=== PATIENT | male | born 1955 | race Caucasian/White ===

== ENCOUNTER 2017-12-06 08:39 | Outpatient (CLI) | payer MEDICAID, SELFPAY ==
[2017-12-06 09:18] LABS: HCT 42.8 % (40.0-50.0); HGB 14.6 g/dL (13.5-17.5); Mean Corp. HGB Concentration 34.1 g/dL (32.0-36.0); Mean Corpuscular Volume 96.6 fL (80-95); Mean Platelet Volume 10.4 fL (8.0-11.0); Platelet Count 156 x1000/uL (130-400); RBC 4.43 m/cumm (4.50-6.00); RBC Distribution Width 12.4 % (11.8-14.1); White Blood Cell Count 6.67 k/cumm (4.4-10.8)
[2017-12-06 10:47] LABS: Iron 230 ug/dL (50-175); Total Iron Binding Capacity 262 ug/dL (250-450); Transferrin Sat 88 % (20-55)
[2017-12-06 10:50] LABS: ALT 34 U/L (12-78); AST 33 U/L (15-37); Albumin 3.6 g/dL (3.4-5.0); Alkaline Phosphatase 68 U/L (46-116); Anion Gap 12.3 mmol/L (3-11); BUN 5 mg/dL (7-18); CO2 22.7 mmol/L (21.0-32.0); CREATININE 0.74 mg/dL (0.70-1.30); Calcium 8.4 mg/dL (8.5-10.1); Chloride 107 mmol/L (98-107); Cholesterol 136 mg/dL (50-200); Ferritin 111 ng/mL (8-388); Glucose 126 mg/dL (70-100); HDL Cholesterol 83 mg/dL (40-60); LDL CHOLESTEROL 48 mg/dL (<100); Sodium 142 mmol/L (136-145); TSH (W/Ref FT4) 1.62 uIU/mL (0.358-3.74); Total Protein 6.5 g/dL (6.4-8.2); Triglyceride 73 mg/dL (30-150)
[2017-12-07 09:28] LABS: PSA, Diagnostic 1.3 ng/ml (0-4.5)
== END 2017-12-06 08:59 ==
PROVIDERS: PCP Family Medicine; Visit Provider Family Medicine
DX: K74.69 Other cirrhosis of liver (principal); R63.4 Abnormal weight loss; E11.9 Type 2 diabetes mellitus without complications; I10 Essential (primary) hypertension; E83.119 Hemochromatosis, unspecified
CPT/HCPCS: 36415; 80053; 80061; 83721; 85027; 82728; 83540; 83550; 84153; 84443

== ENCOUNTER 2018-04-01 09:41 | Outpatient (CLI) | payer MEDICAID, SELFPAY ==
[2018-04-01 11:21] LABS: HCT 46.8 % (40.0-50.0); HGB 16.3 g/dL (13.5-17.5); Mean Corp. HGB Concentration 34.8 g/dL (32.0-36.0); Mean Corpuscular Volume 94.7 fL (80-95); Mean Platelet Volume 10.3 fL (8.0-11.0); Platelet Count 154 x1000/uL (130-400); RBC 4.94 m/cumm (4.50-6.00); RBC Distribution Width 12.8 % (11.8-14.1); White Blood Cell Count 6.26 k/cumm (4.4-10.8)
[2018-04-01 11:44] LABS: Ferritin 107 ng/mL (8-388)
== END 2018-04-01 10:01 ==
PROVIDERS: PCP Family Medicine; Visit Provider Family Medicine
DX: E83.119 Hemochromatosis, unspecified (principal)
CPT/HCPCS: 36415; 85027; 82728

== ENCOUNTER 2018-04-05 00:40 | Outpatient (RCR) | payer MEDICAID, SELFPAY | END 2018-04-25 23:59 | disposition home or self-care (01) | LOC: INF 00:40 | PROVIDERS: PCP Family Medicine; Visit Provider Family Medicine | DX: E83.118 Other hemochromatosis (principal) | CPT/HCPCS: 99195 ==

== ENCOUNTER 2018-04-26 10:26 | Outpatient (CLI) | payer MEDICAID, SELFPAY ==
[2018-04-26 15:29] LABS: HGB 16.1 g/dL (13.5-17.5); Mean Corpuscular Hemoglobin 33.4 pg (27.0-33.0); Mean Corpuscular Volume 95.4 fL (80-95); Mean Platelet Volume 10.4 fL (8.0-11.0); Platelet Count 170 x1000/uL (130-400); RBC 4.82 m/cumm (4.50-6.00); RBC Distribution Width 13.1 % (11.8-14.1); White Blood Cell Count 9.64 k/cumm (4.4-10.8)
[2018-04-26 17:13] LABS: Ferritin 81 ng/mL (8-388)
== END 2018-04-26 10:46 ==
PROVIDERS: PCP Family Medicine; Visit Provider Family Medicine
DX: E83.119 Hemochromatosis, unspecified (principal)
CPT/HCPCS: 36415; 85027; 82728

== ENCOUNTER 2018-05-23 10:18 | Outpatient (REF) | payer MEDICAID, SELFPAY ==
[2018-05-23 12:20] LABS: COMMENT (LAB VIEW ONLY) 64.64 mg/dL; Microalb ug/mg Crea 15.8 ug/mg Cr
== END 2018-05-23 10:38 ==
LOC: NCHCN 10:18
PROVIDERS: PCP Family Medicine; Visit Provider Family Medicine
DX: E11.9 Type 2 diabetes mellitus without complications (principal)
CPT/HCPCS: 82043; 82570

== ENCOUNTER 2018-06-07 01:31 | Outpatient (CLI) | payer MEDICAID, SELFPAY ==
--- NOTE | 2018-06-07 07:32 | DI.US_ITS ---
SYMPTOM/DIAGNOSIS: ANNUAL SCREENING FOR HEPATIC CANCER GIVEN CIRRHOSIS, K74.69 ABDOMEN ULTRASOUND: The liver again shows mildly increased echogenicity and mildly heterogeneous parenchyma. The liver surface is mildly nodular. No liver masses or biliary dilatation is seen. A few stones are seen in the region of the gallbladder neck. There is no abnormal gallbladder distension, wall thickening or sonographic Foreman's sign. A few tiny renal cysts are seen. There is no evidence of hydronephrosis or renal calcifications. The spleen is mildly enlarged at 13.5 cm. There is no ascites. The pancreas is unremarkable where visualized. The aorta is normal in diameter. IMPRESSION: Stable appearance of mild cirrhosis. Cholelithiasis.
== END 2018-06-07 01:51 ==
PROVIDERS: PCP Family Medicine; Visit Provider Family Medicine
DX: K74.69 Other cirrhosis of liver (principal); K80.20 Calculus of gallbladder without cholecystitis without obstruction; R16.1 Splenomegaly, not elsewhere classified; Z12.89 Encounter for screening for malignant neoplasm of other sites
CPT/HCPCS: 76700

== ENCOUNTER 2018-10-16 11:37 | Outpatient (CLI) | payer MEDICARE, SELFPAY ==
[2018-10-16 11:58] LABS: Abs Immature Grans 0.01 k/cumm (0.0-0.09); Absolute Basophil Count 0.03 k/cumm (0.0-0.2); Absolute Eosinophil Count 0.41 k/cumm (0.0-0.7); Absolute Lymphocyte Count 2.01 k/cumm (1.2-3.4); Absolute Monocyte Count 0.51 k/cumm (0.11-0.7); Basophils % 0.5; Eosinophils % 6.4; HGB 16.3 g/dL (13.5-17.5); Immature Grans % 0.2; Lymphocytes % 31.6; Mean Corp. HGB Concentration 35.4 g/dL (32.0-36.0); Mean Corpuscular Hemoglobin 33.6 pg (27.0-33.0); Mean Corpuscular Volume 94.8 fL (80-95); Mean Platelet Volume 10.3 fL (8.0-11.0); Neutrophils % 53.3; Platelet Count 147 x1000/uL (130-400); RBC 4.85 m/cumm (4.50-6.00); RBC Distribution Width 12.7 % (11.8-14.1); White Blood Cell Count 6.37 k/cumm (4.4-10.8)
[2018-10-16 12:16] LABS: Hemoglobin A1C 7.3 % (4.5-6.2)
[2018-10-16 12:31] LABS: Ferritin 97 ng/mL (8-388)
== END 2018-10-16 11:57 ==
PROVIDERS: PCP Family Medicine; Visit Provider Family Medicine
DX: E11.9 Type 2 diabetes mellitus without complications (principal); E83.118 Other hemochromatosis
CPT/HCPCS: 36415; 82728; 83036; 85025

== ENCOUNTER 2019-01-22 02:22 | Outpatient (CLI) | payer MEDICARE, SELFPAY ==
[2019-01-22 10:35] LABS: HCT 44.7 % (40.0-50.0); HGB 15.7 g/dL (13.5-17.5); Mean Corp. HGB Concentration 35.1 g/dL (32.0-36.0); Mean Corpuscular Hemoglobin 33.7 pg (27.0-33.0); Mean Corpuscular Volume 95.9 fL (80-95); Mean Platelet Volume 10.3 fL (8.0-11.0); Platelet Count 171 x1000/uL (130-400); RBC 4.66 m/cumm (4.50-6.00); RBC Distribution Width 12.3 % (11.8-14.1); White Blood Cell Count 7.12 k/cumm (4.4-10.8)
[2019-01-22 11:02] LABS: Ferritin 115 ng/mL (8-388)
[2019-01-22 11:16] LABS: Hemoglobin A1C 8.1 % (4.5-6.2)
== END 2019-01-22 02:42 ==
PROVIDERS: PCP Family Medicine; Visit Provider Family Medicine
DX: E11.9 Type 2 diabetes mellitus without complications (principal); E83.19 Other disorders of iron metabolism
CPT/HCPCS: 36415; 85027; 82728; 83036

== ENCOUNTER 2019-02-05 01:08 | Outpatient (CLI) | payer MEDICARE, SELFPAY ==
[2019-02-05 11:03] LABS: HCT 42.8 % (40.0-50.0); HGB 15.2 g/dL (13.5-17.5); Mean Corp. HGB Concentration 35.5 g/dL (32.0-36.0); Mean Corpuscular Volume 95.7 fL (80-95); Mean Platelet Volume 10.1 fL (8.0-11.0); Platelet Count 194 x1000/uL (130-400); RBC 4.47 m/cumm (4.50-6.00); RBC Distribution Width 12.6 % (11.8-14.1); White Blood Cell Count 6.66 k/cumm (4.4-10.8)
[2019-02-05 11:21] LABS: Ferritin 117 ng/mL (8-388)
== END 2019-02-05 01:28 ==
PROVIDERS: PCP Family Medicine; Visit Provider Family Medicine
DX: E83.19 Other disorders of iron metabolism (principal)
CPT/HCPCS: 36415; 85027; 82728

== ENCOUNTER 2019-02-10 01:52 | Outpatient (RCR) | payer MEDICARE, SELFPAY | END 2019-02-22 23:59 | disposition home or self-care (01) | LOC: INF 01:52 | PROVIDERS: PCP Family Medicine; Visit Provider Family Medicine | DX: E83.118 Other hemochromatosis (principal) | CPT/HCPCS: 99195 ==

== ENCOUNTER 2019-03-05 11:21 | Outpatient (CLI) | payer MEDICARE, SELFPAY ==
[2019-03-05 10:56] LABS: HCT 45.1 % (40.0-50.0); HGB 15.7 g/dL (13.5-17.5); Mean Corp. HGB Concentration 34.8 g/dL (32.0-36.0); Mean Corpuscular Hemoglobin 33.8 pg (27.0-33.0); Mean Platelet Volume 10.3 fL (8.0-11.0); Platelet Count 147 x1000/uL (130-400); RBC 4.65 m/cumm (4.50-6.00); RBC Distribution Width 12.1 % (11.8-14.1); White Blood Cell Count 7.02 k/cumm (4.4-10.8)
[2019-03-05 11:21] LABS: Ferritin 51 ng/mL (26-388)
== END 2019-03-05 11:41 ==
PROVIDERS: PCP Family Medicine; Visit Provider Family Medicine
DX: E83.19 Other disorders of iron metabolism (principal)
CPT/HCPCS: 36415; 85027; 82728

== ENCOUNTER 2019-10-17 21:37 | Outpatient (REF) | payer MEDICARE, SELFPAY, MEDICAID ==
[2019-10-17 19:24] LABS: HCT 45.2 % (40.0-50.0); HGB 15.6 g/dL (13.5-17.5); Mean Corp. HGB Concentration 34.5 g/dL (32.0-36.0); Mean Corpuscular Hemoglobin 32.9 pg (27.0-33.0); Mean Corpuscular Volume 95.4 fL (80-95); Mean Platelet Volume 10.7 fL (8.0-11.0); Platelet Count 188 x1000/uL (130-400); RBC 4.74 m/cumm (4.50-6.00); RBC Distribution Width 12.8 % (11.8-14.1); White Blood Cell Count 8.57 k/cumm (4.4-10.8)
[2019-10-17 19:48] LABS: ALT 36 U/L (16-63); AST 37 U/L (15-37); Albumin 4.1 g/dL (3.4-5.0); Alkaline Phosphatase 69 U/L (46-116); Anion Gap 16.7 mmol/L (3-11); BUN 8 mg/dL (7-18); Bilirubin, Total 1.6 mg/dL (0.2-1.0); CO2 20.3 mmol/L (21.0-32.0); CREATININE 0.64 mg/dL (0.70-1.30); Calcium 8.9 mg/dL (8.5-10.1); Chloride 102 mmol/L (98-107); Ferritin 73 ng/mL (26-388); Glucose 154 mg/dL (74-106); Potassium 4.2 mmol/L (3.5-5.1); Sodium 139 mmol/L (136-145); Total Protein 6.9 g/dL (6.4-8.2)
[2019-10-17 20:07] LABS: Hemoglobin A1C 6.3 % (3.8-5.6)
[2019-10-20 09:35] LABS: PSA, Screening 1.6 ng/mL (0.0-4.5)
== END 2019-10-17 21:57 ==
LOC: NCHCN 21:37
PROVIDERS: PCP Family Medicine; Visit Provider Family Medicine
DX: E11.9 Type 2 diabetes mellitus without complications (principal); R35.1 Nocturia; K74.69 Other cirrhosis of liver; E83.119 Hemochromatosis, unspecified; I10 Essential (primary) hypertension
CPT/HCPCS: 80053; 84153; 85027; 82728; 83036

== ENCOUNTER 2019-12-05 14:56 | Outpatient (CLI) | payer MEDICARE, SELFPAY, MEDICAID | END 2019-12-05 15:16 | PROVIDERS: PCP Family Medicine; Visit Provider Family Medicine | DX: R00.2 Palpitations (principal) | CPT/HCPCS: 93225 ==

== ENCOUNTER 2019-12-08 11:41 | Outpatient (CLI) | payer MEDICARE, SELFPAY, MEDICAID ==
--- NOTE | 2019-12-08 13:43 | W.HOLTRPT ---
Date of service: 12/08/19 Time of Service: 13:43 Holter Monitor Report Referring Provider:: Karen Indications:: Palps Holter Monitor Note: There is a 48-hour Holter monitor ordered for indication of palpitations. ?Patient was normal sinus rhythm for majority of the recording with an average heart rate of 75 bpm. ?There were 3 episodes of supraventricular tachycardia and rare PACs. ?There were 0 episodes of ventricular tachycardia and frequent (16%) PVCs. ?There were no episodes of atrial fibrillation no pauses greater than 3 seconds no evidence of high-grade heart block.
== END 2019-12-08 12:01 ==
LOC: NCHCN 11:53 → RT 11:55
PROVIDERS: PCP Family Medicine; Visit Provider Family Medicine
DX: R00.2 Palpitations (principal); I47.1 Supraventricular tachycardia; I49.1 Atrial premature depolarization; I49.3 Ventricular premature depolarization
CPT/HCPCS: 93227; 93226

== ENCOUNTER 2019-12-22 01:59 | Outpatient (CLI) | payer MEDICARE, SELFPAY ==
--- NOTE | 2019-12-22 | DI.US_ITS ---
EXAM: US ABDOMEN CLINICAL HISTORY: CIRRHOSIS,K74.69,ESOPHAGEAL VARICES,I85.00,HCC SCREEN,HEMOCHROMATOSIS, E83.119 TECHNIQUE: Ultrasound abdomen performed using standard protocol. COMPARISON: US US ABDOMEN from 06/07/2018 FINDINGS: LIVER: Normal size. Mildly coarse echotexture and mild nodular surface. No mass or biliary dilatati on. GALLBLADDER: Stones are noted in the gallbladder neck. No evidence of wall thickening. No pericholec ystic fluid identified. MORALES'S SIGN: Negative. BILIARY SYSTEM: No intrahepatic or extrahepatic biliary ductal dilation. KIDNEYS: Kidneys are symmetric in size. No evidence of renal calculi. No evidence of hydronephrosis. No renal mass or cyst identified. PANCREAS: Normal where visualized. SPLEEN: Enlarged at 14.1 cm. ABDOMINAL AORTA AND IVC: Visualized portions normal caliber. ASCITES: None seen. IMPRESSION: Stable mild cirrhotic changes and splenomegaly. No evidence of hepatic mass. DATA REPOSITORY:
== END 2019-12-22 02:19 ==
PROVIDERS: PCP Family Medicine; Visit Provider Family Medicine
DX: K74.69 Other cirrhosis of liver (principal); I85.00 Esophageal varices without bleeding; E83.119 Hemochromatosis, unspecified; R16.1 Splenomegaly, not elsewhere classified
CPT/HCPCS: 76700

== ENCOUNTER 2019-12-23 01:43 | Outpatient (CLI) | payer MEDICARE, SELFPAY ==
--- NOTE | 2019-12-23 | DI.US_ITS ---
APPROVED REPORT EXAM: Comprehensive 2D, Doppler, and color-flow Echocardiogram Patient Location: Out-Patient Plant And Maintenance Technician: Elizabeth Ye RDCS (AE) Indications: PVC, Hemochromatosis Other Information Study Quality: Adequate Conclusion Left Ventricle : The left ventricle is normal size. The left ventricular systolic function is normal. The left ventricular ejection fraction is within the normal range. There is normal left ventricular wall thickness. There is normal LV segmental wall motion. The left ventricular diastolic function is normal. LVEF is 55-60%. Right Ventricle : The right ventricle is normal size. The right ventricular systolic function is norm al. The RVSP is 27.5 mmHg. Atria : The left atrium size is normal. The right atrium size is normal. Valves: There are no hemodynamically significant valvular lesions. Great Vessels : Aortic root is mildly dilated. The ascending aorta is mildly dilated. Aortic arch is normal in caliber. IVC is normal in size and collapses >50% with inspiration. There is no evidence to suggest cardiac involvement of infiltrative disease. Please see the remainde r of study for further details. Wall motion Left Ventricle The left ventricle is normal size. The left ventricular systolic function is normal. The left ventric ular ejection fraction is within the normal range. There is normal left ventricular wall thickness. T here is normal LV segmental wall motion. The left ventricular diastolic function is normal. There is no ventricular septal defect visualized. There is discrete upper septal wall thickening. LVEF is 55-6 0%. Right Ventricle The right ventricle is normal size. The right ventricular systolic function is normal. The RVSP is 27 .5 mmHg. Atria The left atrium size is normal. The right atrium size is normal. The interatrial septum is intact wit h no evidence for an atrial septal defect. Aortic Valve The Aortic valve is sclerotic. Aortic valve is trileaflet. There is no aortic valvular stenosis. No a ortic regurgitation is present. Mitral Valve Mild mitral annular calcification. No evidence of mitral valve stenosis. Trace mitral regurgitation. Tricuspid Valve The tricuspid valve is normal in structure. There is no tricuspid valve stenosis. Trace tricuspid reg urgitation. Pulmonic Valve The pulmonary valve is normal in structure. There is no pulmonic valvular stenosis. There is no pulmo sarina valvular regurgitation. Great Vessels Aortic root is mildly dilated. The ascending aorta is mildly dilated. Aortic arch is normal in calibe r. IVC is normal in size and collapses >50% with inspiration. Pericardium There is no pericardial effusion. 2D Dimensions IVSD d PLAX 1.04 cm M: 0.6-1.2 LV Vol A2C d MOD 117.4 mL LVPW d PLAX 1.04 cm M: 0.6 - 1.2 LV Vol A4C d MOD 119.3 mL LVID d PLAX 4.69 cm M: 4.2 - 5.8 LA vol/ BSA A2C s A-L 34.5 mL/m2 LVDs 3.30 cm M: 2.5 - 4.0 LA vol/ BSA A4C s A-L 32.5 mL/m2 Ao Root d 3.91 cm M: 3.1 - 3.7 LA Vol/ BSA Biplane s A-L 34.0 mL/m2 RA Area A4C 18.36 cm2 LA Area A4C s MOD 21.95 cm2 RA Vol/ BSA A4C s A-L 26.9 mL/m2 LA Area A2C s MOD 22.29 cm2 Ao Asc Diam d 3.84 cm M: 2.6 - 3.4 LV EF A4C MOD 58.5 % LV EF Teichholz 56.3 % LV EF A2C MOD 59.8 % LVEF ([employer]) 57.70 % M: 52 - 72 LV EF Biplane MOD 57.7 % LV Volume 89.10 mL M: 62 - 150 SV 68.96 mL LV Volume Index 43.89 mL/m2 M: 34 - 74 SV Index 33.85 mL/m2 LV Vol Biplane MOD 119.5 mL FS 29.35 % M-Mode TAPSE 2.65 cm (M/F) >1.7 LV Diastology MV E' medial 0.079 (>0.07 m/s) E/A Ratio 0.9 LV E/e MED 9.20 (<14) MV E Vmax 0.73 (0.4-1.3 m/s) MV E' lateral 0.127 (>0.1 m/s) MV A Vmax 0.80 (0.4-1.3 m/s) LV E/e LAT 5.75 (<14) MV E/A Ratio 0.88 MV E/E' medial 9.22 MV E/E' lateral 5.76 Aortic Valve LVOT Area 3.88 cm2 AoV Area Vmax 2.93 cm2 LVOT Vmax 1.23 m/s AoV Area/ BSA (Vmax) 1.44 cm2/m2 LVOT Mean Meir. 0.75 m/s CINDY Mean Meir. 2.76 cm2 LVOT Peak Grad 6.1 mmHg CINDY Mean Meir. Index 1.35 cm2/m2 LVOT Mean Grad 2.7 mmHg LVOT VTI 0.250 m LVOT Diam s 2.20 cm AoV Vmax 1.63 m/s Velocity Ratio 0.75 AoV Mean Meir. 1.06 m/s AoV Peak Grad 10.6 mmHg LVOT SV 96.79 mL AoV Mean Grad 5.2 mmHg AoV VTI 0.307 m AoV Area VTI 3.16 cm2 AoV Area/ BSA (VTI) 1.55 cm/m2 Mitral Valve MV DT 325 (160-240 msec) MV PHT 94 msec MV Area PHT 2.34 cm2 Pulmonary Valve PV Vmax 1.09 (0.5-1.5 m/s) RVOT Peak Gr. 2.00 mmHg PV Peak Grad 4.7 mmHg RVOT Mean Gr. 1.00 mmHg PV Mean Grad 2.4 mmHg RVOT VTI 0.148 m PV VTI 0.235 m RVOT Vmax 0.71 m/s Tricuspid Valve TR Peak Grad 24.5 mmHg TR Vmax 2.48 m/s RA Pressure 3.00 mmHg RVSP (TR) 27.5 mmHg
== END 2019-12-23 02:03 ==
PROVIDERS: PCP Family Medicine; Visit Provider Family Medicine
DX: I49.3 Ventricular premature depolarization (principal); I77.810 Thoracic aortic ectasia
CPT/HCPCS: 93306

== ENCOUNTER 2020-01-23 19:55 | Outpatient (REF) | payer MEDICARE, SELFPAY ==
[2020-01-23 19:57] LABS: HCT 44.2 % (40.0-50.0); MCH 33.3 pg (27.0-33.0); MCHC 33.9 % (32.0-36.0); MCV 98.2 fL (80-95); MPV 10.8 fL (8.0-11.0); Platelet Count 172 10^3/uL (130-400); RDW 12.5 % (11.8-14.1); WBC 6.63 10^3/uL (4.4-10.8)
[2020-01-23 20:32] LABS: Ferritin 84 ng/mL (26-388)
[2020-01-23 21:34] LABS: COMMENT (LAB VIEW ONLY) 128.98 mg/dL
== END 2020-01-23 20:15 ==
LOC: NCHCN 19:55
PROVIDERS: PCP Family Medicine; Visit Provider Family Medicine
DX: E83.119 Hemochromatosis, unspecified (principal); E11.9 Type 2 diabetes mellitus without complications
CPT/HCPCS: 85027; 82043; 82570; 82728

== ENCOUNTER → 2020-02-03 14:00 | Outpatient (BNVA) | payer MEDICARE, SELFPAY | PROVIDERS: PCP Family Medicine; Referring Provider Family Medicine; Visit Provider Internal Medicine Cardiovascular Disease | DX: I10 Essential (primary) hypertension (principal); E11.9 Type 2 diabetes mellitus without complications; E83.119 Hemochromatosis, unspecified; I49.3 Ventricular premature depolarization; R07.9 Chest pain, unspecified; Z79.4 Long term (current) use of insulin | CPT/HCPCS: 99203; 99214 ==

== ENCOUNTER → 2020-02-18 08:59 | Outpatient (BNVA) | payer MEDICARE, SELFPAY | PROVIDERS: PCP Family Medicine; Referring Provider Family Medicine; Visit Provider Internal Medicine Cardiovascular Disease | DX: R69 Illness, unspecified (principal) ==

== ENCOUNTER 2020-05-07 17:36 | Outpatient (REF) | payer MEDICARE, SELFPAY ==
[2020-05-07 19:23] LABS: HCT 44.6 % (40.0-50.0); HGB 15.3 g/dL (13.5-17.5); MCH 33.2 pg (27.0-33.0); MCHC 34.3 % (32.0-36.0); MCV 96.7 fL (80-95); MPV 10.7 fL (8.0-11.0); Platelet Count 187 10^3/uL (130-400); RBC 4.61 10^6/uL (4.36-5.78); RDW 12.3 % (11.8-14.1); RDW-SD 43.7 fL; WBC 8.38 10^3/uL (4.4-10.8)
[2020-05-07 20:01] LABS: Ferritin 83 ng/mL (26-388)
[2020-05-07 20:23] LABS: Hemoglobin A1C 6.7 % (<5.7)
== END 2020-05-07 17:37 | disposition home or self-care (01) ==
LOC: NCHCN 17:36
PROVIDERS: PCP Family Medicine; Visit Provider Family Medicine
DX: E11.9 Type 2 diabetes mellitus without complications (principal); E83.119 Hemochromatosis, unspecified
CPT/HCPCS: 85027; 82728; 83036

== ENCOUNTER 2020-08-17 15:04 | Outpatient (REF) | payer MEDICARE, SELFPAY ==
[2020-08-17 15:50] LABS: HCT 46.1 % (40.0-50.0); HGB 15.9 g/dL (13.5-17.5); MCH 32.8 pg (27.0-33.0); MCHC 34.5 % (32.0-36.0); MCV 95.1 fL (80-95); MPV 10.9 fL (8.0-11.0); Platelet Count 165 10^3/uL (130-400); RBC 4.85 10^6/uL (4.36-5.78); RDW 11.9 % (11.8-14.1); WBC 7.34 10^3/uL (4.4-10.8)
[2020-08-17 15:56] LABS: ALT 46 U/L (16-63); AST 38 U/L (15-37); Albumin 3.8 g/dL (3.4-5.0); Alkaline Phosphatase 79 U/L (46-116); Anion Gap 7.6 mmol/L (3-11); BUN 8 mg/dL (7-18); Bilirubin, Total 1.8 mg/dL (0.2-1.0); CO2 28.4 mmol/L (21.0-32.0); CREATININE 0.8 mg/dL (0.70-1.30); Calcium 8.9 mg/dL (8.5-10.1); Chloride 107 mmol/L (98-107); Glucose 194 mg/dL (74-106); Potassium 4.3 mmol/L (3.5-5.1); Sodium 143 mmol/L (136-145); Total Protein 6.6 g/dL (6.4-8.2)
[2020-08-17 16:02] LABS: INR 1.2 (0.9-1.1); Prothrombin Time 12.2 sec (9.3-11.0)
[2020-08-17 16:58] LABS: Hemoglobin A1C 6.7 % (<5.7)
[2020-08-18 08:59] LABS: AFP Tumor Marker <2.5 ng/mL (<8.1)
[2020-08-18 09:22] LABS: HBs Antibody, Quant 351.2 mIU/mL (See Note); Hepatitis B Surface Ab Positive (See Note)
[2020-08-18 10:31] LABS: Hep A Total Ab w Rflx IgM Positive (Negative)
[2020-08-18 11:32] LABS: Hep A Antibody IgM Negative (Negative)
[2020-08-18 14:31] LABS: Ferritin 93 ng/mL (26-388)
== END 2020-08-17 15:05 | disposition home or self-care (01) ==
LOC: NCHCN 15:04
PROVIDERS: PCP Family Medicine; Visit Provider Family Medicine
DX: E83.119 Hemochromatosis, unspecified (principal); K74.69 Other cirrhosis of liver; E11.9 Type 2 diabetes mellitus without complications
CPT/HCPCS: 80053; 85027; 86706; 86709; 82105; 82728; 83036; 85610

== ENCOUNTER 2020-11-15 16:04 | Outpatient (REF) | payer MEDICARE, SELFPAY ==
[2020-11-15 20:45] LABS: HCT 46.3 % (40.0-50.0); HGB 15.9 g/dL (13.5-17.5); MCH 32.4 pg (27.0-33.0); MCHC 34.3 % (32.0-36.0); MCV 94.5 fL (80-95); MPV 10.8 fL (8.0-11.0); Platelet Count 193 10^3/uL (130-400); RDW 12.3 % (11.8-14.1); RDW-SD 42.4 fL; WBC 9.57 10^3/uL (4.4-10.8)
[2020-11-15 21:09] LABS: ALT 42 U/L (16-63); AST 44 U/L (15-37); Albumin 4.1 g/dL (3.4-5.0); Alkaline Phosphatase 76 U/L (46-116); Anion Gap 15.2 mmol/L (3-11); BUN 7 mg/dL (7-18); Bilirubin, Total 1.5 mg/dL (0.2-1.0); CO2 21.8 mmol/L (21.0-32.0); CREATININE 0.8 mg/dL (0.70-1.30); Calcium 9.1 mg/dL (8.5-10.1); Chloride 104 mmol/L (98-107); Ferritin 102 ng/mL (26-388); Glucose 196 mg/dL (74-106); Potassium 4.4 mmol/L (3.5-5.1); Sodium 141 mmol/L (136-145)
== END 2020-11-15 16:05 | disposition home or self-care (01) ==
LOC: NCHCN 16:04
PROVIDERS: PCP Family Medicine; Visit Provider Family Medicine
DX: E83.119 Hemochromatosis, unspecified (principal)
CPT/HCPCS: 80053; 85027; 82728

== ENCOUNTER 2021-03-09 15:58 | Outpatient (REF) | payer MEDICARE, MEDICAID, SELFPAY ==
[2021-03-09 15:31] LABS: HCT 44.2 % (40.0-50.0); HGB 15.1 g/dL (13.5-17.5); MCH 32.2 pg (27.0-33.0); MCHC 34.2 % (32.0-36.0); MCV 94.2 fL (80-95); MPV 10.6 fL (8.0-11.0); Platelet Count 176 10^3/uL (130-400); RBC 4.69 10^6/uL (4.36-5.78); RDW 12.3 % (11.8-14.1); RDW-SD 42.8 fL; WBC 7.64 10^3/uL (4.4-10.8)
[2021-03-09 15:56] LABS: Ferritin 80 ng/mL (26-388)
[2021-03-12 15:29] LABS: Testosterone, Free 9.44 ng/dL (3.47-13.0); Testosterone, Total 337 ng/dL (240-950)
== END 2021-03-09 15:59 | disposition home or self-care (01) ==
LOC: NCHCN 15:58
PROVIDERS: PCP Family Medicine; Visit Provider Family Medicine
DX: E83.118 Other hemochromatosis (principal); R68.82 Decreased libido
CPT/HCPCS: 84402; 84403; 85027; 82728

== ENCOUNTER 2021-07-08 18:40 | Outpatient (REF) | payer MEDICARE, SELFPAY ==
[2021-07-08 21:29] LABS: COMMENT (LAB VIEW ONLY) 140.04 mg/dL; Microalb ug/mg Crea 11.9 ug/mg Cr
== END 2021-07-08 18:41 | disposition home or self-care (01) ==
LOC: NCHCN 18:40
PROVIDERS: PCP Family Medicine; Visit Provider Family Medicine
DX: E11.9 Type 2 diabetes mellitus without complications (principal)
CPT/HCPCS: 82043; 82570

== ENCOUNTER → 2021-07-15 00:34 | Outpatient (CLI) | payer MEDICARE, SELFPAY ==
--- NOTE | 2021-07-15 | DI.US_ITS ---
Exam(s) US ABDOMEN EXAM: US ABDOMEN CLINICAL HISTORY: SCREENING FOR HCC,NON ALCOHOLIC CIRRHOSIS,K74.69 TECHNIQUE: Ultrasound abdomen performed using standard protocol. COMPARISON: US US ABDOMEN from 12/22/2019 FINDINGS: LIVER: Coarsened liver echotexture and diffusely increased echogenicity. No focal mass.. No focal l iver lesions are seen.. GALLBLADDER: 1.4 centimeter stone in the gallbladder neck.. No evidence of wall thickening. No peric holecystic fluid identified. MORALES'S SIGN: Negative. BILIARY SYSTEM: No intrahepatic or extrahepatic biliary ductal dilation. KIDNEYS: Kidneys are symmetric in size. No evidence of renal calculi. No evidence of hydronephrosis. No renal mass or cyst identified. PANCREAS: Normal where visualized. SPLEEN: Borderline splenomegaly. ABDOMINAL AORTA AND IVC: Visualized portions normal caliber. ASCITES: None seen. IMPRESSION: Coarse liver echotexture. No focal mass. Cholelithiasis without evidence of cholecystitis.. DATA REPOSITORY:
== END ==
PROVIDERS: PCP Family Medicine; Visit Provider Family Medicine
DX: K74.69 Other cirrhosis of liver (principal); K80.20 Calculus of gallbladder without cholecystitis without obstruction; R16.1 Splenomegaly, not elsewhere classified
CPT/HCPCS: 76700

== ENCOUNTER 2021-07-19 05:45 | Outpatient (CLI) | payer MEDICARE, SELFPAY ==
[2021-07-19 14:08] LABS: HCT 46.4 % (40.0-50.0); MCHC 34.5 % (32.0-36.0); MCV 95.7 fL (80-95); MPV 9.9 fL (8.0-11.0); Platelet Count 185 10^3/uL (130-400); RBC 4.85 10^6/uL (4.36-5.78); RDW 12.6 % (11.8-14.1); RDW-SD 44.9 fL; WBC 8.75 10^3/uL (4.4-10.8)
[2021-07-19 14:22] LABS: INR 1.2 (0.9-1.1); Prothrombin Time 11.6 sec (9.3-11.0)
[2021-07-19 15:37] LABS: Iron 177 ug/dL (65-175)
[2021-07-19 15:51] LABS: ALT 35 U/L (16-63); AST 32 U/L (15-37); Alkaline Phosphatase 73 U/L (46-116); Anion Gap 12.5 mmol/L (3-11); BUN 8 mg/dL (7-18); Bilirubin, Total 1.4 mg/dL (0.2-1.0); CO2 23.5 mmol/L (21.0-32.0); CREATININE 0.8 mg/dL (0.70-1.30); Chloride 105 mmol/L (98-107); Ferritin 109 ng/mL (26-388); Glucose 141 mg/dL (74-106); Potassium 4.8 mmol/L (3.5-5.1); Sodium 141 mmol/L (136-145); Total Protein 6.9 g/dL (6.4-8.2)
[2021-07-20 11:03] LABS: AFP Tumor Marker <2.5 ng/mL (<8.1)
[2021-07-20 12:50] LABS: Hep A Total Ab w Rflx IgM Positive (Negative)
[2021-07-20 12:53] LABS: Hepatitis B Surface Ag Negative (Negative)
[2021-07-20 14:05] LABS: Hep A Antibody IgM Negative (Negative)
== END 2021-07-19 05:46 | disposition home or self-care (01) ==
LOC: LBO 05:45
PROVIDERS: PCP Family Medicine; Visit Provider Family Medicine
DX: K74.69 Other cirrhosis of liver (principal); E83.119 Hemochromatosis, unspecified
CPT/HCPCS: 36415; 80053; 85027; 86709; 87340; 82105; 82728; 83540; 85610

== ENCOUNTER 2021-07-27 01:07 | Outpatient (RCR) | payer MEDICARE, SELFPAY ==
[2021-07-27] MEDS: Normal Saline Flush 10 ML SYR IVP (14:11)
== END 2021-08-23 23:59 | disposition home or self-care (01) ==
LOC: INF 01:07
PROVIDERS: PCP Family Medicine; Visit Provider Family Medicine
DX: E83.119 Hemochromatosis, unspecified (principal)
CPT/HCPCS: 99195

== ENCOUNTER 2021-08-11 03:51 | Outpatient (CLI) | payer MEDICARE, SELFPAY ==
[2021-08-11 14:25] LABS: HCT 44.1 % (40.0-50.0); HGB 14.8 g/dL (13.5-17.5); MCH 32.9 pg (27.0-33.0); MCHC 33.6 % (32.0-36.0); MCV 98 fL (80-95); MPV 9.8 fL (8.0-11.0); Platelet Count 171 10^3/uL (130-400); RDW 13.2 % (11.8-14.1); RDW-SD 47.1 fL; WBC 9.42 10^3/uL (4.4-10.8)
[2021-08-11 15:39] LABS: Ferritin 83 ng/mL (26-388)
== END 2021-08-11 03:52 | disposition home or self-care (01) ==
LOC: LBO 03:51
PROVIDERS: PCP Family Medicine; Visit Provider Family Medicine
DX: K74.69 Other cirrhosis of liver (principal); E83.119 Hemochromatosis, unspecified
CPT/HCPCS: 36415; 80053; 85027; 86706; 86709; 82105; 82728; 83540; 85610

== ENCOUNTER 2021-11-24 13:53 | Outpatient (REF) | payer MEDICARE, SELFPAY ==
[2021-11-24 16:25] LABS: HCT 42.3 % (40.0-50.0); HGB 14.8 g/dL (13.5-17.5); MCH 32.8 pg (27.0-33.0); MCV 94 fL (80-95); MPV 11.1 fL (8.0-11.0); Platelet Count 178 10^3/uL (130-400); RBC 4.51 10^6/uL (4.36-5.78); RDW 12.4 % (11.8-14.1); RDW-SD 43.1 fL; WBC 6.86 10^3/uL (4.4-10.8)
[2021-11-24 16:54] LABS: Ferritin 108 ng/mL (26-388)
== END 2021-11-24 13:54 | disposition home or self-care (01) ==
LOC: NCHCN 13:53
PROVIDERS: PCP Family Medicine; Visit Provider Family Medicine
DX: E83.119 Hemochromatosis, unspecified (principal); E11.9 Type 2 diabetes mellitus without complications
CPT/HCPCS: 85027; 82728; 83036

== ENCOUNTER 2022-02-28 13:08 | Outpatient (REF) | payer MEDICARE, SELFPAY ==
[2022-02-28 18:51] LABS: HGB 14.8 g/dL (13.5-17.5); MCH 32.7 pg (27.0-33.0); MCHC 33.6 % (32.0-36.0); MCV 97 fL (80-95); MPV 10.7 fL (8.0-11.0); Platelet Count 181 10^3/uL (130-400); RBC 4.53 10^6/uL (4.36-5.78); RDW 12.9 % (11.8-14.1); RDW-SD 45.6 fL; WBC 7.16 10^3/uL (4.4-10.8)
[2022-02-28 19:13] LABS: Hemoglobin A1C 6.2 % (<5.7)
[2022-02-28 19:21] LABS: ALT 28 U/L (16-63); AST 33 U/L (15-37); Albumin 3.8 g/dL (3.4-5.0); Alkaline Phosphatase 64 U/L (46-116); Anion Gap 10.3 mmol/L (3-11); BUN 7 mg/dL (7-18); Bilirubin, Total 1.3 mg/dL (0.2-1.0); CO2 27.7 mmol/L (21.0-32.0); CREATININE 0.6 mg/dL (0.70-1.30); Calcium 8.9 mg/dL (8.5-10.1); Chloride 106 mmol/L (98-107); Estimated GFR 105.15 (mL/min/1.73m2); Ferritin 73 ng/mL (26-388); Glucose 53 mg/dL (74-106); Potassium 4.2 mmol/L (3.5-5.1); Sodium 144 mmol/L (136-145); Total Protein 6.7 g/dL (6.4-8.2)
== END 2022-02-28 13:09 | disposition home or self-care (01) ==
LOC: NCHCN 13:08
PROVIDERS: PCP Family Medicine; Visit Provider Family Medicine
DX: E83.119 Hemochromatosis, unspecified (principal); E11.9 Type 2 diabetes mellitus without complications
CPT/HCPCS: 80053; 85027; 82728; 83036

== ENCOUNTER 2022-04-26 15:11 | Outpatient (REF) | payer MEDICARE, SELFPAY ==
[2022-04-26 16:11] LABS: COMMENT (LAB VIEW ONLY) 112.79 mg/dL; Microalb ug/mg Crea 8.6 ug/mg Cr
== END 2022-04-26 15:12 | disposition home or self-care (01) ==
LOC: NCHCN 15:11
PROVIDERS: PCP Family Medicine; Visit Provider Family Medicine
DX: E11.9 Type 2 diabetes mellitus without complications (principal)
CPT/HCPCS: 82043; 82570

== ENCOUNTER 2022-07-26 16:52 | Outpatient (REF) | payer MEDICARE, SELFPAY ==
[2022-07-26 20:32] LABS: HCT 45.5 % (40.0-50.0); HGB 15.7 g/dL (13.5-17.5); MCH 32.8 pg (27.0-33.0); MCHC 34.5 % (32.0-36.0); MCV 95 fL (80-95); MPV 10.7 fL (8.0-11.0); Platelet Count 180 10^3/uL (130-400); RBC 4.78 10^6/uL (4.36-5.78); RDW 12.3 % (11.8-14.1); RDW-SD 43.6 fL; WBC 8.05 10^3/uL (4.4-10.8)
[2022-07-26 20:47] LABS: Hemoglobin A1C 6.2 % (<5.7)
[2022-07-26 21:00] LABS: ALT 45 U/L (16-63); AST 39 U/L (15-37); Alkaline Phosphatase 86 U/L (46-116); Anion Gap 13.9 mmol/L (3-11); BUN 9 mg/dL (7-18); Bilirubin, Total 2.2 mg/dL (0.2-1.0); CO2 23.1 mmol/L (21.0-32.0); CREATININE 0.8 mg/dL (0.70-1.30); Calcium 9.8 mg/dL (8.5-10.1); Calculated LDL 29 mg/dL (<100); Chloride 105 mmol/L (98-107); Cholesterol 130 mg/dL (<200); Ferritin 91 ng/mL (26-388); Glucose 175 mg/dL (74-106); HDL Cholesterol 90 mg/dL (40-60); Potassium 4.2 mmol/L (3.5-5.1); Sodium 142 mmol/L (136-145); Total Protein 7.1 g/dL (6.4-8.2); Triglyceride 57 mg/dL (<150)
[2022-07-28 10:31] LABS: AFP Tumor Marker <2.5 ng/mL (<8.1)
== END 2022-07-26 16:53 | disposition home or self-care (01) ==
LOC: NCHCN 16:52
PROVIDERS: PCP Family Medicine; Visit Provider Family Medicine
DX: I10 Essential (primary) hypertension; K74.69 Other cirrhosis of liver; E11.9 Type 2 diabetes mellitus without complications
CPT/HCPCS: 80053; 80061; 85027; 82105; 82728; 83036

== ENCOUNTER 2022-09-15 00:56 | Emergency (ER) | payer MEDICARE, SELFPAY ==
[2022-09-15] VITALS (92 sets, daily range): BP systolic 94–142; BP diastolic 54–81; PULSE 78–144; RESP 11–29; TEMP 36.6; O2SAT 89–98
--- NOTE | 2022-09-15 00:45 | RT.EKG_ITS ---
APPROVED REPORT Exam: Resting ECG Reason for Exam: SoB Patient Location: E HR:133 bpm ECG Measurements Heart Rate 133 AXIS NM [id number] P [id number] QRSd 90 QRS 35 QT 339 T -33 QTc 505 Conclusion Atrial fibrillation...? atrial activity Prolonged QT interval...QTc >500mS PHysician: no stemi
[2022-09-15] MEDS: DEXTROSE 5%-0.45% SALINE 1,000 ML 125 ML IV (01:10)
[2022-09-15] MEDS: Normal Saline 1,000 ML 1000 ML IV (01:10)
--- NOTE | 2022-09-15 01:14 | ED.GENADUL_ITS ---
Discharge Plan Disposition Patient Disposition: Home Discharge Details Clinical Impression: Hypoglycemia, Acute hypokalemia, Atrial fibrillation with RVR Primary Care Provider: Stefani Jones ED Provider: Jamal Montgomery Home Meds and New Rx's Prescriptions: New dabigatran etexilate [Pradaxa] 150 mg capsule 150 mg PO BID Qty: 60 0RF metoprolol succinate 25 mg capsule,sprinkle,ER 24hr 25 mg PO DAILY Qty: 30 0RF potassium chloride 40 mEq/15 mL liquid 20 meq PO DAILY 5 Days Qty: 37.5 0RF No Action Lantus Solostar U-100 Insulin 100 unit/mL (3 mL) insulin pen 1 unit subcut QPM metformin 500 MG tablet 500 mg PO TID glipizide [Glucotrol XL] 10 MG tablet extended release 24hr 10 mg PO DAILY omeprazole 40 MG capsule,delayed release(DR/EC) 40 mg PO DAILY triamcinolone acetonide 15 GM cream 15 gm Topical BID PRN (DME) lancets 1 EACH misc 1 ea Miscellaneous BID TEST STRIPS Topical BID (DME) arm brace [Wrist Brace Medium] 1 EACH misc 1 ea Miscellaneous HS Qty: 2 Rx Instructions: bilateral Carpal tunnel splints/braces to be worn while sleeping and during aggravating activities cyclosporine [Restasis] 1 EACH dropperette 1 drp OU BID lisinopril 20 mg tablet 20 mg PO DAILY amlodipine 2.5 mg tablet 2.5 mg PO DAILY acetaminophen [Tylenol] 325 MG tablet 650 mg PO Q6H PRN PRNQty: 90 0RF oxycodone 5 MG tablet 2.5 - 5 mg PO Q6H PRN PRN (Reason: Pain) Qty: 10 0RF ibuprofen 400 MG tablet 400 mg PO Q6H PRN PRNQty: 40 0RF Discharge Instructions Instructions: A-fib (Atrial Fibrillation) (ED), Hypokalemia (ED) Additional Instructions: At this time your atrial fibrillation has resolved. However cardiology recommends starting a medication to help prevent this in the future called metoprolol. This has been sent to your pharmacy. Please take this as directed. If you notice that you become lightheaded or have decreased energy you may need to cut down on the dosing for your other blood pressure medications. Additionally as we discussed together there is a risk of blood clots associated with your atrial fibrillation. Because of your risk factors cardiology does recommend starting you on an anticoagulant. A prescription for Pradaxa has been sent to your pharmacy, and this will be covered by your insurance per our records. Please take this as directed. Your potassium was slightly low today, this has been corrected with oral and IV potassium. We have also sent a prescription for a few more days of potassium to help get it back to a normal level. Please continue to eat potassium rich foods like legumes, avocados, and bananas. It is critically important that you follow-up closely with your primary care provider for reassessment, additionally because of your hemochromatosis and the risk of changes that this can cause on your heart you do need a formal echocardiogram of your heart. Please follow-up closely with your PCP for further discussion of this and scheduling. If you notice any worsening of your symptoms, or any new symptoms such as vomiting, diarrhea, fever, chills, shortness of breath, chest pain, numbness, we akness, or fainting , please return immediately to the emergency department for reevaluation. Please follow up with your primary care provider as soon as possible for reassessment and reevaluation. As always, it was a pleasure participating in your medical care today. Referrals: Bonnie Omalley MD [[facility] STAFF PHYSICIAN] - Stefani Jones MD [Primary Care Provider] - Medical Decision Making This is a very pleasant 67-year-old male with past medical history of hemochromatosis, diabetes mellitus, glipizide, metformin, and 40 units of Lantus per night, hypertension, who presents today for an episode of unresponsiveness. Family states that they found him in bed Was seen and unresponsive with eyes open. They tried to wake him but they could not. EMS arrived and noted that his blood sugar was in the 30s. He was given a sugar agents, and he was diffusely diaphoretic. EMS noted elevated heart rate in the 130s to 150s and continued to show atrial fibrillation. Patient has no known history of atrial fibrillation. Patient was brought to the ER for further assessment. Currently the patient states he feels well and is back to his baseline. He denies any chest pain shortness of breath, headache, numbness, tingling, dizziness. He denies any having any history of atrial fibrillation. He denies manic or missing any of his medication. He takes his glipizide in the afternoon. He did not take it later than normal. He did not do anything extra units of insulin is recollection. He continued drinking some alcohol this evening, slightly more than normal. He does state that he feels dehydrated and did not drink much throughout the day otherwise. No other complaints at this time. No other modifying factors. Exam demonstrates well-appearing male, notably dry mucous membranes. No chest pain. No calf tenderness. No recent long trips surgeries or procedures. Low likelihood for blood clots. Patient's blood sugars now in the 80s. We will give food and D5 half-normal saline. We will give a fluid bolus of 1 L of normal saline as well. I do feel that dehydration is certainly a component of his current symptomatology. That being said I am uncertain as to the cause of his initial hypoglycemia. It may have been a combination of the alcohol with his glipizide and Lantus. He denies taking any extra of his medications or taking it at the wrong time. Additionally his atrial fibrillation may be related to holiday heart secondary to the alcohol, but also potential dehydration and his hemochromatosis. Will evaluate for electrolyte abnormalities, cardiac strain, monitor closely and reassess. 1:50 AM Patient's potassium is low at 2.8. We will send for magnesium level. We will give him 40 of oral potassium and transition the D5 to a D5 with potassium. We will continue to gently rehydrate, we are still waiting on the D-dimer. Troponin has returned normal. EKG does show atrial fibrillation with no evidence of STEMI. 7:13 AM Patient's potassium was replaced with IV and oral potassium. Blood sugar after extended observation. Remains notably stable. Laboratory work-up demonstrates a negative initial troponin and a negative repeat troponin. Magnesium was slightly low and this was corrected. Patient feels well and has remained in sinus rhythm for the last few hours. Suspect electrolyte disturbances and alcohol were the likely cause of his atrial fibrillation at this time. We did contact [facility] cardiology and I discussed the case with Dr. Rosario, she does recommend anticoagulation based on his [id number] 2 score of 3, as well as metoprolol for treatment/prevention. Patient will be started on Pradaxa as his insurance does not cover Eliquis. We will also start the patient on daily dose of long-acting 25 mg metoprolol. I discussed all of this with his as well, and she agrees with the plan. We will schedule outpatient follow-up with his PCP and cardiology. We do recommend outpatient echo for further evaluation. I have extensively reviewed the treatment plan and discharge instructions with the patient and their family. I have addressed all patient concerns at this time. The patient and family was made aware of what symptoms to monitor for that would warrant a return to the emergency department. Discussed the plan with the patient and family, they demonstrate verbal understanding and agreement with our assessment and plan at this time. The documentation in this chart was dictated using [employer] dictation software. Please excuse any dictation errors. HPI General Date/Time Provider Initiated Documentation: 09/15/22 00:56 . HPI Narrative: This is a very pleasant 67-year-old male with past medical history of hemochromatosis, diabetes mellitus, glipizide, metformin, and 40 units of Lantus per night, hypertension, who presents today for an episode of unresponsiveness. Family states that they found him in bed Was seen and unresponsive with eyes open. They tried to wake him but they could not. EMS arrived and noted that his blood sugar was in the 30s. He was given a sugar agents, and he was diffusely diaphoretic. EMS noted elevated heart rate in the 130s to 150s and continued to show atrial fibrillation. Patient has no known history of atrial fibrillation. Patient was brought to the ER for further assessment. Currently the patient states he feels well and is back to his baseline. He denies any chest pain shortness of breath, headache, numbness, tingling, dizziness. He denies any having any history of atrial fibrillation. He denies manic or missing any of his medication. He takes his glipizide in the afternoon. He did not take it later than normal. He did not do anything extra units of insulin is recollection. He continued drinking some alcohol this evening, slightly more than normal. He does state that he feels dehydrated and did not drink much throughout the day otherwise. No other complaints at this time. No other modifying factors. Related Data Home Medications Medication Instructions Recorded Confirmed Test Strips topical BID 03/29/15 glipizide 10 mg tablet, extended 10 mg PO DAILY 03/29/15 02/03/20 release 24 hr (Glucotrol XL) lancets 30 gauge 03/29/15 metformin 500 mg tablet 500 mg PO TID 03/29/15 02/03/20 omeprazole 40 mg capsule,delayed 40 mg PO DAILY 03/29/15 10/11/17 release triamcinolone acetonide 0.1 % 15 gm topical BID PRN 03/29/15 10/11/17 topical cream arm brace (Wrist Brace Medium) #2 ea 04/15/15 cyclosporine 0.05 % eye drops in a 1 drp OU BID 08/02/17 10/11/17 dropperette (Restasis) acetaminophen 325 mg tablet 650 mg PO Q6H PRN PRN ##90 10/11/17 (Tylenol) ibuprofen 400 mg tablet 400 mg PO Q6H PRN PRN ##40 10/11/17 oxycodone 5 mg tablet 2.5 - 5 mg PO Q6H PRN PRN Pain #10 10/11/17 02/03/20 tabs amlodipine 2.5 mg tablet 2.5 mg PO DAILY 12/16/19 02/03/20 lisinopril 20 mg tablet 20 mg PO DAILY 12/16/19 02/03/20 insulin glargine 100 unit/mL (3 1 unit subcut QPM 02/03/20 02/03/20 mL) subcutaneous pen (Lantus Solostar U-100 Insulin) dabigatran etexilate 150 mg 150 mg PO BID #60 caps 09/15/22 capsule (Pradaxa) metoprolol succinate 25 mg capsule 25 mg PO DAILY #30 caps 09/15/22 sprinkle, ext. release 24 hr potassium chloride 40 mEq/15 mL 20 meq (7.5 mL) PO DAILY 5 days 09/15/22 oral liquid #37.5 mL Previous Rx's Medication Instructions Recorded acetaminophen 325 mg tablet 650 mg PO Q6H PRN PRN ##90 10/11/17 (Tylenol) ibuprofen 400 mg tablet 400 mg PO Q6H PRN PRN ##40 10/11/17 oxycodone 5 mg tablet 2.5 - 5 mg PO Q6H PRN PRN Pain #10 10/11/17 tabs dabigatran etexilate 150 mg 150 mg PO BID #60 caps 09/15/22 capsule (Pradaxa) metoprolol succinate 25 mg capsule 25 mg PO DAILY #30 caps 09/15/22 sprinkle, ext. release 24 hr potassium chloride 40 mEq/15 mL 20 meq (7.5 mL) PO DAILY 5 days 09/15/22 oral liquid #37.5 mL Allergies Allergy/AdvReac Type Severity Reaction Status Date / Time No Known Allergies Allergy Unverified 10/22/17 08:07 General Stated Complaint: GenMedical FAUSOT: 3 Review of Systems All systems reviewed & are unremarkable except as noted in HPI and below PFSH All Active Problems (Updated 09/15/22 @ 07:01 by Jamal Montgomery DO) Hypoglycemia (Acute) Acute hypokalemia (Acute) Atrial fibrillation with RVR (Acute) Hemochromatosis, unspecified (Acute) Diabetes (Chronic) Hypertension (Chronic) PVCs (premature ventricular contractions) (Acute) Social History Smoking/Tobacco Use Status: Current-Occasional Tobacco Type: cigars Smoking risk assessment performed?: Yes Alcohol Intake: current Alcohol Intake frequency: 0-2 drinks per day Alcohol type: beer Drug use: Occasionally Substance use type: marijuana Do you feel safe at home: Yes Do you feel safe in your relationship?: Yes Exam Narrative Exam Narrative: 1.Const: Well-nourished, Well-developed, appearing stated age 2.Eyes: PERRL, no conjunctival injection, and symmetrical lids. 3.ENT: Atraumatic external nose and ears. Notably dry MM. Neck: Symmetric, trachea midline, No thyromegaly. 4.CVS: +S1/S2, No murmurs or gallops. Peripheral pulses 2+ and equal in all extremities. Brisk capillary refill in all extremities. 5.RESP: Unlabored respiratory effort. Clear to auscultation bilaterally. No wheezes rales or rhonchi 6.GI: Soft, Nontender/Nondistended, No hepatosplenomegaly. No guarding or rebound. 7.MSK: Normocephalic/Atraumatic, Extremities w/o deformity or ttp No cyanosis or clubbing, Normal movement of all extremities 8.Skin: Warm, Dry. No rashes or lesions. 9.Neuro: dobby loom chain pegger II-XII grossly intact. Sensation grossly intact, no focal neurologic deficits. 10.Psych: (AAO) x3. Appropriate mood and affect Course Vital Signs Vital signs: Vital Signs Pulse 144 H 09/15/22 00:57 Respiratory Rate 14 09/15/22 00:57 Blood Pressure 134/73 09/15/22 00:57 Pulse Oximetry 97 09/15/22 00:57 Pulse 144 H 09/15/22 00:57 Respiratory Rate 14 09/15/22 00:57 Respiratory Effort Normal, Non-Labored 09/15/22 01:02 Blood Pressure 134/73 09/15/22 00:57 Blood Pressure Position Sitting 09/15/22 00:57 Pulse Oximetry 97 09/15/22 00:57 Oxygen Delivery Method Room Air 09/15/22 00:57 Oxygen Flow Rate 0 09/15/22 00:57 Pain Level 0 09/15/22 00:57 Critical Care Time Critical Care Time Critical Care Time: Yes Total Critical Care Time: 30 Attestation: Upon my evaluation, this patient had a high probability of imminent or life- threatening deterioration, which required my direct attention, intervention, and personal management. I have personally provided 30 minutes of critical care time exclusive of time spent on separately billable procedures. Time includes review of laboratory data, radiology results, discussion with consultants, and monitoring for potential decompensation. Interventions were performed as documented. POCUS Exam (ED) Limited Cardiac Exam DATE OF EXAM: 09/15/22 TIME OF EXAM: 01:14 PROVIDER THAT PERFORMED THE STUDY: Jamal Montgomery IS THIS A REPEAT EXAM DURING THIS ENCOUNTER: no REASON FOR EXAM: Syncope VISUALIZED STRUCTURES: Left atrium, Left ventricle and Right atrium VIEW OBTAINED: Parasternal long-axis PERTINENT FINDINGS/IMPRESSION: Other (afib) afib Exam complete
[2022-09-15 01:15] LABS: Abs Immature Grans 0.03 10^3/uL (0.0-0.06); Absolute Basophil Count 0.07 10^3/uL (0.0-0.2); Absolute Eosinophil Count 0.58 10^3/uL (0.0-0.7); Absolute Lymphocyte Count 2.57 10^3/uL (1.2-3.4); Absolute Monocyte Count 0.88 10^3/uL (0.1-0.8); Absolute Neutrophil Count 5.82 10^3/uL (1.2-6.7); Basophils % 0.7; Eosinophils % 5.8; HCT 41.8 % (40.0-50.0); HGB 14.6 g/dL (13.5-17.5); Immature Grans % 0.3; Lymphocytes % 25.8; MCH 32.4 pg (27.0-33.0); MCHC 34.9 % (32.0-36.0); MCV 93 fL (80-95); MPV 9.5 fL (8.0-11.0); Monocytes % 8.8; Neutrophils % 58.6; Platelet Count 163 10^3/uL (130-400); RDW 12.2 % (11.8-14.1); RDW-SD 42.3 fL; WBC 9.95 10^3/uL (4.4-10.8)
[2022-09-15 01:31] LABS: INR 1.1 (0.9-1.1); Prothrombin Time 11.4 sec (9.3-11.0)
[2022-09-15 01:41] LABS: ALT 37 U/L (16-63); AST 38 U/L (15-37); Albumin 3.7 g/dL (3.4-5.0); Alkaline Phosphatase 84 U/L (46-116); Anion Gap 17.2 mmol/L (3-11); BUN 6 mg/dL (7-18); Bilirubin, Total 1.2 mg/dL (0.2-1.0); CO2 20.8 mmol/L (21.0-32.0); CREATININE 0.7 mg/dL (0.70-1.30); Calcium 7.9 mg/dL (8.5-10.1); Chloride 100 mmol/L (98-107); Estimated GFR 99.74 (mL/min/1.73m2); Glucose 85 mg/dL (74-106); Sodium 138 mmol/L (136-145); TSH (W/Ref FT4) 3.25 uIU/mL (0.36-3.74); Total Protein 6.7 g/dL (6.4-8.2); Troponin I < 50 ng/L (<or=60)
[2022-09-15 01:42] LABS: Potassium 2.8 mmol/L (3.5-5.1)
[2022-09-15 01:51] LABS: D-Dimer 426 ng/mlFEU (<500)
[2022-09-15] MEDS: dilTIAZem 25 MG/5 ML VIAL 10 MG IVP ×2 (01:59→02:34)
[2022-09-15] MEDS: Potassium Chloride 20 MEQ TABCR 40 MEQ PO (01:59)
[2022-09-15 02:03] LABS: Magnesium 1.6 mg/dL (1.8-2.4)
[2022-09-15] MEDS: POTASSIUM CHLORIDE/D5-0.45NACL 1,000 ML 250 MEQ IV (02:05)
[2022-09-15] MEDS: MAGNESIUM SULFATE 2 GM/50 ML BAG IVPB (02:25)
[2022-09-15] MEDS: Aspirin 325 MG TAB PO (02:25)
--- NOTE | 2022-09-15 04:45 | RT.EKG_ITS ---
APPROVED REPORT Exam: Resting ECG Reason for Exam: a fib Patient Location: E HR:81 bpm ECG Measurements Heart Rate 81 AXIS FL 214 P 38 QRSd 87 QRS 25 QT 392 T 17 QTc 456 Conclusion Sinus rhythm...normal P axis, V-rate 60- 99 Borderline prolonged FL interval...FL >212, V-rate 50- 90 Low voltage, extremity leads...all extremity leads <0.5mV Physician: no stemi, sinus. afib resolved
[2022-09-15 05:03] LABS: Troponin I < 50 ng/L (<or=60)
[2022-09-15] MEDS: POTASSIUM CHLORIDE 20 MEQ/100 ML BAG 50 MEQ IVPB (06:35)
--- NOTE | 2022-09-15 07:04 | NUR.NOTE ---
PCP refferal for follow up Nursing Note:
== END 2022-09-15 16:48 | disposition home or self-care (01) ==
PROVIDERS: Emergency Provider Student in an Organized Health Care Education/Training Program; PCP Family Medicine
DX: R40.4 Transient alteration of awareness (principal); E11.65 Type 2 diabetes mellitus with hyperglycemia; E87.6 Hypokalemia; I48.91 Unspecified atrial fibrillation; I10 Essential (primary) hypertension; E83.119 Hemochromatosis, unspecified; Z79.4 Long term (current) use of insulin; Z79.899 Other long term (current) drug therapy
CPT/HCPCS: 36415; 80053; 93005; 93308; 99291; 80320; 83735; 84443; 84484; 85025; 85379; 85610; 85730; 93010; J3480

== ENCOUNTER 2022-09-19 12:49 | Outpatient (REF) | payer MEDICARE, SELFPAY ==
[2022-09-19 20:02] LABS: Anion Gap 11.5 mmol/L (3-11); BUN 6 mg/dL (7-18); CO2 26.5 mmol/L (21.0-32.0); CREATININE 0.7 mg/dL (0.70-1.30); Calcium 8.6 mg/dL (8.5-10.1); Chloride 104 mmol/L (98-107); Estimated GFR 99.74 (mL/min/1.73m2); Glucose 239 mg/dL (74-106); Magnesium 1.6 mg/dL (1.8-2.4); Sodium 142 mmol/L (136-145)
== END 2022-09-19 12:50 | disposition home or self-care (01) ==
LOC: NCHCN 12:49
PROVIDERS: PCP Family Medicine; Visit Provider Family Medicine
DX: E87.6 Hypokalemia (principal)
CPT/HCPCS: 80048; 83735

== ENCOUNTER 2023-01-22 15:51 | Outpatient (REF) | payer MEDICARE, SELFPAY ==
[2023-01-22 18:28] LABS: HCT 43.4 % (40.0-50.0); MCH 32.7 pg (27.0-33.0); MCHC 34.6 % (32.0-36.0); MCV 95 fL (80-95); MPV 10.4 fL (8.0-11.0); Platelet Count 168 10^3/uL (130-400); RBC 4.59 10^6/uL (4.36-5.78); RDW 12.6 % (11.8-14.1); RDW-SD 43.7 fL; WBC 6.85 10^3/uL (4.4-10.8)
[2023-01-22 18:52] LABS: Ferritin 161 ng/mL (26-388)
== END 2023-01-22 15:52 | disposition home or self-care (01) ==
LOC: NCHCN 15:51
PROVIDERS: PCP Family Medicine; Visit Provider Family Medicine
DX: E83.119 Hemochromatosis, unspecified (principal)
CPT/HCPCS: 85027; 82728

== ENCOUNTER 2023-02-01 02:10 | Outpatient (RCR) | payer MEDICARE, SELFPAY | END 2023-02-22 23:59 | disposition home or self-care (01) | LOC: INF 02:10 | PROVIDERS: PCP Family Medicine; Visit Provider Family Medicine | DX: E83.119 Hemochromatosis, unspecified (principal) | CPT/HCPCS: 99195 ==

== ENCOUNTER 2023-05-18 20:23 | Outpatient (REF) | payer MEDICARE, SELFPAY ==
[2023-05-18 18:31] LABS: HCT 43.3 % (40.0-50.0); HGB 15.1 g/dL (13.5-17.5); MCH 32.8 pg (27.0-33.0); MCHC 34.9 % (32.0-36.0); MCV 94 fL (80-95); MPV 10.6 fL (8.0-11.0); Platelet Count 171 10^3/uL (130-400); RDW 12.7 % (11.8-14.1); RDW-SD 43.8 fL; WBC 7.49 10^3/uL (4.4-10.8)
[2023-05-18 18:42] LABS: INR 1.4 (0.9-1.1); Prothrombin Time 13.6 sec (9.1-11.1)
[2023-05-18 18:57] LABS: ALT 54 U/L (16-63); AST 56 U/L (15-37); Albumin 3.6 g/dL (3.4-5.0); Alkaline Phosphatase 133 U/L (46-116); Anion Gap 11.9 mmol/L (3-11); BUN 8 mg/dL (7-18); Bilirubin, Total 2.8 mg/dL (0.2-1.0); CO2 25.1 mmol/L (21.0-32.0); CREATININE 0.8 mg/dL (0.70-1.30); Chloride 107 mmol/L (98-107); Estimated GFR 95.21 (mL/min/1.73m2); Ferritin 130 ng/mL (26-388); Glucose 276 mg/dL (74-106); Potassium 4.1 mmol/L (3.5-5.1); Sodium 144 mmol/L (136-145); Total Protein 6.4 g/dL (6.4-8.2)
== END 2023-05-18 20:24 | disposition home or self-care (01) ==
LOC: NCHCN 20:23
PROVIDERS: PCP Family Medicine; Referring Provider Family Medicine; Visit Provider Family Medicine
DX: E83.119 Hemochromatosis, unspecified (principal); I10 Essential (primary) hypertension
CPT/HCPCS: 80053; 85027; 82728; 83036; 85610

== ENCOUNTER → 2023-07-24 04:13 | Outpatient (CLI) | payer MEDICARE, SELFPAY ==
--- NOTE | 2023-07-24 | DI.US_ITS ---
Exam(s) US ABDOMEN LIMITED EXAM: US ABDOMEN LIMITED CLINICAL HISTORY: CIRRHOSIS OF LIVER,K74.60 TECHNIQUE: Ultrasound abdomen performed using standard protocol. COMPARISON: US US ABDOMEN from 07/15/2021 FINDINGS: Exam somewhat limited by bowel gas. Portal vein not well seen. LIVER: Normal size, 13 cm in length. Increasedechogenicity coarsened echotexture. Posterior portion s of the liver not well seen.. No focal liver lesions are seen.. GALLBLADDER: No evidence of cholelithiasis. No evidence of wall thickening. No pericholecystic fluid identified. MORALES'S SIGN: Negative. BILIARY SYSTEM: No intrahepatic or extrahepatic biliary ductal dilation. RIGHT KIDNEY: Normal size. No evidence of renal calculi. No evidence of hydronephrosis. No suspicious renal mass. No cyst identified. PANCREAS: Tail not well visualized. ABDOMINAL AORTA AND IVC: Visualized portions normal caliber. ASCITES: None seen. IMPRESSION: Cirrhotic appearing liver. No liver mass identified. Portal vein not well seen. DATA REPOSITORY:
== END ==
PROVIDERS: PCP Family Medicine; Visit Provider Family Medicine
DX: K74.60 Unspecified cirrhosis of liver (principal)
CPT/HCPCS: 76705

== ENCOUNTER 2023-07-30 13:53 | Outpatient (REF) | payer MEDICARE, SELFPAY ==
[2023-07-30 15:43] LABS: HGB 15.5 g/dL (13.5-17.5); MCH 33.5 pg (27.0-33.0); MCHC 35.2 % (32.0-36.0); MCV 95 fL (80-95); MPV 11.2 fL (8.0-11.0); Platelet Count 166 10^3/uL (130-400); RBC 4.62 10^6/uL (4.36-5.78); RDW 12.6 % (11.8-14.1); RDW-SD 44.2 fL; WBC 6.56 10^3/uL (4.4-10.8)
[2023-07-30 16:36] LABS: Ferritin 116 ng/mL (26-388)
== END 2023-07-30 13:54 | disposition home or self-care (01) ==
LOC: NCHCN 13:53
PROVIDERS: PCP Family Medicine; Visit Provider Family Medicine
DX: E83.119 Hemochromatosis, unspecified (principal)
CPT/HCPCS: 85027; 82728

== ENCOUNTER 2023-07-31 05:31 | Outpatient (RCR) | payer MEDICARE, SELFPAY ==
[2023-07-31] MEDS: Normal Saline Flush 10 ML SYR IVP (12:35)
== END 2023-08-24 23:59 | disposition home or self-care (01) ==
LOC: INF 05:31
PROVIDERS: PCP Family Medicine; Visit Provider Family Medicine
DX: E83.119 Hemochromatosis, unspecified (principal)
CPT/HCPCS: 99195

== ENCOUNTER 2023-09-19 12:11 | Outpatient (REF) | payer MEDICARE, SELFPAY ==
[2023-09-19 15:34] LABS: HCT 40.5 % (40.0-50.0); HGB 14.3 g/dL (13.5-17.5); MCH 33.5 pg (27.0-33.0); MCHC 35.3 % (32.0-36.0); MCV 95 fL (80-95); MPV 11.2 fL (8.0-11.0); Platelet Count 169 10^3/uL (130-400); RBC 4.27 10^6/uL (4.36-5.78); RDW-SD 45.5 fL; WBC 6.05 10^3/uL (4.4-10.8)
[2023-09-19 15:56] LABS: Ferritin 126 ng/mL (26-388)
== END 2023-09-19 12:12 | disposition home or self-care (01) ==
LOC: NCHCN 12:11
PROVIDERS: PCP Family Medicine; Visit Provider Family Medicine
DX: E83.119 Hemochromatosis, unspecified (principal)
CPT/HCPCS: 85027; 82728

== ENCOUNTER 2023-09-28 02:24 | Outpatient (RCR) | payer MEDICARE, SELFPAY | END 2023-10-24 23:59 | disposition home or self-care (01) | LOC: INF 02:24 | PROVIDERS: PCP Family Medicine; Visit Provider Family Medicine | DX: E83.119 Hemochromatosis, unspecified (principal) | CPT/HCPCS: 99195 ==

== ENCOUNTER 2023-10-16 15:56 | Outpatient (REF) | payer MEDICARE, SELFPAY ==
[2023-10-16 15:38] LABS: HCT 44.6 % (40.0-50.0); HGB 14.9 g/dL (13.5-17.5); MCHC 33.4 % (32.0-36.0); MCV 99 fL (80-95); MPV 10.4 fL (8.0-11.0); Platelet Count 210 10^3/uL (130-400); RBC 4.52 10^6/uL (4.36-5.78); RDW-SD 47.7 fL; WBC 6.59 10^3/uL (4.4-10.8)
[2023-10-16 15:44] LABS: INR 2.3 (0.9-1.1); Prothrombin Time 21.6 sec (9.1-11.1)
[2023-10-16 16:17] LABS: Ferritin 95 ng/mL (26-388)
[2023-10-16 16:31] LABS: COMMENT (LAB VIEW ONLY) 193.57 mg/dL
== END 2023-10-16 15:57 | disposition home or self-care (01) ==
LOC: NCHCN 15:56
PROVIDERS: PCP Family Medicine; Visit Provider Family Medicine
DX: I48.91 Unspecified atrial fibrillation (principal); E11.9 Type 2 diabetes mellitus without complications; E83.119 Hemochromatosis, unspecified
CPT/HCPCS: 85027; 82043; 82570; 82728; 85610

== ENCOUNTER 2023-12-03 11:34 | Outpatient (CLI) | payer MEDICARE, SELFPAY ==
[2023-12-03 11:19] LABS: HCT 44.8 % (40.0-50.0); HGB 15.3 g/dL (13.5-17.5); MCH 32.6 pg (27.0-33.0); MCHC 34.2 % (32.0-36.0); MCV 96 fL (80-95); MPV 10.3 fL (8.0-11.0); Platelet Count 168 10^3/uL (130-400); RBC 4.69 10^6/uL (4.36-5.78); RDW 12.9 % (11.8-14.1); RDW-SD 44.9 fL; WBC 6.21 10^3/uL (4.4-10.8)
[2023-12-03 11:31] LABS: INR 3.2 (0.9-1.1); Prothrombin Time 29.2 sec (9.1-11.1)
[2023-12-03 11:50] LABS: Ferritin 73 ng/mL (26-388)
== END 2023-12-03 11:35 | disposition home or self-care (01) ==
LOC: LBO 11:34
PROVIDERS: PCP Family Medicine; Visit Provider Family Medicine
DX: E83.119 Hemochromatosis, unspecified (principal); I48.91 Unspecified atrial fibrillation
CPT/HCPCS: 36415; 85027; 82728; 85610

== ENCOUNTER 2023-12-04 13:02 | Inpatient (IN) | payer MEDICARE, SELFPAY ==
[2023-12-04] VITALS (57 sets, daily range): BP systolic 135–166; BP diastolic 76–89; PULSE 63–75; RESP 12–22; TEMP 36.3–37; O2SAT 93–99
--- NOTE | 2023-12-04 13:00 | RT.EKG_ITS ---
APPROVED REPORT Exam: Resting ECG Reason for Exam: altered mental status Patient Location: E HR:71 bpm ECG Measurements Heart Rate 71 [place] [id number] P [id number] QRSd 95 QRS -7 QT 430 T 0 QTc 468 Conclusion Atrial fibrillation...? atrial activity
--- NOTE | 2023-12-04 13:15 | DI.CT_ITS ---
Exam(s) CT BRAIN NECK CTA EXAM: CT BRAIN NECK CTA CLINICAL HISTORY: altered mentation. TECHNIQUE: Imaging Protocol: Axial CT angiography was performed with multi-slice acquisition and mu lti-planar and MIP reconstructions. CONTRAST MATERIAL: Intravenous: Omnipaque 350 Contrast volume:100 ml COMPARISON: No exams were available for comparison FINDINGS: CT Head W/O and W contrast: Ventricles and Extra axial spaces: Normal in size and morphology for the patient's age. Hemorrhage: None. Cerebral parenchyma: No evidence of acute infarct or mass. Midline shift: None. Brainstem/Cerebellum: No acute findings.. Calvarium: Normal. Visualized Paranasal sinuses/Mastoids: Opacification of multiple ethmoid sinuses. Mucous retention i n the maxillary and frontal sinuses. Soft Tissues: Unremarkable. Enhancement: Normal. CTA Brain W: Internal Carotid Arteries: Petrous: Normal. Cavernous: Normal. Cerebral: Normal. Middle Cerebral Arteries: Right: No aneurysm, occlusion or significant stenosis. Left: No aneurysm, occlusion or significant stenosis. Anterior Cerebral Arteries: Right: No aneurysm, occlusion or significant stenosis. Left: No aneurysm, occlusion or significant stenosis. Posterior cerebral Arteries: Right: No aneurysm, occlusion or significant stenosis. Left: No aneurysm, occlusion or significant stenosis. Vertebral Arteries: Right: No aneurysm, occlusion or significant stenosis. Left: No aneurysm, occlusion or significant stenosis. Basilar Artery: No aneurysm, occlusion or significant stenosis. CTA Neck W: Common Carotid: Mild calcific plaque at bulb. Right: Tortuous proximally. Right no dissection, occlusion or significant stenosis. Left: No dissection, occlusion or significant stenosis. External Carotid: Right: No dissection, occlusion or significant stenosis. Left: No dissection, occlusion or significant stenosis. Internal Carotid: Right: Mild calcific plaque proximally. No dissection, occlusion or significant stenosis. Left: Mild calcific plaque proximally. No dissection, occlusion or significant stenosis. Vertebral Artery: Right: No dissection, occlusion or significant stenosis. Left: No dissection, occlusion or significant stenosis. Lung Apices: No acute findings. Bones: No acute abnormality. Soft Tissues: Normal. IMPRESSION: 1. CTA brain: Normal CTA examination of the [place]. 2. Head CT: Unremarkable CT Head. 3. CTA neck: Mild plaque at the common carotid bulb and proximal internal carotid arteries without ev idence of significant stenosis. RADIATION DOSE DELIVERED: 2,307.43mGy.cm Total DLP DATA REPOSITORY: All CT scans at this facility are submitted to the National Radiology Data Registry (NRDR) Dose Index Registry (DIR) with the [employer] (ACR). RADIATION OPTIMIZATION: All CT scans at this facility use at least one of these dose optimization te chniques: automated exposure control; mA and/or kV adjustment per patient size (includes targeted exa ms where dose is matched to clinical indication); or iterative reconstruction.
--- NOTE | 2023-12-04 13:32 | W.ED.GENAD ---
Discharge Plan Disposition Patient Disposition: Admit to [facility] Condition: Stable Discharge Details Clinical Impression: Hepatic encephalopathy Primary Care Provider: Stefani Jones ED Provider: Jamal [facility] Home Meds and New Rx's Prescriptions: No Action Lantus Solostar U-100 Insulin 100 unit/mL (3 mL) insulin pen 1 unit subcut QPM metformin 500 MG tablet 500 mg PO TID glipizide [Glucotrol XL] 10 MG tablet extended release 24hr 10 mg PO DAILY omeprazole 40 MG capsule,delayed release(DR/EC) 40 mg PO DAILY triamcinolone acetonide 15 GM cream 15 gm Topical BID PRN (DME) lancets 1 EACH misc 1 ea Miscellaneous BID TEST STRIPS Topical BID (DME) arm brace [Wrist Brace Medium] 1 EACH misc 1 ea Miscellaneous HS Qty: 2 Rx Instructions: bilateral Carpal tunnel splints/braces to be worn while sleeping and during aggravating activities cyclosporine [Restasis] 1 EACH dropperette 1 drp OU BID lisinopril 20 mg tablet 20 mg PO DAILY amlodipine 2.5 mg tablet 2.5 mg PO DAILY acetaminophen [Tylenol] 325 MG tablet 650 mg PO Q6H PRN PRNQty: 90 0RF oxycodone 5 MG tablet 2.5 - 5 mg PO Q6H PRN PRN (Reason: Pain) Qty: 10 0RF ibuprofen 400 MG tablet 400 mg PO Q6H PRN PRNQty: 40 0RF dabigatran etexilate [Pradaxa] 150 mg capsule 150 mg PO BID Qty: 60 0RF metoprolol succinate 25 mg capsule,sprinkle,ER 24hr 25 mg PO DAILY Qty: 30 0RF HPI General Date/Time Provider Initiated Documentation: 12/04/23 13:14. HPI Narrative: 68 year-old male presents to ED today by POV/ambulating with his with a chief complaint of altered mentation, last known well at 2100 last night before bed. Upon awakening this morning he was altered, noticed around 1030- stated he was going to the living room but walked ouside. Quality described as coordination difficulty, confusion, no radiation to slurred speech, unilateral muscle weakness, hemiplegia, facial droop. Severity is described as unable to quantify. Palliating factors include nothing specific attempted. Provoking factors include nothing specific. Events leading up to the incident/Associated Symptoms: patient does report having hemochromotosis and cirrhosis due to this. Patient not anticoagulated. Related Data Home Medications ?Medication ?Instructions ?Recorded ?Confirmed Test Strips topical BID 03/29/15 glipizide 10 mg tablet, extended 10 mg PO DAILY 03/29/15 02/03/20 release 24 hr (Glucotrol XL) lancets 30 gauge 03/29/15 metformin 500 mg tablet 500 mg PO TID 03/29/15 02/03/20 omeprazole 40 mg capsule,delayed 40 mg PO DAILY 03/29/15 10/11/17 release triamcinolone acetonide 0.1 % 15 gm topical BID PRN 03/29/15 10/11/17 topical cream arm brace (Wrist Brace Medium) #2 ea 04/15/15 cyclosporine 0.05 % eye drops in a 1 drp OU BID 08/02/17 10/11/17 dropperette (Restasis) acetaminophen 325 mg tablet 650 mg (2 x 325 mg) PO Q6H PRN PRN 10/11/17 (Tylenol) ##90 ibuprofen 400 mg tablet 400 mg PO Q6H PRN PRN ##40 10/11/17 oxycodone 5 mg tablet 2.5 - 5 mg (0.5 - 1 x 5 mg) PO Q6H 10/11/17 02/03/20 PRN PRN Pain #10 tabs amlodipine 2.5 mg tablet 2.5 mg PO DAILY 12/16/19 02/03/20 lisinopril 20 mg tablet 20 mg PO DAILY 12/16/19 02/03/20 insulin glargine 100 unit/mL (3 1 unit subcut QPM 02/03/20 02/03/20 mL) subcutaneous pen (Lantus Solostar U-100 Insulin) dabigatran etexilate 150 mg 150 mg PO BID #60 caps 09/15/22 capsule (Pradaxa) metoprolol succinate 25 mg capsule 25 mg PO DAILY #30 caps 09/15/22 sprinkle, ext. release 24 hr Previous Rx's ?Medication ?Instructions ?Recorded acetaminophen 325 mg tablet 650 mg (2 x 325 mg) PO Q6H PRN PRN 10/11/17 (Tylenol) ##90 ibuprofen 400 mg tablet 400 mg PO Q6H PRN PRN ##40 10/11/17 oxycodone 5 mg tablet 2.5 - 5 mg (0.5 - 1 x 5 mg) PO Q6H 10/11/17 PRN PRN Pain #10 tabs dabigatran etexilate 150 mg 150 mg PO BID #60 caps 09/15/22 capsule (Pradaxa) metoprolol succinate 25 mg capsule 25 mg PO DAILY #30 caps 09/15/22 sprinkle, ext. release 24 hr Allergies Allergy/AdvReac Type Severity Reaction Status Date / Time No Known Allergies Allergy Unverified 12/04/23 13:13 General Stated Complaint: AMS/LOC FAUSTO: 2 Review of Systems All systems reviewed & are unremarkable except as noted in HPI and below Exam Narrative Exam Narrative: GENERAL APPEARANCE: Well-nourished, non-toxic, awake and alert, atraumatic, no acute distress. SKIN: Warm, mildly pale and jaundiced, dry, intact, without rashes/lesions/ulcerations. HEAD: Normocephalic, atraumatic, normal hair distribution for gender/age. EYES: Normal conjunctiva, no exudates on lids/lashes. ENT: Nares patent, no circumoral cyanosis, no facial swelling NECK: Supple, trachea midline, painless cervical ROM. LUNGS/CHEST: Lungs CTA bilaterally- no rhonchi/rales/wheezes diffusely, non-labored respirations, normal A/P diameter, symmetrical expansion, no chest wall deformity HEART (CV/PV): Regular rate and rhythm without murmur, no peripheral edema, no JVD. ABDOMEN: Soft, non-distended, no guarding, no tenderness, no peritoneal signs. MSK: Normal ROM, no swelling/deformity to bilateral UEs or LEs, moving all extremities without weakness, no cyanosis, spine midline without tenderness, normal curvature. NEURO: Mental Status - alert to person, place, difficulty discerning time and events but he knows he is confused, difficulty following commands No facial droop, no forehead involvement, difficulty following commands to successfully perform FNF but there is no tremulous movements or dysmetria Motor: No focal weakness - strength 5/5 in bilateral UEs and LEs, proximal and distal, symmetric. Sensory: sensation intact to light touch globally. Gait NT. PSYCH: euthymic, cooperative, pleasant, appropriate speech Course Vital Signs Vital signs: Vital Signs Temperature 36.3 C L 12/04/23 13:09 Pulse 73 12/04/23 13:09 Respiratory Rate 16 12/04/23 13:09 Blood Pressure 165/89 H 12/04/23 13:09 Pulse Oximetry 98 12/04/23 13:09 Temperature 36.3 C L 12/04/23 13:09 Temperature Source Oral 12/04/23 13:09 Pulse 73 12/04/23 13:09 Respiratory Rate 16 12/04/23 13:09 Blood Pressure 165/89 H 12/04/23 13:09 Pulse Oximetry 98 12/04/23 13:09 Medical Decision Making This dictation utilizes [id number] dictation software and may contain unedited grammatical errors. 68 year-old male presents to ED today by POV/ambulating with his with a chief complaint of altered mentation, last known well at 2100 last night before bed. Upon awakening this morning he was altered, noticed around 1030- stated he was going to the living room but walked ouside. Quality described as coordination difficulty, confusion, no radiation to slurred speech, unilateral muscle weakness, hemiplegia, facial droop. Severity is described as unable to quantify. Palliating factors include nothing specific attempted. Provoking factors include nothing specific. Events leading up to the incident/Associated Symptoms: patient does report having hemochromotosis and cirrhosis due to this. Patients' medical history: Hemochromatosis, diabetes, hypertension, PVCs. Family and social history: lives at home with his . Pertinent exam findings / vital signs include mild jaundice, no abdominal tenderness, no peritoneal signs, benign cardiopulmonary status, afebrile, difficulty following commands without any unilateral muscle weakness. Differential / pathologies of concern include stroke, intoxication, hepatic encephalopathy, hemochromatosis, urinary tract infection, sepsis. Diagnostic studies of: -CBC, CMP, lactate, procalcitonin, alcohol level, ammonia level, urinalysis, TSH, UDS, EKG, CTA head and neck, CTA abdomen and pelvis. -CBC shows no leukocytosis, no profound anemia -Lactate elevated at 2.5, procalcitonin negative -CMP shows normal kidney function, elevated bilirubin in the setting of known cirrhosis- LFTs mildly elevated, no concern for fulminant liver failure -Severely elevated ammonia at 129, likely hepatic encephalopathy -TSH within normal limits -CTA head neck shows no evidence of stroke -UA shows no significant signs of infection -Alcohol level negative -EKG without arrhythmia or signs of ischemia Interventions of: -IVF, 20mg lactulose. 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 Hannah for admission for hepatic encephalopathy, there is a CTA of the abdomen pelvis pending to rule out any kind of thrombotic or obstructive hepatic pathology at this time. Provisional acceptance at 1500. Findings not consistent with stroke, sepsis, urinary tract infection, peritoneal abdomen, respiratory distress. Disposition of hepatic encephalopathy. Patient verbalized understanding of the plan and return to ED criteria and engaged in shared decision making. Medical Records Medical records reviewed: Yes I reviewed the patient's medical records. Imaging Data Radiologic Study: Attestation: I personally reviewed and interpreted this imaging study as follows: Imaging: CT Scan Radiologist's impression: EXAM: CT BRAIN NECK CTA CLINICAL HISTORY: altered mentation. TECHNIQUE: Imaging Protocol: Axial CT angiography was performed with multi-slice acquisition and multi-planar and MIP reconstructions. CONTRAST MATERIAL: Intravenous: Omnipaque 350 Contrast volume:100 ml COMPARISON: No exams were available for comparison FINDINGS: CT Head W/O and W contrast: Ventricles and Extra axial spaces: Normal in size and morphology for the patient's age. Hemorrhage: None. Cerebral parenchyma: No evidence of acute infarct or mass. Midline shift: None. Brainstem/Cerebellum: No acute findings.. Calvarium: Normal. Visualized Paranasal sinuses/Mastoids: Opacification of multiple ethmoid sinuses. Mucous retention in the maxillary and frontal sinuses. Soft Tissues: Unremarkable. Enhancement: Normal. CTA Brain W: Internal Carotid Arteries: Petrous: Normal. Cavernous: Normal. Cerebral: Normal. Middle Cerebral Arteries: Right: No aneurysm, occlusion or significant stenosis. Left: No aneurysm, occlusion or significant stenosis. Anterior Cerebral Arteries: Right: No aneurysm, occlusion or significant stenosis. Left: No aneurysm, occlusion or significant stenosis. Posterior cerebral Arteries: Right: No aneurysm, occlusion or significant stenosis. Left: No aneurysm, occlusion or significant stenosis. Vertebral Arteries: Right: No aneurysm, occlusion or significant stenosis. Left: No aneurysm, occlusion or significant stenosis. Basilar Artery: No aneurysm, occlusion or significant stenosis. CTA Neck W: Common Carotid: Mild calcific plaque at bulb. Right: Tortuous proximally. Right no dissection, occlusion or significant stenosis. Left: No dissection, occlusion or significant stenosis. External Carotid: Right: No dissection, occlusion or significant stenosis. Left: No dissection, occlusion or significant stenosis. Internal Carotid: Right: Mild calcific plaque proximally. No dissection, occlusion or significant stenosis. Left: Mild calcific plaque proximally. No dissection, occlusion or significant stenosis. Vertebral Artery: Right: No dissection, occlusion or significant stenosis. Left: No dissection, occlusion or significant stenosis. Lung Apices: No acute findings. Bones: No acute abnormality. Soft Tissues: Normal. IMPRESSION: 1. CTA brain: Normal CTA examination of the [place]. 2. Head CT: Unremarkable CT Head. 3. CTA neck: Mild plaque at the common carotid bulb and proximal internal carotid arteries without evidence of significant stenosis. Lab Data Lab results reviewed: Yes I reviewed the patient's lab results. Labs: Laboratory Tests Range/Units 12/04/23 12/04/23 12/04/23 13:35 14:00 14:30 WBC (4.4-10.8) 10^3/uL 6.88 RBC (4.36-5.78) 10^6/uL 4.72 Hgb (13.5-17.5) g/dL 15.5 Hct (40.0-50.0) % 44.1 MCV (80-95) fL 93 MCH (27.0-33.0) pg 32.8 MCHC (32.0-36.0) % 35.1 RDW (11.8-14.1) % 13.0 Plt Count (130-400) 10^3/uL 161 MPV (8.0-11.0) fL 10.4 Immature Gran % % 0.3 Neutrophils % % 64.5 Lymphocytes % % 21.5 Monocytes % % 8.3 Eosinophils % % 4.8 Basophils % % 0.6 Nucleated RBC % (0.0-0.3) % 0.0 Absolute Neutrophils (1.2-6.7) 10^3/uL 4.44 Absolute Lymphocytes (1.2-3.4) 10^3/uL 1.48 Absolute Monocytes (0.1-0.8) 10^3/uL 0.57 Absolute Eosinophils (0.0-0.7) 10^3/uL 0.33 Absolute Basophils (0.0-0.2) 10^3/uL 0.04 VBG Lactate (0.6-1.4) mmol/L 2.5 H* Sodium (136-145) mmol/L 142 Potassium (3.5-5.1) mmol/L 4.1 Chloride (98-107) mmol/L 106 Carbon Dioxide (21.0-32.0) mmol/L 27.2 Anion Gap (3-11) mmol/L 8.8 BUN (7-18) mg/dL 6 L Creatinine (0.70-1.30) mg/dL 0.8 Est GFR (CKD-EPI 2020) (mL/min/1.73m2) 95.21 Glucose (74-106) mg/dL 246 H Calcium (8.5-10.1) mg/dL 9.0 Total Bilirubin (0.2-1.0) mg/dL 3.12 H AST (15-37) U/L 47 H ALT (16-63) U/L 40 Alkaline Phosphatase (46-116) U/L 134 H Ammonia (11-32) umol/L 129 H Total Protein (6.4-8.2) g/dL 7.1 Albumin (3.4-5.0) g/dL 3.6 Procalcitonin ng/mL < 0.1 TSH (0.36-3.74) uIU/mL 2.22 Urine Color (Yellow) Yellow Urine Clarity (Clear) Clear Urine pH (5-8) 7.5 Ur Specific [place] (1.005-1.025) 1.010 Urine Protein (Neg-Trace) mg/dL Negative Urine Ketones (Negative) mg/dL 15 H Urine Blood (Negative) Moderate H Urine Nitrite (Negative) Negative Urine Bilirubin (Negative) Negative Urine Urobilinogen (Up to 0.2) mg/dL >=8.0 H Ur Leukocyte Esterase (Negative) Negative Urine RBC (0-2) HPF 20-50 H Urine WBC (0-5) HPF 0-2 Ur Epithelial Cells (Negative) HPF Rare Urine Crystals (Negative) HPF Negative Urine Bacteria (Negative) HPF Negative Urine Casts (Negative) LPF Negative Urine Mucus (Negative) Negative Ur Culture Indicated? No Urine Glucose (Negative) mg/dL >=1000 H Urine Opiates Screen (Negative) Negative Urine Methadone Screen (Negative) Negative Ur Barbiturates Screen (Negative) Negative Ur Tricyclics Screen (Negative) Negative Ur Amphetamines Screen (Negative) Negative U Benzodiazepines Scrn (Negative) Negative Urine Cocaine Screen (Negative) Negative Ur THC Screen (Negative) Negative Ethyl Alcohol (<10) mg/dL < 3.0 Quality:SDOH Health Related Social Needs: No Data to Display PFSH All Active Problems (Updated 12/04/23 @ 15:08 by SHERIF Iverson) Hepatic encephalopathy (Acute) Hemochromatosis, unspecified (Acute) Diabetes (Chronic) Hypertension (Chronic) PVCs (premature ventricular contractions) (Acute) Social History Smoking/Tobacco Use Status: Current-Occasional Tobacco Type: cigars Smoking risk assessment performed?: Yes Alcohol Intake: current Alcohol Intake frequency: 0-2 drinks per day Alcohol type: beer Drug use: Occasionally Substance use type: marijuana Do you feel safe at home: Yes Do you feel safe in your relationship?: Yes
[2023-12-04 13:47] LABS: Abs Immature Grans 0.02 10^3/uL (0.0-0.06); Absolute Basophil Count 0.04 10^3/uL (0.0-0.2); Absolute Eosinophil Count 0.33 10^3/uL (0.0-0.7); Absolute Lymphocyte Count 1.48 10^3/uL (1.2-3.4); Absolute Monocyte Count 0.57 10^3/uL (0.1-0.8); Absolute Neutrophil Count 4.44 10^3/uL (1.2-6.7); Basophils % 0.6 %; Eosinophils % 4.8 %; HCT 44.1 % (40.0-50.0); HGB 15.5 g/dL (13.5-17.5); Immature Grans % 0.3 %; Lymphocytes % 21.5 %; MCH 32.8 pg (27.0-33.0); MCHC 35.1 % (32.0-36.0); MCV 93 fL (80-95); MPV 10.4 fL (8.0-11.0); Monocytes % 8.3 %; Neutrophils % 64.5 %; Platelet Count 161 10^3/uL (130-400); RBC 4.72 10^6/uL (4.36-5.78); RDW-SD 44.3 fL; WBC 6.88 10^3/uL (4.4-10.8)
[2023-12-04 13:48] LABS: Lactate 2.5 mmol/L (0.6-1.4)
[2023-12-04] MEDS: Normal Saline - Diluent 50 ML VIAL IJ ×2 (13:51→17:33)
[2023-12-04] MEDS: Omnipaque 350 MG/ML 500 ML BTL-Imaging package 70 ML IJ (13:55)
[2023-12-04 14:16] LABS: Ammonia 129 umol/L (11-32)
[2023-12-04 14:21] LABS: ALT 40 U/L (16-63); AST 47 U/L (15-37); Albumin 3.6 g/dL (3.4-5.0); Alkaline Phosphatase 134 U/L (46-116); Anion Gap 8.8 mmol/L (3-11); BUN 6 mg/dL (7-18); Bilirubin, Total 3.12 mg/dL (0.2-1.0); CO2 27.2 mmol/L (21.0-32.0); CREATININE 0.8 mg/dL (0.70-1.30); Chloride 106 mmol/L (98-107); Estimated GFR 95.21 (mL/min/1.73m2); Glucose 246 mg/dL (74-106); Potassium 4.1 mmol/L (3.5-5.1); Sodium 142 mmol/L (136-145); TSH (W/Ref FT4) 2.22 uIU/mL (0.36-3.74); Total Protein 7.1 g/dL (6.4-8.2)
[2023-12-04 14:24] LABS: ETHANOL BLOOD < 3.0 mg/dL (<10)
[2023-12-04 14:32] LABS: Procalcitonin < 0.1 ng/mL
[2023-12-04 14:37] LABS: Bilirubin Negative (Negative); Blood Moderate (Negative); Clarity Clear (Clear); Glucose >=1000 mg/dL (Negative); Ketones 15 mg/dL (Negative); Leukocyte Esterase Negative (Negative); Nitrite Negative (Negative); Urobilinogen >=8.0 mg/dL (Up to 0.2); pH 7.5 (5-8)
[2023-12-04 14:46] LABS: Epithelial Cells Rare HPF (Negative); RBC 20-50 HPF (0-2); WBC 0-2 HPF (0-5)
[2023-12-04 14:47] LABS: Bacteria Negative HPF (Negative); C & S Indicated? No; Casts Negative LPF (Negative); Crystals Negative HPF (Negative); Mucus Negative (Negative)
[2023-12-04 15:00] LABS: *AMPHETAMINES SCREEN URINE Negative (Negative); *BARBITURATES SCREEN URINE Negative (Negative); *BENZODIAZEPINES SCREEN URINE Negative (Negative); Cannabinoids THC Negative (Negative); Cocaine Screen,Urine Negative (Negative); METHADONE URINE SCREEN Negative (Negative); OPIATES URINE SCREEN Negative (Negative)
[2023-12-04 15:02] LABS: Tricyclic Antidepressants Negative (Negative)
[2023-12-04] MEDS: Normal Saline 1,000 ML 1000 ML IV (15:07)
--- NOTE | 2023-12-04 15:34 | W.PM.HP.N ---
Date of service: 12/04/23 Time of Service: 15:34 Assessment and Plan Assessment and plan (1) Hepatic encephalopathy: Status: Acute Assessment and plan: Initiate rifaximin continue with lactulose 20 g p.o. twice daily to 3 times daily to maintain 2 soft bowel movements per day. Repeat electrolytes liver profile CBC and ammonia level in the morning. (2) Hemochromatosis, unspecified: Status: Chronic Assessment and plan: Patient's hemoglobin seems to be stable and his ferritin level is acceptable. At present time we will not proceed with phlebotomy. Qualifiers: Hemochromatosis type: hereditary Qualified Code(s): E83.110 - Hereditary hemochromatosis (3) Diabetes: Status: Chronic Assessment and plan: Hold metformin and glipizide pending verification of his medications or dosages. Will continue on a sliding scale moderate dose and add glargine once his dose has been confirmed. 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 In the interim if he needs rate control can give him IV doses of Lopressor or p.o. Lopressor. (6) Chronic anticoagulation: Status: Chronic Assessment and plan: Need verification of his warfarin dose will monitor daily INR. 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 Most recent ferritin was checked yesterday and found to be 73. Patient was in his normal stable condition yesterday but notes that during the night he was frequently getting up. This morning when she gave him his coffee and his orange juice he tried walking out the door thinking that he was going into the dining room. He was confused about where he was sent but she was able to get him to go back into the home. That is when she decided he needed to be brought to the emergency department. Fingerstick blood sugar in the emergency department triage area was 212. Patient has a known diabetic who takes glipizide and metformin as well as insulin glargine although neither he nor his knew the doses of his medicines. Patient's had no history of fever or chills nor any dyspnea no chest pain. He does have urinary urgency but denies any gross hematuria. He has no headache or neck ache or back pains. No recent ill contacts. Evaluation in the emergency department included routine labs, EKG, CT of the head and neck as well as abdominal and pelvic CTA. CTA of the head and neck showed patent [place] mild plaque of the common carotid bulb and proximal internal carotid arteries bilaterally without significant stenosis and an unremarkable CT of his head. CTA of the abdomen pelvis demonstrated moderately enlarged prostate gland with diffuse thickening of the wall of the urinary bladder cholelithiasis without biliary ductal dilatation and findings suggestive of hepatic cirrhosis. No evidence of abdominal aortic aneurysm or dissection. Due to the timing of the bolus the pulmonary vein and superior mesenteric veins were not opacified well but collaterals are seen in the abdomen which are unchanged compared to 03/15/2009. Laboratory evaluation was remarkable for elevated ammonia level of 129 with mild elevation of his total bilirubin at 3.1 and AST of 47 and alkaline phosphatase of 134. His procalcitonin level was normal at less than 0.1 his TSH was 2.22 his pro time and INR were not checked today but were elevated yesterday at 29.2 and 3.2 respectively he reportedly is on warfarin for atrial fibrillation although neither he nor his know the dose of his medicine. Rest of his chemistry profile showed normal renal function normal electrolytes and normal total protein and albumin. CBC was within normal limits there is no leukocytosis and no anemia. Hemoglobin 15.5 g which has been stable. His urinalysis was remarkable for 50 mg of ketones negative for protein moderate blood urobilinogen greater than 8.0 with 20-50 red cells and 0-2 white cells rare epithelial cells and negative for crystals or bacteria or casts. Patient was treated emergency department with a fluid bolus of normal saline and was given a dose of lactulose 20 g. He is now admitted for treatment of hepatic encephalopathy secondary to cirrhosis due to hemochromatosis. He has symptoms of lower urinary tract obstructive disease from his BPH. We will monitor his urinary output with bladder scans and catheterize as needed for retained volume of greater than 350 mL. Urine culture has been ordered but antibiotics have not been started. He could benefit from the addition of Flomax. Because the medications on file here do not match up with what his says he is taking for instance we have Pradaxa listed as one of his medicines when in fact she and he both say that he takes warfarin and his INR confirms this. I will withhold ordering any of his home medications until we get this reconciled. In the interim we will put him on sliding scale insulin for his diabetes and his INR is therapeutic so he will not require anticoagulation for tonight. Review of Systems Constitutional Constitutional: Denies chills, Reports difficulty sleeping, Denies fever(s) and Denies headache(s) Eyes Eyes: Reports system reviewed and no additional complaints, except as documented ENT Ears, Nose, Mouth, and Throat: Reports system reviewed and no additional complaints, except as documented and Denies headache(s) Cardiovascular Cardiovascular: Reports system reviewed and no additional complaints, except as documented Respiratory Respiratory: Reports system reviewed and no additional complaints, except as documented Gastrointestinal Gastrointestinal: Reports system reviewed and no additional complaints, except as documented Genitourinary Genitourinary: Denies hematuria, Reports nocturia, Reports urinary frequency, Reports urinary hesitancy and Denies urinary incontinence Musculoskeletal Musculoskeletal: Reports system reviewed and no additional complaints, except as documented Integumentary/Breasts Skin/Breast: Reports system reviewed and no additional complaints, except as documented Neurologic Neurologic: Reports system reviewed and no additional complaints, except as documented, Reports behavioral changes (See history of present illness), Reports confusion and Denies headache(s) Psychiatric Psychiatric: Reports system reviewed and no additional complaints, except as documented, Reports behavioral changes (See history of present illness) and Reports confusion Endocrine Endocrine: Reports system reviewed and no additional complaints, except as documented Allergic/Immunologic Allergic/Immunologic: Reports system reviewed and no additional complaints, except as documented PFSH All Active Problems (Updated 12/04/23 @ 19:14 by Son Hannah MD) Chronic anticoagulation (Chronic) Paroxysmal atrial fibrillation (Chronic) Hepatic encephalopathy (Acute) Hemochromatosis, unspecified (Chronic) Diabetes (Chronic) Hypertension (Chronic) PVCs (premature ventricular contractions) (Acute) Social History Smoking/Tobacco Use Status: Current-Occasional Tobacco Type: cigars Smoking risk assessment performed?: Yes Alcohol Intake: current Alcohol Intake frequency: 0-2 drinks per day Alcohol type: beer Drug use: Occasionally Substance use type: marijuana Housing: house Do you feel safe at home: Yes Do you feel safe in your relationship?: Yes Meds Allergies and Home Medications Allergies Allergy/AdvReac Type Severity Reaction Status Date / Time No Known Allergies Allergy Unverified 12/04/23 13:13 Home Medications ?Medication ?Instructions ?Recorded ?Confirmed ?Type Test Strips topical BID 03/29/15 History glipizide 10 mg tablet, extended 10 mg PO DAILY 03/29/15 02/03/20 History release 24 hr (Glucotrol XL) lancets 30 gauge 03/29/15 History metformin 500 mg tablet 500 mg PO TID 03/29/15 02/03/20 History omeprazole 40 mg capsule,delayed 40 mg PO DAILY 03/29/15 10/11/17 History release triamcinolone acetonide 0.1 % 15 gm topical BID PRN 03/29/15 10/11/17 History topical cream arm brace (Wrist Brace Medium) #2 ea 04/15/15 History ibuprofen 400 mg tablet 400 mg PO Q6H PRN PRN ##40 10/11/17 Rx oxycodone 5 mg tablet 2.5 - 5 mg (0.5 - 1 x 5 mg) PO Q6H 10/11/17 02/03/20 Rx PRN PRN Pain #10 tabs amlodipine 2.5 mg tablet 2.5 mg PO DAILY 12/16/19 12/04/23 History lisinopril 20 mg tablet 20 mg PO DAILY 12/16/19 02/03/20 History insulin glargine 100 unit/mL (3 1 unit subcut QPM 02/03/20 02/03/20 History mL) subcutaneous pen (Lantus Solostar U-100 Insulin) dabigatran etexilate 150 mg 150 mg PO BID #60 caps 09/15/22 Rx capsule (Pradaxa) metoprolol succinate 25 mg capsule 25 mg PO DAILY #30 caps 09/15/22 Rx sprinkle, ext. release 24 hr Exam Narrative Exam Narrative: Elderly white male who does not appear to be jaundiced he is alert and oriented to person place time and circumstance and seems to answer all questions appropriately although he has limited memory of his medication dosages. He does recall names of the medicines that he is on. HEENT is remarkable for absence of his upper teeth he does not wear dentures lower teeth are intact there is no exudate in his oropharynx mucous membranes appear to be dry Neck is supple no JVD normal carotid pulses no bruits no thyromegaly Lungs are clear to auscultation Heart is regular in rate and rhythm with no appreciable murmur Abdomen soft nontender nondistended no bruits no palpable masses no organomegaly Lower extremities without peripheral cyanosis or edema feet are warm and dry no ulcerations Neuro exam grossly intact no focal cranial nerve deficits no focal motor or sensory deficits Results Labs 12/04/23 13:35 12/04/23 13:35 Labs: Laboratory Results - last 24 hr 12/04/23 12/04/23 12/04/23 13:35 14:00 14:30 WBC 6.88 RBC 4.72 Hgb 15.5 Hct 44.1 MCV 93 MCH 32.8 MCHC 35.1 RDW 13.0 Plt Count 161 MPV 10.4 Immature Gran % 0.3 Neutrophils % 64.5 Lymphocytes % 21.5 Monocytes % 8.3 Eosinophils % 4.8 Basophils % 0.6 Nucleated RBC % 0.0 Absolute Neutrophils 4.44 Absolute Lymphocytes 1.48 Absolute Monocytes 0.57 Absolute Eosinophils 0.33 Absolute Basophils 0.04 VBG Lactate 2.5 H* Sodium 142 Potassium 4.1 Chloride 106 Carbon Dioxide 27.2 Anion Gap 8.8 BUN 6 L Creatinine 0.8 Est GFR (CKD-EPI 2020) 95.21 Glucose 246 H Calcium 9.0 Total Bilirubin 3.12 H AST 47 H ALT 40 Alkaline Phosphatase 134 H Ammonia 129 H Total Protein 7.1 Albumin 3.6 Procalcitonin < 0.1 TSH 2.22 Urine Color Yellow Urine Clarity Clear Urine pH 7.5 Ur Specific [place] 1.010 Urine Protein Negative Urine Ketones 15 H Urine Blood Moderate H Urine Nitrite Negative Urine Bilirubin Negative Urine Urobilinogen >=8.0 H Ur Leukocyte Esterase Negative Urine RBC 20-50 H Urine WBC 0-2 Ur Epithelial Cells Rare Urine Crystals Negative Urine Bacteria Negative Urine Casts Negative Urine Mucus Negative Ur Culture Indicated? No Urine Glucose >=1000 H Urine Opiates Screen Negative Urine Methadone Screen Negative Ur Barbiturates Screen Negative Ur Tricyclics Screen Negative Ur Amphetamines Screen Negative U Benzodiazepines Scrn Negative Urine Cocaine Screen Negative Ur THC Screen Negative Ethyl Alcohol < 3.0 Last Vital Signs Temp 36.3 C L 12/04/23 13:09 Pulse 73 12/04/23 13:09 Resp 16 12/04/23 13:09 BP 165/89 H 12/04/23 13:09 Pulse Ox 98 12/04/23 13:09 Time Spent Time spent with Patient: 55-74 minutes Time was spent: preparing to see the patient(eg.review tests), ordering medications,tests, procedures, referring, communicating with other health director of managed care, indepentently interpreting results, counseling the patient and care coordination
[2023-12-04] MEDS: Lactulose 20 GM/30 ML CUP PO ×2 (15:39→20:19)
[2023-12-04] MEDS: Omnipaque 350 MG/ML 100 ML BTL IJ (17:32)
--- NOTE | 2023-12-04 17:33 | DI.CT_ITS ---
Exam(s) CT ABDOMEN PELVIS CTA EXAM: CT ABDOMEN PELVIS CTA CLINICAL HISTORY: ?thrombosis to biliary veins. TECHNIQUE: Imaging Protocol: Axial CT angiography was performed with multi-slice acquisition and m ulti-planar and/or 3D reconstructions. CONTRAST MATERIAL: Intravenous: Omnipaque 350 Contrast volume:100mL Oral: No COMPARISON: CT CT Abdomen With Contra from 03/15/2009 CR RIGHT HIP COMPLETE from 06/19/2012 FINDINGS: The examination is limited due to patient motion artifact. ABDOMEN AND PELVIS: Abdomen: Celiac axis/mesenteric arteries: No evidence of occlusion or significant stenosis. Renal Arteries: No evidence of occlusion or significant stenosis. Mild atherosclerotic calcification at the origin of the right renal artery. No significant stenosis is present. Aorta: No evidence of occlusion or significant stenosis. No aneurysm or dissection. Atherosclerotic calcification is present. Pelvis: Iliac Arteries: No evidence of occlusion or significant stenosis. Atherosclerotic calcification is p resent. Common Femoral Arteries: No evidence of occlusion or significant stenosis. Atherosclerotic calcifica tion is present. ABDOMEN: Lung bases: Unremarkable. Liver: There is diffuse decreased attenuation of the liver suggesting fatty infiltration. The liver has a mildly nodular component with an enlarged left lobe suggesting hepatic cirrhosis. No measurabl e mass. Portal, Superior Mesenteric, and Splenic Veins: Due to the timing of the bolus the superior mesenteri c and portal veins are not well opacified. The splenic vein is opacified. There also again seen enl arged collaterals in the abdomen. Gallbladder and Biliary Tract: Gallstones are present. No significant biliary ductal dilatation is s een. Pancreas: Normal density, no abnormal calcifications or inflammatory process. Spleen: Normal. Adrenals: No masses seen. Kidneys: Normal size, contour and axis. No radiodense stones or obstructive uropathy. No masses seen. Bowel: There is no evidence of bowel obstruction. There is bowel wall thickening in loops of small b owel in the right abdomen which may represent a enteritis. 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 There is diverticulosis seen in the colon without evidence of acute diverticulitis. There is a moderate a mount of stool in the colon. Peritoneal Cavity: No ascites, collection or mesenteric inflammatory response. No free air. Lymph Nodes: Within normal limits. Bones: There is a round sclerotic focus in the right sacrum. In the absence of history of cancer, [place] should be considered. Soft Tissues: Unremarkable. PELVIS: Bladder: There is diffuse thickening of the wall of the urinary bladder. This may be due to underdis tention, chronic bladder outlet obstruction or cystitis. Please correlate clinically. Reproductive Organs: The prostate gland is moderately enlarged. Lymph Nodes: Within normal limits. Bones: Within normal limits. IMPRESSION: 1. No evidence of abdominal aortic aneurysm or dissection. 2. Due to the timing of the bolus, the pulmonary vein and superior mesenteric vein were not opacified well. There again seen collaterals in the abdomen which are unchanged compared to 03/15/2009. 3. Findings suggestive of hepatic cirrhosis. 4. Cholelithiasis. No biliary ductal dilatation. 5. Colonic diverticulosis without evidence of acute diverticulitis. 6. Diffuse thickening of the wall of the urinary bladder. This may be due to underdistention, chroni c bladder outlet obstruction or cystitis. Please correlate clinically. 7. Moderately enlarged prostate gland. 8. Mild wall thickening in the small bowel in the right abdomen which may represent an enteritis. Pl ease correlate clinically. RADIATION DOSE DELIVERED: 184.24mGy.cm Total DLP DATA REPOSITORY: All CT scans at this facility are submitted to the National Radiology Data Registry (NRDR) Dose Index Registry (DIR) with the [employer] (ACR). RADIATION OPTIMIZATION: All CT scans at this facility use at least one of these dose optimization te chniques: automated exposure control; mA and/or kV adjustment per patient size (includes targeted exa ms where dose is matched to clinical indication); or iterative reconstruction.
[2023-12-04 18:23] LABS: Lactate 2.1 mmol/L (0.6-1.4)
--- NOTE | 2023-12-04 19:00 | W.PC.ACHO ---
Registration Status: Primary Language: Preferred Language: ED Information & Data Chief Complaint AMS/LOC 12/04/23 16:13 Chief Complaint AMS/LOC 12/04/23 13:34 Triage Note per woke up 12/04/23 13:09 disorientated, confused putting on clothing, lot lost in house looking for living room, did not sleep well last night, At baseline before bed. CBS in TRG 212 Most Recent Vital Signs Temperature 37 C 12/04/23 18:22 Temperature Source Tympanic 12/04/23 16:17 Pulse 63 12/04/23 18:22 Pulse Rhythm Regular 12/04/23 18:22 Respiratory Rate 18 12/04/23 18:22 Respiratory Effort Normal 12/04/23 18:22 Respiratory Depth Normal 12/04/23 18:22 Respiratory Pattern Normal 12/04/23 18:22 Blood Pressure 161/85 H 12/04/23 18:22 Blood Pressure Position Sitting 12/04/23 16:17 Pulse Oximetry 98 12/04/23 18:22 Oxygen Delivery Method Room Air 12/04/23 18:22 Oxygen Flow Rate 0 12/04/23 18:22 Pain Level 0 12/04/23 18:22 Allergies No Known Allergies Allergy (Unverified 12/04/23 13:13) Precautions Isolation Standard precaution 12/04/23 16:13 Active Medications Generic Name Dose Route Start Last Admin Trade Name Elijah PRN Reason Stop Dose Admin Iohexol 100 ml 12/04/23 17:45 12/04/23 17:32 Omnipaque 350 Mg/Ml 100 Ml Btl IJ 01/03/24 23:59 100 ml DIRECTED BHASKAR Administration Sodium Chloride 50 ml 12/04/23 14:00 12/04/23 17:33 Normal Saline - Diluent 50 Ml Vial IJ 50 ml .FOR DI USE BHASKAR Administration IV IV Catheter Type [Left Upper Saline Lock arm] IV Catheter Gauge [Left Upper 18 arm] Diet Orders Category Date Time Status Diabetes Consistent CHO/Heart Healthy [DIET] Nutrition 12/04/23 Dinner Active Diagnostics 12/04/23 12/04/23 12/04/23 Range/Units 18:15 14:30 14:00 WBC (4.4-10.8) 10^3/uL RBC (4.36-5.78) 10^6/uL Hgb (13.5-17.5) g/dL Hct (40.0-50.0) % MCV (80-95) fL MCH (27.0-33.0) pg MCHC (32.0-36.0) % RDW (11.8-14.1) % Plt Count (130-400) 10^3/uL MPV (8.0-11.0) fL Immature Gran % % Neutrophils % % Lymphocytes % % Monocytes % % Eosinophils % % Basophils % % Nucleated RBC % (0.0-0.3) % Absolute Neutrophils (1.2-6.7) 10^3/uL Absolute Lymphocytes (1.2-3.4) 10^3/uL Absolute Monocytes (0.1-0.8) 10^3/uL Absolute Eosinophils (0.0-0.7) 10^3/uL Absolute Basophils (0.0-0.2) 10^3/uL VBG Lactate 2.1 H (0.6-1.4) mmol/L Sodium (136-145) mmol/L Potassium (3.5-5.1) mmol/L Chloride (98-107) mmol/L Carbon Dioxide (21.0-32.0) mmol/L Anion Gap (3-11) mmol/L BUN (7-18) mg/dL Creatinine (0.70-1.30) mg/dL Est GFR (CKD-EPI 2020) (mL/min/1.73m2) Glucose (74-106) mg/dL Calcium (8.5-10.1) mg/dL Total Bilirubin (0.2-1.0) mg/dL AST (15-37) U/L ALT (16-63) U/L Alkaline Phosphatase (46-116) U/L Ammonia 129 H (11-32) umol/L Total Protein (6.4-8.2) g/dL Albumin (3.4-5.0) g/dL Procalcitonin ng/mL TSH (0.36-3.74) uIU/mL Urine Color Yellow (Yellow) Urine Clarity Clear (Clear) Urine pH 7.5 (5-8) Ur Specific [place] 1.010 (1.005-1.025) Urine Protein Negative (Neg-Trace) mg/dL Urine Ketones 15 H (Negative) mg/dL Urine Blood Moderate H (Negative) Urine Nitrite Negative (Negative) Urine Bilirubin Negative (Negative) Urine Urobilinogen >=8.0 H (Up to 0.2) mg/dL Ur Leukocyte Esterase Negative (Negative) Urine RBC 20-50 H (0-2) HPF Urine WBC 0-2 (0-5) HPF Ur Epithelial Cells Rare (Negative) HPF Urine Crystals Negative (Negative) HPF Urine Bacteria Negative (Negative) HPF Urine Casts Negative (Negative) LPF Urine Mucus Negative (Negative) Ur Culture Indicated? No Urine Glucose >=1000 H (Negative) mg/dL Urine Opiates Screen Negative (Negative) Urine Methadone Screen Negative (Negative) Ur Barbiturates Screen Negative (Negative) Ur Tricyclics Screen Negative (Negative) Ur Amphetamines Screen Negative (Negative) U Benzodiazepines Scrn Negative (Negative) Urine Cocaine Screen Negative (Negative) Ur THC Screen Negative (Negative) Ethyl Alcohol (<10) mg/dL 12/04/23 Range/Units 13:35 WBC 6.88 (4.4-10.8) 10^3/uL RBC 4.72 (4.36-5.78) 10^6/uL Hgb 15.5 (13.5-17.5) g/dL Hct 44.1 (40.0-50.0) % MCV 93 (80-95) fL MCH 32.8 (27.0-33.0) pg MCHC 35.1 (32.0-36.0) % RDW 13.0 (11.8-14.1) % Plt Count 161 (130-400) 10^3/uL MPV 10.4 (8.0-11.0) fL Immature Gran % 0.3 % Neutrophils % 64.5 % Lymphocytes % 21.5 % Monocytes % 8.3 % Eosinophils % 4.8 % Basophils % 0.6 % Nucleated RBC % 0.0 (0.0-0.3) % Absolute Neutrophils 4.44 (1.2-6.7) 10^3/uL Absolute Lymphocytes 1.48 (1.2-3.4) 10^3/uL Absolute Monocytes 0.57 (0.1-0.8) 10^3/uL Absolute Eosinophils 0.33 (0.0-0.7) 10^3/uL Absolute Basophils 0.04 (0.0-0.2) 10^3/uL VBG Lactate 2.5 H* (0.6-1.4) mmol/L Sodium 142 (136-145) mmol/L Potassium 4.1 (3.5-5.1) mmol/L Chloride 106 (98-107) mmol/L Carbon Dioxide 27.2 (21.0-32.0) mmol/L Anion Gap 8.8 (3-11) mmol/L BUN 6 L (7-18) mg/dL Creatinine 0.8 (0.70-1.30) mg/dL Est GFR (CKD-EPI 2020) 95.21 (mL/min/1.73m2) Glucose 246 H (74-106) mg/dL Calcium 9.0 (8.5-10.1) mg/dL Total Bilirubin 3.12 H (0.2-1.0) mg/dL AST 47 H (15-37) U/L ALT 40 (16-63) U/L Alkaline Phosphatase 134 H (46-116) U/L Ammonia (11-32) umol/L Total Protein 7.1 (6.4-8.2) g/dL Albumin 3.6 (3.4-5.0) g/dL Procalcitonin < 0.1 ng/mL TSH 2.22 (0.36-3.74) uIU/mL Urine Color (Yellow) Urine Clarity (Clear) Urine pH (5-8) Ur Specific [place] (1.005-1.025) Urine Protein (Neg-Trace) mg/dL Urine Ketones (Negative) mg/dL Urine Blood (Negative) Urine Nitrite (Negative) Urine Bilirubin (Negative) Urine Urobilinogen (Up to 0.2) mg/dL Ur Leukocyte Esterase (Negative) Urine RBC (0-2) HPF Urine WBC (0-5) HPF Ur Epithelial Cells (Negative) HPF Urine Crystals (Negative) HPF Urine Bacteria (Negative) HPF Urine Casts (Negative) LPF Urine Mucus (Negative) Ur Culture Indicated? Urine Glucose (Negative) mg/dL Urine Opiates Screen (Negative) Urine Methadone Screen (Negative) Ur Barbiturates Screen (Negative) Ur Tricyclics Screen (Negative) Ur Amphetamines Screen (Negative) U Benzodiazepines Scrn (Negative) Urine Cocaine Screen (Negative) Ur THC Screen (Negative) Ethyl Alcohol < 3.0 (<10) mg/dL [id number] Documentation Fingerstick Glucose Start: 12/04/23 13:13 Freq: Status: Complete Protocol: Activity Type Activity Date Activity User E-sign Co-sign Detail Recorded Client Recorded Date Recorded By Document 12/04/23 13:12 BKG DAEMON(3) [id number] 12/04/23 13:13 BKG DAEMON(4) Intake and Output - 24 Hour Total 12/04/23 13:02 thru 12/04/23 18:40 Weight 78.925 kg Falls Risk Assessment History of Falls No History 12/04/23 18:22 Contributing Factors No Factors 12/04/23 18:22 Ambulatory Aids Independent 12/04/23 18:22 Tubes/Lines W/no contributing factors 12/04/23 18:22 Gait Evaluation No gait disturbance 12/04/23 18:22 Cognition No cognitive impairment 12/04/23 18:22 Fall Total Score 10 12/04/23 18:22 Level of Risk Standard/Low Risk 12/04/23 18:22 v v v v v v v v v Sending and/or Receiving Nurses: Please use comment section below to note any information pertinent to the patient hand-off not included above. Information / Comments: Pt disoriented this AM, was confused putting on his clothes, speech was delayed. Came to ED as a stroke alert with no deficits. Admitted with hepatic encephalopathy. Ammonia was 129. Lactulose x1 given in ED. 1L IVF given. Ambulating to BR with no assist. Confusion cleared, but speech still delayed and repetitive. Pt going for CT abd/pelvis prior to coming to unit. PMHX: DM2, HTN, PVCs, Arthritis, [place] Palsy, Afib on coumadin per pt. Report received from: VIKTOR Fletcher at [id number]
--- NOTE | 2023-12-04 19:16 | NUR.NOTE ---
Nursing Note: Received report from Justine RN in ED at 1708. Pt arrived to unit at 1734. MD Hannah arrived to bedside to assess. A&Ox4, oriented to room and call weinberg. Fall prec in place. Plan for family to call with med list and vaccine history.
--- NOTE | 2023-12-04 19:33 | TELEP.MEDR_ITS ---
Date of service: 12/04/23 Time of Service: 19:33 Telepharmacy Home Med Rec Allergies Allergies: No Known Allergies Allergy (Unverified 12/04/23 13:13) Interview Person Interviewed: * Updated home med list with information from patients spouse, Melvina. She had patients medication bottles with her during interview process. Also reports as needed use of Afrin nasal spray. Quality Quality of Interview/Accuracy of Medication List: Good Sources Sources used to compile medication list: [email or web address] Medication List, Patient List and [employer] Changes made to Home Medication List: ADDITIONS: * Flomax 0.4mg po daily * Warfarin 7.5mg po daily on sunday and and 5mg po daily all other days * Coreg 3.125mg po bid * Lipitor 40mg po daily * Magnesium oxide 400mg po bid DELETIONS: * Pradaxa * Toprol * Oxycodone * Triamcinolone cream CHANGES: * Omeprazole 20mg po daily prn (was 40mg daily) * Glipizide 10mg po daily (was XL tablet daily) * Lantus inject 30 units subq HS * Metformin 1000mg po bid (was 500mg po tid) Additional Notes Additional Notes: None Recommended Changes Recommended Changes(reason for recommendation): None Attestation: The home medication list is now updated to the best of my knowledge and is ready to be reconciled by the provider. Please contact the TelePharmacy Medication Reconciliation Pharmacist at for any questions.
--- NOTE | 2023-12-04 19:33 | TELEP.MEDREC ---
Date of service: 12/04/23 Time of Service: 19:[facility] Allergies Allergies: No Known Allergies Allergy (Unverified 12/04/23 13:13) Interview Person Interviewed: Updated home med list with information from patients spouse, Melvina. She had patients medication bottles with her during interview process. Also reports as needed use of Afrin nasal spray. Quality Quality of Interview/Accuracy of Medication List: Good Sources Sources used to compile medication list: [employer] Medication List, Patient List and [employer] Changes made to Home Medication List: ADDITIONS: Flomax 0.4mg po daily Warfarin 7.5mg po daily on sunday and and 5mg po daily all other days Coreg 3.125mg po bid Lipitor 40mg po daily Magnesium oxide 400mg po bid DELETIONS: Pradaxa Toprol Oxycodone Triamcinolone cream CHANGES: Omeprazole 20mg po daily prn (was 40mg daily) Glipizide 10mg po daily (was XL tablet daily) Lantus inject 30 units subq HS Metformin 1000mg po bid (was 500mg po tid) Additional Notes Additional Notes: None Recommended Changes Recommended Changes(reason for recommendation): None Attestation: The home medication list is now updated to the best of my knowledge and is ready to be reconciled by the provider. Please contact the [facility] Medication [facility]conciliation Pharmacist at for any questions.
[2023-12-04] MEDS: Insulin Aspart 300 UNITS/3 ML PEN SC (20:18)
[2023-12-04] MEDS: Carvedilol 3.125 MG TAB PO (20:19)
[2023-12-04] MEDS: Magnesium Oxide 400 MG TAB PO (20:19)
[2023-12-04] MEDS: Tamsulosin 0.4 MG CAPCR PO (20:19)
[2023-12-04] MEDS: Rifaximin 550 MG TAB PO (20:19)
[2023-12-04] MEDS: Normal Saline Flush 10 ML SYR IVP (21:32)
[2023-12-05] VITALS (7 sets, daily range): BP systolic 120–143; BP diastolic 60–79; PULSE 64–72; RESP 17–18; TEMP 37–38; O2SAT 94–98
--- NOTE | 2023-12-05 | DI.US_ITS ---
Exam(s) US ABDOMEN EXAM: US ABDOMEN CLINICAL HISTORY: incr. bili, transaminases; hx hemochromatosis TECHNIQUE: Ultrasound abdomen performed using standard protocol. COMPARISON: CT CT ABDOMEN PELVIS CTA from 12/04/2023 FINDINGS: Exam limited by bowel gas and poor acoustic window.. LIVER: Severely increased echogenicity and decreased through transmission.. Large portions of the li megan are not well seen. No focal liver lesions are seen. GALLBLADDER: Cholelithiasis no evidence of wall thickening. No pericholecystic fluid identified. MORALES'S SIGN: Negative. BILIARY SYSTEM: No intrahepatic or extrahepatic biliary ductal dilation. KIDNEYS: Kidneys are symmetric in size. No evidence of renal calculi. No evidence of hydronephrosis. No renal mass or cyst identified. PANCREAS: Normal where visualized. Partially obscured by bowel gas. SPLEEN: Mildly enlarged at 15.3 cm in length. No focal lesions. Varices near spleen. ABDOMINAL AORTA AND IVC: Visualized portions normal caliber. ASCITES: None seen. IMPRESSION: Limited exam. Severely echogenic liver. No evidence of biliary dilatation. Cholelithiasis. No gallbladder wall thickening. DATA REPOSITORY:
[2023-12-05] MEDS: Melatonin 3 MG TAB 6 MG PO ×2 (01:37→20:53)
[2023-12-05 06:17] LABS: Lactate 1.7 mmol/L (0.6-1.4)
[2023-12-05 06:23] LABS: Abs Immature Grans 0.03 10^3/uL (0.0-0.06); Absolute Basophil Count 0.03 10^3/uL (0.0-0.2); Absolute Eosinophil Count 0.31 10^3/uL (0.0-0.7); Absolute Lymphocyte Count 1.79 10^3/uL (1.2-3.4); Absolute Monocyte Count 0.73 10^3/uL (0.1-0.8); Absolute Neutrophil Count 4.56 10^3/uL (1.2-6.7); Basophils % 0.4 %; Eosinophils % 4.2 %; HGB 13.3 g/dL (13.5-17.5); Immature Grans % 0.4 %; MCV 94 fL (80-95); MPV 10.4 fL (8.0-11.0); Monocytes % 9.8 %; Neutrophils % 61.2 %; Platelet Count 156 10^3/uL (130-400); RBC 4.03 10^6/uL (4.36-5.78); RDW 12.7 % (11.8-14.1); RDW-SD 43.9 fL; WBC 7.45 10^3/uL (4.4-10.8)
[2023-12-05 06:28] LABS: INR 2.4 (0.9-1.1); Prothrombin Time 22.3 sec (9.1-11.1)
[2023-12-05 06:30] LABS: Ammonia 122 umol/L (11-32)
[2023-12-05 06:36] LABS: ALT 34 U/L (16-63); AST 44 U/L (15-37); Alkaline Phosphatase 115 U/L (46-116); Anion Gap 11.9 mmol/L (3-11); BUN 5 mg/dL (7-18); Bilirubin, Total 3.18 mg/dL (0.2-1.0); CO2 22.1 mmol/L (21.0-32.0); CREATININE 0.7 mg/dL (0.70-1.30); Calcium 8.4 mg/dL (8.5-10.1); Chloride 108 mmol/L (98-107); Estimated GFR 99.12 (mL/min/1.73m2); Glucose 209 mg/dL (74-106); Magnesium 1.6 mg/dL (1.8-2.4); Potassium 3.4 mmol/L (3.5-5.1); Sodium 142 mmol/L (136-145); Total Protein 5.8 g/dL (6.4-8.2)
[2023-12-05] MEDS: Insulin Aspart 300 UNITS/3 ML PEN SC ×2 (08:10→16:36)
[2023-12-05] MEDS: Carvedilol 3.125 MG TAB PO ×2 (08:13→20:54)
[2023-12-05] MEDS: Atorvastatin 40 MG TAB PO (08:13)
[2023-12-05] MEDS: Lactulose 20 GM/30 ML CUP PO ×3 (08:13→20:53)
[2023-12-05] MEDS: Magnesium Oxide 400 MG TAB PO ×2 (08:14→20:54)
[2023-12-05] MEDS: Lisinopril 20 MG TAB PO (08:14)
[2023-12-05] MEDS: Rifaximin 550 MG TAB PO ×2 (08:14→20:53)
[2023-12-05] MEDS: amLODIPine 2.5 MG TAB PO (08:14)
--- NOTE | 2023-12-05 08:34 | PDOC.CMIN ---
Date of service: 12/05/23 Time of Service: 08:34 Care Management Initial Assmt Initial Assessment Reason for Hospitalization: altered mental status, hepatic encephalopathy Functional Status/Living Situation Patient Presentation: Griffin was sitting up in the bedside chair when CM met with him this afternoon. He was admitted through the ER yesterday due to new confusion at home that was noted by his . He was pleasant and easily engaged. He stated that he would really like to go home, but is still waiting for an U/S that is scheduled at 14:30, and he also knows that his ammonia level has not returned to normal and he is still noticing some increased confusion. While talking, he was noted to have some difficulty recalling events. He stated that this is not his baseline. Griffin had a PT eval earlier in the day, and was cleared by them to go home with no new services. He is also scheduled to meet with the fare register repairer today. Town of Residence: [facility] Resides with: Spouse (Melvina) Significant Other/Family: Local (3 adult children that are all fairly local and involved.) Natural Supports: , Melvina, is main support. Griffin has 3 children in the area, and a group of friends. 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 He used to play ding, but has dupuytren's contracture in both hands and is no longer able to do so. Medications Medication Management: No Issues/Barriers identified (Griffin is not fully aware of his medication list/ indications and dosages.) Physical Functioning/Mobility Assistive Device: none Advance Directives Advance Directives: Do you have an Advance Directive: N 09/05/12 15:39 AD On File at [facility]: N 06/19/12 11:48 Date Asked 12/03/23 12/03/23 11:34 AD Date Reviewed COLST On File at [facility] COLST Date Scanned Code Status Resuscitation Status Full Code Insurance Coverage/Financial Issues Insurance: Medicare. [facility] financial assisstance. Financial Issues: Griffin and his own their home, it is paid for. They utilize 3 [employer] and fuel assistance. Care Team Visit Care Team Role Provider Type Stefani Jones MD Primary Care Provider [facility] STAFF PHYSICIAN Chanell Guzman RDN, [facility] Other Providers DIRECTOR BUSINESS INTEGRATION Meaghan Mccoy Other Providers DIRECTOR BUSINESS INTEGRATION Jerald Girard Rebeca Other Providers OTHER Danial Haile RDN Other Providers DIRECTOR BUSINESS INTEGRATION SHERIF Iverson Emergency Provider [facility] Son Hannah MD Admit Provider MD [facility] STAFF PHYSICIAN Attending Provider Discharge Potential Discharge Needs: Consult Consult Services Needed: Other (silver service waiter ?) and PCP F/U Appt Anticipated Barriers to Discharge: None Identified Patient/Family Education Needs: Review discharge instructions, discuss Ask Me Three Transportation: Private vehicle Plan: Anticipate that Griffin will be discharged home with no new services. He will transport in private vehicle with either his or his son. He will f/u with PCP and continue per his discharge plan of care. PFSH All Active Problems (Updated 12/04/23 @ 19:14 by Son Hannah MD) Chronic anticoagulation (Chronic) Paroxysmal atrial fibrillation (Chronic) Hepatic encephalopathy (Acute) Hemochromatosis, unspecified (Chronic) Diabetes (Chronic) Hypertension (Chronic) PVCs (premature ventricular contractions) (Acute) Social History Smoking/Tobacco Use Status: Current-Occasional Tobacco Type: cigars Smoking risk assessment performed?: Yes Alcohol Intake: current Alcohol Intake frequency: 0-2 drinks per day Alcohol type: beer Drug use: Occasionally Substance use type: marijuana Housing: house Do you feel safe at home: Yes Do you feel safe in your relationship?: Yes Readmission Within the Past 30 Days Yes or No: No SDOH(Care Management) Screening Will the Patient Participate in the Screening?: Yes Do you worry about having a steady place to live?: no Problems where you live: no known problems In the past 12 months, have you had to go without electric, gas, oil or water in your home?: no Have you or anyone in your house had to go without enough food to eat?: no Has lack of transportation kept you from medical appointments or from doing things needed for daily living?: no Has anyone in your support network made you feel unsafe for any reason?: no Social Determinants of Health Comments(SDOH Details): utilizes [employer] and fuel assistance
[2023-12-05] MEDS: Normal Saline Flush 10 ML SYR IVP ×2 (09:10→20:53)
[2023-12-05] MEDS: cefTRIAXone 1 GM/50 ML BAG IVPB (09:28)
[2023-12-05] MEDS: Potassium Chloride 10 MEQ CAPCR 20 MEQ PO (09:28)
[2023-12-05] MEDS: MAGNESIUM SULFATE 2 GM/50 ML BAG IVINF (11:05)
--- NOTE | 2023-12-05 13:02 | PHA.REVIEW2 ---
Pharmacy Admission Review Admission Clinical Review Admission Pharmacy Review: Hepatic encephalopathy (Acute) No Known Allergies Allergy (Unverified 12/04/23 13:13) Resuscitation Status Full Code Height 6 ft Weight 78.925 kg Pharmacy Admission Review Renal Dosing Renal Dosing: BUN 5 mg/dL (7-18) L 12/05/23 06:10 Creatinine 0.7 mg/dL (0.70-1.30) 12/05/23 06:10 Medications needing adjustments: Reviewed (CrCl 76.73 mL/min) List of meds needing interventions: Current medications are okay Anticoagulation Anticoagulation: Hgb 13.3 g/dL (13.5-17.5) L D 12/05/23 06:10 Hct 38.0 % (40.0-50.0) L 12/05/23 06:10 Plt Count 156 10^3/uL (130-400) 12/05/23 06:10 INR 2.4 (0.9-1.1) H 12/05/23 06:10 Creatinine 0.7 mg/dL (0.70-1.30) 12/05/23 06:10 DVT Prophylaxis: Intervened (Takes warfarin at home, was not ordered given discrepancies on home med list. Reached out to provider that telepharmacy completed med rec and updated home med list. No order has been put in yet. INR within therapeutic range.) Opiate Usage Evaluate Pain Scale/Pains Meds: Reviewed (PRN oxycodone - no doses given) Scheduled Bowel Reg ordered if on Opiates?: No (PRN docusate/Miralax) Relevant Labs Relevant Labs: Sodium 142 mmol/L (136-145) 12/05/23 06:10 Potassium 3.4 mmol/L (3.5-5.1) L 12/05/23 06:10 Chloride 108 mmol/L (98-107) H 12/05/23 06:10 Magnesium 1.6 mg/dL (1.8-2.4) L 12/05/23 06:10 Electrolytes, C-Reactive P, ESR: Reviewed (K 3.4, Mg 1.6 - IV Mg and PO K given today) DM Control DM Control: Glucose 209 mg/dL (74-106) H 12/05/23 06:10 Finger Stick Blood Glucose 211 1147 Finger Stick Blood Glucose 211 1147 Finger Stick Blood Glucose 191 0810 Finger Stick Blood Glucose 191 0750 Finger Stick Blood Glucose 191 0750 Insulin Dosing, Diabetic Medication: Has order for SS insulin Cardiac Review Cardiac Review: Blood Pressure 143/75 1108 Blood Pressure 124/60 0729 Blood Pressure 132/79 0320 BP, HR, EF%: Reviewed (HR WNL) List meds needing interventions: Patient is on amlodipine 2.5mg daily, carvedilol 3.125mg BID and has an order for metoprolol IVP PRN QTc Review QTc: Reviewed (468 from 12/04/23) IV to PO Switch IV Medications: Reviewed (ceftriaxone and metoprolol) Home Meds Home Med List reviewed: Intervened Relevent Home Meds Not ordered & why?: metformin, glipizide, ibuprofen, glargine and warfarin Orders were not put in as provider was waiting for med rec to be done by telepharmacy. This was completed last night and home med list was updated. Reached out to provider to make sure they were aware. Waiting to hear back. Current Meds Current Medication Order Review: Reviewed Pharmacy Antibiotic Review Relevant Labs: Relevant Labs 12/04/23 13:35 Procalcitonin < 0.1 WBC 7.45 10^3/uL (4.4-10.8) 12/05/23 06:10 Procalcitonin < 0.1 ng/mL 12/04/23 13:35 Temperature 37.4 C 1108 Temperature 38.0 C 0729 Temperature 37.0 C 0320 Pharmacy Antibiotic Activity: C/S review and Reviewed, no change Comments: Patient is on ceftriaxone, day 1, for possible UTI. Blood and urine cultures are pending.
--- NOTE | 2023-12-05 13:15 | PT.INIE ---
PT Notes Visit Reasons: [facility] Inpatient Physical Therapy Evaluation Date: 12/05/2023 Referring Doctor: Dr Hannah PT Orders: PT CONSULT: Safety consult for discharge Precautions: IV, fall risk Patient Profile/Admitting Diagnosis: Pt is a 68 yo male presented to the ED after sudden onset of confusion and disorientation at home. In the ED workup revealed hepatic encephalopathy due to hemochromatosis. PMHX: [] Social History/Home Situation: Patient resides with in single-family home 3 steps to enter. Patient independent ambulation without device. assists with meals patient attends routine phlebotomy Equipment Owned/DME: None Subjective: Patient reports feeling much better today. Objective: [] General Observation: Male supine in bed IV infusing. and son at bedside. patient agreeable to participate in evaluation Mental Status: Alert and oriented to person and place. Pain: Denies Vital Signs: Monitored by nursing ROM: Right Upper Extremity: Within normal limits Left Upper Extremity: Within normal limits Right Lower Extremity: Within normal limits Left Lower Extremity: Within normal limits Strength: Right Upper Extremity: 4/5 Left Upper Extremity: 4/5 Right Lower Extremity: Grossly 3+/5 Left Lower Extremity: Grossly 3+/5 Sensation: intact Bed Mobility/Transfers:Supervision without device Gait: CGA amb pushing IV pole 100 feet initially with decreased step length and height then progressed to reciprocal pattern Stairs: CGA 2 steps with 2 rails Balance: [] Static Sitting: Normal Dynamic Sitting: Good Static Standing: Fair plus Dynamic Standing: Fair Special Tests: Mobility Limitations Standardized Measure [facility] AM-PAC 6 clicks Basic Mobility Inpatient Short Form: Raw Score: 21 CMS Score: 28.97% disability Informed Consent/Education: Patient instructed in purpose of PT consult and plan of care. Assessment: Patient is a 68year old male referred to physical therapy services with the diagnosis of hepatic encephalopathy weakness. Patient presents with clinical signs and symptoms consistent with admitting diagnosis, as demonstrated by the following impairment level findings: 1. Decreased strength to B UE/LE major muscle groups 2. Impaired standing balance 3. Impaired activity tolerance Impairments are contributing to the following functional limitations: AMPAC score. 1. Declining transfer skills 2. Difficulty with ambulation without assistive device and physical assistance 3. Increased completion time for mobility/ADL performance 4. Increased risk for falls 5. Difficulty managing steps alone safely Patient is assessed as a Moderate [id number] complexity based on the following: History: 68-year-old male with past medical history as indicated above Examination: Demonstrates impairments in strength balance and mobility level with underlying impairments and functional limitations as well as deficit score of 28.97% utilizing the [facility] AM-PAC mobility inpatient Short form Presentation: Evolving Decision Making: Moderate Goals: Goals X1 week 1. Sit-Stand Independent 2. Stand-Sit Independent 3. Bed-Chair Independent 4. Chair-Bed Independent 5. Gait Independent 300 feet without device level surfaces 6. Stairs 4 steps with rail supervision 7. Independent with home exercise program [] 8. Standing balance to good plus without device Plan of Care/Treatment Plan: 1-2x/day, 7 days/week x 1 week. Plan of care has been reviewed with the SLITTER CREASER SLOTTER OPERATOR providing the service under Physical Therapy direction. Initiate Physical Therapy intervention for strengthening, bed mobility, transfers, gait, stairs, balance training, use of assistive device. DISCHARGE RECOMMENDATIONS: [] [X] Home with no services [] [] Home with services [specify] [] Home with outpatient PT [] [] SNF for continued rehabilitation [] [] Clinical Rehab Specialist Care [] [] SNF versus LTC based on ability to participate and progress [] TREATMENT CODE/TIME: [] Please sign an return this page within 30 days if you agree with the above POC. Thank you! Physician Signature Date [facility]
--- NOTE | 2023-12-05 16:12 | W.PM.PROGNOT ---
Date of Service Date of service: 12/05/23 Time of Service: 16:13 Assessment and Plan Assessment and plan (1) Hepatic encephalopathy: Status: Acute Assessment and plan: His ammonia remains elevated at 122, but his symptoms have improved remarkably. continue Rifaximin and lactulose, monitor electrolytes, LFT and renal function. K and Mg are low and are being corrected. Etiology probably d/t UTI worsening his chronic cirrhosis from his hemochromatosis (2) Hemochromatosis, unspecified: Status: Chronic Assessment and plan: Patient's hemoglobin seems to be stable and his ferritin level is acceptable. At present time we will not proceed with phlebotomy. Qualifiers: Hemochromatosis type: hereditary Qualified Code(s): E83.110 - Hereditary hemochromatosis (3) Diabetes: Status: Chronic Assessment and plan: Hold metformin and glipizide pending verification of his medications or dosages. Will continue on a sliding scale moderate dose and add glargine once his dose has been confirmed. 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 carvedilol dose has been reordered. (6) Chronic anticoagulation: Status: Chronic Assessment and plan: warfarin dose verified and has been ordered. (7) UTI (urinary tract infection): Status: Acute Assessment and plan: probably d/t obstructive uropathy from his BPH; he has evidence of chronic cystisis w/ urinary bladder wall thickening. I have begun him on ceftriaxone 1 gm iv daily, blood and urine cultures are pending. Qualifiers: Urinary tract infection type: acute cystitis Hematuria presence: without hematuria Qualified Code(s): N30.00 - Acute cystitis without hematuria (8) BPH (benign prostatic hyperplasia): Status: Chronic Assessment and plan: begin on Flomax, recommend urrology referral upon discharge Qualifiers: Lower urinary tract symptom presence: symptoms present Lower urinary tract symptom detail: incomplete bladder emptying Qualified Code(s): N40.1 - Benign prostatic hyperplasia with lower urinary tract symptoms; R39.14 - Feeling of incomplete bladder emptying (9) DVT prophylaxis: Status: Acute Assessment and plan: patient is on warfarin chronically, his INR dropped to 2.4 today since he missed his warfarin dose last night since his meds were only reconciled today. He will get warfarin 7.5 mg tonigh; continue to monitor his INR daily (10) Discharge planning issues: Status: Acute Assessment and plan: will dc home on oral antibiotics tomorrow if his blood cultures are negative and his mental status continues to improve from his hepatic encephalopathy Subjective Subjective Interval history since last seen: Mr Boston overall feels better. He is thinking more clearly, he notes and says that his nurses note he is walking better. appetite is better. Exam Narrative Exam Narrative: alert, oriented to person, place ([facility], [facility], [facility]) and year but was off on the , thought it was June He is sitting up eating late lunch/early dinner, was NPO for his abdominal US Lungs: clear Heart: RRR (TELEMETRY shows sinus rhythm, no ectopy) Abdomen: soft Legs: some chronic stasis skin changes but no edema Objective Last Vital Signs Temp 37.4 C 12/05/23 11:08 Pulse 71 12/05/23 11:08 Resp 17 12/05/23 11:08 BP 143/75 H 12/05/23 11:08 Pulse Ox 97 12/05/23 11:08 Laboratory Results - last 24 hr 12/04/23 12/05/23 18:15 06:10 WBC 7.45 RBC 4.03 L Hgb 13.3 L D Hct 38.0 L MCV 94 MCH 33.0 MCHC 35.0 RDW 12.7 Plt Count 156 MPV 10.4 Immature Gran % 0.4 Neutrophils % 61.2 Lymphocytes % 24.0 Monocytes % 9.8 Eosinophils % 4.2 Basophils % 0.4 Nucleated RBC % 0.0 Absolute Neutrophils 4.56 Absolute Lymphocytes 1.79 Absolute Monocytes 0.73 Absolute Eosinophils 0.31 Absolute Basophils 0.03 PT 22.3 H INR 2.4 H VBG Lactate 2.1 H 1.7 H Sodium 142 Potassium 3.4 L Chloride 108 H Carbon Dioxide 22.1 Anion Gap 11.9 H BUN 5 L Creatinine 0.7 Est GFR (CKD-EPI 2020) 99.12 Glucose 209 H Calcium 8.4 L Magnesium 1.6 L Total Bilirubin 3.18 H AST 44 H ALT 34 Alkaline Phosphatase 115 Ammonia 122 H Total Protein 5.8 L Albumin 3.0 L Reviewed Pertinent PMH: Yes Objective Narrative Objective Narrative: Abdominal US: FINDINGS: Exam limited by bowel gas and poor acoustic window.. LIVER: Severely increased echogenicity and decreased through transmission.. Large portions of the liver are not well seen. No focal liver lesions are seen. GALLBLADDER: Cholelithiasis no evidence of wall thickening. No pericholecystic fluid identified. MORALES'S SIGN: Negative. BILIARY SYSTEM: No intrahepatic or extrahepatic biliary ductal dilation. KIDNEYS: Kidneys are symmetric in size. No evidence of renal calculi. No evidence of hydronephrosis. No renal mass or cyst identified. PANCREAS: Normal where visualized. Partially obscured by bowel gas. SPLEEN: Mildly enlarged at 15.3 cm in length. No focal lesions. Varices near spleen. ABDOMINAL AORTA AND IVC: Visualized portions normal caliber. ASCITES: None seen. IMPRESSION: Limited exam. Severely echogenic liver. No evidence of biliary dilatation. Cholelithiasis. No gallbladder wall thickening. PAWSS Have you Been Recently Intoxicated or Drunk Within the Last 30 days?: No Have you Ever Experienced Previous Episodes of Alcohol Withdrawal?: No Have you ever Experienced Withdrawal Seizures?: No Have you ever Experienced Delirium Tremens(DT)s?: No Have you ever undergone Alcohol Rehabilitation Treatment (i.e, inpt ot outpatient treatment programs)?: No Have you ever Experienced Blackouts?: No Have you ever Combined Alcohol with other Downers within the last 90 days?: No Have you ever Combined Alcohol with any other Substance of Abuse during the last 90 days?: No Positive Blood Alcohol level on Presentation? [PCS.BAL]: No Evidence of Increased Autonomic Activity (i.e. HR>120, tremor, sweating, agitation, nausea)?: No Result: 0 Time Spent with Patient Time Spent with Patient: 35-49 minutes Time was spent: preparing to see the patient(eg.review tests), ordering medications,tests, procedures, referring, communicating with other health medicare compliance auditor, indepentently interpreting results, counseling the patient and care coordination
--- NOTE | 2023-12-05 18:47 | NUTRITION ---
I have reviewed the daily documentation for this patient, including auxiliary assessments, and agree with this documentation.
[2023-12-05] MEDS: Oxymetazolone 0.05% SPRAY 15 ML BTL NS (20:52)
[2023-12-05] MEDS: metFORMIN 500 MG TAB 1000 MG PO (20:54)
[2023-12-05] MEDS: Tamsulosin 0.4 MG CAPCR PO (20:54)
[2023-12-05] MEDS: Insulin Glargine 300 UNITS/3 ML PEN 30 UNITS SC (20:56)
[2023-12-06 03:09] VITALS: BP 131/79; PULSE 68; RESP 16; TEMP 36.6; O2SAT 98
[2023-12-06 08:45] VITALS: BP 139/74; PULSE 68; RESP 16; TEMP 37.3; O2SAT 97
[2023-12-06] MEDS: metFORMIN 500 MG TAB 1000 MG PO (08:45)
[2023-12-06] MEDS: Carvedilol 3.125 MG TAB PO (08:45)
[2023-12-06] MEDS: amLODIPine 2.5 MG TAB PO (08:45)
[2023-12-06] MEDS: Magnesium Oxide 400 MG TAB PO (08:45)
[2023-12-06] MEDS: Potassium Chloride 10 MEQ CAPCR 20 MEQ PO (08:45)
[2023-12-06] MEDS: Warfarin 5 MG TAB 7.5 MG PO (08:45)
[2023-12-06] MEDS: Normal Saline Flush 10 ML SYR IVP (08:45)
[2023-12-06] MEDS: Rifaximin 550 MG TAB PO (08:45)
[2023-12-06] MEDS: Lisinopril 20 MG TAB PO (08:45)
[2023-12-06] MEDS: glipiZIDE 10 MG TAB PO (08:45)
[2023-12-06] MEDS: Atorvastatin 40 MG TAB PO (08:45)
[2023-12-06 09:01] LABS: ALT 31 U/L (16-63); AST 41 U/L (15-37); Albumin 2.8 g/dL (3.4-5.0); Alkaline Phosphatase 107 U/L (46-116); Anion Gap 9.3 mmol/L (3-11); BUN 7 mg/dL (7-18); Bilirubin, Total 3.92 mg/dL (0.2-1.0); CO2 24.7 mmol/L (21.0-32.0); CREATININE 0.7 mg/dL (0.70-1.30); Calcium 8.4 mg/dL (8.5-10.1); Chloride 110 mmol/L (98-107); Estimated GFR 99.12 (mL/min/1.73m2); Glucose 136 mg/dL (74-106); Magnesium 1.9 mg/dL (1.8-2.4); Potassium 3.5 mmol/L (3.5-5.1); Sodium 144 mmol/L (136-145); Total Protein 5.6 g/dL (6.4-8.2)
[2023-12-06] MEDS: cefTRIAXone 1 GM/50 ML BAG IVPB (09:15)
--- NOTE | 2023-12-06 09:15 | PDOC.CMPRO ---
Date of service: 12/06/23 Time of Service: 09:16 Care Management Progress Note Discharge Potential Discharge Needs: PCP F/U Appt (Anticipate that Griffin will be discharged home with no new services. He will transport in private vehicle with either his or his son. He will f/u with PCP and continue per his discharge plan of care.) Anticipated Barriers to Discharge: None Identified Patient/Family Education Needs: Review discharge instructions, discuss Ask Me Three Transportation: Private vehicle Plan: Anticipate that Griffin will be discharged home with no new services. He will transport in private vehicle with either his or his son. He will f/u with PCP and continue per his discharge plan of care. CM will continue to follow. SDOH(Care Management) Screening Will the Patient Participate in the Screening?: Yes Do you worry about having a steady place to live?: no Problems where you live: no known problems In the past 12 months, have you had to go without electric, gas, oil or water in your home?: no Have you or anyone in your house had to go without enough food to eat?: no Has lack of transportation kept you from medical appointments or from doing things needed for daily living?: no Has anyone in your support network made you feel unsafe for any reason?: no Social Determinants of Health Comments(SDOH Details): utilizes [employer] and fuel assistance
[2023-12-06] MEDS: Lactulose 20 GM/30 ML CUP PO ×2 (09:54→13:56)
[2023-12-06 10:20] LABS: Absolute Basophil Count 0.03 10^3/uL (0.0-0.2); Absolute Eosinophil Count 0.27 10^3/uL (0.0-0.7); Absolute Lymphocyte Count 1.72 10^3/uL (1.2-3.4); Absolute Monocyte Count 0.52 10^3/uL (0.1-0.8); Absolute Neutrophil Count 3.11 10^3/uL (1.2-6.7); Basophils % 0.5 %; Eosinophils % 4.8 %; HCT 39.9 % (40.0-50.0); HGB 13.9 g/dL (13.5-17.5); Lymphocytes % 30.4 %; MCHC 34.8 % (32.0-36.0); MCV 95 fL (80-95); MPV 10.4 fL (8.0-11.0); Monocytes % 9.2 %; Neutrophils % 55.1 %; Platelet Count 137 10^3/uL (130-400); RBC 4.21 10^6/uL (4.36-5.78); RDW 12.9 % (11.8-14.1); RDW-SD 44.7 fL; WBC 5.65 10^3/uL (4.4-10.8)
--- NOTE | 2023-12-06 10:35 | TELEFU_ITS ---
Date of service: 12/06/23 Time of Service: 10:35 Nutrition Note NOTE: Received nutrition consult regarding diabetes education/mgt Pt is 68yo male admitted with hepatic encephalopathy, UTI. His PMH of chronic conditions includes Diabetes, BPH, Afib, HTN, Hemochromatosis. Most recent Hgb A1c was 7.0% last April and is at goal. Shaji denies frequent hypoglycemic episodes. Takes 10mg Glipizide, 30 units glargine, 1g metformin BID as home diabetes meds. He tests his fasting glucose only at home. 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 Low magnesium has improved with repletion. Vitamin D historically has been low multiple times and appears no vitamin D supplementation at home currently. Pt weight has been stable this admission with fair to good po intake. Pt reports significant weight loss of 65lbs x 5 weeks however not sure when this occurred (sounds like it happened when he was originally dx with diabetes and was out of control). Tolerating heart healthy, carb consistent diet order. Patient still reports being a little foggy, coming out of high ammonia levels and accurate diet history difficult to obtain. Encouraged patient and to consider outpatient nutrition services for support in meal planning when/if d esired after discharge. Pt declined detailed education today but did take my card to contact for further nutrition counseling in diabetes management. will monitor labs, po intake and weight - pt anticipates discharge later today Recommend Vitamin D3 at discharge in light of his insufficiency/deficiency history with no current supplementation. Time Spent in Nutritional Counseling and Treatment: 10min
--- NOTE | 2023-12-06 10:37 | PDOC.CMDIS ---
Date of service: 12/06/23 Time of Service: 10:38 LACE Index Scoring Tool Questions: Length of Stay (in days): 2 Was the patient admitted via the E.D.?: Yes Comorbidities: Diabetes w/o Complication and Liver or Renal Disease E.D. Visits: 1 Answers: Total Score: 11 Risk of Readmission: High Risk Care Management Discharge Plan Reason for Hospitalization: hepatic encephalopathy Discharge Plan: Griffin is discharged today with...He will follow up with his PCP and continue with his discharge plan of care. He will transport home. Patient/Family Education Needs: Review of discharge instructions, activity, limitations and Ask me three. SDOH Health Related Social Needs: No Data to Display
[2023-12-06 10:40] LABS: C-Reactive Protein < 0.50 mg/dL (<or=0.5)
[2023-12-06 11:15] LABS: Procalcitonin < 0.1 ng/mL
[2023-12-06 11:18] LABS: INR 1.8 (0.9-1.1); Prothrombin Time 17.5 sec (9.1-11.1)
[2023-12-06] MEDS: Insulin Aspart 300 UNITS/3 ML PEN SC (12:04)
[2023-12-06 12:05] VITALS: BP 110/63; PULSE 67; RESP 16; TEMP 36.9; O2SAT 98
[2023-12-06 13:16] LABS: Ammonia 132 umol/L (11-32)
--- NOTE | 2023-12-06 13:45 | PT.INTREAT ---
PT Notes Visit Reasons: [facility] Inpatient Physical Therapy Treatment Note [facility] Date: 12/06/2023 PRECAUTIONS:standard, IV SUBJECTIVE: Pt reports he is feeling much better today. Patient reports he hopes to be going home today. OBJECTIVE: Pt awake alert in his bed motivated to get moving.? PAIN: denies VITALS: ? Telemetry in place Therapeutic Activities ([id number]): Direct one-on-one instruction in dynamic activities to improve functional performance. ? BED MOBILITY/TRANSFERS? Rolling L/R: I Supine-sit: I ? Sit-supine: I? Sit-stand: I ? Stand-sit: I ? Bed-Chair: SBA ? Chair-bed: SBA Provided skilled cues and instruction on performance and technique throughout. GAIT? Assistive Device: none? Weight bearing: full Assist: SBA? Distance:? 150 ft x2? Deviation: decrease step length decrease avi, decrease arm swing ? ASSESSMENT: Patient demonstrates significant improvement in stability during transfers functional reaching tasks without upper extremity support and ambulation. Demonstrates ability to retrieve items and transport items without use of assistive device. PLAN:Cont PT for strengthening, balance and gait until medically appropriate for discharge TREATMENT CODE/TIME: 90068/[id number] DISCHARGE RECOMMENDATION: Home with no further PT indicated
--- NOTE | 2023-12-06 14:53 | PDOC.CMPRO ---
Date of service: 12/06/23 Time of Service: 09:38 Care Management Progress Note Progress Note Text Progress Note Text: Griffin was sitting in the bedside chair when CM met with him this morning. He looked well. He was pleasant and easily engaged. Griffin was noted to be clearer in his thinking and speech this morning. He is eager to go home. Griffin's was visiting this afternoon and stated that Griffin is back to his old self. Discharge Potential Discharge Needs: PCP F/U Appt Anticipated Barriers to Discharge: None Identified Patient/Family Education Needs: Review discharge instructions, discuss Ask Me Three Transportation: Private vehicle Plan: Anticipate that Griffin will be discharged home with no new services. He will transport in a private vehicle with his son. He will follow up with his PCP and continue per the prescribed plan of care. CM will continue to follow. SDOH(Care Management) Screening Will the Patient Participate in the Screening?: Yes Do you worry about having a steady place to live?: no Problems where you live: no known problems In the past 12 months, have you had to go without electric, gas, oil or water in your home?: no Have you or anyone in your house had to go without enough food to eat?: no Has lack of transportation kept you from medical appointments or from doing things needed for daily living?: no Has anyone in your support network made you feel unsafe for any reason?: no Social Determinants of Health Comments(SDOH Details): utilizes [employer] and fuel assistance
--- NOTE | 2023-12-06 16:17 | DSE_ITS ---
Date of service: 12/06/23 Time of Service: 16:17 DS: Diagnosis Discharge Diagnosis (1) Hepatic encephalopathy: Status: Acute Asessment and Plan: Improved with IV fluid hydration and treatment with lactulose and rifaximin. This in spite of the fact that his ammonia levels never changed. (2) Hemochromatosis, unspecified: Status: Chronic (3) Diabetes: Status: Chronic Asessment and Plan: No change in home meds. Patient had no hypoglycemia during his hospital stay. (4) Hypertension: Status: Chronic Asessment and Plan: No change in home meds (5) Paroxysmal atrial fibrillation: Status: Chronic (6) Chronic anticoagulation: Status: Chronic (7) UTI (urinary tract infection): Status: Ruled-out Asessment and Plan: Negative blood and urine cultures. Initially treated with Rocephin which was discontinued after his blood and urine cultures came back. (8) BPH (benign prostatic hyperplasia): Status: Chronic Asessment and Plan: Patient begun on Flomax 0.4 mg daily Discharge Plan Disposition Patient Disposition: Home Condition: Improving Discharge Details Reason For Visit: AMS Admit Date/Time: 12/04/23 15:01 Admit Provider: Son Hannah Attending Provider: Son Hannah Primary Care Provider: Stefani Jones [facility] Course Hospital Course: 68-year-old male with history of type 2 diabetes mellitus, hemochromatosis with cirrhosis who presented to the hospital with acute delirium. See admission H&P for details of his symptoms and physical findings. In summary he was found to be in metabolic encephalopathy. Stroke workup included CT of his head and neck that showed no stroke and no hemodynamically significant stenosis of his cervical or cerebral vascular system. Transaminases are minimally elevated total bilirubin was mildly elevated but on a chronic basis. Ammonia level was elevated in the 120s. His electrolytes are normal renal function was normal blo od sugar have been checked by the paramedics when they were called out to see him and found to be normal. He had no hypoglycemia during his hospital stay. CT a of his abdomen pelvis was performed and showed cholelithiasis but no acute cholecystitis or biliary obstruction. He has hepatic cirrhosis he has colonic diverticulosis but without diverticulitis. Does have evidence of chronic cystitis with thickening of his urinary bladder wall as well as moderately enlarged prostate gland. Patient was admitted for IV fluid hydration and treatment of hepatic encephalopathy. He was started on lactulose and rifaximin mean. UTI was suspected because of his urinary retention and urine culture was sent as well as UA. He was started on ceftriaxone. Blood cultures came back no growth urine culture just showed 10-50,000 colonies of mixed gram-positive geetha. As the patient had no fevers no elevated white count and a nonsignificant urinary culture antibiotics were discontinued. He was discharged home on 12/06/2023 in markedly improved condition with prescriptions for Flomax for his urinary retention and he was sent home on lactulose and rifaximin. Home Meds and New Rx's Prescriptions: New Xifaxan 550 mg Tablet 550 mg PO BID Qty: 60 0RF potassium chloride 10 mEq Capsule, Extended Release 20 meq PO DAILY Qty: 30 0RF lactulose 20 gram/30 mL Solution 20 g PO BID Qty: 1500 0RF Continued insulin glargine [Lantus Solostar U-100 Insulin] 100 unit/mL (3 mL) insulin pen 30 unit subcut QPM metformin 500 MG tablet 1,000 mg PO BID (DME) lancets 1 EACH misc 1 ea Miscellaneous BID TEST STRIPS Topical BID (DME) arm brace [Wrist Brace Medium] 1 EACH misc 1 ea Miscellaneous HS Qty: 2 Rx Instructions: bilateral Carpal tunnel splints/braces to be worn while sleeping and during aggravating activities lisinopril 20 mg tablet 20 mg PO DAILY amlodipine 2.5 mg tablet 2.5 mg PO DAILY ibuprofen 400 MG tablet 400 mg PO Q6H PRN PRNQty: 40 0RF glipizide 10 mg tablet 10 mg PO DAILY tamsulosin 0.4 mg capsule 0.4 mg PO Q24H magnesium oxide 400 mg (241.3 mg magnesium) tablet 400 mg PO BID Patient Comments: TAKE 1 TABLET BY MOUTH TWICE DAILY omeprazole 20 mg capsule,delayed release(DR/EC) 20 mg PO DAILY PRN (Reason: heartburn) Patient Comments: TAKE 1 CAPSULE BY MOUTH EVERY DAY NEEDED warfarin 5 mg tablet PO DAILY Patient Comments: TAKE 1 TO 1.5 TABLETS BY MOUTH DAILY DIRECTED Rx Instructions: 7.5mg po daily on sunday and and 5mg po daily all other days atorvastatin 40 mg tablet 40 mg PO DAILY Patient Comments: TAKE 1 TABLET BY MOUTH EVERY DAY carvedilol 3.125 mg tablet 3.125 mg PO BID Patient Comments: TAKE 1 TABLET BY MOUTH TWICE DAILY Discharge Instructions Instructions: Blood in the urine (hematuria) in adults, Hepatic encephalopathy, Ammonia Blood Test Additional Instructions: You were treatef for acute hepatic encephalopathy (confusion caused by high ammonia from your chronic liver disease from your hemochromatosis). You were found to have blood in your urine and initially this was thought to be d/t an acute urinary tract infection but both the blood cultures and urine cultures came back negative for an infection. Your CT scan of your head did not show any acute strokes and the cerebral and neck vessels leading to the brain showed no acute blockages although you have some mild cholesterol plaques in the vessels of your neck. CT of your abdomen and pelvis did not show any aneurysms but showed the known cirrhosis of your liver and some gall stones but without any acute obstruction of your bile ducts. You have diverticulosis but no diverticulitis and your prostate is enlarged along w/ some chronic thickening of your urinary bladder wall. Because of your blood found in the urine, you should see a urologist to evaluate your enlarged prostate and thickened urinary bladder. Your PCP can refer you to a local urologist. You were put on medications to help control the ammonia levels in your blood including lactulose and rifaximin. You ammonia level still remains high but you have clinically improved after given iv fluids and the medications to help lower the ammonia. YOur primary provider will follow up your labs. Stand Alone Forms: Nursing Discharge Form Referrals: Stefani Jones MD [Primary Care Provider] - 12/11/23 2:40 pm (patient needs follow up labs next week to monitor K and ammonia, recommend urology referral regarding chronic urinary retention, BPH and hematuria) Activity:: Activity as Tolerated Equipment/Supplies:: No Equipment Needed Diet:: Normal Diet Discharge Orders Discharge Orders: Discharge Order (Routine); Ordered 12/06/23 Ordered By: Son Hannah Discharge Data Discharge Date/Time-TO BE ENTERED AT DEPARTURE: 12/06/23 16:53 DS: Summary Time Spent with Patient providing and/or coordinating discharge services: Greater than 30 minutes Specific discharge activities: Interview/exam of patient; review of discharge instructions, completion of prescriptions/discharge instructions; discussion w/ nursing and CM; documentation of hospital visit Status at Discharge Functional status at discharge: independent ambulation Overall status at discharge: patient is back to baseline Mental Status: mental status grossly normal Speech and Movement: speech and movement normal Mood: congruent mood Affect: normal affect Quality:SDOH Health Related Social Needs: No Data to Display Exam Narrative Exam Narrative: Shaji is alert, oriented, answers and asks questions appropriately, he is conversing w/ his and asking to go home Lungs: clear Heart RRR No tremors or asterixis Abdomen: soft, nontender Psych Mental Status: mental status grossly normal Speech and Movement: speech and movement normal Mood: congruent mood Affect: normal affect DS: Data Vitals/I&O Vitals and I&O: Vital Signs Temperature 36.9 C 12/06/23 12:05 Temperature Source Temporal Artery Scan 12/06/23 12:05 Pulse 67 12/06/23 12:05 Pulse Rhythm Regular 12/04/23 18:22 Respiratory Rate 16 12/06/23 12:05 Respiratory Effort Normal 12/04/23 18:22 Respiratory Depth Normal 12/04/23 18:22 Respiratory Pattern Normal 12/04/23 18:22 Blood Pressure 110/63 12/06/23 12:05 Blood Pressure Position Sitting 12/04/23 16:17 Pulse Oximetry 98 12/06/23 12:05 Oxygen Delivery Method Room Air 12/06/23 12:05 Oxygen Flow Rate 0 12/06/23 12:05 Pain Level 0 12/06/23 12:05 Intake & Output 12/05/23 12/06/23 12/06/23 23:59 11:59 23:59 Intake Total 50 / 1100 Output Total 250 / 325 350 / 350 Balance -200 / 775 -350 / -350 Weight 79.832 kg Intake: IV 50 / 1100 Output: Urine 250 / 325 350 / 350 Other: Urine Color Yellow [place] Urine Appearance Clear Clear Urine Odor None None Comment pT walked to the bathroom and voided. Stool Size Large Small Stool Characteristics Soft Soft Voiding Methods Urinal Urinal Data Completed and Pending Labs on day of discharge: Labs from last 24 hours 12/06/23 12/06/23 12/06/23 12:58 12:07 06:10 WBC 5.65 RBC 4.21 L Hgb 13.9 Hct 39.9 L MCV 95 MCH 33.0 MCHC 34.8 RDW 12.9 Plt Count 137 MPV 10.4 Immature Gran % 0.0 Neutrophils % 55.1 Lymphocytes % 30.4 Monocytes % 9.2 Eosinophils % 4.8 Basophils % 0.5 Nucleated RBC % 0.0 Absolute Neutrophils 3.11 Absolute Lymphocytes 1.72 Absolute Monocytes 0.52 Absolute Eosinophils 0.27 Absolute Basophils 0.03 PT 17.5 H INR 1.8 H Sodium 144 Potassium 3.5 Chloride 110 H Carbon Dioxide 24.7 Anion Gap 9.3 BUN 7 Creatinine 0.7 Est GFR (CKD-EPI 2020) 99.12 Glucose 136 H Calcium 8.4 L Magnesium 1.9 Total Bilirubin 3.92 H AST 41 H ALT 31 Alkaline Phosphatase 107 Ammonia 132 H C-Reactive Protein < 0.50 Total Protein 5.6 L Albumin 2.8 L Procalcitonin < 0.1 Add-On Test Request TNP Preliminary micro results at discharge 12/05/23 09:30 Blood Culture - Preliminary Blood NO GROWTH 24 HOURS 12/05/23 09:20 Blood Culture - Preliminary Blood NO GROWTH 24 HOURS 12/04/23 20:50 Urine Culture - Preliminary Urine - Voided Gram Positive Geetha,Mixed PFSH All Active Problems (Updated 12/07/23 @ 20:27 by Son Hannah MD) BPH (benign prostatic hyperplasia) (Chronic) Chronic anticoagulation (Chronic) Paroxysmal atrial fibrillation (Chronic) Hepatic encephalopathy (Acute) Hemochromatosis, unspecified (Chronic) Diabetes (Chronic) Hypertension (Chronic) PVCs (premature ventricular contractions) (Acute) Social History Smoking/Tobacco Use Status: Current-Occasional Tobacco Type: cigars Smoking risk assessment performed?: Yes Alcohol Intake: current Alcohol Intake frequency: 0-2 drinks per day Alcohol type: beer Drug use: Occasionally Substance use type: marijuana Housing: house Do you feel safe at home: Yes Do you feel safe in your relationship?: Yes Time Spent with Patient Time Spent with Patient: <45 minutes Time was spent: preparing to see the patient(eg.review tests), ordering medications,tests, procedures, referring, communicating with other health care professional, indepentently interpreting results, counseling the patient and care coordination
--- NOTE | 2023-12-06 17:06 | PDOC.CMDIS ---
Date of service: 12/06/23 Time of Service: 17:06 LACE Index Scoring Tool Questions: Length of Stay (in days): 2 Was the patient admitted via the E.D.?: Yes Comorbidities: Diabetes w/o Complication and Liver or Renal Disease (hereditary hemochromatosis) E.D. Visits: 1 Answers: Total Score: 11 Risk of Readmission: High Risk Care Management Discharge Plan Reason for Hospitalization: altered mental status/hepatic encephalopathy Discharge Plan: Griffin was discharged home with no new services. He will f/u with his PCP on 12/10, and continue with discharge plan as prescribed. He will discharge home in a private vehicle with his son. Patient/Family Education Needs: Review of discharge instructions, activity, limitations and follow up plan. Discuss Ask me 3 SDOH Health Related Social Needs: No Data to Display
== END 2023-12-06 16:53 | disposition home or self-care (01) | DRG 442 ==
LOC: ER 15:50 → MS 17:36
PROVIDERS: Admitting Provider Internal Medicine; Emergency Provider Physician Assistant; PCP Family Medicine; Visit Provider Internal Medicine
DX: K76.82 Hepatic encephalopathy (principal); N30.00 Acute cystitis without hematuria; E11.9 Type 2 diabetes mellitus without complications; Z79.4 Long term (current) use of insulin; I48.0 Paroxysmal atrial fibrillation; I10 Essential (primary) hypertension; N40.1 Benign prostatic hyperplasia with lower urinary tract symptoms; R39.14 Feeling of incomplete bladder emptying; Z79.01 Long term (current) use of anticoagulants; Z79.84 Long term (current) use of oral hypoglycemic drugs; F17.290 Nicotine dependence, other tobacco product, uncomplicated; K74.69 Other cirrhosis of liver; I49.3 Ventricular premature depolarization; F12.90 Cannabis use, unspecified, uncomplicated; K80.20 Calculus of gallbladder without cholecystitis without obstruction; R31.0 Gross hematuria; E83.42 Hypomagnesemia; E87.6 Hypokalemia
CPT/HCPCS: 00123; 36410; 36415; 36416; 70496; 70498; 80053; 80307; 82962; 84145; 87040; 93005; 96360; 96361; 97162; 97530; 99285; 74174; 76700; 80320; 81003; 81015; 82140; 83605; 83735; 84443; 85025; 85610; 86140; 87086; 93010; 99222; 99232; 99239; J0696; J1815; J3475; J3490

== ENCOUNTER 2023-12-21 11:22 | Outpatient (CLI) | payer MEDICARE, SELFPAY ==
[2023-12-21 10:46] LABS: HCT 42.8 % (40.0-50.0); HGB 14.4 g/dL (13.5-17.5); MCH 32.4 pg (27.0-33.0); MCHC 33.6 % (32.0-36.0); MCV 96 fL (80-95); MPV 10.3 fL (8.0-11.0); Platelet Count 170 10^3/uL (130-400); RBC 4.44 10^6/uL (4.36-5.78); RDW 13.2 % (11.8-14.1); RDW-SD 47.4 fL; WBC 6.38 10^3/uL (4.4-10.8)
[2023-12-21 10:56] LABS: Ammonia 153 umol/L (11-32); INR 1.9 (0.9-1.1); Prothrombin Time 17.9 sec (9.1-11.1)
[2023-12-21 11:25] LABS: ALT 38 U/L (16-63); AST 42 U/L (15-37); Albumin 3.3 g/dL (3.4-5.0); Alkaline Phosphatase 139 U/L (46-116); BUN 7 mg/dL (7-18); Bilirubin, Total 2.88 mg/dL (0.2-1.0); CREATININE 0.7 mg/dL (0.70-1.30); Calcium 8.7 mg/dL (8.5-10.1); Chloride 109 mmol/L (98-107); Estimated GFR 99.12 (mL/min/1.73m2); Glucose 101 mg/dL (74-106); Magnesium 1.7 mg/dL (1.8-2.4); Potassium 3.7 mmol/L (3.5-5.1); Sodium 143 mmol/L (136-145); Total Protein 6.7 g/dL (6.4-8.2)
== END 2023-12-21 11:23 | disposition home or self-care (01) ==
LOC: LBO 11:24
PROVIDERS: PCP Family Medicine; Visit Provider Nurse Practitioner Family
DX: I48.91 Unspecified atrial fibrillation (principal); E72.20 Disorder of urea cycle metabolism, unspecified
CPT/HCPCS: 36415; 80053; 85027; 82140; 83735; 85610

== ENCOUNTER 2023-12-24 09:49 | Emergency (ER) | payer MEDICARE, SELFPAY ==
[2023-12-24] VITALS (7 sets, daily range): BP systolic 153–171; BP diastolic 75–78; PULSE 61–63; RESP 18; TEMP 36.6; O2SAT 98–100
--- NOTE | 2023-12-24 10:26 | ED.GENADUL_ITS ---
Discharge Plan Disposition Patient Disposition: Home Condition: Stable Discharge Details Clinical Impression: Increased ammonia level Primary Care Provider: Stefani Jones ED Provider: Chucho Flowers Home Meds and New Rx's Prescriptions: Continued insulin glargine [Lantus Solostar U-100 Insulin] 100 unit/mL (3 mL) insulin pen 30 unit subcut QPM metformin 500 MG tablet 1,000 mg PO BID (DME) lancets 1 EACH misc 1 ea Miscellaneous BID TEST STRIPS Topical BID (DME) arm brace [Wrist Brace Medium] 1 EACH misc 1 ea Miscellaneous HS Qty: 2 Rx Instructions: bilateral Carpal tunnel splints/braces to be worn while sleeping and during aggravating activities lisinopril 20 mg tablet 20 mg PO DAILY amlodipine 2.5 mg tablet 2.5 mg PO DAILY ibuprofen 400 MG tablet 400 mg PO Q6H PRN PRNQty: 40 0RF glipizide 10 mg tablet 10 mg PO DAILY tamsulosin 0.4 mg capsule 0.4 mg PO Q24H magnesium oxide 400 mg (241.3 mg magnesium) tablet 400 mg PO BID Patient Comments: TAKE 1 TABLET BY MOUTH TWICE DAILY omeprazole 20 mg capsule,delayed release(DR/EC) 20 mg PO DAILY PRN (Reason: heartburn) Patient Comments: TAKE 1 CAPSULE BY MOUTH EVERY DAY NEEDED warfarin 5 mg tablet PO DAILY Patient Comments: TAKE 1 TO 1.5 TABLETS BY MOUTH DAILY DIRECTED Rx Instructions: 7.5mg po daily on sunday and and 5mg po daily all other days atorvastatin 40 mg tablet 40 mg PO DAILY Patient Comments: TAKE 1 TABLET BY MOUTH EVERY DAY carvedilol 3.125 mg tablet 3.125 mg PO BID Patient Comments: TAKE 1 TABLET BY MOUTH TWICE DAILY potassium chloride 10 mEq Capsule, Extended Release 20 meq PO DAILY Qty: 30 0RF lactulose 20 gram/30 mL Solution 20 g PO BID Qty: 1500 0RF No Action Xifaxan 550 mg Tablet 550 mg PO BID Qty: 60 0RF Discharge Instructions Additional Instructions: I would recommend increasing her lactulose to 3 times a day. If after 2 days of doing this she still having consistent 2 bowel movements a day I would recommend increasing the lactulose to 4 times a day. Follow-up as scheduled with your primary care provider next week If you feel more ill or have changes in her mental status and her significant weakness return to the emergency department for reevaluation HPI General Mode of arrival: ambulatory . Date/Time Provider Initiated Documentation: 12/24/23 09:52 . Limitations to Documentation: no limitations . Information obtained by: patient . History of Present Illness 68 year old M presents to the emergency department with the chief complaint of elevated ammonia level, described as moderate, and it has been constant. No relieving factors improve symptom(s), No exacerbating factors reported . Patient notes no other symptoms.. Patient did receive the following treatments prior to arrival, none Related Data Home Medications ?Medication ?Instructions ?Recorded ?Confirmed Test Strips topical BID 03/29/15 lancets 30 gauge 03/29/15 metformin 500 mg tablet 1,000 mg PO BID 03/29/15 12/24/23 arm brace (Wrist Brace Medium) #2 ea 04/15/15 ibuprofen 400 mg tablet 400 mg PO Q6H PRN PRN ##40 10/11/17 12/24/23 amlodipine 2.5 mg tablet 2.5 mg PO DAILY 12/16/19 12/24/23 lisinopril 20 mg tablet 20 mg PO DAILY 12/16/19 12/24/23 insulin glargine 100 unit/mL (3 30 unit subcut QPM 02/03/20 12/24/23 mL) subcutaneous pen (Lantus Solostar U-100 Insulin) atorvastatin 40 mg tablet 40 mg PO DAILY 12/04/23 12/24/23 carvedilol 3.125 mg tablet 3.125 mg PO BID 12/04/23 12/24/23 glipizide 10 mg tablet 10 mg PO DAILY 12/04/23 12/24/23 magnesium oxide 400 mg (241.3 mg 400 mg PO BID 12/04/23 12/24/23 magnesium) tablet omeprazole 20 mg capsule,delayed 20 mg PO DAILY PRN heartburn 12/04/23 12/24/23 release tamsulosin 0.4 mg capsule 0.4 mg PO Q24H 12/04/23 12/24/23 warfarin 5 mg tablet mg PO DAILY 12/04/23 lactulose 20 gram/30 mL oral 20 g (30 mL) PO BID #1,500 mL 12/06/23 12/24/23 solution potassium chloride 10 mEq 20 meq (2 x 10 mEq) PO DAILY #30 12/06/23 12/24/23 capsule,extended release caps rifaximin 550 mg tablet (Xifaxan) 550 mg PO BID #60 tabs 12/06/23 12/24/23 Previous Rx's ?Medication ?Instructions ?Recorded ibuprofen 400 mg tablet 400 mg PO Q6H PRN PRN ##40 10/11/17 lactulose 20 gram/30 mL oral 20 g (30 mL) PO BID #1,500 mL 12/06/23 solution potassium chloride 10 mEq 20 meq (2 x 10 mEq) PO DAILY #30 12/06/23 capsule,extended release caps rifaximin 550 mg tablet (Xifaxan) 550 mg PO BID #60 tabs 12/06/23 Allergies Allergy/AdvReac Type Severity Reaction Status Date / Time No Known Allergies Allergy Unverified 12/24/23 10:01 General Stated Complaint: Recheck FAUSTO: 3 Review of Systems All systems reviewed & are unremarkable except as noted in HPI and below Constitutional Constitutional: Denies chills, Denies fever(s) and Denies weakness Cardiovascular Cardiovascular: Denies chest pain and Denies dyspnea Respiratory Respiratory: Denies cough and Denies dyspnea Gastrointestinal Gastrointestinal: Denies abdominal pain, Denies nausea and Denies vomiting Musculoskeletal Musculoskeletal: Denies joint swelling Integumentary/Breasts Skin/Breast: Denies rash Neurologic Neurologic: Denies weakness Psychiatric Psychiatric: Denies depression Exam Const General: no acute distress Orientation: alert HENNE Head: normal to inspection Ears: external ears normal General nose exam: external nose normal Mouth: moist mucous membranes Eyes General: appearance normal, both eyes and all related structures Neck Neck: normal visual inspection Resp Effort & Inspection: normal respiratory effort and able to speak in complete sentences Cardio Rate: regular rate GI Palpation: soft and nontender Skin General skin exam: no rashes or lesions noted Neuro General: patient alert and patient oriented x3 Extrem General: normal to inspection Psych Mental Status: mental status grossly normal Course Vital Signs Vital signs: Vital Signs Temperature 36.6 C 12/24/23 09:57 Pulse 63 12/24/23 09:57 Respiratory Rate 18 12/24/23 09:57 Blood Pressure 171/76 H 12/24/23 09:57 Pulse Oximetry 98 12/24/23 09:57 Temperature 36.6 C 12/24/23 09:57 Temperature Source Tympanic 12/24/23 09:57 Pulse 63 12/24/23 09:57 Respiratory Rate 18 12/24/23 09:57 Respiratory Effort Normal 12/24/23 10:22 Blood Pressure 171/76 H 12/24/23 09:57 Blood Pressure Position Sitting 12/24/23 09:57 Pulse Oximetry 98 12/24/23 09:57 Oxygen Delivery Method Room Air 12/24/23 09:57 Oxygen Flow Rate 0 12/24/23 09:57 Pain Level 4 12/24/23 09:57 Comment chronic arthritis pain 12/24/23 09:57 Medical Decision Making 68-year-old male who was admitted earlier this month for hepatic cephalopathy with elevated ammonia levels, in which his ammonia levels did not significantly decrease and was discharged after his mental status improved. He was discharged on lactulose and also rifaximin but he never filled the rifaximin due to insurance not covering it. He says he had screening labs done earlier this week and was called to come to the ER as his ammonia level was elevated. When he left here was 130 and now it is 150. He says he feels fine otherwise, denies any changes in mental status, denies decreased energy. He has been taking lactulose 20 mg twice a day. He says that he has about 1 stool per day with this. He is alert oriented x 4 and arrival. He has no tremors or distress 6. He has a normal gait. He has no tenderness in the abdomen. All the labs done clinic CMP and CBC show no significant changes from baseline. Discussed with him that given he is feeling fine with no evidence of hepatic encephalopathy do not feel he needs to be hospitalized for this elevated ammonia level which seems to be chronic. I will have him increase his lactulose to 3 times a day and if he still not having 2 bowel movements a day at least with this we will have him increase to 4 times a day. He has follow-up next week with the PCP and return precautions given Differential Diagnosis Differential Diagnosis: Elevated ammonia level, hepatic encephalopathy Lab Data Lab results reviewed: Yes I reviewed the patient's lab results. Quality:SDOH Health Related Social Needs: No Data to Display PFSH All Active Problems (Updated 12/24/23 @ 10:33 by Chucho Flowers MD) Increased ammonia level (Acute) BPH (benign prostatic hyperplasia) (Chronic) Chronic anticoagulation (Chronic) Paroxysmal atrial fibrillation (Chronic) Hepatic encephalopathy (Acute) Hemochromatosis, unspecified (Chronic) Diabetes (Chronic) Hypertension (Chronic) PVCs (premature ventricular contractions) (Acute) Social History Smoking/Tobacco Use Status: Current-Occasional Tobacco Type: cigars Smoking risk assessment performed?: Yes Alcohol Intake: current Alcohol Intake frequency: 0-2 drinks per day Alcohol type: beer Drug use: Occasionally Substance use type: marijuana Housing: house Do you feel safe at home: Yes Do you feel safe in your relationship?: Yes
== END 2023-12-24 10:52 | disposition home or self-care (01) ==
PROVIDERS: Emergency Provider Emergency Medicine; PCP Family Medicine
DX: E72.20 Disorder of urea cycle metabolism, unspecified (principal); E11.9 Type 2 diabetes mellitus without complications; I48.0 Paroxysmal atrial fibrillation; I10 Essential (primary) hypertension; Z79.4 Long term (current) use of insulin; Z79.84 Long term (current) use of oral hypoglycemic drugs; Z79.01 Long term (current) use of anticoagulants
CPT/HCPCS: 99283

== ENCOUNTER 2024-01-12 13:40 | Observation (INO) | payer MEDICARE, SELFPAY ==
[2024-01-12] VITALS (36 sets, daily range): BP systolic 147–197; BP diastolic 72–133; PULSE 65–103; RESP 11–29; TEMP 36.4–36.5; O2SAT 85–99
--- NOTE | 2024-01-12 14:00 | DI.RAD_ITS ---
Exam(s) XR PORTABLE CHEST AP EXAM: XR PORTABLE CHEST AP CLINICAL HISTORY: Transient hypoxia TECHNIQUE: 2D digital imaging was performed of the chest. One image was obtained. An AP view was ob tained. COMPARISON: No exams were available for comparison FINDINGS: MEDIASTINUM: Normal. HEART: Normal. PULMONARY VASCULATURE: Normal. LUNGS: Clear. PLEURAL SPACE: No pleural effusion or pneumothorax. BONE:Within normal limits for the patient's age. OTHER FINDINGS:Normal. IMPRESSION: No acute pulmonary findings. DATA REPOSITORY: RADIATION DOSE DELIVERED:
--- NOTE | 2024-01-12 14:00 | DI.CT_ITS ---
Exam(s) CT ABDOMEN PELVIS W EXAM: CT ABDOMEN PELVIS W CLINICAL HISTORY: AMS, hx cirrhosis TECHNIQUE: Imaging Protocol: Axial computed tomography images with coronal and sagittal reformatted images were created and reviewed. CONTRAST MATERIAL: Intravenous: Omnipaque 350 Contrast volume:85 mL Oral: No COMPARISON: CT CT ABDOMEN PELVIS CTA from 12/04/2023 FINDINGS: The examination is limited due to patient motion artifact. ABDOMEN: Lung Bases: Coronary artery calcifications are present. Liver: There is diffuse decreased attenuation of the liver consistent with fatty infiltration. There is a nodular contour of the liver with an enlarged left lobe suggesting hepatic cirrhosis. No measu rable mass. Clot vessels are seen throughout the abdomen. The spleen is enlarged. The findings are consistent with portal hypertension. Portal, Superior Mesenteric, and Splenic Veins: Unremarkable. Multiple venous collaterals are seen th roughout the abdomen. Gallbladder and Biliary Tract: Cholelithiasis. The gallbladder is contracted. No significant biliar y ductal dilatation is present. Pancreas: Normal density, no abnormal calcifications or inflammatory process. Spleen: The spleen is enlarged. Adrenals: No masses seen. Kidneys: Normal size, contour and axis. No radiodense stones or obstructive uropathy. No masses seen. Abdominal Aorta: Abdominal portion non-dilated. Atherosclerotic calcification is present. Bowel: There is diverticulosis of the colon without evidence of acute diverticulitis. There is no ev idence of bowel obstruction or bowel wall thickening. 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 Appendix is unremarkable. Peritoneal Cavity: No ascites, collection or mesenteric inflammatory response. No free air. Lymph Nodes: Within normal limits. Bones: Within normal limits for the patient's age. Soft Tissues: Unremarkable. PELVIS: Bladder: The urinary bladder is incompletely distended. There is diffuse thickening of the wall of t he urinary bladder. This may be due to underdistention. Chronic bladder outlet obstruction or cysti tis should also be considered. Reproductive Organs: The prostate gland is enlarged. Lymph Nodes: Within normal limits. Bones: Within normal limits for the patient's age. IMPRESSION: 1. Findings of hepatic cirrhosis and portal hypertension with portosystemic collaterals and splenomeg fabiola. No ascites. 2. Colonic diverticulosis without evidence of acute diverticulitis. 3. Diffuse thickening of the wall of the urinary bladder. This may be due to underdistention, howeve r chronic bladder outlet obstruction or cystitis should also be considered. Please correlate clinica lly. 4. Cholelithiasis. 5. Enlarged prostate gland. RADIATION DOSE DELIVERED: 827.34mGy.cm Total DLP DATA REPOSITORY: All CT scans at this facility are submitted to the National Radiology Data Registry (NRDR) Dose Index Registry (DIR) with the [employer] (A[employer]). RADIATION OPTIMIZATION: All CT scans at this facility use at least one of these dose optimization te chniques: automated exposure control; mA and/or kV adjustment per patient size (includes targeted exa ms where dose is matched to clinical indication); or iterative reconstruction.
--- NOTE | 2024-01-12 14:00 | RT.EKG_ITS ---
APPROVED REPORT Exam: Resting ECG Reason for Exam: AMS Patient Location: E HR:79 bpm ECG Measurements Heart Rate 79 AXIS NJ 185 P 12 QRSd 91 QRS -8 QT 395 T 11 QTc 454 Conclusion Sinus rhythm, rate 79, with PVC No interval abnormalities Isolated Q wave lead III, unchanged from priors No STEMI
--- NOTE | 2024-01-12 14:00 | DI.CT_ITS ---
Exam(s) CT HEAD WO EXAM: CT HEAD WO CLINICAL HISTORY: AMS. TECHNIQUE: Imaging Protocol: Axial computed tomography images with coronal and sagittal reformatted images were created and reviewed COMPARISON: CT CT BRAIN NECK CTA from 12/04/2023 FINDINGS: Ventricles and Extra axial spaces: Normal in size and morphology for the patient's age. Hemorrhage: None. Cerebral parenchyma: No evidence of an acute territorial infarct. No mass effect. Midline shift: None. Brainstem/Cerebellum: Normal. Calvarium: Normal. Visualized Paranasal sinuses/Mastoids: There is mucosal thickening in the maxillary sinuses, left gre ater than right. There is a possible nasal polyp in the left nasal passageway. There is opacificati on of several ethmoid air cells. Soft Tissues: Unremarkable. IMPRESSION: 1. No acute intracranial process. 2. Paranasal sinusitis. RADIATION DOSE DELIVERED: 1,038.46mGy.cm Total DLP DATA REPOSITORY: All CT scans at this facility are submitted to the National Radiology Data Registry (NRDR) Dose Index Registry (DIR) with the [employer] (ACR). RADIATION OPTIMIZATION: All CT scans at this facility use at least one of these dose optimization te chniques: automated exposure control; mA and/or kV adjustment per patient size (includes targeted exa ms where dose is matched to clinical indication); or iterative reconstruction.
--- NOTE | 2024-01-12 14:12 | ED.GENADUL_ITS ---
Discharge Plan Disposition Patient Disposition: Admit to [facility] Condition: Stable Discharge Details Chief Complaint: AMS/LOC Clinical Impression: Acute hepatic encephalopathy, Chronic anticoagulation, Hypertension, Diabetes, Hemochromatosis, unspecified, Paroxysmal atrial fibrillation, Hypokalemia, Hypocalcemia, Hypomagnesemia, Acute hypernatremia Primary Care Provider: Stefani Jones ED Provider: Racheal Jordan Home Meds and New Rx's Prescriptions: No Action insulin glargine [Lantus Solostar U-100 Insulin] 100 unit/mL (3 mL) insulin pen 30 unit subcut QPM metformin 500 MG tablet 1,000 mg PO BID (DME) lancets 1 EACH misc 1 ea Miscellaneous BID TEST STRIPS Topical BID (DME) arm brace [Wrist Brace Medium] 1 EACH misc 1 ea Miscellaneous HS Qty: 2 Rx Instructions: bilateral Carpal tunnel splints/braces to be worn while sleeping and during aggravating activities lisinopril 20 mg tablet 20 mg PO DAILY amlodipine 2.5 mg tablet 2.5 mg PO DAILY ibuprofen 400 MG tablet 400 mg PO Q6H PRN PRNQty: 40 0RF glipizide 10 mg tablet 10 mg PO DAILY tamsulosin 0.4 mg capsule 0.4 mg PO Q24H magnesium oxide 400 mg (241.3 mg magnesium) tablet 400 mg PO BID Patient Comments: TAKE 1 TABLET BY MOUTH TWICE DAILY omeprazole 20 mg capsule,delayed release(DR/EC) 20 mg PO DAILY PRN (Reason: heartburn) Patient Comments: TAKE 1 CAPSULE BY MOUTH EVERY DAY NEEDED warfarin 5 mg tablet 7.5 mg PO .COMPLEX Patient Comments: TAKE 1 TO 1.5 TABLETS BY MOUTH DAILY DIRECTED Rx Instructions: 7.5 mg orally; 7.5mg po daily on sunday and and 5mg po daily all other days atorvastatin 40 mg tablet 40 mg PO DAILY Patient Comments: TAKE 1 TABLET BY MOUTH EVERY DAY carvedilol 3.125 mg tablet 3.125 mg PO BID Patient Comments: TAKE 1 TABLET BY MOUTH TWICE DAILY Xifaxan 550 mg Tablet 550 mg PO BID Qty: 60 0RF lactulose 20 gram/30 mL Solution 20 g PO TID HPI General Date/Time Provider Initiated Documentation: 01/12/24 13:44 . Limitations to Documentation: no limitations . Information obtained by: patient, family and old records reviewed . 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 2 days ago the patient began to have worsening confusion, has been taking his lactulose 3 times daily but states that his stool output has slowed, and he has not stooled at all today. His noted increased confusion, and states that when he tried to get up to go to the bathroom he could not find the bathroom in their home. He has been endorsing altered sensorium, and she states that the last MRIs been required admission to the hospital for the symptoms it was due to high ammonia. The patient reports that he has not sustained any trauma or injury, that he is eating and drinking typically for him, and has not noted any abdominal or chest pain. He states that when he urinates he does not note any dysuria, but he has been diagnosed with hematuria in the past. The patient has noted some mild ankle swelling over the last few days, denies changes in vision. Exam: Gen: Awake and alert, in no apparent distress HEENT: Non-icteric sclera, conjunctiva not injected, pupils equal and reactive at 2 mm bilaterally. EOMs are full and without nystagmus Neck: Supple Lungs: No apparent respiratory distress, normal respiratory effort. Lung sounds clear and equal CV: Appears well perfused strong distal pulses Abdomen: Non-distended, soft, nontender to palpation without rigidity, rebound, or guarding. No significant fluid wave noted MSK: Moves 4 extremities without apparent limitation in ROM Skin: Visualized skin without rashes, cyanosis. Neuro: Very slow gait for transfers, cranial nerves II through XII intact and symmetrical bilaterally, 5 out of 5 strength x 4 extremities, 3-4 beats of asterixis bilaterally Psych: Appropriate for situation. MDM: This is a 68-year-old male patient presenting for evaluation of alteration mental status. My differential includes but is not limited to hepatic encephalopathy, likely due to decreased stool output despite appropriate use of laxatives to los. I certainly considered other metabolic and electrolyte derangements, intracranial hemorrhage, anemia, kidney injury, uremic encephalopathy. I considered infectious etiologies including pulmonary infection such as pneumonia, UTI, considered SBP though the patient is without abdominal tenderness or fever. I considered bowel obstruction, volvulus. Overall the patient is reassuringly hemodynamically appropriate, though he did have a transient decrease in his oxygenation in triage. This is resolved by the time I examined the patient at bedside. We will obtain laboratory studies to include CBC, CMP, magnesium, troponin, and ammonia, PT/INR, and urinalysis. I will obtain a head CT, chest x-ray, and obtain a CT abdomen pelvis with contrast to better characterize any abnormalities to account for his decompensation. ED Course: I reviewed the patient's laboratory studies, which note numerous metabolic derangements including hyponatremia to 151, hypokalemia to 2.3 with associated hypomagnesemia of 1. The patient has baseline kidney function, but a low calcium at 6.1. Bilirubin is 1.8, otherwise liver enzymes unremarkable. Troponin was initially negative, urinalysis with hematuria, no evidence for infection, no leukocytosis, anemia, or thrombocytopenia. CT imaging was performed and reviewed by myself, with no evidence of intracranial hemorrhage, no concerning findings to suggest bowel obstruction, no ascites to support the concern for SBP. I did provide repletion for the patient to include 40 mEq IV potassium, 40 mEq oral, 2 g of magnesium intravenous, and 1 g of calcium gluconate intravenously. He was provided with 500 cc of normal saline to facilitate potassium infusion. I reached out to the hospitalist, who is graciously except this patient for admission to their service for ongoing workup and management of his hepatic encephalopathy and metabolic derangements. The patient remained hemodynamically appropriate while under my care, and was transferred from our department without incident. Racheal Jordan MD Related Data Home Medications ?Medication ?Instructions ?Recorded ?Confirmed Test Strips topical BID 03/29/15 lancets 30 gauge 03/29/15 metformin 500 mg tablet 1,000 mg PO BID 03/29/15 01/12/24 arm brace (Wrist Brace Medium) #2 ea 04/15/15 ibuprofen 400 mg tablet 400 mg PO Q6H PRN PRN ##40 10/11/17 01/12/24 amlodipine 2.5 mg tablet 2.5 mg PO DAILY 12/16/19 01/12/24 lisinopril 20 mg tablet 20 mg PO DAILY 12/16/19 12/24/23 insulin glargine 100 unit/mL (3 30 unit subcut QPM 02/03/20 01/12/24 mL) subcutaneous pen (Lantus Solostar U-100 Insulin) atorvastatin 40 mg tablet 40 mg PO DAILY 12/04/23 01/12/24 carvedilol 3.125 mg tablet 3.125 mg PO BID 12/04/23 01/12/24 glipizide 10 mg tablet 10 mg PO DAILY 12/04/23 01/12/24 magnesium oxide 400 mg (241.3 mg 400 mg PO BID 12/04/23 01/12/24 magnesium) tablet omeprazole 20 mg capsule,delayed 20 mg PO DAILY PRN heartburn 12/04/23 01/12/24 release tamsulosin 0.4 mg capsule 0.4 mg PO Q24H 12/04/23 01/12/24 warfarin 5 mg tablet 7.5 mg PO .COMPLEX 12/04/23 01/12/24 rifaximin 550 mg tablet (Xifaxan) 550 mg PO BID #60 tabs 12/06/23 01/12/24 lactulose 20 gram/30 mL oral 20 g PO TID 01/12/24 01/12/24 solution Previous Rx's ?Medication ?Instructions ?Recorded ibuprofen 400 mg tablet 400 mg PO Q6H PRN PRN ##40 10/11/17 rifaximin 550 mg tablet (Xifaxan) 550 mg PO BID #60 tabs 12/06/23 Allergies Allergy/AdvReac Type Severity Reaction Status Date / Time No Known Allergies Allergy Unverified 01/12/24 13:51 General Stated Complaint: AMS/LOC FAUSTO: 3 Course Vital Signs Vital signs: Vital Signs Pulse 85 01/12/24 13:45 Respiratory Rate 18 01/12/24 13:45 Blood Pressure 155/72 H 01/12/24 13:45 Pulse Oximetry 86 L 01/12/24 13:45 Temperature 36.5 C 01/12/24 14:00 Temperature Source Oral 01/12/24 14:00 Pulse 82 01/12/24 14:00 Respiratory Rate 20 01/12/24 14:00 Respiratory Effort Normal 01/12/24 14:00 Respiratory Depth Normal 01/12/24 14:00 Respiratory Pattern Normal 01/12/24 14:00 Blood Pressure 155/72 H 01/12/24 13:45 Blood Pressure Position Supine 01/12/24 14:00 Pulse Oximetry 98 01/12/24 14:00 Oxygen Delivery Method Room Air 01/12/24 14:00 Pain Level 0 01/12/24 14:00 Medical Decision Making Quality:SDOH Health Related Social Needs: No Data to Display PFSH All Active Problems (Updated 01/12/24 @ 16:41 by Racheal Jordan MD) Acute hypernatremia (Acute) Hypomagnesemia (Acute) Hypocalcemia (Acute) Hypokalemia (Acute) Acute hepatic encephalopathy (Acute) Increased ammonia level (Acute) BPH (benign prostatic hyperplasia) (Chronic) Chronic anticoagulation (Chronic) Paroxysmal atrial fibrillation (Chronic) Hemochromatosis, unspecified (Chronic) Diabetes (Chronic) Hypertension (Chronic) PVCs (premature ventricular contractions) (Acute) Social History Smoking/Tobacco Use Status: Current-Occasional Tobacco Type: cigars Smoking risk assessment performed?: Yes Alcohol Intake: current Alcohol Intake frequency: 0-2 drinks per day Alcohol type: beer Drug use: Occasionally Substance use type: marijuana Housing: house Do you feel safe at home: Yes Do you feel safe in your relationship?: Yes
[2024-01-12 14:49] LABS: Absolute Basophil Count 0.07 10^3/uL (0.0-0.2); Absolute Eosinophil Count 0.26 10^3/uL (0.0-0.7); Absolute Lymphocyte Count 1.92 10^3/uL (1.2-3.4); Absolute Monocyte Count 0.59 10^3/uL (0.1-0.8); Absolute Neutrophil Count 3.01 10^3/uL (1.2-6.7); Basophils % 1.2 %; Eosinophils % 4.4 %; HCT 42.3 % (40.0-50.0); HGB 14.3 g/dL (13.5-17.5); Lymphocytes % 32.8 %; MCH 32.3 pg (27.0-33.0); MCHC 33.8 % (32.0-36.0); MCV 96 fL (80-95); MPV 10.7 fL (8.0-11.0); Monocytes % 10.1 %; Neutrophils % 51.5 %; Platelet Count 143 10^3/uL (130-400); RBC 4.43 10^6/uL (4.36-5.78); RDW 13.1 % (11.8-14.1); RDW-SD 46.4 fL; WBC 5.85 10^3/uL (4.4-10.8)
[2024-01-12 14:53] LABS: Ammonia 126 umol/L (11-32)
[2024-01-12 15:00] LABS: INR 1.8 (0.9-1.1); Prothrombin Time 17.1 sec (9.1-11.1)
[2024-01-12 15:36] LABS: ALT 24 U/L (16-63); AST 25 U/L (15-37); Albumin 1.9 g/dL (3.4-5.0); Alkaline Phosphatase 78 U/L (46-116); Anion Gap 14.3 mmol/L (3-11); BUN 4 mg/dL (7-18); Bilirubin, Total 1.82 mg/dL (0.2-1.0); CO2 16.7 mmol/L (21.0-32.0); CREATININE 0.5 mg/dL (0.70-1.30); Chloride 120 mmol/L (98-107); Estimated GFR 109.73 (mL/min/1.73m2); Glucose 158 mg/dL (74-106); Sodium 151 mmol/L (136-145); Troponin I 12 ng/L (<or=76)
[2024-01-12 15:38] LABS: Calcium 6.1 mg/dL (8.5-10.1); Potassium 2.3 mmol/L (3.5-5.1)
[2024-01-12] MEDS: Normal Saline - Diluent 50 ML VIAL IJ (16:06)
[2024-01-12] MEDS: Omnipaque 350 MG/ML 100 ML BTL IJ (16:07)
[2024-01-12 16:34] LABS: Bilirubin Small (Negative); Blood Moderate (Negative); Clarity Clear (Clear); Glucose 500 mg/dL (Negative); Ketones 15 mg/dL (Negative); Leukocyte Esterase Negative (Negative); Nitrite Negative (Negative); Specific Gravity >= 1.030 (1.005-1.025)
[2024-01-12 16:41] LABS: Bacteria Negative HPF (Negative); C & S Indicated? No; Crystals Negative HPF (Negative); Epithelial Cells Negative HPF (Negative); Mucus Heavy (Negative); Other Cells Negative (Negative); WBC Negative HPF (0-5)
[2024-01-12] MEDS: Potassium Chloride 20 MEQ TABCR 40 MEQ PO (16:42)
[2024-01-12] MEDS: Normal Saline 250 ML 500 ML IV (16:42)
[2024-01-12] MEDS: CALCIUM GLUCONATE in NaCl 1 GM/50 ML BAG IVPB (16:42)
[2024-01-12] MEDS: MAGNESIUM SULFATE 2 GM/50 ML BAG IV_INF (16:42)
[2024-01-12] MEDS: POTASSIUM CHLORIDE 10 MEQ/100 ML BAG 100 MEQ IV_INF ×4 (16:42→20:22)
[2024-01-12 17:22] LABS: Troponin I 17 ng/L (<or=76)
[2024-01-12 18:05] LABS: COVID-19 PCR Negative (Negative); Influenza A PCR Negative (Negative); Influenza B PCR Negative (Negative); RSV PCR Negative (Negative)
[2024-01-12 18:11] LABS: Source NASOPHARYNX
--- NOTE | 2024-01-12 18:11 | W.PC.ACHO ---
Registration Status: Primary Language: Preferred Language: ED Information & Data Chief Complaint AMS/LOC 01/12/24 14:13 Triage Note x2 days increased confusion, 01/12/24 13:45 dizziness & unable to sleep has not had BM in 1 day HX cirrhosis with high ammonia levels reports taking meds as prescribed Most Recent Vital Signs Temperature 36.5 C 01/12/24 14:00 Temperature Source Oral 01/12/24 14:00 Pulse 79 01/12/24 17:46 Pulse 73 01/12/24 17:50 Respiratory Rate 14 01/12/24 17:50 Respiratory Effort Normal 01/12/24 14:00 Respiratory Depth Normal 01/12/24 14:00 Respiratory Pattern Normal 01/12/24 14:00 Blood Pressure 180/133 H 01/12/24 17:46 Blood Pressure Mean 147 01/12/24 17:46 Blood Pressure Position Supine 01/12/24 14:00 Pulse Oximetry 97 01/12/24 17:50 Oxygen Delivery Method Room Air 01/12/24 14:00 Pain Level 0 01/12/24 14:00 Allergies No Known Allergies Allergy (Unverified 01/12/24 13:51) Precautions Isolation Standard precaution 01/12/24 14:00 Active Medications Generic Name Dose Route Start Last Admin Trade Name Freq PRN Reason Stop Dose Admin Potassium Chloride 10 meq in 100 mls @ 100 mls/hr 01/12/24 15:45 01/12/24 17:38 IV_INF 01/12/24 19:44 100 mls/hr Q1H BHASKAR Administration Iohexol 100 ml 01/12/24 16:15 01/12/24 16:07 Omnipaque 350 Mg/Ml 100 Ml Btl IJ 02/11/24 23:59 100 ml DIRECTED BHASKAR Administration Sodium Chloride 50 ml 01/12/24 16:15 01/12/24 16:06 Normal Saline - Diluent 50 Ml Vial IJ 50 ml .FOR DI USE BHASKAR Administration IV IV Catheter Type [Right Diffusics Antecubital] IV Catheter Type [Left Diffusics Antecubital] IV Catheter Gauge [Right 20 Antecubital] Diet Orders Category Date Time Status Regular/Normal [DIET] Nutrition 01/12/24 Dinner Active Diagnostics 01/12/24 01/12/24 01/12/24 Range/Units 17:22 17:10 16:53 WBC (4.4-10.8) 10^3/uL RBC (4.36-5.78) 10^6/uL Hgb (13.5-17.5) g/dL Hct (40.0-50.0) % MCV (80-95) fL MCH (27.0-33.0) pg MCHC (32.0-36.0) % RDW (11.8-14.1) % Plt Count (130-400) 10^3/uL MPV (8.0-11.0) fL Immature Gran % % Neutrophils % % Lymphocytes % % Monocytes % % Eosinophils % % Basophils % % Nucleated RBC % (0.0-0.3) % Absolute Neutrophils (1.2-6.7) 10^3/uL Absolute Lymphocytes (1.2-3.4) 10^3/uL Absolute Monocytes (0.1-0.8) 10^3/uL Absolute Eosinophils (0.0-0.7) 10^3/uL Absolute Basophils (0.0-0.2) 10^3/uL PT (9.1-11.1) sec INR (0.9-1.1) Sodium (136-145) mmol/L Potassium (3.5-5.1) mmol/L Chloride (98-107) mmol/L Carbon Dioxide (21.0-32.0) mmol/L Anion Gap (3-11) mmol/L BUN (7-18) mg/dL Creatinine (0.70-1.30) mg/dL Est GFR (CKD-EPI 2020) (mL/min/1.73m2) Glucose (74-106) mg/dL Calcium (8.5-10.1) mg/dL Magnesium (1.8-2.4) mg/dL Total Bilirubin (0.2-1.0) mg/dL AST (15-37) U/L ALT (16-63) U/L Alkaline Phosphatase (46-116) U/L Ammonia (11-32) umol/L Troponin I Pending 17 (<or=76) ng/L Total Protein (6.4-8.2) g/dL Albumin (3.4-5.0) g/dL Urine Color (Yellow) Urine Clarity (Clear) Urine pH (5-8) Ur Specific [place] (1.005-1.025) Urine Protein (Neg-Trace) mg/dL Urine Ketones (Negative) mg/dL Urine Blood (Negative) Urine Nitrite (Negative) Urine Bilirubin (Negative) Urine Urobilinogen (Up to 0.2) mg/dL Ur Leukocyte Esterase (Negative) Urine RBC (0-2) HPF Urine WBC (0-5) HPF Ur Epithelial Cells (Negative) HPF Urine Crystals (Negative) HPF Urine Bacteria (Negative) HPF Urine Casts (Negative) LPF Urine Mucus (Negative) Urine Other (Negative) Ur Culture Indicated? Urine Glucose (Negative) mg/dL COVID-19 Source Pending SARS-CoV-2 (PCR) Pending Influenza Type A (PCR) Pending Influenza Type B (PCR) Pending RSV (PCR) Pending 01/12/24 01/12/24 01/12/24 Range/Units 16:10 15:07 14:37 WBC 5.85 (4.4-10.8) 10^3/uL RBC 4.43 (4.36-5.78) 10^6/uL Hgb 14.3 (13.5-17.5) g/dL Hct 42.3 (40.0-50.0) % MCV 96 H (80-95) fL MCH 32.3 (27.0-33.0) pg MCHC 33.8 (32.0-36.0) % RDW 13.1 (11.8-14.1) % Plt Count 143 (130-400) 10^3/uL MPV 10.7 (8.0-11.0) fL Immature Gran % 0.0 % Neutrophils % 51.5 % Lymphocytes % 32.8 % Monocytes % 10.1 % Eosinophils % 4.4 % Basophils % 1.2 % Nucleated RBC % 0.0 (0.0-0.3) % Absolute Neutrophils 3.01 (1.2-6.7) 10^3/uL Absolute Lymphocytes 1.92 (1.2-3.4) 10^3/uL Absolute Monocytes 0.59 (0.1-0.8) 10^3/uL Absolute Eosinophils 0.26 (0.0-0.7) 10^3/uL Absolute Basophils 0.07 (0.0-0.2) 10^3/uL PT 17.1 H (9.1-11.1) sec INR 1.8 H (0.9-1.1) Sodium 151 H (136-145) mmol/L Potassium 2.3 L* (3.5-5.1) mmol/L Chloride 120 H (98-107) mmol/L Carbon Dioxide 16.7 L (21.0-32.0) mmol/L Anion Gap 14.3 H (3-11) mmol/L BUN 4 L (7-18) mg/dL Creatinine 0.5 L (0.70-1.30) mg/dL Est GFR (CKD-EPI 2020) 109.73 (mL/min/1.73m2) Glucose 158 H (74-106) mg/dL Calcium 6.1 L* (8.5-10.1) mg/dL Magnesium 1.0 L (1.8-2.4) mg/dL Total Bilirubin 1.82 H (0.2-1.0) mg/dL AST 25 (15-37) U/L ALT 24 (16-63) U/L Alkaline Phosphatase 78 (46-116) U/L Ammonia 126 H (11-32) umol/L Troponin I 12 (<or=76) ng/L Total Protein 4.0 L (6.4-8.2) g/dL Albumin 1.9 L (3.4-5.0) g/dL Urine Color Yellow (Yellow) Urine Clarity Clear (Clear) Urine pH 6.0 (5-8) Ur Specific [place] >= 1.030 H (1.005-1.025) Urine Protein 30 H (Neg-Trace) mg/dL Urine Ketones 15 H (Negative) mg/dL Urine Blood Moderate H (Negative) Urine Nitrite Negative (Negative) Urine Bilirubin Small H (Negative) Urine Urobilinogen 4.0 H (Up to 0.2) mg/dL Ur Leukocyte Esterase Negative (Negative) Urine RBC 10-20 H (0-2) HPF Urine WBC Negative (0-5) HPF Ur Epithelial Cells Negative (Negative) HPF Urine Crystals Negative (Negative) HPF Urine Bacteria Negative (Negative) HPF Urine Casts 10-20 Fine Granular (Negative) LPF Urine Mucus Heavy (Negative) Urine Other Negative (Negative) Ur Culture Indicated? No Urine Glucose 500 H (Negative) mg/dL COVID-19 Source SARS-CoV-2 (PCR) Influenza Type A (PCR) Influenza Type B (PCR) RSV (PCR) [id number] Documentation Fingerstick Glucose Start: 01/12/24 13:57 Freq: Status: Active Protocol: Activity Type Activity Date Activity User E-sign Co-sign Detail Recorded Client Recorded Date Recorded By Document 01/12/24 13:56 BKG DAEMON(3) [id number] 01/12/24 13:57 BKG DAEMON(4) Intake and Output - 24 Hour Total 01/12/24 13:40 thru 01/12/24 17:39 Intake Total 170 Balance 170 Weight 81.6 kg Intake: IV 170 Falls Risk Assessment History of Falls No History 01/12/24 14:00 Contributing Factors Confusion 01/12/24 14:00 Ambulatory Aids Independent 01/12/24 14:00 Tubes/Lines None 01/12/24 14:00 Gait Evaluation No gait disturbance 01/12/24 14:00 Fall Total Score 3 01/12/24 14:00 Level of Risk Standard/Low Risk 01/12/24 14:00 v v v v v v v v v Sending and/or Receiving Nurses: Please use comment section below to note any information pertinent to the patient hand-off not included above. Information / Comments: increased confusion, no BM x 24hrs on lactulose Report received from: Carey HOANG
--- NOTE | 2024-01-12 18:41 | W.PM.HP.N ---
Date of service: 01/12/24 Time of Service: 17:10 Assessment and Plan Assessment and plan (1) Acute hepatic encephalopathy: Status: Acute Assessment and plan: Will place patient on B complex vitamin supplementation and monitor clinical cognitive ability (2) Hepatic encephalopathy: Status: Resolved Assessment and plan: Serum ammonia is markedly elevated. Continue rifaximin and lactulose Will give MiraLAX to help encourage bowel movement, his stool output has been markedly decreased by report The patient is likely significantly dehydrated as well (3) Hypokalemia: Status: Acute Assessment and plan: Potassium oral supplementation 20 mill equivalents twice daily plus IV supplements (4) Hypocalcemia: Status: Acute Assessment and plan: Continue intravenous supplementation target calcium range 8.0 or above (5) Hemochromatosis, unspecified: Status: Chronic Assessment and plan: Check ferritin in the morning Qualifiers: Hemochromatosis type: hereditary Qualified Code(s): E83.110 - Hereditary hemochromatosis (6) Increased ammonia level: Status: Acute Assessment and plan: Continue to follow ammonia level daily (7) Hypomagnesemia: Status: Acute Assessment and plan: Continue intravenous magnesium supplementation, target range greater than 1.6 - 1.8. (8) Acute hypernatremia: Status: Acute Assessment and plan: IV fluids begun. Likely signs of dehydration. (9) Diabetes: Status: Chronic Assessment and plan: Check blood sugars 4 times daily and insulin sliding scale Qualifiers: Diabetes mellitus type: type 2 Diabetes mellitus senior care insulin use: with exterminator helper termite use Diabetes mellitus complication status: without complication Qualified Code(s): E11.9 - Type 2 diabetes mellitus without complications; Z79.4 - prison (current) use of insulin (10) Hypertension: Status: Chronic Assessment and plan: Continue outpatient medications for his blood pressure Qualifiers: Hypertension type: primary hypertension Qualified Code(s): I10 - Essential (primary) hypertension (11) Paroxysmal atrial fibrillation: Status: Chronic Assessment and plan: Continue outpatient medications (12) Chronic anticoagulation: Status: Chronic Assessment and plan: Continue outpatient anticoagulation (13) BPH (benign prostatic hyperplasia): Status: Chronic Assessment and plan: Patient denies any issues at this time. Will follow clinically Qualifiers: Lower urinary tract symptom presence: symptoms present Lower urinary tract symptom detail: incomplete bladder emptying Qualified Code(s): N40.1 - Benign prostatic hyperplasia with lower urinary tract symptoms; R39.14 - Feeling of incomplete bladder emptying (14) DVT prophylaxis: Status: Deleted Assessment and plan: Patient is supposed to be on Coumadin outpatient but his INR is only 1.8 (15) Discharge planning issues: Status: Deleted Assessment and plan: No impediments to discharge identified at this time. History of Present Illness History of Present Illness Chief Complaint: mental status changes, hepatic encephalopathy Narrative: Clinical course reviewed including notes, orders, labs, vitals, meds, imaging, and cultures. Care is discussed with primary nurse. This is a 76-year-old male with history of hypertension paroxysmal atrial fibrillation, BPH, diabetes and hemochromatosis with known hepatic insufficiency and multiple admissions for hepatic encephalopathy. He presented to the emergency department this morning after his found him walking around in the house confused not knowing where he was. He takes lactulose and rifaximin as an outpatient but his stool output has been decreased recently. He became lost in his home today. He was noted to have mild*S and B confused. CT scan of the head showed no intracranial issues either mass effect or hemorrhage. There was no head trauma. Initial evaluation revealed potassium of 2.3, magnesium 1.0 and serum calcium at 6.1. He has been replaced with potassium magnesium and calcium gluconate intravenously. His creatinine was at its baseline 0.5 and bilirubin was 1.8 without elevated liver enzymes. He does not have any fever or abdominal tenderness. There is no sign of spontaneous bacterial peritonitis. When he arrived in the emergency department, he was mildly hypoxic in the 80s but has been stable on room air since admission. History is attempted to be obtained from the patient but he is somewhat confused. Family members are not with him. History is obtained from conversations with the emergency room staff as well as review of previous records. Review of Systems Narrative: A 14 point review of systems was performed and negative except as noted below and in the HPI. PFSH All Active Problems (Updated 01/12/24 @ 18:20 by CHLOÉ HAMPTON) Acute hypernatremia (Acute) Hypomagnesemia (Acute) Hypocalcemia (Acute) Hypokalemia (Acute) Acute hepatic encephalopathy (Acute) Increased ammonia level (Acute) BPH (benign prostatic hyperplasia) (Chronic) Chronic anticoagulation (Chronic) Paroxysmal atrial fibrillation (Chronic) Hemochromatosis, unspecified (Chronic) Diabetes (Chronic) Hypertension (Chronic) PVCs (premature ventricular contractions) (Acute) Social History Smoking/Tobacco Use Status: Current-Occasional Tobacco Type: cigars Smoking risk assessment performed?: Yes Alcohol Intake: current Alcohol Intake frequency: 0-2 drinks per day Alcohol type: beer Drug use: Occasionally Substance use type: marijuana Housing: house Do you feel safe at home: Yes Do you feel safe in your relationship?: Yes Meds Allergies and Home Medications Allergies Allergy/AdvReac Type Severity Reaction Status Date / Time No Known Allergies Allergy Unverified 01/12/24 13:51 Home Medications ?Medication ?Instructions ?Recorded ?Confirmed ?Type Test Strips topical BID 03/29/15 History lancets 30 gauge 03/29/15 History metformin 500 mg tablet 1,000 mg PO BID 03/29/15 01/12/24 History arm brace (Wrist Brace Medium) #2 ea 04/15/15 History ibuprofen 400 mg tablet 400 mg PO Q6H PRN PRN ##40 10/11/17 01/12/24 Rx amlodipine 2.5 mg tablet 2.5 mg PO DAILY 12/16/19 01/12/24 History lisinopril 20 mg tablet 20 mg PO DAILY 12/16/19 12/24/23 History insulin glargine 100 unit/mL (3 30 unit subcut QPM 02/03/20 01/12/24 History mL) subcutaneous pen (Lantus Solostar U-100 Insulin) atorvastatin 40 mg tablet 40 mg PO DAILY 12/04/23 01/12/24 History carvedilol 3.125 mg tablet 3.125 mg PO BID 12/04/23 01/12/24 History glipizide 10 mg tablet 10 mg PO DAILY 12/04/23 01/12/24 History magnesium oxide 400 mg (241.3 mg 400 mg PO BID 12/04/23 01/12/24 History magnesium) tablet omeprazole 20 mg capsule,delayed 20 mg PO DAILY PRN heartburn 12/04/23 01/12/24 History release tamsulosin 0.4 mg capsule 0.4 mg PO Q24H 12/04/23 01/12/24 History warfarin 5 mg tablet 7.5 mg PO .COMPLEX 12/04/23 01/12/24 History rifaximin 550 mg tablet (Xifaxan) 550 mg PO BID #60 tabs 12/06/23 01/12/24 Rx lactulose 20 gram/30 mL oral 20 g PO TID 01/12/24 01/12/24 History solution Exam Narrative Exam Narrative: Chronically ill male patient who is alert and oriented x 2 and in no acute respiratory distress HEENT: Neck supple, MM pink and moist, conjunctiva non-injected, sclera non-icteric, positive bitemporal wasting, heavily bearded pupils equal and reactive to light symmetrically, no JVD, no A waves. No thyromegaly. No carotid bruit, dentition with caked tartar and receding gums, heart tones are distant CHEST: Bilaterally symmetrical with inspiration and expiration. No use of accessory muscles of respiration. No nasal flaring. RESP: Clear to auscultation bilaterally, no rales, rhonchi or wheeze, no pleural friction rub, no post-tussive crackles or apical rales. COR: RRR without murmur, normal S1, S2, no rub or gallop ABDOMEN: Soft, doughy consistency, non tender diffusely, normally active bowel sounds diffusely, No hepatosplenomegaly appreciated, No abdominal bruit, no masses, no tenderness on deep abdominal palpation. G/U: deferred Rectal: deferred MUSCULOSKELETAL: Bilaterally symmetrical, no muscle belly tenderness or mass DERMIS: Skin warm and dry, no ulcers or rashes, EXTREMITIES: Positive Dupuytren's contracture of the right fourth fifth and third fingers due to NEUROLOGICAL: Cranial nerves intact II-XII without notable deficit, No peripheral neurosensory or motor deficits noted. LYMPH: No anterior or posterior cervical, no supraclavicular, No axillary, no epitrochlear or femoral lymphadenopathy. Results Labs 01/12/24 14:37 01/12/24 15:07 Labs: Laboratory Results - last 24 hr 01/12/24 01/12/24 01/12/24 14:37 15:07 16:10 WBC 5.85 RBC 4.43 Hgb 14.3 Hct 42.3 MCV 96 H MCH 32.3 MCHC 33.8 RDW 13.1 Plt Count 143 MPV 10.7 Immature Gran % 0.0 Neutrophils % 51.5 Lymphocytes % 32.8 Monocytes % 10.1 Eosinophils % 4.4 Basophils % 1.2 Nucleated RBC % 0.0 Absolute Neutrophils 3.01 Absolute Lymphocytes 1.92 Absolute Monocytes 0.59 Absolute Eosinophils 0.26 Absolute Basophils 0.07 PT 17.1 H INR 1.8 H Sodium 151 H Potassium 2.3 L* Chloride 120 H Carbon Dioxide 16.7 L Anion Gap 14.3 H BUN 4 L Creatinine 0.5 L Est GFR (CKD-EPI 2020) 109.73 Glucose 158 H Calcium 6.1 L* Magnesium 1.0 L Total Bilirubin 1.82 H AST 25 ALT 24 Alkaline Phosphatase 78 Ammonia 126 H Troponin I 12 Total Protein 4.0 L Albumin 1.9 L Urine Color Yellow Urine Clarity Clear Urine pH 6.0 Ur Specific [place] >= 1.030 H Urine Protein 30 H Urine Ketones 15 H Urine Blood Moderate H Urine Nitrite Negative Urine Bilirubin Small H Urine Urobilinogen 4.0 H Ur Leukocyte Esterase Negative Urine RBC 10-20 H Urine WBC Negative Ur Epithelial Cells Negative Urine Crystals Negative Urine Bacteria Negative Urine Casts 10-20 Fine Granular Urine Mucus Heavy Urine Other Negative Ur Culture Indicated? No Urine Glucose 500 H COVID-19 Source SARS-CoV-2 (PCR) Influenza Type A (PCR) Influenza Type B (PCR) RSV (PCR) 01/12/24 01/12/24 16:53 17:22 WBC RBC Hgb Hct MCV MCH MCHC RDW Plt Count MPV Immature Gran % Neutrophils % Lymphocytes % Monocytes % Eosinophils % Basophils % Nucleated RBC % Absolute Neutrophils Absolute Lymphocytes Absolute Monocytes Absolute Eosinophils Absolute Basophils PT INR Sodium Potassium Chloride Carbon Dioxide Anion Gap BUN Creatinine Est GFR (CKD-EPI 2020) Glucose Calcium Magnesium Total Bilirubin AST ALT Alkaline Phosphatase Ammonia Troponin I 17 Total Protein Albumin Urine Color Urine Clarity Urine pH Ur Specific [place] Urine Protein Urine Ketones Urine Blood Urine Nitrite Urine Bilirubin Urine Urobilinogen Ur Leukocyte Esterase Urine RBC Urine WBC Ur Epithelial Cells Urine Crystals Urine Bacteria Urine Casts Urine Mucus Urine Other Ur Culture Indicated? Urine Glucose COVID-19 Source NASOPHARYNX SARS-CoV-2 (PCR) Negative Influenza Type A (PCR) Negative Influenza Type B (PCR) Negative RSV (PCR) Negative Last Vital Signs Temp 36.4 C L 01/12/24 18:30 Pulse 73 01/12/24 18:30 Resp 17 01/12/24 18:30 BP 167/89 H 01/12/24 18:30 Pulse Ox 98 01/12/24 18:30 Time Spent Time spent with Patient: 55-74 minutes Time was spent: preparing to see the patient(eg.review tests), obtaining and/or reviewing separately otained hiistory, ordering medications,tests, procedures, referring, communicating with other health acute care clinical nurse specialist, indepentently interpreting results, counseling the patient and care coordination
[2024-01-12 19:22] LABS: Anion Gap 10.9 mmol/L (3-11); BUN 6 mg/dL (7-18); CO2 23.1 mmol/L (21.0-32.0); CREATININE 0.7 mg/dL (0.70-1.30); Calcium 9.2 mg/dL (8.5-10.1); Chloride 111 mmol/L (98-107); Estimated GFR 99.12 (mL/min/1.73m2); Glucose 174 mg/dL (74-106); Potassium 3.8 mmol/L (3.5-5.1); Sodium 145 mmol/L (136-145)
[2024-01-12 19:30] LABS: Troponin I 18 ng/L (<or=76)
[2024-01-12 20:27] LABS: Ferritin 59 ng/mL (26-388)
[2024-01-12] MEDS: Polyethylene Glycol 3350 17 GM PACKET PO (21:42)
[2024-01-12] MEDS: Lactulose 20 GM/30 ML CUP PO (21:43)
[2024-01-12] MEDS: Potassium Chloride 20 MEQ TABCR PO (21:43)
[2024-01-12] MEDS: Carvedilol 3.125 MG TAB PO (21:43)
[2024-01-12] MEDS: Tamsulosin 0.4 MG CAPCR PO (21:43)
[2024-01-12] MEDS: Magnesium Oxide 400 MG TAB PO (21:43)
[2024-01-12] MEDS: Rifaximin 550 MG TAB PO (21:43)
[2024-01-12] MEDS: Insulin Glargine 300 UNITS/3 ML PEN 30 UNITS SC (21:56)
[2024-01-12] MEDS: Normal Saline Flush 10 ML SYR IVP (22:02)
[2024-01-12] MEDS: Lactated Ringers 1,000 ML 125 ML IV (22:04)
[2024-01-13] VITALS (7 sets, daily range): BP systolic 137–185; BP diastolic 54–95; PULSE 69–82; RESP 15–69; TEMP 36.5–37; O2SAT 93–99
[2024-01-13 07:01] LABS: Abs Immature Grans 0.01 10^3/uL (0.0-0.06); Absolute Basophil Count 0.07 10^3/uL (0.0-0.2); Absolute Eosinophil Count 0.34 10^3/uL (0.0-0.7); Absolute Lymphocyte Count 1.87 10^3/uL (1.2-3.4); Absolute Monocyte Count 0.66 10^3/uL (0.1-0.8); Absolute Neutrophil Count 2.74 10^3/uL (1.2-6.7); Basophils % 1.2 %; HCT 37.2 % (40.0-50.0); HGB 13.2 g/dL (13.5-17.5); Immature Grans % 0.2 %; Lymphocytes % 32.9 %; MCH 33.1 pg (27.0-33.0); MCHC 35.5 % (32.0-36.0); MCV 93 fL (80-95); MPV 10.8 fL (8.0-11.0); Monocytes % 11.6 %; Neutrophils % 48.1 %; Platelet Count 142 10^3/uL (130-400); RBC 3.99 10^6/uL (4.36-5.78); RDW 13.1 % (11.8-14.1); RDW-SD 44.9 fL; WBC 5.69 10^3/uL (4.4-10.8)
[2024-01-13 07:12] LABS: Prothrombin Time 19.1 sec (9.1-11.1)
[2024-01-13 07:25] LABS: ALT 36 U/L (16-63); AST 34 U/L (15-37); Albumin 2.8 g/dL (3.4-5.0); Alkaline Phosphatase 108 U/L (46-116); Anion Gap 8.9 mmol/L (3-11); BUN 5 mg/dL (7-18); Bilirubin, Total 3.12 mg/dL (0.2-1.0); CO2 23.1 mmol/L (21.0-32.0); CREATININE 0.6 mg/dL (0.70-1.30); Calcium 8.8 mg/dL (8.5-10.1); Chloride 114 mmol/L (98-107); Estimated GFR 103.85 (mL/min/1.73m2); Glucose 126 mg/dL (74-106); Magnesium 1.7 mg/dL (1.8-2.4); Potassium 3.8 mmol/L (3.5-5.1); Sodium 146 mmol/L (136-145); Total Protein 5.7 g/dL (6.4-8.2)
--- NOTE | 2024-01-13 08:00 | NUR.NOTE ---
Nursing Note:[id number]-Bed alarm going off this RN ran in room to see pt standing up at the side of the bed stating he needed to go to the bathroom. Pt seemingly in a buchanan and given urinal and asked if he knew how to use it pt stated that he did. pt urinated all over the floor and himself. Full bed bath given. Linens changed. Bed alarm on, bed locked in lowest position, call weinberg within reach, will CTM.
--- NOTE | 2024-01-13 08:45 | W.PM.PROGNOT ---
Date of Service Date of service: 01/13/24 Time of Service: 08:45 Assessment and Plan Assessment and plan (1) Acute hepatic encephalopathy: Status: Acute Assessment and plan: Will place patient on B complex vitamin supplementation and monitor clinical cognitive ability encourage bowel function with miralax scheduled med. (2) Hepatic encephalopathy: Status: Resolved Assessment and plan: Serum ammonia is markedly elevated. Continue rifaximin and lactulose Will give MiraLAX to help encourage bowel movements Continue hydration (3) Hypokalemia: Status: Acute Assessment and plan: Potassium oral supplementation 20 mill equivalents twice daily plus IV supplements (4) Hypocalcemia: Status: Acute Assessment and plan: Continue intravenous supplementation target calcium range 8.0 or above (5) Hemochromatosis, unspecified: Status: Chronic Assessment and plan: Check ferritin in the morning Qualifiers: Hemochromatosis type: hereditary Qualified Code(s): E83.110 - Hereditary hemochromatosis (6) Increased ammonia level: Status: Acute Assessment and plan: Continue to follow ammonia level daily (7) Hypomagnesemia: Status: Acute Assessment and plan: Continue intravenous magnesium supplementation, target range greater than 1.6 - 1.8. today is 1.7. Will supplement with 2g IV (8) Acute hypernatremia: Status: Acute Assessment and plan: IV fluids begun. Likely signs of dehydration. (9) Diabetes: Status: Chronic Assessment and plan: Check blood sugars 4 times daily and insulin sliding scale Qualifiers: Diabetes mellitus type: type 2 Diabetes mellitus joint terminal attack controller insulin use: with usp use Diabetes mellitus complication status: without complication Qualified Code(s): E11.9 - Type 2 diabetes mellitus without complications; Z79.4 - correction (current) use of insulin (10) Hypertension: Status: Chronic Assessment and plan: Continue outpatient medications for his blood pressure Qualifiers: Hypertension type: primary hypertension Qualified Code(s): I10 - Essential (primary) hypertension (11) Paroxysmal atrial fibrillation: Status: Chronic Assessment and plan: Continue outpatient medications (12) Chronic anticoagulation: Status: Chronic Assessment and plan: Continue outpatient anticoagulation (13) BPH (benign prostatic hyperplasia): Status: Chronic Assessment and plan: Patient denies any issues at this time. Will follow clinically Qualifiers: Lower urinary tract symptom presence: symptoms present Lower urinary tract symptom detail: incomplete bladder emptying Qualified Code(s): N40.1 - Benign prostatic hyperplasia with lower urinary tract symptoms; R39.14 - Feeling of incomplete bladder emptying (14) DVT prophylaxis: Status: Deleted Assessment and plan: continue Coumadin outpatient INR rising (15) Discharge planning issues: Status: Deleted Assessment and plan: No impediments to discharge identified at this time. Subjective Subjective Interval history since last seen: Clinical course reviewed including notes, orders, labs, vitals, meds, imaging, and cultures. Care is discussed with primary nurse. Vital signs stable. Patient afebrile. He continues on room air. YVONNE since admission is -200 mL Patient received supplemental calcium gluconate, magnesium sulfate and potassium chloride yesterday for low levels of all these electrolytes. His numbers have near normalized with potassium 3.8, calcium 8.8 and magnesium 1.7 this morning. Total bilirubin has elevated to 3.1 from 1.82 on admission. AST and ALT remain normal. From H&P on January 12, 2024: This is a 76-year-old male with history of hypertension paroxysmal atrial fibrillation, BPH, diabetes and hemochromatosis with known hepatic insufficiency and multiple admissions for hepatic encephalopathy. He presented to the emergency department this morning after his found him walking around in the house confused not knowing where he was. He takes lactulose and rifaximin as an outpatient but his stool output has been decreased recently. He became lost in his home today. He was noted to have mild*S and B confused. CT scan of the head showed no intracranial issues either mass effect or hemorrhage. There was no head trauma. Initial evaluation revealed potassium of 2.3, magnesium 1.0 and serum calcium at 6.1. He has been replaced with potassium magnesium and calcium gluconate intravenously. His creatinine was at its baseline 0.5 and bilirubin was 1.8 without elevated liver enzymes. He does not have any fever or abdominal tenderness. There is no sign of spontaneous bacterial peritonitis. When he arrived in the emergency department, he was mildly hypoxic in the 80s but has been stable on room air since admission. History is attempted to be obtained from the patient but he is somewhat confused. Family members are not with him. History is obtained from conversations with the emergency room staff as well as review of previous records. Exam Narrative Exam Narrative: Chronically ill male patient who is alert and oriented x 2 and in no acute respiratory distress. Ambulates with assistance. HEENT: Neck supple, MM pink and moist, conjunctiva non-injected, sclera non-icteric, positive bitemporal wasting, heavily bearded pupils equal and reactive to light symmetrically, no JVD, no A waves. No thyromegaly. No carotid bruit, dentition with caked tartar and receding gums, heart tones are distant CHEST: Bilaterally symmetrical with inspiration and expiration. No use of accessory muscles of respiration. No nasal flaring. RESP: Clear to auscultation bilaterally, no rales, rhonchi or wheeze, no pleural friction rub, no post-tussive crackles or apical rales. COR: RRR without murmur, normal S1, S2, no rub or gallop ABDOMEN: Soft, doughy consistency, non tender diffusely, normally active bowel sounds diffusely, No hepatosplenomegaly appreciated, No abdominal bruit, no masses, no tenderness on deep abdominal palpation. G/U: deferred Rectal: deferred MUSCULOSKELETAL: Bilaterally symmetrical, no muscle belly tenderness or mass DERMIS: Skin warm and dry, no ulcers or rashes, EXTREMITIES: Positive Dupuytren's contracture of the right fourth fifth and third fingers due to NEUROLOGICAL: Cranial nerves intact II-XII without notable deficit, No peripheral neurosensory or motor deficits noted. LYMPH: No anterior or posterior cervical, no supraclavicular, No axillary, no epitrochlear or femoral lymphadenopathy. Objective Last Vital Signs Temp 36.6 C 01/13/24 08:32 Pulse 70 01/13/24 08:32 Resp 17 01/13/24 08:32 BP 146/74 H 01/13/24 08:32 Pulse Ox 99 01/13/24 08:32 Laboratory Results - last 24 hr 01/12/24 01/12/24 01/12/24 14:37 15:07 16:10 WBC 5.85 RBC 4.43 Hgb 14.3 Hct 42.3 MCV 96 H MCH 32.3 MCHC 33.8 RDW 13.1 Plt Count 143 MPV 10.7 Immature Gran % 0.0 Neutrophils % 51.5 Lymphocytes % 32.8 Monocytes % 10.1 Eosinophils % 4.4 Basophils % 1.2 Nucleated RBC % 0.0 Absolute Neutrophils 3.01 Absolute Lymphocytes 1.92 Absolute Monocytes 0.59 Absolute Eosinophils 0.26 Absolute Basophils 0.07 PT 17.1 H INR 1.8 H Sodium 151 H Potassium 2.3 L* Chloride 120 H Carbon Dioxide 16.7 L Anion Gap 14.3 H BUN 4 L Creatinine 0.5 L Est GFR (CKD-EPI 2020) 109.73 Glucose 158 H Calcium 6.1 L* Magnesium 1.0 L Ferritin Total Bilirubin 1.82 H AST 25 ALT 24 Alkaline Phosphatase 78 Ammonia 126 H Troponin I 12 Total Protein 4.0 L Albumin 1.9 L Urine Color Yellow Urine Clarity Clear Urine pH 6.0 Ur Specific Putnam >= 1.030 H Urine Protein 30 H Urine Ketones 15 H Urine Blood Moderate H Urine Nitrite Negative Urine Bilirubin Small H Urine Urobilinogen 4.0 H Ur Leukocyte Esterase Negative Urine RBC 10-20 H Urine WBC Negative Ur Epithelial Cells Negative Urine Crystals Negative Urine Bacteria Negative Urine Casts 10-20 Fine Granular Urine Mucus Heavy Urine Other Negative Ur Culture Indicated? No Urine Glucose 500 H COVID-19 Source SARS-CoV-2 (PCR) Influenza Type A (PCR) Influenza Type B (PCR) RSV (PCR) 01/12/24 01/12/24 01/12/24 16:53 17:22 18:55 WBC RBC Hgb Hct MCV MCH MCHC RDW Plt Count MPV Immature Gran % Neutrophils % Lymphocytes % Monocytes % Eosinophils % Basophils % Nucleated RBC % Absolute Neutrophils Absolute Lymphocytes Absolute Monocytes Absolute Eosinophils Absolute Basophils PT INR Sodium 145 Potassium 3.8 D Chloride 111 H Carbon Dioxide 23.1 Anion Gap 10.9 BUN 6 L Creatinine 0.7 Est GFR (CKD-EPI 2020) 99.12 Glucose 174 H Calcium 9.2 Magnesium Ferritin Total Bilirubin AST ALT Alkaline Phosphatase Ammonia Troponin I 17 Total Protein Albumin Urine Color Urine Clarity Urine pH Ur Specific Putnam Urine Protein Urine Ketones Urine Blood Urine Nitrite Urine Bilirubin Urine Urobilinogen Ur Leukocyte Esterase Urine RBC Urine WBC Ur Epithelial Cells Urine Crystals Urine Bacteria Urine Casts Urine Mucus Urine Other Ur Culture Indicated? Urine Glucose COVID-19 Source NASOPHARYNX SARS-CoV-2 (PCR) Negative Influenza Type A (PCR) Negative Influenza Type B (PCR) Negative RSV (PCR) Negative 01/12/24 01/13/24 18:55 06:15 WBC 5.69 RBC 3.99 L Hgb 13.2 L Hct 37.2 L MCV 93 MCH 33.1 H MCHC 35.5 RDW 13.1 Plt Count 142 MPV 10.8 Immature Gran % 0.2 Neutrophils % 48.1 Lymphocytes % 32.9 Monocytes % 11.6 Eosinophils % 6.0 Basophils % 1.2 Nucleated RBC % 0.0 Absolute Neutrophils 2.74 Absolute Lymphocytes 1.87 Absolute Monocytes 0.66 Absolute Eosinophils 0.34 Absolute Basophils 0.07 PT 19.1 H INR 2.0 H Sodium 146 H Potassium 3.8 Chloride 114 H Carbon Dioxide 23.1 Anion Gap 8.9 BUN 5 L Creatinine 0.6 L Est GFR (CKD-EPI 2020) 103.85 Glucose 126 H Calcium 9.0 8.8 Magnesium 2.0 1.7 L Ferritin 59 Total Bilirubin 3.12 H AST 34 ALT 36 Alkaline Phosphatase 108 Ammonia Troponin I 18 Total Protein 5.7 L Albumin 2.8 L Urine Color Urine Clarity Urine pH Ur Specific Putnam Urine Protein Urine Ketones Urine Blood Urine Nitrite Urine Bilirubin Urine Urobilinogen Ur Leukocyte Esterase Urine RBC Urine WBC Ur Epithelial Cells Urine Crystals Urine Bacteria Urine Casts Urine Mucus Urine Other Ur Culture Indicated? Urine Glucose COVID-19 Source SARS-CoV-2 (PCR) Influenza Type A (PCR) Influenza Type B (PCR) RSV (PCR) Time Spent with Patient Time Spent with Patient: 35-49 minutes Time was spent: preparing to see the patient(eg.review tests), obtaining and/or reviewing separately otained hiistory, ordering medications,tests, procedures, referring, communicating with other health critical care educator, indepentently interpreting results, counseling the patient and care coordination
[2024-01-13] MEDS: Magnesium Oxide 400 MG TAB PO ×2 (09:01→20:56)
[2024-01-13] MEDS: Rifaximin 550 MG TAB PO ×2 (09:01→20:56)
[2024-01-13] MEDS: Lactulose 20 GM/30 ML CUP PO ×3 (09:01→20:56)
[2024-01-13] MEDS: Lisinopril 20 MG TAB PO (09:01)
[2024-01-13] MEDS: Potassium Chloride 20 MEQ TABCR PO ×2 (09:02→20:56)
[2024-01-13] MEDS: Carvedilol 3.125 MG TAB PO ×2 (09:02→20:56)
[2024-01-13] MEDS: glipiZIDE 10 MG TAB PO (09:02)
[2024-01-13] MEDS: amLODIPine 2.5 MG TAB PO (09:02)
[2024-01-13] MEDS: Polyethylene Glycol 3350 17 GM PACKET PO (09:03)
[2024-01-13] MEDS: Normal Saline Flush 10 ML SYR IVP ×2 (09:03→20:57)
[2024-01-13] MEDS: MAGNESIUM SULFATE 2 GM/50 ML BAG IV_INF (09:04)
--- NOTE | 2024-01-13 09:31 | PT.INIE ---
Date of service: 01/13/24 Time of Service: 09:02 PT Notes Visit Reasons: hepatic encephalopathy, hypokalemia,hypomagnesemia Inpatient Physical Therapy Evaluation I certify the need for these services as being medically necessary and skilled as furnished under this plan of treatment while under my care. Please sign and return within 14 days if you agree with the plan of care listed below.? Thank you for this referral! ? Referring Physician? Date Referring Doctor:? Davin Damon PT Orders: PT CONSULT for safety Precautions: fall risk Patient Profile/Admitting Diagnosis:? The patient is a 68 yo male adm on 01/12/24 for hepatic encaphalopathy. Past Medical History: Acute hypernatremia (Acute) Hypomagnesemia (Acute) Hypocalcemia (Acute) Hypokalemia (Acute) Acute hepatic encephalopathy (Acute) Increased ammonia level (Acute) BPH (benign prostatic hyperplasia) (Chronic) Chronic anticoagulation (Chronic) Paroxysmal atrial fibrillation (Chronic) Hemochromatosis, unspecified (Chronic) Diabetes (Chronic) Hypertension (Chronic) PVCs (premature ventricular contractions) (Acute) Smoking/Tobacco Use Status: Current-Occasional Tobacco Type: cigars Medications: See chart Social History/Home Situation: Lives with his in [facility]. does the cooking and cleaning. Son comes over to help with the lawn care. One level home with 2-3 steps to enter. Normally drives. Showers in standing with a rail several days/week. Does not have a walker or cane. Subjective: I was here for three days the last time I was here. Objective: RN reports incontinent of urine this morning. Mental Status: Patient is alert and oriented. Pain: Reports just overall not feeling well...but no particular area of pain. Vital Signs: 146/74 70 bpm 99% on RA ROM/Strength: UE and LE grossly 4 to 4+/5. Attempted MMT but patient with difficulty following instructions. Sensation: Does not report any numbness or tingling. Soft tissue/edema: No gross abnormalities observed. Bed Mobility: OOB to chair with RN prior to arrival. Transfers: Sit to stand with cga. stand to sit with cg/min assist. Patient sitting prior to being close to the chair. Gait: Ambulated 60 feet with rolling walker cga with assist for iv pole and occasional assist for walker movement. Balance: mildly unsteady in standing. [facility] AM-PAC 6 clicks Basic Mobility Inpatient Short Form: Raw Score:?18? CMS Score: 46.58% Informed Consent/Education:? Patient instructed in purpose of PT consult and plan of care and is agreeable Assessment:? Patient is a?68 year old male adm on 01/12/24 for hepatic encephalopathy.? Patient presents with decreased strength, decreased functional mobility, decreased balance and difficulty with ambulation. The patient would benefit from skilled inpatient services to improve these impairments to maximize function and safety. Patient is assessed as:? Low [id number]?? History: frequent admissions Examination: see above Presentation: Stable and uncomplicated? Decision Making:? Low (0 history, 1-2 exam, stable/predictable, easy 20) Physical Therapy Goals: 3 days Able to get in/out of bed with supervision only. Able to perform sit to/from stand with supervision only. Able to walk 150 feet with rolling walker with supervision only. Able to go up and down 2-3 steps with 1 rail with contact guard assist only. Independent with home exercise program Plan of Care/Treatment Plan: 1-2x/day, 7 days/week x 1 week. Plan of care has been reviewed with the BOAT MASTER providing the service under Physical Therapy direction. Initiate Physical Therapy intervention for strengthening, bed mobility, transfers, gait, stairs, balance training, use of assistive device. DISCHARGE RECOMMENDATIONS: Informed consent Prior to the start and throughout the course of the examination and treatment, patient was made aware of the specifics and purpose of the physical assessment and treatment procedures. Appropriate draping procedures were utilized to protect modesty where applicable. Billing Charges: Treatment Units Time Duration Manual Therapy(64123) Hands-on techniques to modulate pain increase joint range of motion reduce or eliminate soft tissue swelling, inflammation, or restriction facilitate relaxation and improve contractile and non-contractile tissue extensibility ? ? Therapeutic Procedures (19556) Instruction in therapeutic exercises to develop strength and endurance, range of motion and flexibility. HEP instruction and review: Provided skilled instruction in proper exercise performance: Provided skilled manual cues to facilitate proper muscle recruitment and/or movement pattern Neurological Re-Education(74381) To improve balance, coordination, kinesthetic and proprioceptive sensations. ? ? Ultrasound(20424) To promote healing. ? ? Gait Training(38767) ? ? Therapeutic Activity(50319) Instruction in dynamic activities with one on one patient contact by the provider to improve functional performance as follows: ?1 ?10 Self Care Training(05991) ? ? E-Stim (Attended)(87994) ? ? Low IE(48388) 1 13 Mod IE(64975) ? ? High IE(76119) ? ? Time Coded Treatment Time ? 10 Total Treatment Time ? 23
--- NOTE | 2024-01-13 09:47 | PDOC.CMIN ---
Date of service: 01/13/24 Time of Service: 09:47 Care Management Initial Assmt Initial Assessment Reason for Hospitalization: hepatic encephalopathy Functional Status/Living Situation Patient Presentation: Shaji was sitting up in bed when CM met with him. He was pleasant in interaction and agreeable to conversation. Shaji lives in a single family home in [facility] with his Melvina. They have 3 sons; 2 sons ilve in [facility] and the 3rd lives in [place]. Shaji has hemochromatosis and has not been able to work for at least 10 years. For income he received social security and his worked for [employer]. 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 He is independent at baseline and does not need or use a cane or walker, however he does receive Meals on Wheels. Shaji was admitted with hepatic encephalopathy. His ammonia level was 126 and he was quite confused. He is much clearer today and states he feels better but is still a little foggy. Town of Residence: [place] Resides with: Spouse (Melvina) Significant Other/Family: Local Natural Supports: family Employment Status: Retired Instrumental Activities of Daily Living (ADLs): Independent Medications Medication Management: No Issues/Barriers identified Physical Functioning/Mobility Assistive Device: none Advance Directives Advance Directives: Do you have an Advance Directive: N 09/05/12 15:39 AD On File at [facility]: N 06/19/12 11:48 Date Asked 01/12/24 01/12/24 17:37 AD Date Reviewed COLST On File at [facility] No 01/12/24 17:37 COLST Date Scanned Code Status Resuscitation Status Full Code Portal Pt does not currently have a portal and education provided: Yes Insurance Coverage/Financial Issues Insurance: Medicaid Financial Assist 100 Care Team Visit Care Team Role Provider Type Stefani Jones MD Primary Care Provider [facility] STAFF PHYSICIAN Yumiko Barboza Other Providers REG OCCUPATIONAL THERAPIST InPatient [facility] Jose Other Providers OTHER Racheal Jordan MD Emergency Provider [facility] STAFF PHYSICIAN Davin Damon, Admit Provider [facility] STAFF PHYSICIAN Attending Provider Discharge Potential Discharge Needs: PCP F/U Appt Anticipated Barriers to Discharge: None Identified Patient/Family Education Needs: Review discharge instructions, discuss Ask Me Three Transportation: Private vehicle Plan: Anticipate Shaji will be discharged home with no new services when medically cleared by provider. He will follow up with his PCP and plan of care and transport with family. CM will follow and continue to support discharge planning concerns. PFSH All Active Problems (Updated 01/12/24 @ 18:20 by CHLOÉ HAMPTON) Acute hypernatremia (Acute) Hypomagnesemia (Acute) Hypocalcemia (Acute) Hypokalemia (Acute) Acute hepatic encephalopathy (Acute) Increased ammonia level (Acute) BPH (benign prostatic hyperplasia) (Chronic) Chronic anticoagulation (Chronic) Paroxysmal atrial fibrillation (Chronic) Hemochromatosis, unspecified (Chronic) Diabetes (Chronic) Hypertension (Chronic) PVCs (premature ventricular contractions) (Acute) Social History Smoking/Tobacco Use Status: Current-Occasional Tobacco Type: cigars Smoking risk assessment performed?: Yes Alcohol Intake: current Alcohol Intake frequency: 0-2 drinks per day Alcohol type: beer Drug use: Occasionally Substance use type: marijuana Housing: house Do you feel safe at home: Yes Do you feel safe in your relationship?: Yes SDOH(Care Management) Screening Will the Patient Participate in the Screening?: Unable to obtain
[2024-01-13] MEDS: Lactated Ringers 1,000 ML 125 ML IV ×2 (13:04→21:43)
[2024-01-13] MEDS: Vitamins B Comp w/C TAB 1 TAB PO (15:43)
[2024-01-13] MEDS: diazePAM 10 MG/2 ML SYR 5 MG IVP (17:12)
--- NOTE | 2024-01-13 19:27 | NUR.NOTE ---
Nursing Note: 1155: Dr. Damon notified that pts BS 297, that pt got glipizide late today 0900 and that his states he takes metformin but its not scheduled in the MAR and pt not on sliding scale. Per MD I stopped it due to his condition at admission and was planing on restarting when he was more stable. 4: Pt very agitated with staff after urinating on himself in the bathroom with help of [employer]. called and updated. Dr. Damon made aware and ordered valium with good effect. 1835-Asked Dr. Damon about a diabetic diet for pt 1836-Dr. Damon made aware pts BS was 214 per MD unable to order metformin d/t pt having contrast within 48 hours. Orders for sliding scale placed.
[2024-01-13] MEDS: Insulin Glargine 300 UNITS/3 ML PEN 30 UNITS SC (20:55)
[2024-01-13] MEDS: Melatonin 3 MG TAB 9 MG PO (20:56)
[2024-01-13] MEDS: Warfarin 5 MG TAB PO (20:56)
[2024-01-13] MEDS: Tamsulosin 0.4 MG CAPCR PO (20:56)
[2024-01-13] MEDS: Atorvastatin 40 MG TAB PO (20:56)
[2024-01-14 00:06] VITALS: BP 119/73; PULSE 71; RESP 15; TEMP 36.7; O2SAT 94
[2024-01-14] MEDS: Lactated Ringers 1,000 ML 125 ML IV ×3 (06:08→22:17)
[2024-01-14 06:52] LABS: Abs Immature Grans 0.02 10^3/uL (0.0-0.06); Absolute Basophil Count 0.06 10^3/uL (0.0-0.2); Absolute Eosinophil Count 0.42 10^3/uL (0.0-0.7); Absolute Lymphocyte Count 2.03 10^3/uL (1.2-3.4); Absolute Monocyte Count 0.66 10^3/uL (0.1-0.8); Absolute Neutrophil Count 2.77 10^3/uL (1.2-6.7); HCT 38.7 % (40.0-50.0); Immature Grans % 0.3 %; Lymphocytes % 34.1 %; MCH 31.9 pg (27.0-33.0); MCHC 33.6 % (32.0-36.0); MCV 95 fL (80-95); MPV 10.9 fL (8.0-11.0); Monocytes % 11.1 %; Neutrophils % 46.5 %; Platelet Count 142 10^3/uL (130-400); RBC 4.08 10^6/uL (4.36-5.78); RDW-SD 45.4 fL; WBC 5.96 10^3/uL (4.4-10.8)
[2024-01-14 06:59] LABS: Prothrombin Time 18.8 sec (9.1-11.1)
[2024-01-14 07:12] LABS: ALT 36 U/L (16-63); AST 35 U/L (15-37); Albumin 2.7 g/dL (3.4-5.0); Alkaline Phosphatase 106 U/L (46-116); Anion Gap 8.1 mmol/L (3-11); BUN 5 mg/dL (7-18); Bilirubin, Total 3.71 mg/dL (0.2-1.0); CO2 24.9 mmol/L (21.0-32.0); CREATININE 0.7 mg/dL (0.70-1.30); Calcium 8.5 mg/dL (8.5-10.1); Chloride 115 mmol/L (98-107); Estimated GFR 99.12 (mL/min/1.73m2); Glucose 111 mg/dL (74-106); Magnesium 1.9 mg/dL (1.8-2.4); Potassium 3.6 mmol/L (3.5-5.1); Sodium 148 mmol/L (136-145); Total Protein 5.6 g/dL (6.4-8.2)
[2024-01-14 08:35] VITALS: BP 139/78; PULSE 70; RESP 13; TEMP 36.7; O2SAT 98
[2024-01-14] MEDS: Polyethylene Glycol 3350 17 GM PACKET PO (08:47)
[2024-01-14] MEDS: Lactulose 20 GM/30 ML CUP PO ×3 (08:47→20:15)
[2024-01-14] MEDS: Rifaximin 550 MG TAB PO ×2 (08:48→20:16)
[2024-01-14] MEDS: Carvedilol 3.125 MG TAB PO ×2 (08:48→20:15)
[2024-01-14] MEDS: glipiZIDE 10 MG TAB PO (08:48)
[2024-01-14] MEDS: Vitamins B Comp w/C TAB 1 TAB PO (08:48)
[2024-01-14] MEDS: Magnesium Oxide 400 MG TAB PO ×2 (08:48→20:16)
[2024-01-14] MEDS: amLODIPine 2.5 MG TAB PO (08:49)
[2024-01-14] MEDS: Lisinopril 20 MG TAB PO (08:49)
[2024-01-14] MEDS: Normal Saline Flush 10 ML SYR IVP ×3 (08:50→21:01)
[2024-01-14] MEDS: Potassium Chloride 20 MEQ TABCR PO ×2 (08:50→20:15)
--- NOTE | 2024-01-14 09:23 | PTTR_ITS ---
PT Notes Visit Reasons: hepatic encephalopathy, hypokalemia,hypomagnesemia Inpatient Physical Therapy Treatment Note [facility] Date: 01/14/2024 PRECAUTIONS: Fall risk. Standard precautons in place. Activity as tolerated. SUBJECTIVE: Feels much better comapred to yesterday. Agreeable to using front-wheeeld walker for today's walk. Denied headache, chest pain, and lightheadedness throughout sessions. OBJECTIVE: IV through R UE. ? PAIN: Minimal report of back pain that did not limit today's ambulation performance. VITALS: Closely monitored by nursing staff ? BED MOBILITY/TRANSFERS? Minimal cueing provided for use of B hands as needed for support, movement sequence, AD management, and posture to reduce fall risk and minimize pain report ? Sit-stand: contact guard assist with FWW? Stand-sit: contact guard assist?with FWW ? Bed-Chair: contact guard assist?with FWW ? Chair-bed: contact guard assist?with FWW GAIT? Assistive Device: FWW? Weight bearing: FWB Assist: contact guard assist ? Distance:? 250 feet ? Deviation: Slowed avi. Decreased step height and length. ? THERA EX: Guided patient with safe and correct execution of following exercises: sit<>stand from chair x 10 ? seated marches x 10 hip abduction x 10 LAQs x 10 ASSESSMENT:? Patient still requires the use of front-wheeeld walker for all mobility ADL performance for safety and fall reduction. He still verbalizes about being weak and needing rest but overall has demonstrated improving ability to participate in mobility ADL and exercise performance. level of assiatnce has decreased as independence has improved. No new symptoms presented as of this morning. PLAN: Continue with strength, balance, mobility progression as tolerated to regain PLOF in anticipation of return to home at highest mobility level D/C RECOMMENDATIONS: [] Home with no services [] [x] Home with services. Patient will benefit from home health PT services in order to progress mobility level using least restrictive assistive ambulatory device, assess home safety, identify additional equipment needs, and establish a functional maintenance program that will increase ability of patient to remain at home. [] Home with outpatient PT [] [] SNF for continued rehabilitation [] [] [facility] [] [] SNF versus LTC based on ability to participate and progress []l TREATMENT CODE/TIME: 38595 x 20 minutes for 1 unit (9:23-9:43).
[2024-01-14 11:38] VITALS: BP 140/74; PULSE 65; RESP 17; TEMP 36.7; O2SAT 98
[2024-01-14] MEDS: Insulin Aspart 300 UNITS/3 ML PEN SC ×2 (12:19→17:05)
--- NOTE | 2024-01-14 14:15 | OTIE_ITS ---
Occupational Therapy Notes Inpatient Occupational Therapy Evaluation Date: 01/14/24 Referring Doctor: Davin Damon OT Orders: Non Urgent Precautions: Fall, [place], Full PATIENT PROFILE/ADMITTING DIAGNOSIS: The patient is a 68 yo male adm on 01/12/24 for hepatic encaphalopathy. Past Medical History: All Active Problems (Updated 01/12/24 @ 18:20 by CHLOÉ HAMPTON) Acute hypernatremia (Acute) Hypomagnesemia (Acute) Hypocalcemia (Acute) Hypokalemia (Acute) Acute hepatic encephalopathy (Acute) Increased ammonia level (Acute) BPH (benign prostatic hyperplasia) (Chronic) Chronic anticoagulation (Chronic) Paroxysmal atrial fibrillation (Chronic) Hemochromatosis, unspecified (Chronic) Diabetes (Chronic) Hypertension (Chronic) PVCs (premature ventricular contractions) (Acute) Social History/Home Situation: Pt states that he lives in a private home with his . He notes that his does all the cooking, laundry and home care tasks and that he is (I) with his ADL/IADL routines. SUBJECTIVE: Pt states that he is receptive to OT consult. OBJECTIVE: General Observation: IV in (R) UE, sitting in chair with forward rounded chair posture with support to core. 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 DRESSING seated in chair Dressing UE (I) don and doffing [facility] gown Dressing LE (I) don and doffing (B) socks GROOMING Min vc otherwise (I) TOILETING NT EATING (I) seated with liquids and appropriate use of silverware BALANCE: Static sitting Normal Dynamic Sitting Good INFORMED CONSENT/EDUCATION: Pt instructed in purpose of OT Consult and plan of care. ASSESSMENT: Patient is a 68-year-old male referred to occupational therapy services with diagnosis of hepatic encaphalopathy . Patient presents with clinical signs and symptoms consistent with dx. He was sitting in chair when OT arrived. He was (I in his ADLs with min vc and has minimal deficit sta this time that limit him from his baseline level of function. Patient is assessed as a Moderate 88373 complexity based on the following: History: see above Examination: see functional limitations as noted above Presentation: evolving Decision Making: moderate GOALS N/A seen for OT consult only. PLAN OF CARE/TREATMENT PLAN: Discharge from skilled OT services. DISCHARGE RECOMMENDATIONS OT recommends that pt return home when medically cleared per MD. TREATMENT TIME/MINUTES/CODES 38376, 20 minutes (11:00) [facility] [place], [place]
--- NOTE | 2024-01-14 15:48 | PDOC.CMPRO ---
Date of service: 01/14/24 Time of Service: 15:48 Care Management Progress Note Progress Note Text Progress Note Text: Shaji was sitting up in his chair when CM met with him. He stated that he is feeling better today than he did yesterday. Per report, he is not yet medically cleared for discharge. He stated that he is independent at home, and does not feel that he will need any services upon discharge. CM will continue to follow. Discharge Plan: Anticipate Shaji will be discharged home with no new services when medically cleared by provider. He will follow up with his PCP and plan of care and transport with family. CM will follow and continue to support discharge planning concerns. SDOH(Care Management) Screening Will the Patient Participate in the Screening?: Unable to obtain
[2024-01-14 16:05] VITALS: BP 131/65; PULSE 70; RESP 14; TEMP 36.8; O2SAT 97
--- NOTE | 2024-01-14 17:03 | PGE_ITS ---
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 Their telephone lines are troubled and I either get busy signals or get disconnected. Continue supportive care. Patient is on scheduled MiraLAX. He has improved bowel throughput at this time. (2) Hypokalemia: Status: Acute Assessment and plan: Potassium oral supplementation 20 mill equivalents twice daily plus IV supplements Levels are normal at this time. Continue to check daily (3) Hypocalcemia: Status: Acute Assessment and plan: Continue intravenous supplementation target calcium range 8.0 or above Calcium levels normal at this time. Continue to monitor daily (4) Hemochromatosis, unspecified: Status: Chronic Assessment and plan: Call placed to [facility] and attempt to reach GI. Unfortunately, they are having severe problems with their telephone lines Qualifiers: Hemochromatosis type: hereditary Qualified Code(s): E83.110 - Hereditary hemochromatosis (5) Increased ammonia level: Status: Acute Assessment and plan: Continue to follow ammonia level (6) Hypomagnesemia: Status: Acute Assessment and plan: Level is normal at this time. Continue to monitor (7) Acute hypernatremia: Status: Acute Assessment and plan: Appears improved at this time. 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 mining machine tender use Diabetes mellitus complication status: without complication Qualified Code(s): E11.9 - Type 2 diabetes mellitus without complications; Z79.4 - skilled nursing (current) use of insulin (9) Hypertension: Status: Chronic Assessment and plan: Continue outpatient medications for his blood pressure Qualifiers: Hypertension type: primary hypertension Qualified Code(s): I10 - Essential (primary) hypertension (10) Paroxysmal atrial fibrillation: Status: Chronic Assessment and plan: Continue outpatient medications (11) Chronic anticoagulation: Status: Chronic Assessment and plan: Continue outpatient anticoagulation, follow INR due to compromised synthetic function (12) BPH (benign prostatic hyperplasia): Status: Chronic Assessment and plan: Patient denies any issues at this time. Will follow clinically Qualifiers: Lower urinary tract symptom presence: symptoms present Lower urinary tract symptom detail: incomplete bladder emptying Qualified Code(s): N40.1 - Benign prostatic hyperplasia with lower urinary tract symptoms; R39.14 - Feeling of incomplete bladder emptying (13) DVT prophylaxis: Status: Deleted Assessment and plan: continue Coumadin, follow INR (14) Discharge planning issues: Status: Deleted Assessment and plan: No impediments to discharge identified at this time. Subjective Subjective Interval history since last seen: Clinical course reviewed including notes, orders, labs, vitals, meds, imaging, and cultures. Care is discussed with primary nurse. Vital signs stable. Patient afebrile. He continues on room air. Patient has been having regular bowel movements at this time. He seems less confused more clear thinking at this time. White count is 5.9, hemoglobin 13.0, platelet 142, PT 18.8, INR 2.0, sodium 148, potassium 3.6, CO2 25, BUN 5, creatinine 0.7. Calcium 8.5, magnesium 1.9, total bilirubin 3.71(3.1, 1.82) , total protein 5.6 A 14 point review of systems was performed and negative except as noted below and in the HPI. From H&P on January 12, 2024: This is a 76-year-old male with history of hypertension paroxysmal atrial fibrillation, BPH, diabetes and hemochromatosis with known hepatic insufficiency and multiple admissions for hepatic encephalopathy. He presented to the emergency department this morning after his found him walking around in the house confused not knowing where he was. He takes lactulose and rifaximin as an outpatient but his stool output has been decreased recently. He became lost in his home today. He was noted to have mild*S and B confused. CT scan of the head showed no intracranial issues either mass effect or hemorrhage. There was no head trauma. Initial evaluation revealed potassium of 2.3, magnesium 1.0 and serum calcium at 6.1. He has been replaced with potassium magnesium and calcium gluconate intravenously. His creatinine was at its baseline 0.5 and bilirubin was 1.8 without elevated liver enzymes. He does not have any fever or abdominal tenderness. There is no sign of spontaneous bacterial peritonitis. When he arrived in the emergency department, he was mildly hypoxic in the 80s but has been stable on room air since admission. History is attempted to be obtained from the patient but he is somewhat confused. Family members are not with him. History is obtained from conversations with the emergency room staff as well as review of previous records. Exam Narrative Exam Narrative: Chronically ill male patient who is alert and oriented x 3 and in no acute respiratory distress. Ambulates with assistance. He appears more cognitive today and clearer thinking however probably not yet at baseline. HEENT: Neck supple, MM pink and moist, conjunctiva non-injected, sclera non- icteric, positive bitemporal wasting, heavily bearded pupils equal and reactive to light symmetrically, no JVD, no A waves. No thyromegaly. No carotid bruit, dentition with caked tartar and receding gums, heart tones are distant. Episclera not icteric CHEST: Bilaterally symmetrical with inspiration and expiration. No use of accessory muscles of respiration. No nasal flaring. RESP: Clear to auscultation bilaterally, no rales, rhonchi or wheeze, no pleural friction rub, no post-tussive crackles or apical rales. COR: RRR without murmur, normal S1, S2, no rub or gallop ABDOMEN: Soft, doughy consistency, non tender diffusely, normally active bowel sounds diffusely, No hepatosplenomegaly appreciated, No abdominal bruit, no masses, no tenderness on deep abdominal palpation. G/U: deferred Rectal: deferred MUSCULOSKELETAL: Bilaterally symmetrical, no muscle belly tenderness or mass DERMIS: Skin warm and dry, no ulcers or rashes, his chest and abdomen have anicteric tint EXTREMITIES: Positive Dupuytren's contracture of the right fourth fifth and third fingers due to NEUROLOGICAL: Cranial nerves intact II-XII without notable deficit, No peripheral neurosensory or motor deficits noted. LYMPH: No anterior or posterior cervical, no supraclavicular, No axillary, no epitrochlear or femoral lymphadenopathy. Objective Last Vital Signs Temp 36.8 C 01/14/24 16:05 Pulse 70 01/14/24 16:05 Resp 14 01/14/24 16:05 BP 131/65 01/14/24 16:05 Pulse Ox 97 01/14/24 16:05 Laboratory Results - last 24 hr 01/14/24 05:38 WBC 5.96 RBC 4.08 L Hgb 13.0 L Hct 38.7 L MCV 95 MCH 31.9 MCHC 33.6 RDW 13.0 Plt Count 142 MPV 10.9 Immature Gran % 0.3 Neutrophils % 46.5 Lymphocytes % 34.1 Monocytes % 11.1 Eosinophils % 7.0 Basophils % 1.0 Nucleated RBC % 0.0 Absolute Neutrophils 2.77 Absolute Lymphocytes 2.03 Absolute Monocytes 0.66 Absolute Eosinophils 0.42 Absolute Basophils 0.06 PT 18.8 H INR 2.0 H Sodium 148 H Potassium 3.6 Chloride 115 H Carbon Dioxide 24.9 Anion Gap 8.1 BUN 5 L Creatinine 0.7 Est GFR (CKD-EPI 2020) 99.12 Glucose 111 H Calcium 8.5 Magnesium 1.9 Total Bilirubin 3.71 H AST 35 ALT 36 Alkaline Phosphatase 106 Total Protein 5.6 L Albumin 2.7 L Reviewed Pertinent PMH: Yes Time Spent with Patient Time Spent with Patient: >50 minutes Time was spent: preparing to see the patient(eg.review tests), obtaining and/or reviewing separately otained hiistory, ordering medications,tests, procedures, referring, communicating with other health manager medicare marketing, indepentently interpreting results, counseling the patient and care coordination
[2024-01-14 19:35] VITALS: BP 122/68; PULSE 65; RESP 15; TEMP 37; O2SAT 96
[2024-01-14] MEDS: Atorvastatin 40 MG TAB PO (20:15)
[2024-01-14] MEDS: Melatonin 3 MG TAB 9 MG PO (20:15)
[2024-01-14] MEDS: Tamsulosin 0.4 MG CAPCR PO (20:16)
[2024-01-14] MEDS: Warfarin 5 MG TAB PO (20:16)
[2024-01-14] MEDS: Insulin Glargine 300 UNITS/3 ML PEN 30 UNITS SC (20:18)
[2024-01-15 02:44] VITALS: BP 124/71; PULSE 67; RESP 14; TEMP 36.6; O2SAT 96
[2024-01-15] MEDS: Lactated Ringers 1,000 ML 125 ML IV (05:37)
[2024-01-15 06:43] LABS: Abs Immature Grans 0.01 10^3/uL (0.0-0.06); Absolute Basophil Count 0.08 10^3/uL (0.0-0.2); Absolute Eosinophil Count 0.38 10^3/uL (0.0-0.7); Absolute Lymphocyte Count 2.13 10^3/uL (1.2-3.4); Absolute Monocyte Count 0.59 10^3/uL (0.1-0.8); Absolute Neutrophil Count 2.81 10^3/uL (1.2-6.7); Basophils % 1.3 %; Eosinophils % 6.3 %; HCT 35.6 % (40.0-50.0); HGB 12.2 g/dL (13.5-17.5); Immature Grans % 0.2 %; Lymphocytes % 35.5 %; MCH 32.4 pg (27.0-33.0); MCHC 34.3 % (32.0-36.0); MCV 94 fL (80-95); MPV 10.3 fL (8.0-11.0); Monocytes % 9.8 %; Neutrophils % 46.9 %; Platelet Count 139 10^3/uL (130-400); RBC 3.77 10^6/uL (4.36-5.78); RDW 13.1 % (11.8-14.1); RDW-SD 45.1 fL
[2024-01-15 06:50] LABS: Ammonia 90 umol/L (11-32); INR 1.9 (0.9-1.1); Prothrombin Time 17.8 sec (9.1-11.1)
[2024-01-15 07:00] LABS: ALT 36 U/L (16-63); AST 39 U/L (15-37); Albumin 2.6 g/dL (3.4-5.0); Alkaline Phosphatase 103 U/L (46-116); Anion Gap 9.5 mmol/L (3-11); BUN 5 mg/dL (7-18); Bilirubin, Total 2.85 mg/dL (0.2-1.0); CO2 24.5 mmol/L (21.0-32.0); CREATININE 0.6 mg/dL (0.70-1.30); Calcium 8.2 mg/dL (8.5-10.1); Chloride 115 mmol/L (98-107); Estimated GFR 103.85 (mL/min/1.73m2); Glucose 107 mg/dL (74-106); Magnesium 1.9 mg/dL (1.8-2.4); Potassium 3.5 mmol/L (3.5-5.1); Sodium 149 mmol/L (136-145); Total Protein 5.3 g/dL (6.4-8.2)
[2024-01-15 07:49] VITALS: BP 137/66; PULSE 69; RESP 20; TEMP 36.8; O2SAT 99
--- NOTE | 2024-01-15 08:23 | PGE_ITS ---
Date of Service Date of service: 01/15/24 Time of Service: 08:23 Assessment and Plan Assessment and plan (1) Acute hepatic encephalopathy: Status: Acute Assessment and plan: Iimproved cognitive performance at this time, but may still not yet at baseline. 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 Their telephone lines are troubled and I either get busy signals or get disconnected. Continue supportive care. Patient is on scheduled MiraLAX. He has improved bowel throughput at this time. Possbile [place] soon Will discuss with . (2) Hypokalemia: Status: Acute Assessment and plan: Potassium oral supplementation 20 mill equivalents twice daily plus IV supplements Levels are normal at this time. Continue to check daily (3) Hypocalcemia: Status: Acute Assessment and plan: Continue intravenous supplementation target calcium range 8.0 or above Calcium levels normal at this time. Continue to monitor daily (4) Hemochromatosis, unspecified: Status: Chronic Assessment and plan: Call placed to [facility] and attempt to reach GI. Unfortunately, they are having severe problems with their telephone lines Qualifiers: Hemochromatosis type: hereditary Qualified Code(s): E83.110 - Hereditary hemochromatosis (5) Increased ammonia level: Status: Acute Assessment and plan: Continue to follow ammonia level (6) Hypomagnesemia: Status: Acute Assessment and plan: Level is normal at this time. Continue to monitor (7) Acute hypernatremia: Status: Acute Assessment and plan: Appears improved at this time. Continue to monitor (8) Diabetes: Status: Chronic Assessment and plan: Check blood sugars 4 times daily and insulin sliding scale Will restart metformin 48 hours after the patient's CT scan with IV contrast Qualifiers: Diabetes mellitus complication status: without complication Diabetes mellitus snf insulin use: with long term care social worker use Diabetes mellitus type: type 2 Qualified Code(s): E11.9 - Type 2 diabetes mellitus without complications; Z79.4 - assisted (current) use of insulin (9) Hypertension: Status: Chronic Assessment and plan: Continue outpatient medications for his blood pressure Qualifiers: Hypertension type: primary hypertension Qualified Code(s): I10 - Essential (primary) hypertension (10) Paroxysmal atrial fibrillation: Status: Chronic Assessment and plan: Continue outpatient medications (11) Chronic anticoagulation: Status: Chronic Assessment and plan: Continue outpatient anticoagulation, follow INR due to compromised synthetic function (12) BPH (benign prostatic hyperplasia): Status: Chronic Assessment and plan: Patient denies any issues at this time. Will follow clinically Qualifiers: Lower urinary tract symptom detail: incomplete bladder emptying Lower urinary tract symptom presence: symptoms present Qualified Code(s): N40.1 - Benign prostatic hyperplasia with lower urinary tract symptoms; R39.14 - Feeling of incomplete bladder emptying Subjective Subjective Interval history since last seen: Clinical course reviewed including notes, orders, labs, vitals, meds, imaging, and cultures. Care is discussed with primary nurse. Vital signs stable. Patient afebrile. He continues on room air. Patient has been having regular bowel movements at this time. He seems less confused more clear thinking at this time. White count is 6.0, hemoglobin 12.2, platelet 139, PT 17.8, INR 1.9, sodium 149, potassium 3.5, CO2 25, BUN 5, creatinine 0.6. Calcium 8.5, magnesium 1.9, total bilirubin 2.85 (3.71, 3.1, 1.82) , total protein 5.3 Ammonia 90 (126) A 14 point review of systems was performed and negative except as noted below and in the HPI. From H&P on January 12, 2024: This is a 76-year-old male with history of hypertension paroxysmal atrial fibrillation, BPH, diabetes and hemochromatosis with known hepatic insufficiency and multiple admissions for hepatic encephalopathy. He presented to the emergency department this morning after his found him walking around in the house confused not knowing where he was. He takes lactulose and rifaximin as an outpatient but his stool output has been decreased recently. He became lost in his home today. He was noted to have mild*S and B confused. CT scan of the head showed no intracranial issues either mass effect or hemorrhage. There was no head trauma. Initial evaluation revealed potassium of 2.3, magnesium 1.0 and serum calcium at 6.1. He has been replaced with potassium magnesium and calcium gluconate intravenously. His creatinine was at its baseline 0.5 and bilirubin was 1.8 without elevated liver enzymes. He does not have any fever or abdominal tenderness. There is no sign of spontaneous bacterial peritonitis. When he arrived in the emergency department, he was mildly hypoxic in the 80s but has been stable on room air since admission. History is attempted to be obtained from the patient but he is somewhat confused. Family members are not with him. History is obtained from conversations with the emergency room staff as well as review of previous records. Exam Narrative Exam Narrative: Chronically ill male patient who is alert and oriented x 3 and in no acute respiratory distress. Ambulates with assistance. He appears more cognitive today and clearer thinking however probably not yet at baseline. Exam essentially unchanged. HEENT: Neck supple, MM pink and moist, conjunctiva non-injected, sclera non- icteric, positive bitemporal wasting, heavily bearded pupils equal and reactive to light symmetrically, no JVD, no A waves. No thyromegaly. No carotid bruit, dentition with caked tartar and receding gums, heart tones are distant. Episclera not icteric CHEST: Bilaterally symmetrical with inspiration and expiration. No use of accessory muscles of respiration. No nasal flaring. RESP: Clear to auscultation bilaterally, no rales, rhonchi or wheeze, no pleural friction rub, no post-tussive crackles or apical rales. COR: RRR without murmur, normal S1, S2, no rub or gallop ABDOMEN: Soft, doughy consistency, non tender diffusely, normally active bowel sounds diffusely, No hepatosplenomegaly appreciated, No abdominal bruit, no masses, no tenderness on deep abdominal palpation. G/U: deferred Rectal: deferred MUSCULOSKELETAL: Bilaterally symmetrical, no muscle belly tenderness or mass DERMIS: Skin warm and dry, no ulcers or rashes, his chest and abdomen have anicteric tint EXTREMITIES: Positive Dupuytren's contracture of the right fourth fifth and third fingers due to NEUROLOGICAL: Cranial nerves intact II-XII without notable deficit, No peripheral neurosensory or motor deficits noted. LYMPH: No anterior or posterior cervical, no supraclavicular, No axillary, no epitrochlear or femoral lymphadenopathy. Objective Last Vital Signs Temp 36.8 C 01/15/24 07:49 Pulse 69 01/15/24 07:49 Resp 20 01/15/24 07:49 BP 137/66 01/15/24 07:49 Pulse Ox 99 01/15/24 07:49 Laboratory Results - last 24 hr 01/15/24 06:35 WBC 6.00 RBC 3.77 L Hgb 12.2 L Hct 35.6 L MCV 94 MCH 32.4 MCHC 34.3 RDW 13.1 Plt Count 139 MPV 10.3 Immature Gran % 0.2 Neutrophils % 46.9 Lymphocytes % 35.5 Monocytes % 9.8 Eosinophils % 6.3 Basophils % 1.3 Nucleated RBC % 0.0 Absolute Neutrophils 2.81 Absolute Lymphocytes 2.13 Absolute Monocytes 0.59 Absolute Eosinophils 0.38 Absolute Basophils 0.08 PT 17.8 H INR 1.9 H Sodium 149 H Potassium 3.5 Chloride 115 H Carbon Dioxide 24.5 Anion Gap 9.5 BUN 5 L Creatinine 0.6 L Est GFR (CKD-EPI 2020) 103.85 Glucose 107 H Calcium 8.2 L Magnesium 1.9 Total Bilirubin 2.85 H AST 39 H ALT 36 Alkaline Phosphatase 103 Ammonia 90 H Total Protein 5.3 L Albumin 2.6 L
[2024-01-15] MEDS: Lactulose 20 GM/30 ML CUP PO (08:35)
[2024-01-15] MEDS: Potassium Chloride 20 MEQ TABCR PO (08:37)
[2024-01-15] MEDS: glipiZIDE 10 MG TAB PO (08:37)
[2024-01-15] MEDS: Lisinopril 20 MG TAB PO (08:38)
[2024-01-15] MEDS: Rifaximin 550 MG TAB PO (08:38)
[2024-01-15] MEDS: Carvedilol 3.125 MG TAB PO (08:38)
[2024-01-15] MEDS: Magnesium Oxide 400 MG TAB PO (08:38)
[2024-01-15] MEDS: Vitamins B Comp w/C TAB 1 TAB PO (08:38)
[2024-01-15] MEDS: amLODIPine 2.5 MG TAB PO (08:39)
[2024-01-15] MEDS: Normal Saline Flush 10 ML SYR IVP (08:39)
[2024-01-15] MEDS: Polyethylene Glycol 3350 17 GM PACKET PO (08:40)
--- NOTE | 2024-01-15 10:06 | PDOC.CMDIS ---
Date of service: 01/15/24 Time of Service: 10:06 LACE Index Scoring Tool Questions: Length of Stay (in days): 3 Was the patient admitted via the E.D.?: Yes Comorbidities: Diabetes w/o Complication E.D. Visits: 2 Answers: Total Score: 9 Risk of Readmission: Low Risk Care Management Discharge Plan Reason for Hospitalization: hepatic encephalopathy Discharge Plan: Shaji will return home today with no new services. His will drive him home via private vehicle. He will follow up with his PCP and discharge plan of care. He is happy to be going home. Patient/Family Education Needs: Review discharge instructions and limitations, discussion of self care needs including ask me three. SDOH Health Related Social Needs: No Data to Display
--- NOTE | 2024-01-15 10:42 | PTTR_ITS ---
PT Notes Visit Reasons: hepatic encephalopathy, hypokalemia,hypomagnesemia Inpatient Physical Therapy Treatment Note [facility] Date: 01/15/2024 PRECAUTIONS: Fall risk. Standard precautons in place. Activity as tolerated. SUBJECTIVE: Looking forward to going home today. Melvina hopeful he could get a walker for home. Patient and are agreeable to PT services. OBJECTIVE: IVaccess through R UE. ? PAIN: Minimal report of back pain that did not limit today's ambulation performance. VITALS: Closely monitored by nursing staff BED MOBILITY/TRANSFERS? Minimal cueing provided for use of B hands as needed for support, movement sequence, AD management, and posture to reduce fall risk and minimize pain report ? Sit-stand: contact guard assist with FWW? Stand-sit: contact guard assist?with FWW ? Bed-Chair: contact guard assist?with FWW ? Chair-bed: contact guard assist?with FWW GAIT? Assistive Device: FWW? Weight bearing: FWB Assist: contact guard assist ? Distance:? 250 + 250 feet without AD but required contact guard assist ? Deviation: Slowed avi. Decreased step height and length. ? STAIRS: Guided patient with safe anf correct negotiation of 6 x 4-icnh steps and 2 x 4- inch steps while holding onto B rails for support with just stand by assist, cues provided for safety and hand placement. ? THERA EX: Guided patient with safe and correct execution of following exercises: sit<>stand from chair x 10 ? seated marches x 10 hip abduction x 10 LAQs x 10 ASSESSMENT:? Patient still requires the use of front-wheeledd walker for all mobility ADL performance for safety and fall reduction. He still verbalizes about being weak and needing rest but overall has demonstrated improving ability to participate in mobility ADL and exercise performance. level of assiatnce has decreased as independence has improved. No new symptoms presented as of this morning. PLAN: Continue with strength, balance, mobility progression as tolerated to regain PLOF in anticipation of return to home at highest mobility level D/C RECOMMENDATIONS: [] Home with no services [] [x] Home with services. Patient will benefit from home health PT services in order to progress mobility level using least restrictive assistive ambulatory device, assess home safety, identify additional equipment needs, and establish a functional maintenance program that will increase ability of patient to remain at home. [] Home with outpatient PT [] [] SNF for continued rehabilitation [] [] [facility] [] [] SNF versus LTC based on ability to participate and progress []l TREATMENT CODE/TIME: 56472 x 24 minutes for 2 units (10:42-11:05).
[2024-01-15 11:43] VITALS: BP 145/77; PULSE 65; RESP 20; TEMP 36.7; O2SAT 98
[2024-01-15] MEDS: Insulin Aspart 300 UNITS/3 ML PEN SC (12:15)
--- NOTE | 2024-01-15 13:49 | DSE_ITS ---
Date of service: 01/15/24 Time of Service: 13:50 DS: Diagnosis Discharge Diagnosis (1) Acute hepatic encephalopathy: Status: Acute Asessment and Plan: Resolved, patient back to baseline (2) Hypokalemia: Status: Acute Asessment and Plan: Resolved, corrected. (3) Hypocalcemia: Status: Acute Asessment and Plan: Result, corrected. (4) Hemochromatosis, unspecified: Status: Chronic Asessment and Plan: Stable (5) Increased ammonia level: Status: Acute Asessment and Plan: Improved from admission 126 down to 90 at time of discharge (6) Hypomagnesemia: Status: Acute Asessment and Plan: Resolved, corrected (7) Acute hypernatremia: Status: Acute Asessment and Plan: Resolved, corrected (8) Diabetes: Status: Chronic Asessment and Plan: Patient to resume his oral and subcutaneous insulin medication regimen (9) Hypertension: Status: Chronic Asessment and Plan: Continue outpatient antihypertensives (10) Paroxysmal atrial fibrillation: Status: Chronic Asessment and Plan: Continue blood thinners (11) Chronic anticoagulation: Status: Chronic Asessment and Plan: continue blood thinners (12) BPH (benign prostatic hyperplasia): Status: Chronic Asessment and Plan: Stable Discharge Plan Disposition Patient Disposition: Home Condition: Fair Discharge Details Reason For Visit: hepatic encephalopathy, hypokalemia,hypomagnesemia Admit Date/Time: 01/12/24 17:02 Admit Provider: Davin Damon Attending Provider: Davin Damon [facility]: Patient was admitted due to mental status changes. 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 He is on rifaximin and lactulose as an outpatient. We were informed that his bowel movements had slowed down, his noted that he could become progressively more confused.. He had a mild coagulopathy with an elevated PTT at the time of admission. Total bilirubin at time of admission was 1.82. It peaked at 3.71 yesterday and is now down to 2.85 on the date of discharge. Ammonia was 126 on admission and decreased to 90 today on the day of discharge. Patient was given cathartics in the form of MiraLAX to help speed his GI transit time. He continued the rifaximin and lactulose. Electrolytes were corrected and the patient was hydrated The patient had good progress towards reaching his normal sensorium. Today discussion with his . She believes he is at his neurologic baseline. He is not ataxic he is alert and interactive. We had a long discussion about absolute avoidance of alcohol. He is advised that he could drink nonalcoholic beer but any level of alcohol intake could push him over the edge. His sugars have been reasonably good. We held his metformin because he had a CT scan with IV contrast of the abdomen and pelvis which was remarkable only for chronic findings of hepatic cirrhosis and portal hypertension with portosystemic collaterals and spleen splenomegaly. There was no evidence of ascites. Colonic diverticulosis was stable. There was diffuse thickening of the wall of the urinary bladder. Patient was noted to have asymptomatic gallstones and an enlarged prostate gland. Home Meds and New Rx's Prescriptions: Continued insulin glargine [Lantus Solostar U-100 Insulin] 100 unit/mL (3 mL) insulin pen 30 unit subcut QPM metformin 500 MG tablet 1,000 mg PO BID (DME) lancets 1 EACH misc 1 ea Miscellaneous BID TEST STRIPS Topical BID (DME) arm brace [Wrist Brace Medium] 1 EACH misc 1 ea Miscellaneous HS Qty: 2 Rx Instructions: bilateral Carpal tunnel splints/braces to be worn while sleeping and during aggravating activities lisinopril 20 mg tablet 20 mg PO DAILY amlodipine 2.5 mg tablet 2.5 mg PO DAILY ibuprofen 400 MG tablet 400 mg PO Q6H PRN PRNQty: 40 0RF glipizide 10 mg tablet 10 mg PO DAILY tamsulosin 0.4 mg capsule 0.4 mg PO Q24H magnesium oxide 400 mg (241.3 mg magnesium) tablet 400 mg PO BID Patient Comments: TAKE 1 TABLET BY MOUTH TWICE DAILY omeprazole 20 mg capsule,delayed release(DR/EC) 20 mg PO DAILY PRN (Reason: heartburn) Patient Comments: TAKE 1 CAPSULE BY MOUTH EVERY DAY NEEDED warfarin 5 mg tablet 7.5 mg PO .COMPLEX Patient Comments: TAKE 1 TO 1.5 TABLETS BY MOUTH DAILY DIRECTED Rx Instructions: 7.5 mg orally; 7.5mg po daily on sunday and and 5mg po daily all other days atorvastatin 40 mg tablet 40 mg PO DAILY Patient Comments: TAKE 1 TABLET BY MOUTH EVERY DAY carvedilol 3.125 mg tablet 3.125 mg PO BID Patient Comments: TAKE 1 TABLET BY MOUTH TWICE DAILY Xifaxan 550 mg Tablet 550 mg PO BID Qty: 60 0RF lactulose 10 gram/15 mL solution 20 g PO TID Patient Comments: TAKE 30ML BY MOUTH THREE TIMES DAILY Discharge Instructions Stand Alone Forms: Nursing Discharge Form Referrals: Stefani Jones MD [Primary Care Provider] - (Please follow-up within 6 days of discharge.) Activity:: Activity as Tolerated Equipment/Supplies:: No Equipment Needed Diet:: As Tolerated Discharge Orders Discharge Orders: Discharge Order (Routine); Ordered 01/15/24 Ordered By: Davin Damon DS: Summary Time Spent with Patient providing and/or coordinating discharge services: Greater than 30 minutes Status at Discharge Functional status at discharge: uses cane/walker Overall status at discharge: patient is back to baseline Mental Status: mental status grossly normal Speech and Movement: speech and movement normal Mood: congruent mood Affect: normal affect Quality:SDOH Health Related Social Needs: No Data to Display Exam Narrative Exam Narrative: Patient at neurologic baseline per 's report. He seems completely intact and and tired to me at this time. HEENT: Neck supple, MM pink and moist, conjunctiva non-injected, sclera non-icte cedric, positive bitemporal wasting, heavily bearded pupils equal and reactive to light symmetrically, no JVD, no A waves. No thyromegaly. No carotid bruit, dentition with caked tartar and receding gums, heart tones are distant. Episclera not icteric CHEST: Bilaterally symmetrical with inspiration and expiration. No use of accessory muscles of respiration. No nasal flaring. RESP: Clear to auscultation bilaterally, no rales, rhonchi or wheeze, no pleural friction rub, no post-tussive crackles or apical rales. COR: RRR without murmur, normal S1, S2, no rub or gallop ABDOMEN: Soft, doughy consistency, non tender diffusely, normally active bowel sounds diffusely, No hepatosplenomegaly appreciated, No abdominal bruit, no masses, no tenderness on deep abdominal palpation. G/U: deferred Rectal: deferred MUSCULOSKELETAL: Bilaterally symmetrical, no muscle belly tenderness or mass DERMIS: Skin warm and dry, no ulcers or rashes, his chest and abdomen have anicteric tint EXTREMITIES: Positive Dupuytren's contracture of the right fourth fifth and third fingers due to NEUROLOGICAL: Cranial nerves intact II-XII without notable deficit, No peripheral neurosensory or motor deficits noted. LYMPH: No anterior or posterior cervical, no supraclavicular, No axillary, no epitrochlear or femoral lymphadenopathy. Psych Mental Status: mental status grossly normal Speech and Movement: speech and movement normal Mood: congruent mood Affect: normal affect DS: Data Vitals/I&O Vitals and I&O: Vital Signs Temperature 36.7 C 01/15/24 11:43 Temperature Source Temporal Artery Scan 01/15/24 11:43 Pulse 65 01/15/24 11:43 Pulse Rhythm Irregular 01/12/24 18:36 Pulse 73 01/12/24 17:50 Respiratory Rate 20 01/15/24 11:43 Respiratory Effort Normal 01/12/24 18:36 Respiratory Depth Normal 01/12/24 18:36 Respiratory Pattern Normal 01/12/24 18:36 Blood Pressure 145/77 H 01/15/24 11:43 Blood Pressure Mean 147 01/12/24 17:46 Blood Pressure Position Supine 01/12/24 14:00 Pulse Oximetry 98 01/15/24 11:43 Oxygen Delivery Method Room Air 01/15/24 11:43 Oxygen Flow Rate 0 01/15/24 11:43 Pain Level 0 01/14/24 16:05 Comment per RN request, let pt sleep 01/13/24 23:15 Intake & Output 01/14/24 01/15/24 01/15/24 23:59 11:59 23:59 Intake Total 1959 / 2960 6 / Balance 19596 / Weight 79.653 kg Intake: IV 1959 / 2960 / Other: Urine Color Yellow Yellow Urine Appearance Cloudy Cloudy Urine Odor Normal Normal Comment voided an unmeasurable amount per patient he voided, no hat and he flushed. Stool Size Small Stool Characteristics Soft Data Completed and Pending Labs on day of discharge: Labs from last 24 hours 01/15/24 06:35 WBC 6.00 RBC 3.77 L Hgb 12.2 L Hct 35.6 L MCV 94 MCH 32.4 MCHC 34.3 RDW 13.1 Plt Count 139 MPV 10.3 Immature Gran % 0.2 Neutrophils % 46.9 Lymphocytes % 35.5 Monocytes % 9.8 Eosinophils % 6.3 Basophils % 1.3 Nucleated RBC % 0.0 Absolute Neutrophils 2.81 Absolute Lymphocytes 2.13 Absolute Monocytes 0.59 Absolute Eosinophils 0.38 Absolute Basophils 0.08 PT 17.8 H INR 1.9 H Sodium 149 H Potassium 3.5 Chloride 115 H Carbon Dioxide 24.5 Anion Gap 9.5 BUN 5 L Creatinine 0.6 L Est GFR (CKD-EPI 2020) 103.85 Glucose 107 H Calcium 8.2 L Magnesium 1.9 Total Bilirubin 2.85 H AST 39 H ALT 36 Alkaline Phosphatase 103 Ammonia 90 H Total Protein 5.3 L Albumin 2.6 L PFSH All Active Problems Acute hypernatremia (Acute) Hypomagnesemia (Acute) Hypocalcemia (Acute) Hypokalemia (Acute) Acute hepatic encephalopathy (Acute) Increased ammonia level (Acute) BPH (benign prostatic hyperplasia) (Chronic) Chronic anticoagulation (Chronic) Paroxysmal atrial fibrillation (Chronic) Hemochromatosis, unspecified (Chronic) Diabetes (Chronic) Hypertension (Chronic) PVCs (premature ventricular contractions) (Acute) Social History Smoking/Tobacco Use Status: Current-Occasional Tobacco Type: cigars Smoking risk assessment performed?: Yes Alcohol Intake: current Alcohol Intake frequency: 0-2 drinks per day Alcohol type: beer Drug use: Occasionally Substance use type: marijuana Housing: house Do you feel safe at home: Yes Do you feel safe in your relationship?: Yes Time Spent with Patient Time Spent with Patient: 45-69 minutes Time was spent: preparing to see the patient(eg.review tests), obtaining and/or reviewing separately otained hiistory, ordering medications,tests, procedures, referring, communicating with other health healthcare account manager, indepentently interpreting results, counseling the patient and care coordination
== END 2024-01-15 14:35 | disposition home or self-care (01) ==
LOC: ER 17:37 → MS 18:20
PROVIDERS: Admitting Provider Internal Medicine; Emergency Provider Emergency Medicine; PCP Family Medicine; Visit Provider Internal Medicine
DX: K76.82 Hepatic encephalopathy (principal); E83.51 Hypocalcemia; E87.6 Hypokalemia; E83.110 Hereditary hemochromatosis; I48.0 Paroxysmal atrial fibrillation; E83.42 Hypomagnesemia; E11.9 Type 2 diabetes mellitus without complications; Z79.4 Long term (current) use of insulin; I10 Essential (primary) hypertension; Z79.01 Long term (current) use of anticoagulants; N40.1 Benign prostatic hyperplasia with lower urinary tract symptoms; R39.14 Feeling of incomplete bladder emptying; E87.0 Hyperosmolality and hypernatremia; I49.3 Ventricular premature depolarization; F12.90 Cannabis use, unspecified, uncomplicated; Z79.899 Other long term (current) drug therapy
CPT/HCPCS: 00123; 36410; 36415; 36416; 80048; 80053; 82962; 87637; 90471; 90656; 93005; 96361; 96365; 96366; 96375; 97161; 97166; 97530; 99285; 70450; 71045; 74177; 81003; 81015; 82140; 82310; 82728; 83735; 84484; 85025; 85610; 93010; 99222; 99232; 99233; 99239; G0378; J0613; J1815; J3360; J3475; J3480; J3490

== ENCOUNTER 2024-01-21 15:17 | Outpatient (CLI) | payer MEDICARE, SELFPAY ==
[2024-01-21 15:09] LABS: Ammonia 95 umol/L (11-32)
== END 2024-01-21 15:18 | disposition home or self-care (01) ==
LOC: LBO 15:27
PROVIDERS: PCP Family Medicine; Visit Provider Family Medicine
DX: K74.60 Unspecified cirrhosis of liver (principal)
CPT/HCPCS: 36415; 82140

== ENCOUNTER 2024-02-16 10:27 | Emergency (ER) | payer MEDICARE, SELFPAY ==
[2024-02-16 10:29] VITALS: BP 148/74; PULSE 91; RESP 18; TEMP 36.3; O2SAT 99
--- NOTE | 2024-02-16 10:53 | W.ED.GENAD ---
Discharge Plan Disposition Patient Disposition: Home Condition: Stable Discharge Details Clinical Impression: Incurved toenail Primary Care Provider: Stefani Jones ED Provider: Chucho Flowers Home Meds and New Rx's Prescriptions: Continued insulin glargine [Lantus Solostar U-100 Insulin] 100 unit/mL (3 mL) insulin pen 30 unit subcut QPM metformin 500 MG tablet 1,000 mg PO BID (DME) lancets 1 EACH misc 1 ea Miscellaneous BID TEST STRIPS Topical BID (DME) arm brace [Wrist Brace Medium] 1 EACH misc 1 ea Miscellaneous HS Qty: 2 Rx Instructions: bilateral Carpal tunnel splints/braces to be worn while sleeping and during aggravating activities lisinopril 20 mg tablet 20 mg PO DAILY amlodipine 2.5 mg tablet 2.5 mg PO DAILY ibuprofen 400 MG tablet 400 mg PO Q6H PRN PRNQty: 40 0RF glipizide 10 mg tablet 10 mg PO DAILY tamsulosin 0.4 mg capsule 0.4 mg PO Q24H magnesium oxide 400 mg (241.3 mg magnesium) tablet 400 mg PO BID Patient Comments: TAKE 1 TABLET BY MOUTH TWICE DAILY omeprazole 20 mg capsule,delayed release(DR/EC) 20 mg PO DAILY PRN (Reason: heartburn) Patient Comments: TAKE 1 CAPSULE BY MOUTH EVERY DAY NEEDED warfarin 5 mg tablet 7.5 mg PO .COMPLEX Patient Comments: TAKE 1 TO 1.5 TABLETS BY MOUTH DAILY DIRECTED Rx Instructions: 7.5 mg orally; 7.5mg po daily on sunday and and 5mg po daily all other days atorvastatin 40 mg tablet 40 mg PO DAILY Patient Comments: TAKE 1 TABLET BY MOUTH EVERY DAY carvedilol 3.125 mg tablet 3.125 mg PO BID Patient Comments: TAKE 1 TABLET BY MOUTH TWICE DAILY Xifaxan 550 mg Tablet 550 mg PO BID Qty: 60 0RF lactulose 10 gram/15 mL solution 20 g PO TID Patient Comments: TAKE 30ML BY MOUTH THREE TIMES DAILY potassium chloride 10 mEq tablet extended release PO Patient Comments: TAKE 2 TABLETS BY MOUTH EVERY DAY Discharge Instructions Additional Instructions: Wearing shoes with no covering over the toenails can help. I would recommend keeping her podiatry appointment. If you develop any redness of the toes or fevers return to the emergency department for reevaluation. HPI General Mode of arrival: ambulatory. Date/Time Provider Initiated Documentation: 02/16/24 10:28. Limitations to Documentation: no limitations. Information obtained by: patient. History of Present Illness 68 year old M presents to the emergency department with the chief complaint of discomfort due to toenails, described as mild, Patient started experiencing this month(s) (2) and it has been constant. No relieving factors improve symptom(s), Other factors that worsen symptoms (wearing shoes) . Patient notes no other symptoms.. Patient did receive the following treatments prior to arrival, none Related Data Home Medications ?Medication ?Instructions ?Recorded ?Confirmed Test Strips topical BID 03/29/15 lancets 30 gauge 03/29/15 metformin 500 mg tablet 1,000 mg PO BID 03/29/15 02/16/24 arm brace (Wrist Brace Medium) #2 ea 04/15/15 ibuprofen 400 mg tablet 400 mg PO Q6H PRN PRN ##40 10/11/17 02/16/24 amlodipine 2.5 mg tablet 2.5 mg PO DAILY 12/16/19 02/16/24 lisinopril 20 mg tablet 20 mg PO DAILY 12/16/19 02/16/24 insulin glargine 100 unit/mL (3 30 unit subcut QPM 02/03/20 02/16/24 mL) subcutaneous pen (Lantus Solostar U-100 Insulin) atorvastatin 40 mg tablet 40 mg PO DAILY 12/04/23 02/16/24 carvedilol 3.125 mg tablet 3.125 mg PO BID 12/04/23 02/16/24 glipizide 10 mg tablet 10 mg PO DAILY 12/04/23 02/16/24 magnesium oxide 400 mg (241.3 mg 400 mg PO BID 12/04/23 02/16/24 magnesium) tablet omeprazole 20 mg capsule,delayed 20 mg PO DAILY PRN heartburn 12/04/23 02/16/24 release tamsulosin 0.4 mg capsule 0.4 mg PO Q24H 12/04/23 02/16/24 warfarin 5 mg tablet 7.5 mg PO .COMPLEX 12/04/23 02/16/24 rifaximin 550 mg tablet (Xifaxan) 550 mg PO BID #60 tabs 12/06/23 02/16/24 lactulose 10 gram/15 mL oral 20 g PO TID 01/15/24 02/16/24 solution potassium chloride 10 mEq meq PO 02/16/24 tablet,extended release Previous Rx's ?Medication ?Instructions ?Recorded ibuprofen 400 mg tablet 400 mg PO Q6H PRN PRN ##40 10/11/17 rifaximin 550 mg tablet (Xifaxan) 550 mg PO BID #60 tabs 12/06/23 Allergies Allergy/AdvReac Type Severity Reaction Status Date / Time No Known Allergies Allergy Verified 02/16/24 10:36 General Stated Complaint: GenMedical FAUSTO: 4 Review of Systems All systems reviewed & are unremarkable except as noted in HPI and below Constitutional Constitutional: Denies chills, Denies fever(s) and Denies weakness Cardiovascular Cardiovascular: Denies chest pain and Denies dyspnea Respiratory Respiratory: Denies dyspnea Gastrointestinal Gastrointestinal: Denies abdominal pain and Denies vomiting Musculoskeletal Musculoskeletal: Denies joint swelling and Reports other (discomfort from toe nails) Integumentary/Breasts Skin/Breast: Denies rash Neurologic Neurologic: Denies weakness Psychiatric Psychiatric: Denies depression Exam Const General: no acute distress Orientation: alert [facility] Head: normal to inspection Ears: external ears normal General nose exam: external nose normal Mouth: moist mucous membranes Eyes General: appearance normal, both eyes and all related structures Neck Neck: normal visual inspection Resp Effort & Inspection: normal respiratory effort and able to speak in complete sentences Cardio Rate: regular rate Skin General skin exam: no rashes or lesions noted Neuro General: patient alert and patient oriented x3 Extrem General: full ROM and no cyanosis Psych Mental Status: mental status grossly normal Course Vital Signs Vital signs: Vital Signs Temperature 36.3 C L 02/16/24 10:29 Pulse 91 H 02/16/24 10:29 Respiratory Rate 18 02/16/24 10:29 Blood Pressure 148/74 H 02/16/24 10:29 Pulse Oximetry 99 02/16/24 10:29 Temperature 36.3 C L 02/16/24 10:29 Temperature Source Oral 02/16/24 10:29 Pulse 91 H 02/16/24 10:29 Respiratory Rate 18 02/16/24 10:29 Blood Pressure 148/74 H 02/16/24 10:29 Pulse Oximetry 99 02/16/24 10:29 Oxygen Delivery Method Room Air 02/16/24 10:29 Oxygen Flow Rate 0 02/16/24 10:29 Pain Level 8 02/16/24 10:29 Medical Decision Making 68-year-old male with a history of hemochromatosis, A-fib, diabetes who comes in with several months of worsening pain due to his toenails. He is unable to cut them so they are all hypertrophied and large. He has not had any fevers or other systemic symptoms. Denies any trauma to the feet. He says that wearing shoes increases the discomfort in his toes. He is ambulatory on arrival. All of his toes have very hypertrophied and large nails, none of his toes are red or swollen or tender. He has 1 toenail on the right second toe that circles back in his pushing into his skin which I clipped off. He has an appointment with podiatry in a couple of weeks. I advised to keep this appointment for continued care and treatment of his toenails. I also recommended that he use an open soled shoe. Quality:SDOH Health Related Social Needs: No Data to Display PFSH All Active Problems (Updated 02/16/24 @ 10:58 by Chucho Flowers MD) Incurved toenail (Acute) BPH (benign prostatic hyperplasia) (Chronic) Chronic anticoagulation (Chronic) Paroxysmal atrial fibrillation (Chronic) Hemochromatosis, unspecified (Chronic) Diabetes (Chronic) Hypertension (Chronic) PVCs (premature ventricular contractions) (Acute) Social History Smoking/Tobacco Use Status: Current-Occasional Tobacco Type: cigars Smoking risk assessment performed?: Yes Alcohol Intake: current Alcohol Intake frequency: 0-2 drinks per day Alcohol type: beer Drug use: Occasionally Substance use type: marijuana Housing: house Do you feel safe at home: Yes Do you feel safe in your relationship?: Yes
[2024-02-16 11:14] VITALS: BP 148/74; PULSE 91; RESP 15; RESP 18; TEMP 36.3; O2SAT 99
== END 2024-02-16 11:15 | disposition home or self-care (01) ==
PROVIDERS: Emergency Provider Emergency Medicine; PCP Family Medicine
DX: L60.0 Ingrowing nail (principal); E11.9 Type 2 diabetes mellitus without complications; Z86.79 Personal history of other diseases of the circulatory system; Z86.2 Personal history of diseases of the blood and blood-forming organs and certain disorders involving the immune mechanism; M79.672 Pain in left foot; M79.671 Pain in right foot
CPT/HCPCS: 99282; 99283

== ENCOUNTER 2024-02-18 13:30 | Inpatient (IN) | payer MEDICARE, SELFPAY ==
[2024-02-18] VITALS (32 sets, daily range): BP systolic 129–169; BP diastolic 67–89; PULSE 61–88; RESP 12–27; TEMP 36.4–37.2; O2SAT 96–100
--- NOTE | 2024-02-18 13:45 | RT.EKG_ITS ---
APPROVED REPORT Exam: Resting ECG Reason for Exam: AMS Patient Location: E HR:81 bpm ECG Measurements Heart Rate 81 AXIS ME 226 P 57 QRSd 90 QRS -1 QT 412 T 5 QTc 463 Conclusion Sinus rhythm, rate 81 1st degree HB, ME interval 226ms No STEMI PVC
--- NOTE | 2024-02-18 14:00 | DI.CT_ITS ---
Exam(s) CT HEAD WO EXAM: CT HEAD WO CLINICAL HISTORY: AMS/confusion. TECHNIQUE: Imaging Protocol: Axial computed tomography images with coronal and sagittal reformatted images were created and reviewed COMPARISON: CT CT HEAD WO from 01/12/2024 FINDINGS: Ventricles and Extra axial spaces: Normal in size and morphology for the patient's age. Hemorrhage: None. Cerebral parenchyma: No acute territorial infarct. No mass effect is identified. Midline shift: None. Brainstem/Cerebellum: Normal. Calvarium: Normal. Visualized Paranasal sinuses/Mastoids: There is ethmoid sinusitis. Soft Tissues: Unremarkable. IMPRESSION: No acute intracranial process. RADIATION DOSE DELIVERED: Total DLP DATA REPOSITORY: All CT scans at this facility are submitted to the National Radiology Data Registry (NRDR) Dose Index Registry (DIR) with the [employer] (A[employer]). RADIATION OPTIMIZATION: All CT scans at this facility use at least one of these dose optimization te chniques: automated exposure control; mA and/or kV adjustment per patient size (includes targeted exa ms where dose is matched to clinical indication); or iterative reconstruction.
--- NOTE | 2024-02-18 14:07 | W.ED.GENAD ---
Discharge Plan Disposition Patient Disposition: Admit to [facility] Condition: Stable Discharge Details Chief Complaint: GenMedical Clinical Impression: Hepatic encephalopathy, Hemochromatosis, unspecified, Paroxysmal atrial fibrillation, Diabetes, Chronic anticoagulation Primary Care Provider: Stefani Jones ED Provider: Racheal Jordan Home Meds and New Rx's Prescriptions: No Action insulin glargine [Lantus Solostar U-100 Insulin] 100 unit/mL (3 mL) insulin pen 30 unit subcut QPM metformin 500 MG tablet 1,000 mg PO BID (DME) lancets 1 EACH misc 1 ea Miscellaneous BID TEST STRIPS 1 unit Topical BID (DME) arm brace [Wrist Brace Medium] 1 EACH misc 1 ea Miscellaneous HS Qty: 2 Rx Instructions: bilateral Carpal tunnel splints/braces to be worn while sleeping and during aggravating activities lisinopril 20 mg tablet 20 mg PO DAILY amlodipine 2.5 mg tablet 2.5 mg PO DAILY ibuprofen 400 MG tablet 400 mg PO Q6H PRN PRNQty: 40 0RF glipizide 10 mg tablet 10 mg PO DAILY tamsulosin 0.4 mg capsule 0.4 mg PO Q24H magnesium oxide 400 mg (241.3 mg magnesium) tablet 400 mg PO BID Patient Comments: TAKE 1 TABLET BY MOUTH TWICE DAILY omeprazole 20 mg capsule,delayed release(DR/EC) 20 mg PO DAILY PRN (Reason: heartburn) Patient Comments: TAKE 1 CAPSULE BY MOUTH EVERY DAY NEEDED warfarin 5 mg tablet 7.5 mg PO .COMPLEX Patient Comments: TAKE 1 TO 1.5 TABLETS BY MOUTH DAILY DIRECTED Rx Instructions: 7.5 mg orally; 7.5mg po daily on sunday and and 5mg po daily all other days atorvastatin 40 mg tablet 40 mg PO DAILY Patient Comments: TAKE 1 TABLET BY MOUTH EVERY DAY carvedilol 3.125 mg tablet 3.125 mg PO BID Patient Comments: TAKE 1 TABLET BY MOUTH TWICE DAILY Xifaxan 550 mg Tablet 550 mg PO BID Qty: 60 0RF lactulose 10 gram/15 mL solution 20 g PO TID Patient Comments: TAKE 30ML BY MOUTH THREE TIMES DAILY potassium chloride 10 mEq tablet extended release 10 meq PO DAILY Patient Comments: TAKE 2 TABLETS BY MOUTH EVERY DAY HPI General Mode of arrival: ambulatory. Date/Time Provider Initiated Documentation: 02/18/24 13:49. Limitations to Documentation: no limitations. Information obtained by: patient, family and old records reviewed. 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 The patient was admitted approximately a month ago for hepatic encephalopathy, had some initial improvement but has had some gradual worsening. Family has noted significant worsening over the last 2 to 3 days despite compliance with rifaximin and lactulose. Patient has been passing 2 daily stools. States that he has not had any falls or injuries, hematemesis, hematochezia, or melena. He has not had any abdominal pain or vomiting. The patient was noted to have difficulties and confusion with ADLs that he is typically capable of performing. He would put numerous socks on the same foot, forget single shoes, and forgot how to administer his insulin, leading to him not taking it for the last few days. He has been able to eat and drink normally, denies changes in bladder habits or frequency. The patient reports that this seems very similar to prior episodes of hepatic encephalopathy. Exam: Gen: Awake and alert, in no apparent distress HEENT: Non-icteric sclera, pupils equal and reactive bilaterally at 3 mm, EOMs are full Neck: Supple Lungs: No apparent respiratory distress, normal respiratory effort. Lung sounds clear and equal without wheezing, rhonchi, rales CV: Appears well perfused, strong distal pulses Abdomen: Non-distended, soft, nontender without rigidity, rebound, guarding MSK: Moves 4 extremities without apparent limitation in ROM Skin: Visualized skin without rashes, cyanosis. Neuro: Cranial nerves II through XII intact and symmetrical bilaterally, 5 out of 5 strength x 4 extremities, no sensory deficits, patient does have asterixis with bilateral outstretched hands. Psych: Appropriate for situation. MDM: This is a 68-year-old male patient presenting for evaluation of altered mental status with a history of cirrhosis. My differential includes but is not limited to hepatic encephalopathy, certainly considered intracranial abnormality including hemorrhage. Given the patient's difficulty using his insulin for the last few days I also considered metabolic electrolyte derangements, DKA/HHS, kidney injury, liver disease exacerbation. The patient has no evidence on history for GI bleed, and he himself is without localizing infectious symptoms though I did consider urinary tract infection. No evidence on physical examination or history to significantly increase my concern for pneumonia, SBP, meningitis or encephalitis. Will obtain laboratory workup to include CBC, CMP, magnesium, troponin, PT/INR, ammonia, and VBG. I will obtain a CT scan of the head to better characterize any abnormalities ED Course: I reviewed the patient's laboratory studies, which reveal no evidence of leukocytosis, anemia, or thrombocytopenia. Chemistry panel demonstrates no electrolyte derangements or evidence of kidney dysfunction. Blood glucose is 237 with no associated evidence of acidosis on the VBG or decreased bicarb. His liver dysfunction including an elevated bilirubin to 3.5, mild elevation of AST and alk phos are within the range of normal based on prior laboratory evaluations. He does have a notably elevated ammonia at 138. Troponin negative, urinalysis with trace ketones but no evidence of infection. I reviewed the patient's CT, which shows no evidence of intracranial hemorrhage, and given the patient's inability to successfully perform ADLs including life-saving insulin administration, I feel that he would be unsafe for discharge home and so reached out to the hospitalist who is graciously accepted him for admission for hepatic encephalopathy. Patient remained hemodynamically appropriate while under my care. Racheal Jordan MD Related Data Home Medications ?Medication ?Instructions ?Recorded ?Confirmed Test Strips 1 unit topical BID 03/29/15 02/18/24 lancets 30 gauge 03/29/15 02/18/24 metformin 500 mg tablet 1,000 mg PO BID 03/29/15 02/18/24 arm brace (Wrist Brace Medium) #2 ea 04/15/15 ibuprofen 400 mg tablet 400 mg PO Q6H PRN PRN ##40 10/11/17 02/18/24 amlodipine 2.5 mg tablet 2.5 mg PO DAILY 12/16/19 02/18/24 lisinopril 20 mg tablet 20 mg PO DAILY 12/16/19 02/18/24 insulin glargine 100 unit/mL (3 30 unit subcut QPM 02/03/20 02/18/24 mL) subcutaneous pen (Lantus Solostar U-100 Insulin) atorvastatin 40 mg tablet 40 mg PO DAILY 12/04/23 02/18/24 carvedilol 3.125 mg tablet 3.125 mg PO BID 12/04/23 02/18/24 glipizide 10 mg tablet 10 mg PO DAILY 12/04/23 02/18/24 magnesium oxide 400 mg (241.3 mg 400 mg PO BID 12/04/23 02/18/24 magnesium) tablet omeprazole 20 mg capsule,delayed 20 mg PO DAILY PRN heartburn 12/04/23 02/18/24 release tamsulosin 0.4 mg capsule 0.4 mg PO Q24H 12/04/23 02/18/24 warfarin 5 mg tablet 7.5 mg PO .COMPLEX 12/04/23 02/18/24 rifaximin 550 mg tablet (Xifaxan) 550 mg PO BID #60 tabs 12/06/23 02/18/24 lactulose 10 gram/15 mL oral 20 g PO TID 01/15/24 02/18/24 solution potassium chloride 10 mEq 10 meq PO DAILY 02/16/24 02/18/24 tablet,extended release Previous Rx's ?Medication ?Instructions ?Recorded ibuprofen 400 mg tablet 400 mg PO Q6H PRN PRN ##40 10/11/17 rifaximin 550 mg tablet (Xifaxan) 550 mg PO BID #60 tabs 12/06/23 Allergies Allergy/AdvReac Type Severity Reaction Status Date / Time No Known Allergies Allergy Verified 02/18/24 13:41 General Stated Complaint: GenMedical FAUSTO: 3 Course Vital Signs Vital signs: Vital Signs Temperature 36.6 C 02/18/24 13:37 Pulse 82 02/18/24 13:37 Respiratory Rate 15 02/18/24 13:37 Blood Pressure 149/82 H 02/18/24 13:37 Pulse Oximetry 98 02/18/24 13:37 Temperature 36.6 C 02/18/24 13:40 Pulse 82 02/18/24 13:40 Respiratory Rate 15 02/18/24 13:40 Respiratory Effort Normal 02/18/24 13:40 Blood Pressure 149/82 H 02/18/24 13:40 Blood Pressure Position Sitting 02/18/24 13:40 Pulse Oximetry 98 02/18/24 13:40 Oxygen Delivery Method Room Air 02/18/24 13:40 Oxygen Flow Rate 0 02/18/24 13:37 Medical Decision Making Quality:SDOH Health Related Social Needs: No Data to Display PFSH All Active Problems (Updated 02/18/24 @ 16:41 by Racheal Jordan MD) Incurved toenail (Acute) Hepatic encephalopathy (Acute) BPH (benign prostatic hyperplasia) (Chronic) Chronic anticoagulation (Chronic) Paroxysmal atrial fibrillation (Chronic) Hemochromatosis, unspecified (Chronic) Diabetes (Chronic) Hypertension (Chronic) PVCs (premature ventricular contractions) (Acute) Social History Smoking/Tobacco Use Status: Current-Occasional Tobacco Type: cigars Smoking risk assessment performed?: Yes Alcohol Intake: current Alcohol Intake frequency: 0-2 drinks per day Alcohol type: beer Drug use: Occasionally Substance use type: marijuana Housing: house Do you feel safe at home: Yes Do you feel safe in your relationship?: Yes
[2024-02-18 14:18] LABS: BE (Venous) -3 mmol/L (-2-3); HCO3 (Venous) 23 mmol/L (23-28); O2 Sat (Venous) 63 %; TCO2 (Venous) 20 mmol/L (24-29); pCO2 (Venous) 38 mmHg (41-51); pH (Venous) 7.38 (7.31-7.41); pO2 (Venous) 33 mmHg
[2024-02-18 14:19] LABS: Abs Immature Grans 0.02 10^3/uL (0.0-0.06); Absolute Basophil Count 0.07 10^3/uL (0.0-0.2); Absolute Eosinophil Count 0.37 10^3/uL (0.0-0.7); Absolute Lymphocyte Count 2.16 10^3/uL (1.2-3.4); Absolute Monocyte Count 0.76 10^3/uL (0.1-0.8); Absolute Neutrophil Count 5.72 10^3/uL (1.2-6.7); Basophils % 0.8 %; Eosinophils % 4.1 %; HCT 41.1 % (40.0-50.0); HGB 14.3 g/dL (13.5-17.5); Immature Grans % 0.2 %; Lymphocytes % 23.7 %; MCH 32.6 pg (27.0-33.0); MCHC 34.8 % (32.0-36.0); MCV 94 fL (80-95); MPV 10.7 fL (8.0-11.0); Monocytes % 8.4 %; Neutrophils % 62.8 %; Platelet Count 154 10^3/uL (130-400); RBC 4.38 10^6/uL (4.36-5.78); RDW 13.1 % (11.8-14.1); RDW-SD 44.6 fL
[2024-02-18 14:29] LABS: Prothrombin Time 18.7 sec (9.1-11.1)
[2024-02-18 14:31] LABS: Ammonia 138 umol/L (11-32)
[2024-02-18 14:38] LABS: ALT 54 U/L (16-63); AST 47 U/L (15-37); Albumin 3.2 g/dL (3.4-5.0); Alkaline Phosphatase 143 U/L (46-116); Anion Gap 10.3 mmol/L (3-11); BUN 7 mg/dL (7-18); Bilirubin, Total 3.53 mg/dL (0.2-1.0); CO2 23.7 mmol/L (21.0-32.0); CREATININE 1.1 mg/dL (0.70-1.30); Calcium 8.9 mg/dL (8.5-10.1); Chloride 105 mmol/L (98-107); Estimated GFR 72.22 (mL/min/1.73m2); Glucose 237 mg/dL (74-106); Magnesium 2.1 mg/dL (1.8-2.4); Potassium 3.9 mmol/L (3.5-5.1); Sodium 139 mmol/L (136-145); Total Protein 6.6 g/dL (6.4-8.2); Troponin I 13 ng/L (<or=76)
[2024-02-18 15:37] LABS: Bilirubin Negative (Negative); Blood Trace-intact (Negative); Clarity Clear (Clear); Glucose 500 mg/dL (Negative); Ketones Trace mg/dL (Negative); Leukocyte Esterase Negative (Negative); Nitrite Negative (Negative); Specific Gravity 1.015 (1.005-1.025); Urobilinogen >=8.0 mg/dL (Up to 0.2)
[2024-02-18 15:57] LABS: Bacteria Negative HPF (Negative); C & S Indicated? No; Casts 3-5 Fine Granular LPF (Negative); Crystals Negative HPF (Negative); Epithelial Cells Negative HPF (Negative); Mucus Trace (Negative); WBC 0-2 HPF (0-5)
--- NOTE | 2024-02-18 16:26 | HPE_ITS ---
Date of service: 02/18/24 Time of Service: 16:26 Assessment and Plan Assessment and plan (1) Hepatic encephalopathy: Status: Acute Assessment and plan: rifaximin with lactulose 20 g p.o. twice daily to 3 times daily to maintain 2 soft bowel movements per day. Repeat electrolytes liver profile CBC and ammonia level in the morning. (2) Hemochromatosis, unspecified: Status: Chronic Assessment and plan: stable with hemoglobin 14.3 and HCT 41.1 Qualifiers: Hemochromatosis type: hereditary Qualified Code(s): E83.110 - Hereditary hemochromatosis (3) Diabetes: Status: Chronic Assessment and plan: diabetic diet with sliding scale coverage ac/hs continue home diabetic regimen last A1C 7.0 Qualifiers: Diabetes mellitus complication status: without complication Diabetes mellitus snf insulin use: with exterminator helper use Diabetes mellitus type: type 2 Qualified Code(s): E11.9 - Type 2 diabetes mellitus without complications; Z79.4 - USP (current) use of insulin (4) Hypertension: Status: Chronic Assessment and plan: continue losartan, amlodipine, and metoprolol succinate with routine blood pressure checks Qualifiers: Hypertension type: primary hypertension Qualified Code(s): I10 - Essential (primary) hypertension (5) Paroxysmal atrial fibrillation: Status: Chronic Assessment and plan: continue beta marleny and anticoagulation warfarin with INR goal 2-3 (6) Chronic anticoagulation: Status: Chronic Assessment and plan: on warfarin for PAF (7) Discharge planning issues: Status: Acute Assessment and plan: anticipate a discharge to home when medically stable. discussed with Dr Pinto History of Present Illness History of Present Illness Chief Complaint: confusion Review of Systems Unobtainable due to mental status PFSH All Active Problems (Updated 02/19/24 @ 11:14 by Shakira Judge NP) Discharge planning issues (Acute) Incurved toenail (Acute) Hepatic encephalopathy (Acute) BPH (benign prostatic hyperplasia) (Chronic) Chronic anticoagulation (Chronic) Paroxysmal atrial fibrillation (Chronic) Hemochromatosis, unspecified (Chronic) Diabetes (Chronic) Hypertension (Chronic) PVCs (premature ventricular contractions) (Acute) Social History Smoking/Tobacco Use Status: Current-Occasional Tobacco Type: cigars Smoking risk assessment performed?: Yes Alcohol Intake: current Alcohol Intake frequency: 0-2 drinks per day Alcohol type: beer Drug use: Occasionally Substance use type: marijuana Housing: house Do you feel safe at home: Yes Do you feel safe in your relationship?: Yes Meds Allergies and Home Medications Allergies Allergy/AdvReac Type Severity Reaction Status Date / Time No Known Allergies Allergy Verified 02/18/24 13:41 Home Medications ?Medication ?Instructions ?Recorded ?Confirmed ?Type Test Strips 1 unit topical BID 03/29/15 02/18/24 History lancets 30 gauge 03/29/15 02/18/24 History metformin 500 mg tablet 1,000 mg PO BID 03/29/15 02/18/24 History ibuprofen 400 mg tablet 400 mg PO Q6H PRN PRN ##40 10/11/17 02/18/24 Rx amlodipine 2.5 mg tablet 2.5 mg PO DAILY 12/16/19 02/18/24 History lisinopril 20 mg tablet 20 mg PO DAILY 12/16/19 02/18/24 History insulin glargine 100 unit/mL (3 30 unit subcut QPM 02/03/20 02/18/24 History mL) subcutaneous pen (Lantus Solostar U-100 Insulin) atorvastatin 40 mg tablet 40 mg PO DAILY 12/04/23 02/18/24 History carvedilol 3.125 mg tablet 3.125 mg PO BID 12/04/23 02/18/24 History glipizide 10 mg tablet 10 mg PO DAILY 12/04/23 02/18/24 History magnesium oxide 400 mg (241.3 mg 400 mg PO BID 12/04/23 02/18/24 History magnesium) tablet omeprazole 20 mg capsule,delayed 20 mg PO DAILY PRN heartburn 12/04/23 02/18/24 History release tamsulosin 0.4 mg capsule 0.4 mg PO Q24H 12/04/23 02/18/24 History warfarin 5 mg tablet 7.5 mg PO .COMPLEX 12/04/23 02/18/24 History rifaximin 550 mg tablet (Xifaxan) 550 mg PO BID #60 tabs 12/06/23 02/18/24 Rx lactulose 10 gram/15 mL oral 20 g PO TID 01/15/24 02/18/24 History solution potassium chloride 10 mEq 10 meq PO DAILY 02/16/24 02/18/24 History tablet,extended release Exam Const General: no acute distress, frail appearing (older than stated age) and ill appearing chronically Orientation: alert, awake, oriented to person and other (poor historian) [facility] Head: normal to inspection Face and sinus: normal facial exam Mouth: moist mucous membranes Eyes General: appearance normal, both eyes and all related structures Neck Neck: normal visual inspection Resp Effort & Inspection: normal respiratory effort and able to speak in complete sentences Cardio Rate: regular rate Skin General skin exam: no rashes or lesions noted, dry skin and jaundice (ashen) Neuro General: patient alert, patient awake, no focal motor deficits and patient confused Motor: muscle tone normal throughout Extrem General: full ROM and no cyanosis Psych Mental Status: mental status grossly normal Results Labs 02/19/24 06:25 02/19/24 06:25 Labs: Laboratory Results - last 24 hr 02/18/24 02/18/24 13:10 15:30 WBC 9.10 RBC 4.38 Hgb 14.3 Hct 41.1 MCV 94 MCH 32.6 MCHC 34.8 RDW 13.1 Plt Count 154 MPV 10.7 Immature Gran % 0.2 Neutrophils % 62.8 Lymphocytes % 23.7 Monocytes % 8.4 Eosinophils % 4.1 Basophils % 0.8 Nucleated RBC % 0.0 Absolute Neutrophils 5.72 Absolute Lymphocytes 2.16 Absolute Monocytes 0.76 Absolute Eosinophils 0.37 Absolute Basophils 0.07 PT 18.7 H INR 2.0 H VBG pH 7.38 VBG pCO2 38 L VBG pO2 33 VBG HCO3 23 VBG Total CO2 20 L VBG O2 Saturation 63 VBG Base Excess -3 L Sodium 139 Potassium 3.9 Chloride 105 Carbon Dioxide 23.7 Anion Gap 10.3 BUN 7 Creatinine 1.1 Est GFR (CKD-EPI 2020) 72.22 Glucose 237 H Calcium 8.9 Magnesium 2.1 Total Bilirubin 3.53 H AST 47 H ALT 54 Alkaline Phosphatase 143 H Ammonia 138 H Troponin I 13 Total Protein 6.6 Albumin 3.2 L Urine Color Yellow Urine Clarity Clear Urine pH 6.0 Ur Specific [place] 1.015 Urine Protein Trace Urine Ketones Trace H Urine Blood Trace-intact H Urine Nitrite Negative Urine Bilirubin Negative Urine Urobilinogen >=8.0 H Ur Leukocyte Esterase Negative Urine RBC 3-5 H Urine WBC 0-2 Ur Epithelial Cells Negative Urine Crystals Negative Urine Bacteria Negative Urine Casts 3-5 Fine Granular Urine Mucus Trace Ur Culture Indicated? No Urine Glucose 500 H Last Vital Signs Temp 36.6 C 02/18/24 13:40 Pulse 82 02/18/24 13:40 Resp 13 02/18/24 14:16 BP 149/82 H 02/18/24 13:40 Pulse Ox 98 02/18/24 13:40 Time Spent Time spent with Patient: 55-74 minutes Time was spent: preparing to see the patient(eg.review tests), obtaining and/or reviewing separately otained hiistory, ordering medications,tests, procedures, indepentently interpreting results and counseling the patient
[2024-02-18 16:55] LABS: Troponin I 10 ng/L (<or=76)
--- NOTE | 2024-02-18 18:31 | W.PC.ACHO ---
Registration Status: Primary Language: Preferred Language: ED Information & Data Chief Complaint GenMedical 02/18/24 14:08 Triage Note Increased confusion over the 02/18/24 13:37 past two days. Generalized weakness, loss of coordination. No unilateral weakness, no obvious findings suggestive of stroke. PT states that he feels like his ammonia is high and is familiar with these symptoms. Family reports that he has been struggling to take some of his medications as normal ( insulin) Most Recent Vital Signs Temperature 36.4 C L 02/18/24 17:57 Pulse 88 02/18/24 17:57 Pulse 75 02/18/24 17:30 Respiratory Rate 17 02/18/24 17:57 Respiratory Effort Normal, Non-Labored 02/18/24 14:16 Respiratory Depth Normal 02/18/24 14:16 Respiratory Pattern Normal 02/18/24 14:16 Blood Pressure 142/73 H 02/18/24 17:57 Blood Pressure Mean 96 02/18/24 15:01 Blood Pressure Position Sitting 02/18/24 13:40 Pulse Oximetry 100 02/18/24 17:57 Oxygen Delivery Method Room Air 02/18/24 17:57 Oxygen Flow Rate 0 02/18/24 17:57 Pain Level 0 02/18/24 17:57 Allergies No Known Allergies Allergy (Verified 02/18/24 13:41) IV IV Catheter Type [Left Saline Lock Antecubital] IV Catheter Gauge [Left 18 Antecubital] Diagnostics 02/18/24 02/18/24 02/18/24 Range/Units 16:50 16:20 15:30 WBC (4.4-10.8) 10^3/uL RBC (4.36-5.78) 10^6/uL Hgb (13.5-17.5) g/dL Hct (40.0-50.0) % MCV (80-95) fL MCH (27.0-33.0) pg MCHC (32.0-36.0) % RDW (11.8-14.1) % Plt Count (130-400) 10^3/uL MPV (8.0-11.0) fL Immature Gran % % Neutrophils % % Lymphocytes % % Monocytes % % Eosinophils % % Basophils % % Nucleated RBC % (0.0-0.3) % Absolute Neutrophils (1.2-6.7) 10^3/uL Absolute Lymphocytes (1.2-3.4) 10^3/uL Absolute Monocytes (0.1-0.8) 10^3/uL Absolute Eosinophils (0.0-0.7) 10^3/uL Absolute Basophils (0.0-0.2) 10^3/uL PT (9.1-11.1) sec INR (0.9-1.1) VBG pH (7.31-7.41) VBG pCO2 (41-51) mmHg VBG pO2 mmHg VBG HCO3 (23-28) mmol/L VBG Total CO2 (24-29) mmol/L VBG O2 Saturation % VBG Base Excess (-2-3) mmol/L Sodium (136-145) mmol/L Potassium (3.5-5.1) mmol/L Chloride (98-107) mmol/L Carbon Dioxide (21.0-32.0) mmol/L Anion Gap (3-11) mmol/L BUN (7-18) mg/dL Creatinine (0.70-1.30) mg/dL Est GFR (CKD-EPI 2020) (mL/min/1.73m2) Glucose (74-106) mg/dL Calcium (8.5-10.1) mg/dL Magnesium (1.8-2.4) mg/dL Total Bilirubin (0.2-1.0) mg/dL AST (15-37) U/L ALT (16-63) U/L Alkaline Phosphatase (46-116) U/L Ammonia (11-32) umol/L Troponin I Pending 10 (<or=76) ng/L Total Protein (6.4-8.2) g/dL Albumin (3.4-5.0) g/dL Urine Color Yellow (Yellow) Urine Clarity Clear (Clear) Urine pH 6.0 (5-8) Ur Specific [place] 1.015 (1.005-1.025) Urine Protein Trace (Neg-Trace) mg/dL Urine Ketones Trace H (Negative) mg/dL Urine Blood Trace-intact H (Negative) Urine Nitrite Negative (Negative) Urine Bilirubin Negative (Negative) Urine Urobilinogen >=8.0 H (Up to 0.2) mg/dL Ur Leukocyte Esterase Negative (Negative) Urine RBC 3-5 H (0-2) HPF Urine WBC 0-2 (0-5) HPF Ur Epithelial Cells Negative (Negative) HPF Urine Crystals Negative (Negative) HPF Urine Bacteria Negative (Negative) HPF Urine Casts 3-5 Fine Granular (Negative) LPF Urine Mucus Trace (Negative) Ur Culture Indicated? No Urine Glucose 500 H (Negative) mg/dL 02/18/24 Range/Units 13:10 WBC 9.10 (4.4-10.8) 10^3/uL RBC 4.38 (4.36-5.78) 10^6/uL Hgb 14.3 (13.5-17.5) g/dL Hct 41.1 (40.0-50.0) % MCV 94 (80-95) fL MCH 32.6 (27.0-33.0) pg MCHC 34.8 (32.0-36.0) % RDW 13.1 (11.8-14.1) % Plt Count 154 (130-400) 10^3/uL MPV 10.7 (8.0-11.0) fL Immature Gran % 0.2 % Neutrophils % 62.8 % Lymphocytes % 23.7 % Monocytes % 8.4 % Eosinophils % 4.1 % Basophils % 0.8 % Nucleated RBC % 0.0 (0.0-0.3) % Absolute Neutrophils 5.72 (1.2-6.7) 10^3/uL Absolute Lymphocytes 2.16 (1.2-3.4) 10^3/uL Absolute Monocytes 0.76 (0.1-0.8) 10^3/uL Absolute Eosinophils 0.37 (0.0-0.7) 10^3/uL Absolute Basophils 0.07 (0.0-0.2) 10^3/uL PT 18.7 H (9.1-11.1) sec INR 2.0 H (0.9-1.1) VBG pH 7.38 (7.31-7.41) VBG pCO2 38 L (41-51) mmHg VBG pO2 33 mmHg VBG HCO3 23 (23-28) mmol/L VBG Total CO2 20 L (24-29) mmol/L VBG O2 Saturation 63 % VBG Base Excess -3 L (-2-3) mmol/L Sodium 139 (136-145) mmol/L Potassium 3.9 (3.5-5.1) mmol/L Chloride 105 (98-107) mmol/L Carbon Dioxide 23.7 (21.0-32.0) mmol/L Anion Gap 10.3 (3-11) mmol/L BUN 7 (7-18) mg/dL Creatinine 1.1 (0.70-1.30) mg/dL Est GFR (CKD-EPI 2020) 72.22 (mL/min/1.73m2) Glucose 237 H (74-106) mg/dL Calcium 8.9 (8.5-10.1) mg/dL Magnesium 2.1 (1.8-2.4) mg/dL Total Bilirubin 3.53 H (0.2-1.0) mg/dL AST 47 H (15-37) U/L ALT 54 (16-63) U/L Alkaline Phosphatase 143 H (46-116) U/L Ammonia 138 H (11-32) umol/L Troponin I 13 (<or=76) ng/L Total Protein 6.6 (6.4-8.2) g/dL Albumin 3.2 L (3.4-5.0) g/dL Urine Color (Yellow) Urine Clarity (Clear) Urine pH (5-8) Ur Specific [place] (1.005-1.025) Urine Protein (Neg-Trace) mg/dL Urine Ketones (Negative) mg/dL Urine Blood (Negative) Urine Nitrite (Negative) Urine Bilirubin (Negative) Urine Urobilinogen (Up to 0.2) mg/dL Ur Leukocyte Esterase (Negative) Urine RBC (0-2) HPF Urine WBC (0-5) HPF Ur Epithelial Cells (Negative) HPF Urine Crystals (Negative) HPF Urine Bacteria (Negative) HPF Urine Casts (Negative) LPF Urine Mucus (Negative) Ur Culture Indicated? Urine Glucose (Negative) mg/dL [id number] Documentation Fingerstick Glucose Start: 02/18/24 13:45 Freq: Status: Active Protocol: Activity Type Activity Date Activity User E-sign Co-sign Detail Recorded Client Recorded Date Recorded By Document 02/18/24 13:44 BKG DAEMON(3) [id number] 02/18/24 13:45 BKG DAEMON(4) Intake and Output - 24 Hour Total 02/18/24 13:30 thru 02/18/24 17:57 Weight 77 kg Falls Risk Assessment History of Falls No History 02/18/24 17:57 Contributing Factors Impairments,Incontinence 02/18/24 17:57 Ambulatory Aids Uses ambulatory device 02/18/24 17:57 Tubes/Lines W/no contributing factors 02/18/24 17:57 Gait Evaluation No gait disturbance 02/18/24 17:57 Cognition Cognitive impairment 02/18/24 17:57 Fall Total Score 46 02/18/24 17:57 Level of Risk Moderate Risk 02/18/24 17:57 Problems (Last Reviewed 01/15/24 @ 13:51 by Davin Damon, ) Hepatic encephalopathy (Acute) Chronic anticoagulation (Chronic) Paroxysmal atrial fibrillation (Chronic) Hemochromatosis, unspecified (Chronic) Diabetes (Chronic) Hypertension (Chronic) v v v v v v v v v Sending and/or Receiving Nurses: Please use comment section below to note any information pertinent to the patient hand-off not included above. Information / Comments: Report received from: VIKTOR Prakash 02/18/2024 @[id number]
[2024-02-18 18:53] LABS: Troponin I 12 ng/L (<or=76)
[2024-02-18] MEDS: Warfarin 5 MG TAB PO (19:57)
[2024-02-18] MEDS: Lactulose 20 GM/30 ML CUP PO (19:57)
[2024-02-18] MEDS: Rifaximin 550 MG TAB PO (19:57)
[2024-02-18] MEDS: Carvedilol 3.125 MG TAB PO (19:57)
[2024-02-18] MEDS: Normal Saline Flush 10 ML SYR IVP (19:58)
[2024-02-18] MEDS: Tamsulosin 0.4 MG CAPCR PO (19:58)
[2024-02-18] MEDS: Magnesium Oxide 400 MG TAB PO (19:58)
[2024-02-18] MEDS: Insulin Glargine 300 UNITS/3 ML PEN 30 UNITS SC (20:36)
[2024-02-19 06:35] LABS: Abs Immature Grans 0.02 10^3/uL (0.0-0.06); Absolute Basophil Count 0.07 10^3/uL (0.0-0.2); Absolute Eosinophil Count 0.38 10^3/uL (0.0-0.7); Absolute Neutrophil Count 3.55 10^3/uL (1.2-6.7); Eosinophils % 5.6 %; HCT 37.8 % (40.0-50.0); HGB 13.2 g/dL (13.5-17.5); Immature Grans % 0.3 %; Lymphocytes % 30.8 %; MCH 32.2 pg (27.0-33.0); MCHC 34.9 % (32.0-36.0); MCV 92 fL (80-95); MPV 10.8 fL (8.0-11.0); Monocytes % 10.3 %; Platelet Count 141 10^3/uL (130-400); RDW 12.9 % (11.8-14.1); RDW-SD 43.6 fL; WBC 6.82 10^3/uL (4.4-10.8)
[2024-02-19 06:44] LABS: INR 2.2 (0.9-1.1); Prothrombin Time 20.3 sec (9.1-11.1)
[2024-02-19 06:50] LABS: Ammonia 164 umol/L (11-32)
[2024-02-19 06:53] LABS: ALT 41 U/L (16-63); AST 35 U/L (15-37); Albumin 2.7 g/dL (3.4-5.0); Alkaline Phosphatase 120 U/L (46-116); Anion Gap 9.7 mmol/L (3-11); BUN 7 mg/dL (7-18); Bilirubin, Total 2.87 mg/dL (0.2-1.0); CO2 24.3 mmol/L (21.0-32.0); CREATININE 0.8 mg/dL (0.70-1.30); Calcium 8.1 mg/dL (8.5-10.1); Chloride 111 mmol/L (98-107); Estimated GFR 95.21 (mL/min/1.73m2); Glucose 209 mg/dL (74-106); Potassium 3.6 mmol/L (3.5-5.1); Sodium 145 mmol/L (136-145); Total Protein 5.6 g/dL (6.4-8.2)
[2024-02-19 07:50] VITALS: BP 128/79; PULSE 64; RESP 16; TEMP 37; O2SAT 97
[2024-02-19] MEDS: Rifaximin 550 MG TAB PO ×2 (08:50→20:19)
[2024-02-19] MEDS: Lisinopril 20 MG TAB PO (08:50)
[2024-02-19] MEDS: Carvedilol 3.125 MG TAB PO ×2 (08:50→20:19)
[2024-02-19] MEDS: amLODIPine 2.5 MG TAB PO (08:50)
[2024-02-19] MEDS: Lactulose 20 GM/30 ML CUP PO (08:50)
[2024-02-19] MEDS: Magnesium Oxide 400 MG TAB PO ×2 (08:50→20:20)
[2024-02-19] MEDS: Normal Saline Flush 10 ML SYR IVP ×2 (08:51→20:20)
[2024-02-19] MEDS: Potassium Chloride 10 MEQ CAPCR PO (08:57)
[2024-02-19 11:10] VITALS: BP 120/69; PULSE 67; RESP 16; TEMP 37; O2SAT 98
[2024-02-19] MEDS: Polyethylene Glycol 3350 17 GM PACKET PO ×2 (11:44→20:15)
[2024-02-19] MEDS: Lactulose 20 GM/30 ML CUP 30 GM PO ×3 (11:44→20:17)
[2024-02-19] MEDS: Insulin Aspart 300 UNITS/3 ML PEN SC ×2 (11:49→17:07)
--- NOTE | 2024-02-19 14:32 | PGE_ITS ---
Date of Service Date of service: 02/19/24 Time of Service: 14:32 Assessment and Plan Assessment and plan (1) Hepatic encephalopathy: Status: Acute Assessment and plan: ammonia level elevated this am now to 164 from 138 continue bid rifaximin, increase lactulose to 30 g p.o. qid and add miralax bid maintain 2 soft bowel movements per day. he has not stooled since admission Repeat electrolytes liver profile CBC and ammonia level in the morning. 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 mellitus terminal operations supervisor insulin use: with terminal operations supervisor use Diabetes mellitus complication status: without complication Qualified Code(s): E11.9 - Type 2 diabetes mellitus without complications; Z79.4 - detention (current) use of insulin (4) Hypertension: Status: Chronic Assessment and plan: continue losartan, amlodipine, and metoprolol succinate with routine blood pressure checks Qualifiers: Hypertension type: primary hypertension Qualified Code(s): I10 - Essential (primary) hypertension (5) Paroxysmal atrial fibrillation: Status: Chronic Assessment and plan: continue beta marleny and anticoagulation warfarin with INR goal 2-3 (6) Chronic anticoagulation: Status: Chronic Assessment and plan: on warfarin for PAF continue for INR goal of 2-3 INR therapeutic 2.2 (7) Discharge planning issues: Status: Acute Assessment and plan: anticipate a discharge to home when medically stable. discussed with Dr Pinto Subjective Subjective Patient reports: tolerating liquids well, tolerating a regular diet, voiding w/o difficulty, no bowel movement and afebrile; denies shortness of breath Interval history since last seen: remains pleasantly confused, no behavioral issues, redirected Exam Const General: no acute distress, frail appearing (older than stated age) and ill appearing chronically Orientation: alert, awake, oriented to person and other (poor historian) HENMT Head: normal to inspection Face and sinus: normal facial exam Mouth: moist mucous membranes Eyes General: appearance normal, both eyes and all related structures Neck Neck: normal visual inspection Resp Effort & Inspection: normal respiratory effort and able to speak in complete sentences Cardio Rate: regular rate Skin General skin exam: no rashes or lesions noted, dry skin and jaundice (ashen) Neuro General: patient alert, patient awake, no focal motor deficits and patient confused Motor: muscle tone normal throughout Extrem General: full ROM and no cyanosis Psych Mental Status: mental status grossly normal Objective Last Vital Signs Temp 37.0 C 02/19/24 11:10 Pulse 67 02/19/24 11:10 Resp 16 02/19/24 11:10 BP 120/69 02/19/24 11:10 Pulse Ox 98 02/19/24 11:10 Laboratory Results - last 24 hr 02/18/24 02/18/24 02/18/24 13:10 15:30 16:20 WBC RBC Hgb Hct MCV MCH MCHC RDW Plt Count MPV Immature Gran % Neutrophils % Lymphocytes % Monocytes % Eosinophils % Basophils % Nucleated RBC % Absolute Neutrophils Absolute Lymphocytes Absolute Monocytes Absolute Eosinophils Absolute Basophils PT 18.7 H INR 2.0 H Sodium 139 Potassium 3.9 Chloride 105 Carbon Dioxide 23.7 Anion Gap 10.3 BUN 7 Creatinine 1.1 Est GFR (CKD-EPI 2020) 72.22 Glucose 237 H Calcium 8.9 Magnesium 2.1 Total Bilirubin 3.53 H AST 47 H ALT 54 Alkaline Phosphatase 143 H Ammonia Troponin I 13 10 Total Protein 6.6 Albumin 3.2 L Urine Color Yellow Urine Clarity Clear Urine pH 6.0 Ur Specific Newborn 1.015 Urine Protein Trace Urine Ketones Trace H Urine Blood Trace-intact H Urine Nitrite Negative Urine Bilirubin Negative Urine Urobilinogen >=8.0 H Ur Leukocyte Esterase Negative Urine RBC 3-5 H Urine WBC 0-2 Ur Epithelial Cells Negative Urine Crystals Negative Urine Bacteria Negative Urine Casts 3-5 Fine Granular Urine Mucus Trace Ur Culture Indicated? No Urine Glucose 500 H 02/18/24 02/19/24 18:25 06:25 WBC 6.82 RBC 4.10 L Hgb 13.2 L Hct 37.8 L MCV 92 MCH 32.2 MCHC 34.9 RDW 12.9 Plt Count 141 MPV 10.8 Immature Gran % 0.3 Neutrophils % 52.0 Lymphocytes % 30.8 Monocytes % 10.3 Eosinophils % 5.6 Basophils % 1.0 Nucleated RBC % 0.0 Absolute Neutrophils 3.55 Absolute Lymphocytes 2.10 Absolute Monocytes 0.70 Absolute Eosinophils 0.38 Absolute Basophils 0.07 PT 20.3 H INR 2.2 H Sodium 145 Potassium 3.6 Chloride 111 H Carbon Dioxide 24.3 Anion Gap 9.7 BUN 7 Creatinine 0.8 Est GFR (CKD-EPI 2020) 95.21 Glucose 209 H Calcium 8.1 L Magnesium Total Bilirubin 2.87 H AST 35 ALT 41 Alkaline Phosphatase 120 H Ammonia 164 H Troponin I 12 Total Protein 5.6 L Albumin 2.7 L Urine Color Urine Clarity Urine pH Ur Specific Newborn Urine Protein Urine Ketones Urine Blood Urine Nitrite Urine Bilirubin Urine Urobilinogen Ur Leukocyte Esterase Urine RBC Urine WBC Ur Epithelial Cells Urine Crystals Urine Bacteria Urine Casts Urine Mucus Ur Culture Indicated? Urine Glucose Time Spent with Patient Time Spent with Patient: 35-49 minutes Time was spent: preparing to see the patient(eg.review tests), obtaining and/or reviewing separately otained hiistory, ordering medications,tests, procedures, indepentently interpreting results and counseling the patient
[2024-02-19 14:59] VITALS: BP 126/71; PULSE 88; RESP 16; TEMP 36.9; O2SAT 96
--- NOTE | 2024-02-19 15:00 | CHAPLAIN ---
I visited with Shaji and his Melvina, explained my role and offered support. Melvina said they have a standard car at home that she can't drive, so she has to find rides to visit.
--- NOTE | 2024-02-19 16:25 | PDOC.CMIN ---
Date of service: 02/19/24 Time of Service: 16:26 Care Management Initial Assmt Initial Assessment Reason for Hospitalization: Hepatic encephlopathy Functional Status/Living Situation Patient Presentation: Shaji is lying in bed and appears to be sleeping comfortably when CM attempted to meet with him. Information used for this assessment is provided by his Melvina who was visiting. 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 ) Instrumental Activities of Daily Living (ADLs): Independent Medications Medication Management: No Issues/Barriers identified Physical Functioning/Mobility Assistive Device: Walker Advance Directives Advance Directives: Do you have an Advance Directive: N 09/05/12 15:39 AD On File at [facility]: N 06/19/12 11:48 Date Asked 02/18/24 02/18/24 13:36 AD Date Reviewed COLST On File at [facility] No 01/12/24 17:37 COLST Date Scanned Code Status Resuscitation Status Full Code Insurance Coverage/Financial Issues Insurance: Medicare Medicaid financial assistance Care Team Visit Care Team Role Provider Type Stefani Jones MD Primary Care Provider [facility] STAFF PHYSICIAN InPatient Shaji Jose Other Providers OTHER Racheal Jordan MD Emergency Provider [facility] STAFF PHYSICIAN Young Pinto Admit Provider [facility] STAFF PHYSICIAN Attending Provider Discharge Potential Discharge Needs: PT Evaluation and PCP F/U Appt Anticipated Barriers to Discharge: Medical Status Patient/Family Education Needs: Review discharge instructions, discuss Ask Me Three Transportation: Private vehicle Plan: Shaji continues to be closely monitored and treated for hepatic encephlopathy. He is acutely ill, CM will continue to support discharge planning considerations when better known. CM will follow. PFSH All Active Problems (Updated 02/19/24 @ 11:14 by Shakira Judge NP) Discharge planning issues (Acute) Incurved toenail (Acute) Hepatic encephalopathy (Acute) BPH (benign prostatic hyperplasia) (Chronic) Chronic anticoagulation (Chronic) Paroxysmal atrial fibrillation (Chronic) Hemochromatosis, unspecified (Chronic) Diabetes (Chronic) Hypertension (Chronic) PVCs (premature ventricular contractions) (Acute) Social History Smoking/Tobacco Use Status: Current-Occasional Tobacco Type: cigars Smoking risk assessment performed?: Yes Alcohol Intake: current Alcohol Intake frequency: 0-2 drinks per day Alcohol type: beer Drug use: Occasionally Substance use type: marijuana Housing: house Do you feel safe at home: Yes Do you feel safe in your relationship?: Yes SDOH(Care Management) Screening Will the Patient Participate in the Screening?: Yes Do you worry about having a steady place to live?: no Problems where you live: no known problems In the past 12 months, have you had to go without electric, gas, oil or water in your home?: no Have you or anyone in your house had to go without enough food to eat?: no Has lack of transportation kept you from medical appointments or from doing things needed for daily living?: no Has anyone in your support network made you feel unsafe for any reason?: no
[2024-02-19 19:47] VITALS: BP 137/77; PULSE 68; RESP 17; TEMP 36.8; O2SAT 98
[2024-02-19] MEDS: Insulin Glargine 300 UNITS/3 ML PEN 30 UNITS SC (20:16)
[2024-02-19] MEDS: Tamsulosin 0.4 MG CAPCR PO (20:20)
[2024-02-19 23:21] VITALS: BP 136/77; PULSE 74; RESP 15; TEMP 36.7; O2SAT 95
[2024-02-20 06:31] LABS: Abs Immature Grans 0.01 10^3/uL (0.0-0.06); Absolute Basophil Count 0.05 10^3/uL (0.0-0.2); Absolute Eosinophil Count 0.34 10^3/uL (0.0-0.7); Absolute Lymphocyte Count 2.03 10^3/uL (1.2-3.4); Absolute Neutrophil Count 3.55 10^3/uL (1.2-6.7); Basophils % 0.8 %; Eosinophils % 5.2 %; HCT 36.8 % (40.0-50.0); HGB 13.2 g/dL (13.5-17.5); Immature Grans % 0.2 %; Lymphocytes % 30.9 %; MCH 32.5 pg (27.0-33.0); MCHC 35.9 % (32.0-36.0); MCV 91 fL (80-95); MPV 10.9 fL (8.0-11.0); Monocytes % 9.1 %; Neutrophils % 53.8 %; Platelet Count 143 10^3/uL (130-400); RBC 4.06 10^6/uL (4.36-5.78); RDW 12.9 % (11.8-14.1); RDW-SD 42.9 fL; WBC 6.58 10^3/uL (4.4-10.8)
[2024-02-20 06:34] LABS: INR 2.3 (0.9-1.1); Prothrombin Time 21.5 sec (9.1-11.1)
[2024-02-20 06:42] LABS: Ammonia 138 umol/L (11-32)
[2024-02-20 06:43] LABS: ALT 45 U/L (16-63); AST 39 U/L (15-37); Albumin 2.7 g/dL (3.4-5.0); Alkaline Phosphatase 123 U/L (46-116); Anion Gap 7.3 mmol/L (3-11); BUN 8 mg/dL (7-18); Bilirubin, Total 2.79 mg/dL (0.2-1.0); CO2 24.7 mmol/L (21.0-32.0); CREATININE 0.9 mg/dL (0.70-1.30); Calcium 8.2 mg/dL (8.5-10.1); Chloride 108 mmol/L (98-107); Estimated GFR 91.88 (mL/min/1.73m2); Glucose 225 mg/dL (74-106); Potassium 3.3 mmol/L (3.5-5.1); Sodium 140 mmol/L (136-145); Total Protein 5.8 g/dL (6.4-8.2)
[2024-02-20 07:50] VITALS: BP 136/78; PULSE 90; RESP 20; TEMP 36.9; O2SAT 97
[2024-02-20] MEDS: Rifaximin 550 MG TAB PO (08:48)
[2024-02-20] MEDS: amLODIPine 2.5 MG TAB PO (08:48)
[2024-02-20] MEDS: Magnesium Oxide 400 MG TAB PO (08:48)
[2024-02-20] MEDS: Lisinopril 20 MG TAB PO (08:48)
[2024-02-20] MEDS: Potassium Chloride 10 MEQ CAPCR PO (08:49)
[2024-02-20] MEDS: Carvedilol 3.125 MG TAB PO (08:49)
[2024-02-20] MEDS: Lactulose 20 GM/30 ML CUP 30 GM PO ×2 (08:50→11:52)
[2024-02-20] MEDS: Omeprazole 20 MG CAPCR PO (08:50)
[2024-02-20] MEDS: Polyethylene Glycol 3350 17 GM PACKET PO (08:50)
[2024-02-20] MEDS: Normal Saline Flush 10 ML SYR IVP (08:51)
[2024-02-20] MEDS: Insulin Aspart 300 UNITS/3 ML PEN SC ×2 (08:56→11:53)
--- NOTE | 2024-02-20 09:45 | PT.INIE ---
PT Notes Visit Reasons: Hepatic Encephalopathy Physical Therapy Inpatient Initial Evaluation Date: 02/20/2024 Referring Doctor: Shakira Judge NP PT Orders: PT CONSULT: Eval/Treat Precautions: Fall. Standard. Activity as tolerated. Patient Profile/Admitting Diagnosis: Shaji is a 68-year-old male admitted to the ED on 02/18/2024 due to altered mental status. Patient is admitted to [facility] level of care for management of hepatic encephalopathy, hemochromatosis, DM, HTN, and PAF. PMHX: All Active Problems (Updated 02/19/24 @ 11:14 by Shakira Judge NP) due to a family water-based 6-year Discharge planning issues (Acute) Incurved toenail (Acute) Hepatic encephalopathy (Acute) BPH (benign prostatic hyperplasia) (Chronic) Chronic anticoagulation (Chronic) Paroxysmal atrial fibrillation (Chronic) Hemochromatosis, unspecified (Chronic) Diabetes (Chronic) Hypertension (Chronic) PVCs (premature ventricular contractions) (Acute) Social History/Home Situation: Lives with in a private home with ramp to enter. Does not use any assistive device at home. Equipment Owned/DME: FWW, SPC Subjective: Wanted to hold off on going to the shower, preferred to rest in bed before and son come in to visit. Denied headache, chest pain, and lightheadedness throughout session. Objective: General Observation: Was with EDITH Fletcher headed to the bathroom from bed using his walker. No lines Mental Status: Alert and oriented as to person and purpose. Able to pay attention, focus, and respond appropriately. Pain: None reported Vital Signs: Closely monitored by nursing staff ROM: Right Upper Extremity: Shoulder Flexion allows up to about 140 degrees. Shoulder abduction allows up to about 100 degrees. Elbow flexion WFL. Wrist flexion WFL. Functional opening and closing of hand WFL. Left Upper Extremity: Shoulder Flexion allows up to about 140 degrees. Shoulder abduction allows up to about 100 degrees. Elbow flexion WFL. Wrist flexion WFL. Functional opening and closing of hand WFL. Right Lower Extremity: Hip flexion WFL. Hip abduction WFL. Knee flexion WFL. Ankle dorsiflexion to neutral only. Ankle plantarflexion WFL. Left Lower Extremity: Hip flexion WFL. Hip abduction WFL. Knee flexion WFL. Ankle dorsiflexion to neutral only. Ankle plantarflexion WFL. Strength: Right Upper Extremity: Shoulder flexors 3-/5. Shoulder abductors 3-/5. Elbow flexors 4-/5. Elbow extensors 4-/5. Emergency Vehicle Technician strong. Left Upper Extremity: Shoulder flexors 4-/5. Shoulder abductors 4-/5. Elbow flexors 4-/5. Elbow extensors 4-/5. Emergency Vehicle Technician strong. Right Lower Extremity: Hip flexors 4-/5. Hip abductors 4-/5. Knee flexors 4-/5. Knee extensors 4-/5. Ankle dorsiflexors 4-/5. Ankle plantarflexors 4-/5. Left Lower Extremity: Hip flexors 4-/5. Hip abductors 4-/5. Knee flexors 4-/5. Knee extensors 4-/5. Ankle dorsiflexors 4-/5. Ankle plantarflexors 4-/5. Bed Mobility/Transfers: Minimal cueing provided for use of B hands as needed for support, movement sequence, AD management, and posture to reduce fall risk and minimize pain report Supine to sit independent Sit to supine independent Sit to stand supervision with FWW Stand to sit supervision with FWW Bed to toilet stand by assist with FWW Toilet seat to bed stand by assist with FWW Gait: Patient was able to tolerate 250 feet on level surface ambulation with standby assist using front wheeled walker with minimal verbal cueing for AD management, posture, and directional changes only. Stairs: Guided patient with safe and correct negotiation of 3 x 4 inch steps and 2 x 6 inch steps while holding onto bilateral rails with step over step gait pattern requiring only standby assist with minimal cueing only for safety. Balance: Static Sitting: Normal Dynamic Sitting: Normal Static Standing: Fair Dynamic Standing: Fair Special Tests: Mobility Limitations Standardized Measure [facility] AM-PAC 6 clicks Basic Mobility Inpatient Short Form: Raw Score: 24 CMS Score:0% deficit 4-Stage Balance Test: Feet together 10 seconds Semitandem 10 seconds Full tandem <10 seconds One-legged stance <10 seocnds Informed Consent/Education: Patient was instructed in purpose of PT consult and plan of care. Agreeable to proceed with established PT POC to achieve personal goals. Assessment: Patient presents with clinical signs and symptoms consistent with current/admitting diagnoses that have resulted to mobility limitations, gait instability, generalized weakness, and overall ADL decline as demonstrated by the following impairment level findings: 1. Decreased strength to B UE/LE major muscle groups 2. Impaired sitting/standing balance 3. Impaired activity tolerance Impairments are contributing to the following functional limitations: 1. Decline in bed mobility skills 2. Decline in transfer skills 3. Difficulty with ambulation without assistive device and physical assistance 4. Increased completion time for mobility ADL performance 5. Increased risk for falls 6. Difficulty with managing steps alone safely Patient is assessed as a [id number] moderate complexity based on the following: History: 68-year-old male with past medical history as indicated above Examination: Demonstrable impairment in strength, balance, and mobility level with underlying impairments and functional limitations as exhibited above Presentation: Stable Decision Makin moderate complexity Goals: Goals X1 week 1. Supine-Sit independent 2. Sit-Supine independent 3. Sit-Stand independent 4. Stand-Sit independent with FWW 5. Bed-Chair independent with FWW 6. Chair-Bed independent with FWW 7. Independent gait on level surface with use of FWW for at least 300 feet without report of pain nor dyspnea 8. Independent stair negotiation while holding onto B rails for at least 5 steps without report of pain nor dyspnea 9. Independent with home exercise program 10. Good static and dynamic standing balance/tolerance Plan of Care/Treatment Plan: 1-2x/day, 7 days/week x 1 week. Plan of care has been reviewed with the POURER BUGGY LADLE providing the service under Physical Therapy direction. Initiate Physical Therapy intervention for pain management as needed, strengthening, bed mobility, transfers, gait, stairs, balance training, and use of assistive device. DISCHARGE RECOMMENDATIONS: [] Home with no services [] [X] Home with services. Patient will benefit from home health PT services in order to progress mobility level using least restrictive assistive ambulatory device, assess home safety, identify additional equipment needs, and establish a functional maintenance program that will increase ability of patient to remain at home. [] Home with outpatient PT [] [] SNF for continued rehabilitation [] [] Factory Worker Care [] [] SNF versus LTC based on ability to participate and progress [] TREATMENT CODE/TIME: 16686 x 29 minutes for 1 unit (9:45-10:14). Thank you for the opportunity to participate in the care of this patient. Karie Johnson PT, DPT, CLT [facility], [place]
--- NOTE | 2024-02-20 10:38 | W.PM.DS.N ---
Date of service: 02/20/24 Time of Service: 10:39 DS: Diagnosis Discharge Diagnosis (1) Hepatic encephalopathy: Status: Acute (2) Hemochromatosis, unspecified: Status: Chronic (3) Diabetes: Status: Chronic (4) Hypertension: Status: Chronic (5) Paroxysmal atrial fibrillation: Status: Chronic (6) Chronic anticoagulation: Status: Chronic (7) Discharge planning issues: Status: Acute Discharge Plan Disposition Patient Disposition: Home W/Home Health Services Condition: Improving Discharge Details Reason For Visit: Hepatic Encephalopathy Admit Date/Time: 02/18/24 16:35 Admit Provider: Young Pinto Attending Provider: Young Pinto Primary Care Provider: Stefani Jones [facility] Course Hospital Course: This 68-year-old male patient with a past medical history of 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 A month ago, on previous admission for hepatic encephalopathy the patient initially improved but then gradually worsened. Worsening over the past 2 to 3 days despite compliance with lactulose and rifaximin and the passing of 2 daily stools. At the time no falls, injuries, abdominal pain, vomiting, hematemesis, hematochezia or melena were reported. Workup in the ED was significant for liver dysfunction including an elevated bilirubin to 3.5, mild transaminitis with elevation of AST and alk phos and an ammonia level at 138. CBC and renal function were unremarkable. Head CT was negative for evidence of intracranial hemorrhage. The hospitalist service admitted the patient to the medical surgical floor for evaluation and management of hepatic encephalopathy. During the stay the patient was treated with an increased dose of lactulose to achieve at least 3 stool per day. Rifaximin was continued. The patient improved clinically. Today the patient was oriented stating the date with less than 2 days off, oriented to the fact that he was in the hospital and then [facility], obeyed commands with slight delay as per nursing the patient was still unable to self inject insulin. The patient also stating that he would like to go home today. Chronic medical conditions were managed as per chronic medicine regimen. Physical therapy recommendations are for home health with physical therapy. The patient will be discharged home today on increased dose of lactulose and rifaximin with home health for physical therapy and nursing to monitor medicine compliance as well as worsening of his condition. The patient will need to complete a follow-up with his primary care provider within 7 days of discharge. The patient was encouraged to maintain oral hydration. Education provided on the need to have 3 bowel movements per day. Discussed with Dr. Pinto Home Meds and New Rx's Prescriptions: New lactulose 20 gram/30 mL Solution 30 g PO QID Qty: 1200 0RF Continued insulin glargine [Lantus Solostar U-100 Insulin] 100 unit/mL (3 mL) insulin pen 30 unit subcut QPM metformin 500 MG tablet 1,000 mg PO BID (DME) lancets 1 EACH misc 1 ea Miscellaneous BID TEST STRIPS 1 unit Topical BID lisinopril 20 mg tablet 20 mg PO DAILY amlodipine 2.5 mg tablet 2.5 mg PO DAILY ibuprofen 400 MG tablet 400 mg PO Q6H PRN PRNQty: 40 0RF glipizide 10 mg tablet 10 mg PO DAILY tamsulosin 0.4 mg capsule 0.4 mg PO Q24H magnesium oxide 400 mg (241.3 mg magnesium) tablet 400 mg PO BID Patient Comments: TAKE 1 TABLET BY MOUTH TWICE DAILY omeprazole 20 mg capsule,delayed release(DR/EC) 20 mg PO DAILY PRN (Reason: heartburn) Patient Comments: TAKE 1 CAPSULE BY MOUTH EVERY DAY NEEDED warfarin 5 mg tablet 7.5 mg PO .COMPLEX Patient Comments: TAKE 1 TO 1.5 TABLETS BY MOUTH DAILY DIRECTED Rx Instructions: 7.5 mg orally; 7.5mg po daily on sunday and and 5mg po daily all other days atorvastatin 40 mg tablet 40 mg PO DAILY Patient Comments: TAKE 1 TABLET BY MOUTH EVERY DAY carvedilol 3.125 mg tablet 3.125 mg PO BID Patient Comments: TAKE 1 TABLET BY MOUTH TWICE DAILY Xifaxan 550 mg Tablet 550 mg PO BID Qty: 60 0RF potassium chloride 10 mEq tablet extended release 10 meq PO DAILY Patient Comments: TAKE 2 TABLETS BY MOUTH EVERY DAY Discontinued lactulose 10 gram/15 mL solution 20 g PO TID Patient Comments: TAKE 30ML BY MOUTH THREE TIMES DAILY Discharge Instructions Referrals: Stefani Jones MD [Primary Care Provider] - (F/u please within 7 days of discharge) Activity:: Activity as Tolerated Equipment/Supplies:: Walker Diet:: heart healthy diabetic Discharge Orders Discharge Orders: Discharge Order (Routine); Ordered 02/20/24 Ordered By: Chloé Lara DS: Summary Time Spent with Patient providing and/or coordinating discharge services: Greater than 30 minutes Status at Discharge Functional status at discharge: uses cane/walker Overall status at discharge: patient is progressing back to baseline Mental Status: mental status grossly normal Speech and Movement: speech and movement normal Mood: congruent mood Affect: normal affect Quality:SDOH Health Related Social Needs: No Data to Display Exam Narrative Exam Narrative: Constitutional The patient is sitting in chair without acute distress HENMT:Facial structures with normal appearance Eyes: Well aligned, intact ROM Neuro:alert and oriented to self, person, place, time and situation. No neurological focal deficit Chest:Chest is symmetrical and normal appearance Resp: Unlabored breathing, clear lung bilaterally w diminished bases Cardio: regular rhythm, S1, S2, no murmur, positive pulses to all 4 extremities. GI: Abdomen is not distended, soft and non tender, bowel sounds are present : Negative Costovertebral angle tenderness Back/spine/Pelvis: No back tenderness, normal alignment Integumentary: No skin lesions or rash on exposed skin Extremities: strength 5/5 to bilateral lower and upper extremities Psych: RASS 0, congruent mood and normal affect. Psych Mental Status: mental status grossly normal Speech and Movement: speech and movement normal Mood: congruent mood Affect: normal affect DS: Data Vitals/I&O Vitals and I&O: Vital Signs Temperature 36.9 C 02/20/24 07:50 Temperature Source Temporal Artery Scan 02/20/24 07:50 Pulse 90 02/20/24 07:50 Pulse 75 02/18/24 17:30 Respiratory Rate 20 02/20/24 07:50 Respiratory Effort Normal 02/18/24 17:57 Respiratory Depth Normal 02/18/24 17:57 Respiratory Pattern Normal 02/18/24 17:57 Blood Pressure 136/78 02/20/24 07:50 Blood Pressure Mean 96 02/18/24 15:01 Blood Pressure Position Sitting 02/18/24 13:40 Pulse Oximetry 97 02/20/24 07:50 Oxygen Delivery Method Room Air 02/20/24 07:50 Oxygen Flow Rate 0 02/20/24 07:50 Pain Level 0 02/20/24 07:50 Intake & Output 02/19/24 02/19/24 02/20/24 11:59 23:59 11:59 Intake Total 360 / 560 200 / 560 250 / 250 Output Total 200 / 200 Balance 360 / 360 0 / 360 250 / 250 Intake: IV Oral 360 / 560 200 / 560 240 / 240 Output: Urine 200 / 200 Other: Urine Color Dark Adriana Yellow Yellow Urine Appearance Clear Clear Urine Odor None None Comment pt voided unknown amount Stool Size Moderate Stool Characteristics Liquid Data Completed and Pending Labs on day of discharge: Labs from last 24 hours 02/20/24 06:14 WBC 6.58 RBC 4.06 L Hgb 13.2 L Hct 36.8 L MCV 91 MCH 32.5 MCHC 35.9 RDW 12.9 Plt Count 143 MPV 10.9 Immature Gran % 0.2 Neutrophils % 53.8 Lymphocytes % 30.9 Monocytes % 9.1 Eosinophils % 5.2 Basophils % 0.8 Nucleated RBC % 0.0 Absolute Neutrophils 3.55 Absolute Lymphocytes 2.03 Absolute Monocytes 0.60 Absolute Eosinophils 0.34 Absolute Basophils 0.05 PT 21.5 H INR 2.3 H Sodium 140 Potassium 3.3 L Chloride 108 H Carbon Dioxide 24.7 Anion Gap 7.3 BUN 8 Creatinine 0.9 Est GFR (CKD-EPI 2020) 91.88 Glucose 225 H Calcium 8.2 L Total Bilirubin 2.79 H AST 39 H ALT 45 Alkaline Phosphatase 123 H Ammonia 138 H Total Protein 5.8 L Albumin 2.7 L PFSH All Active Problems (Updated 02/19/24 @ 11:14 by Shakira Judge NP) Discharge planning issues (Acute) Incurved toenail (Acute) Hepatic encephalopathy (Acute) BPH (benign prostatic hyperplasia) (Chronic) Chronic anticoagulation (Chronic) Paroxysmal atrial fibrillation (Chronic) Hemochromatosis, unspecified (Chronic) Diabetes (Chronic) Hypertension (Chronic) PVCs (premature ventricular contractions) (Acute) Social History Smoking/Tobacco Use Status: Current-Occasional Tobacco Type: cigars Smoking risk assessment performed?: Yes Alcohol Intake: current Alcohol Intake frequency: 0-2 drinks per day Alcohol type: beer Drug use: Occasionally Substance use type: marijuana Housing: house Do you feel safe at home: Yes Do you feel safe in your relationship?: Yes Time Spent with Patient Time Spent with Patient: 70-84 minutes4 Time was spent: preparing to see the patient(eg.review tests), obtaining and/or reviewing separately otained hiistory, ordering medications,tests, procedures, referring, communicating with other health veterinarian laboratory animal care, indepentently interpreting results, counseling the patient and care coordination
--- NOTE | 2024-02-20 10:53 | PDOC.HHF2F_ITS ---
Home Health Referral Home Health Orders Clinical synopsis of why skilled professionals are needed: This 68-year-old male patient with a past medical history of cirrhosis of the liver secondary to hemochromatosis, hepatic encephalopathy, type 2 diabetes on insulin, hypertension, paroxysmal atrial fibrillation on warfarin and carvedilol presented to the ED at [facility] on 02/18/2024 for evaluation of altered mental status and confusion. A month ago, on previous admission for hepatic encephalopathy the patient initially improved but then gradually worsened. Worsening over the past 2 to 3 days despite compliance with lactulose and rifaximin and the passing of 2 daily stools. At the time no falls, injuries, a bdominal pain, vomiting, hematemesis, hematochezia or melena were reported. Workup in the ED was significant for liver dysfunction including an elevated bilirubin to 3.5, mild transaminitis with elevation of AST and alk phos and an ammonia level at 138. CBC and renal function were unremarkable. Head CT was negative for evidence of intracranial hemorrhage. The hospitalist service admitted the patient to the medical surgical floor for evaluation and management of hepatic encephalopathy. During the stay the patient was treated with an increased dose of lactulose to achieve at least 3 stool per day. Rifaximin was continued. The patient improved clinically. Today the patient was oriented stating the date with less than 2 days off, oriented to the fact that he was in the hospital and then [facility], obeyed commands with slight delay as per nursing the patient was still unable to self inject insulin. The patient also stating that he would like to go home today. Chronic medical conditions were managed as per chronic medicine regimen. Physical therapy recommendations are for home health with physical therapy. The patient will be discharged home today on increased dose of lactulose and rifaximin with home health for physical therapy and nursing to monitor medicine compliance as well as worsening of his condition. The patient will need to complete a follow-up with his primary care provider within 7 days of discharge. The patient was encouraged to maintain oral hydration. Education provided on the need to have 3 bowel movements per day. Discussed with Dr. Pinto Medical diagnosis necessitation home health referral: Hepatic encephalopathy, confusion Registered Nurse: Check all that apply Instruct on new or changed medication(s)/assess compliance: Ordered Assess for exacerbation of medical condition, instruct patient/caregivers on signs and symptoms to report for early detection: Ordered Physical Therapist: Check all that apply Increase strength & endurance for safe mobility at home: Ordered To design/establish home maintenance program: Ordered Fall reduction therapy program for patient with history of frequent falls: Ordered Home safety evaluation and teaching/gait training including stair management (if applicable): Ordered Home Bound Status Requires the aid of supportive device (check all that apply): Walker Describe why leaving home would require a considerable and taxing effort: Requires frequent rest periods and Safety Concerns: describe (Hepatic encephalopathy Dx) Encounter Date and Reason: I certify that a FTF encounter for this patient was performed on February 20, 2024 and that such encounter was related to the primary reason the patient requires home health services. The encounter was conducted in the following manner: * By me as the certifying physician, LABORATORY SECRETARY, PA or * By an inpatient physician, LABORATORY SECRETARY or PA during an inpatient stay who communicated findings to me, Certification And Authentication I certify that I composed the above information based on my clinical judgment relating to this patient's medical condition and, if applicable, clinical findings communicated to me by the NPP or inpatient physician who performed the FTF encounter. Name of Provider that will be monitoring home health services: Stefani Jones
[2024-02-20] MEDS: Potassium Chloride 20 MEQ TABCR 40 MEQ PO (11:00)
--- NOTE | 2024-02-20 11:54 | CMDISCH_ITS ---
Date of service: 02/20/24 Time of Service: 11:54 LACE Index Scoring Tool Questions: Length of Stay (in days): 2 Was the patient admitted via the E.D.?: Yes Comorbidities: Diabetes w/o Complication E.D. Visits: 5 Answers: Total Score: 10 Risk of Readmission: High Risk Care Management Discharge Plan Reason for Hospitalization: Hepatic encephalopathy Discharge Plan: Discharge home with New [facility] RN/PT services. Transportation is p rovided by family. Follow up with community providers and discharge plan of care. Patient/Family Education Needs: Review discharge instructions, limitations, medications and plan to follow up with community providers. Discuss ask me three. Services Needed at Discharge: Home Health Care Services (New [facility] RN/PT) SDOH Health Related Social Needs: No Data to Display
== END 2024-02-20 12:43 | disposition home health service (06) | DRG 443 ==
LOC: ER 16:41 → MS 17:46
PROVIDERS: Nurse Practitioner Acute Care; Admitting Provider Family Medicine; Emergency Provider Emergency Medicine; PCP Family Medicine; Visit Provider Family Medicine
DX: K76.82 Hepatic encephalopathy (principal); E83.110 Hereditary hemochromatosis; I10 Essential (primary) hypertension; I48.0 Paroxysmal atrial fibrillation; Z79.01 Long term (current) use of anticoagulants; Z79.4 Long term (current) use of insulin; N40.0 Benign prostatic hyperplasia without lower urinary tract symptoms; I49.3 Ventricular premature depolarization; F17.290 Nicotine dependence, other tobacco product, uncomplicated; Z79.84 Long term (current) use of oral hypoglycemic drugs
CPT/HCPCS: 00123; 36415; 36416; 80053; 82805; 82962; 93005; 97162; 99285; 70450; 81003; 81015; 82140; 83735; 84484; 85025; 85610; 93010; 99222; 99232; 99239; J1815

== ENCOUNTER 2024-03-14 15:53 | Outpatient (CLI) | payer MEDICARE, SELFPAY ==
[2024-03-14 14:47] LABS: Ammonia 106 umol/L (11-32); Hemoglobin A1C 7.4 % (<5.7)
[2024-03-14 15:16] LABS: Ferritin 76 ng/mL (26-388)
== END 2024-03-14 15:54 | disposition home or self-care (01) ==
LOC: LBO 15:54
PROVIDERS: PCP Family Medicine; Visit Provider Family Medicine
DX: E11.9 Type 2 diabetes mellitus without complications (principal)
CPT/HCPCS: 36415; 82140; 82728; 83036

== ENCOUNTER 2024-04-07 13:26 | Inpatient (IN) | payer MEDICARE, SELFPAY ==
[2024-04-07] VITALS (25 sets, daily range): BP systolic 129–183; BP diastolic 66–100; PULSE 62–90; RESP 11–29; TEMP 36.3–36.8; O2SAT 94–100
--- NOTE | 2024-04-07 13:30 | RT.EKG_ITS ---
APPROVED REPORT Exam: Resting ECG Reason for Exam: altered mental status Patient Location: E HR:74 bpm ECG Measurements Heart Rate 74 AXIS SD 212 P 38 QRSd 95 QRS 5 QT 443 T 28 QTc 455 Conclusion Sinus rhythm...normal P axis, V-rate 60- 99 Borderline prolonged SD interval...SD >212, V-rate 50- 90 No STEMI
--- NOTE | 2024-04-07 13:54 | W.EDPROG ---
Date of service: 04/07/24 Time of Service: 13:54 Medical Decision Making I saw this patient on his arrival in the ED. He has a history of hepatic encephalopathy. He reportedly has had increased confusion. He was moving all 4 extremities spontaneously. He was he afebrile and not tachycardic. I ordered basic labs including ammonia level. He was not complaining of any focal neurological deficits to suggest CVA. Quality:SDOH Health Related Social Needs: No Data to Display Discharge Plan Discharge Details Chief Complaint: AMS/LOC Primary Care Provider: Stefani Jones ED Provider: Provider,Temporary Home Meds and New Rx's Prescriptions: No Action insulin glargine [Lantus Solostar U-100 Insulin] 100 unit/mL (3 mL) insulin pen 30 unit subcut QPM metformin 500 MG tablet 1,000 mg PO BID (DME) lancets 1 EACH misc 1 ea Miscellaneous BID TEST STRIPS 1 unit Topical BID lisinopril 20 mg tablet 20 mg PO DAILY amlodipine 2.5 mg tablet 2.5 mg PO DAILY ibuprofen 400 MG tablet 400 mg PO Q6H PRN PRNQty: 40 0RF lactulose 20 gram/30 mL Solution 30 g PO QID Qty: 1200 0RF glipizide 10 mg tablet 10 mg PO DAILY tamsulosin 0.4 mg capsule 0.4 mg PO Q24H magnesium oxide 400 mg (241.3 mg magnesium) tablet 400 mg PO BID Patient Comments: TAKE 1 TABLET BY MOUTH TWICE DAILY omeprazole 20 mg capsule,delayed release(DR/EC) 20 mg PO DAILY PRN (Reason: heartburn) Patient Comments: TAKE 1 CAPSULE BY MOUTH EVERY DAY NEEDED warfarin 5 mg tablet 7.5 mg PO .COMPLEX Patient Comments: TAKE 1 TO 1.5 TABLETS BY MOUTH DAILY DIRECTED Rx Instructions: 7.5 mg orally; 7.5mg po daily on sunday and and 5mg po daily all other days atorvastatin 40 mg tablet 40 mg PO DAILY Patient Comments: TAKE 1 TABLET BY MOUTH EVERY DAY carvedilol 3.125 mg tablet 3.125 mg PO BID Patient Comments: TAKE 1 TABLET BY MOUTH TWICE DAILY Xifaxan 550 mg Tablet 550 mg PO BID Qty: 60 0RF potassium chloride 10 mEq tablet extended release 20 meq PO DAILY Patient Comments: TAKE 2 TABLETS BY MOUTH EVERY DAY
--- NOTE | 2024-04-07 14:17 | W.ED.GENAD ---
Discharge Plan Disposition Patient Disposition: Admit to [facility] Condition: Good Discharge Details Chief Complaint: AMS/LOC Clinical Impression: Encephalopathy, hepatic Primary Care Provider: Stefani Jones ED Provider: Camila Justice Home Meds and New Rx's Prescriptions: No Action insulin glargine [Lantus Solostar U-100 Insulin] 100 unit/mL (3 mL) insulin pen 30 unit subcut QPM metformin 500 MG tablet 1,000 mg PO BID (DME) lancets 1 EACH misc 1 ea Miscellaneous BID TEST STRIPS 1 unit Topical BID lisinopril 20 mg tablet 20 mg PO DAILY amlodipine 2.5 mg tablet 2.5 mg PO DAILY ibuprofen 400 MG tablet 400 mg PO Q6H PRN PRNQty: 40 0RF lactulose 20 gram/30 mL Solution 30 g PO QID Qty: 1200 0RF glipizide 10 mg tablet 10 mg PO DAILY tamsulosin 0.4 mg capsule 0.4 mg PO Q24H magnesium oxide 400 mg (241.3 mg magnesium) tablet 400 mg PO BID Patient Comments: TAKE 1 TABLET BY MOUTH TWICE DAILY omeprazole 20 mg capsule,delayed release(DR/EC) 20 mg PO DAILY PRN (Reason: heartburn) Patient Comments: TAKE 1 CAPSULE BY MOUTH EVERY DAY NEEDED warfarin 5 mg tablet 7.5 mg PO .COMPLEX Patient Comments: TAKE 1 TO 1.5 TABLETS BY MOUTH DAILY DIRECTED Rx Instructions: 7.5 mg orally; 7.5mg po daily on sunday and and 5mg po daily all other days atorvastatin 40 mg tablet 40 mg PO DAILY Patient Comments: TAKE 1 TABLET BY MOUTH EVERY DAY carvedilol 3.125 mg tablet 3.125 mg PO BID Patient Comments: TAKE 1 TABLET BY MOUTH TWICE DAILY Xifaxan 550 mg Tablet 550 mg PO BID Qty: 60 0RF potassium chloride 10 mEq tablet extended release 20 meq PO DAILY Patient Comments: TAKE 2 TABLETS BY MOUTH EVERY DAY HPI General Mode of arrival: ambulatory. Date/Time Provider Initiated Documentation: 04/07/24 13:45. Limitations to Documentation: no limitations. Information obtained by: patient and family. HPI Narrative: 68yo M with hx of cirrhosis 2/t hemochromatosis, DM, HTN, afib, presenting for altered mental status. Has been increasingly confused over the last week, not sure of date, having trouble getting dressed, insomnia. Identical symptoms in the past when his ammonia levels were high, most recently admitted in Nov of last year for this. at bedside confirms history provided. Taking his medications as prescribed. No recent head injury or trauma. He is otherwise in his usual state of health with no fevers, chills, rash, nausea, vomiting, abdominal pain, diarrhea, numbness, tingling, weakness, headache, vertigo, vision changes, or other concerns. Related Data Home Medications ?Medication ?Instructions ?Recorded ?Confirmed Test Strips 1 unit topical BID 03/29/15 04/07/24 lancets 30 gauge 03/29/15 04/07/24 metformin 500 mg tablet 1,000 mg PO BID 03/29/15 04/07/24 ibuprofen 400 mg tablet 400 mg PO Q6H PRN PRN ##40 10/11/17 04/07/24 amlodipine 2.5 mg tablet 2.5 mg PO DAILY 12/16/19 04/07/24 lisinopril 20 mg tablet 20 mg PO DAILY 12/16/19 04/07/24 insulin glargine 100 unit/mL (3 30 unit subcut QPM 02/03/20 04/07/24 mL) subcutaneous pen (Lantus Solostar U-100 Insulin) atorvastatin 40 mg tablet 40 mg PO DAILY 12/04/23 04/07/24 carvedilol 3.125 mg tablet 3.125 mg PO BID 12/04/23 04/07/24 glipizide 10 mg tablet 10 mg PO DAILY 12/04/23 04/07/24 magnesium oxide 400 mg (241.3 mg 400 mg PO BID 12/04/23 04/07/24 magnesium) tablet omeprazole 20 mg capsule,delayed 20 mg PO DAILY PRN heartburn 12/04/23 04/07/24 release tamsulosin 0.4 mg capsule 0.4 mg PO Q24H 12/04/23 04/07/24 warfarin 5 mg tablet 7.5 mg PO .COMPLEX 12/04/23 04/07/24 rifaximin 550 mg tablet (Xifaxan) 550 mg PO BID #60 tabs 12/06/23 04/07/24 potassium chloride 10 mEq 20 meq PO DAILY 02/16/24 04/07/24 tablet,extended release lactulose 20 gram/30 mL oral 30 g (45 mL) PO QID #1,200 mL 02/20/24 04/07/24 solution Previous Rx's ?Medication ?Instructions ?Recorded ibuprofen 400 mg tablet 400 mg PO Q6H PRN PRN ##40 10/11/17 rifaximin 550 mg tablet (Xifaxan) 550 mg PO BID #60 tabs 12/06/23 lactulose 20 gram/30 mL oral 30 g (45 mL) PO QID #1,200 mL 02/20/24 solution Allergies Allergy/AdvReac Type Severity Reaction Status Date / Time No Known Allergies Allergy Verified 04/07/24 13:43 General Stated Complaint: AMS/LOC FAUSTO: 2 Review of Systems Narrative: see HPI Exam Narrative Exam Narrative: General: Alert, well appearing, well nourished, in no acute distress. Head: Normocephalic, atraumatic Neck: Trachea midline, ?Neck supple. ENT: ?MMM.? No oropharygeal lesions or exudate. Cardiac: ?RRR, no murmurs appreciated Resp: No respiratory distress. CTAB. Abd: ?Soft, non-distended, nontender. Extremities: ?No deformities.? 1+ symmetric peripheral edema BLE Neuro: ? GCS 14, oriented to person and place but not time.? PERRL.? EOMI.? Fluent speech, no dysarthria. Mild asterixis. Motor- 5/5 strength symmetric bilateral upper and lower extremities Sensation- ?Intact to light touch and symmetric multiple dermatomes including upper and lower extremities Coordination- No dysmetria on finger to nose Reflexes- 2/4 achilles & patellar, no clonus Gait/station: ?Normal stance.? No truncal ataxia. Steady gait with equal normal steps CRANIAL NERVES: II: Pupils equal and reactive, III, IV, : EOM intact, no gaze preference or deviation, no nystagmus. V: normal sensation in V1, V2, and V3 segments bilaterally VII: no asymmetry, no nasolabial fold flattening VIII: normal hearing to speech IX, X: normal palatal elevation, no uvular deviation XI: 5/5 head turn and 5/5 shoulder shrug bilaterally XII: midline tongue protrusion Course Vital Signs Vital signs: Vital Signs Temperature 36.3 C L 04/07/24 13:37 Pulse 66 04/07/24 13:37 Respiratory Rate 12 04/07/24 13:37 Blood Pressure 183/97 H 04/07/24 13:37 Pulse Oximetry 98 04/07/24 13:37 Temperature 36.3 C L 04/07/24 13:37 Temperature Source Oral 04/07/24 13:37 Pulse 66 04/07/24 13:37 Respiratory Rate 20 04/07/24 13:53 Respiratory Effort Normal, Non-Labored 04/07/24 13:53 Respiratory Depth Normal 04/07/24 13:53 Respiratory Pattern Normal 04/07/24 13:53 Blood Pressure 183/97 H 04/07/24 13:37 Blood Pressure Position Sitting 04/07/24 13:37 Pulse Oximetry 98 04/07/24 13:37 Oxygen Delivery Method Room Air 04/07/24 13:37 Oxygen Flow Rate 0 04/07/24 13:37 Pain Level 0 04/07/24 13:37 Medical Decision Making 68yo M with hx of cirrhosis 2/t hemochromatosis, DM, HTN, afib, presenting for altered mental status. Has been increasingly confused over the last week; identical symptoms in the past when his ammonia levels were high, most recently admitted in Nov of last year for this. Hypertensive on arrival, vital signs otherwise reassuring. Aside from not being oriented to time, normal neurologic exam. No palpable ascites, no abdominal tenderness, not suggestive of SBP. Slight asterixis. Labs reviewed as below, CBC with no leukocytosis or anemia, CMP with elevated bili 3.5 (similar to most recent admission), Mg normal, CK normal, ETOH & acetinimnophen negative, TSH normal, coags slightly elevated consistent with known liver disease. Ammonia elevated at 143. CT head independently reviewed; no ICH/SDH/mass on my view, radiology read below with no acute findings. Discussed with [facility] hospitalist Dr. Padilla; pt accepted to medicine service. Awaiting admission orders and transfer to the floor. Medical Records Medical records reviewed: Yes I reviewed the patient's medical records. Imaging Data Radiologic Study: Imaging: CT Scan Radiologist's impression: No acute intracranial process. Lab Data Lab results reviewed: Yes I reviewed the patient's lab results. Labs: Laboratory Tests Range/Units 04/07/24 14:10 WBC (4.4-10.8) 10^3/uL 5.83 RBC (4.36-5.78) 10^6/uL 4.51 Hgb (13.5-17.5) g/dL 14.6 Hct (40.0-50.0) % 43.1 MCV (80-95) fL 96 H MCH (27.0-33.0) pg 32.4 MCHC (32.0-36.0) % 33.9 RDW (11.8-14.1) % 13.5 Plt Count (130-400) 10^3/uL 147 MPV (8.0-11.0) fL 10.5 Immature Gran % % 0.2 Neutrophils % % 57.9 Lymphocytes % % 26.8 Monocytes % % 8.2 Eosinophils % % 6.0 Basophils % % 0.9 Nucleated RBC % (0.0-0.3) % 0.0 Absolute Neutrophils (1.2-6.7) 10^3/uL 3.38 Absolute Lymphocytes (1.2-3.4) 10^3/uL 1.56 Absolute Monocytes (0.1-0.8) 10^3/uL 0.48 Absolute Eosinophils (0.0-0.7) 10^3/uL 0.35 Absolute Basophils (0.0-0.2) 10^3/uL 0.05 PT (9.1-11.1) sec 15.5 H INR (0.9-1.1) 1.6 H APTT (20.6-30.2) sec 31.9 H Sodium (136-145) mmol/L 145 Potassium (3.5-5.1) mmol/L 4.0 Chloride (98-107) mmol/L 110 H Carbon Dioxide (21.0-32.0) mmol/L 24.8 Anion Gap (3-11) mmol/L 10.2 BUN (7-18) mg/dL 8 Creatinine (0.70-1.30) mg/dL 0.8 Est GFR (CKD-EPI 2020) (mL/min/1.73m2) 95.21 Glucose (74-106) mg/dL 249 H Calcium (8.5-10.1) mg/dL 8.8 Magnesium (1.8-2.4) mg/dL 1.9 Total Bilirubin (0.2-1.0) mg/dL 3.49 H AST (15-37) U/L 36 ALT (16-63) U/L 39 Alkaline Phosphatase (46-116) U/L 159 H Ammonia (11-32) umol/L 143 H Creatine Kinase (39-308) U/L 64 Total Protein (6.4-8.2) g/dL 6.3 L Albumin (3.4-5.0) g/dL 3.2 L TSH (0.36-3.74) uIU/mL 2.35 Acetaminophen (10-30) ug/mL < 2 Ethyl Alcohol (<10) mg/dL < 3.0 Quality:SDOH Health Related Social Needs: No Data to Display PFSH All Active Problems (Updated 04/07/24 @ 17:15 by Camila Justice MD) Encephalopathy, hepatic (Acute) Incurved toenail (Acute) BPH (benign prostatic hyperplasia) (Chronic) Chronic anticoagulation (Chronic) Paroxysmal atrial fibrillation (Chronic) Hemochromatosis, unspecified (Chronic) Diabetes (Chronic) Hypertension (Chronic) PVCs (premature ventricular contractions) (Acute) Social History Smoking/Tobacco Use Status: Current-Occasional Tobacco Type: cigars Smoking risk assessment performed?: Yes Alcohol Intake: former Drug use: Occasionally Substance use type: marijuana Housing: house Do you feel safe at home: Yes Do you feel safe in your relationship?: Yes
[2024-04-07 14:19] LABS: Abs Immature Grans 0.01 10^3/uL (0.0-0.06); Absolute Basophil Count 0.05 10^3/uL (0.0-0.2); Absolute Eosinophil Count 0.35 10^3/uL (0.0-0.7); Absolute Lymphocyte Count 1.56 10^3/uL (1.2-3.4); Absolute Monocyte Count 0.48 10^3/uL (0.1-0.8); Absolute Neutrophil Count 3.38 10^3/uL (1.2-6.7); Basophils % 0.9 %; HCT 43.1 % (40.0-50.0); HGB 14.6 g/dL (13.5-17.5); Immature Grans % 0.2 %; Lymphocytes % 26.8 %; MCH 32.4 pg (27.0-33.0); MCHC 33.9 % (32.0-36.0); MCV 96 fL (80-95); MPV 10.5 fL (8.0-11.0); Monocytes % 8.2 %; Neutrophils % 57.9 %; Platelet Count 147 10^3/uL (130-400); RBC 4.51 10^6/uL (4.36-5.78); RDW 13.5 % (11.8-14.1); RDW-SD 47.8 fL; WBC 5.83 10^3/uL (4.4-10.8)
[2024-04-07 14:33] LABS: INR 1.6 (0.9-1.1); Prothrombin Time 15.5 sec (9.1-11.1)
[2024-04-07 14:37] LABS: Acetaminophen < 2 ug/mL (10-30)
[2024-04-07 14:38] LABS: Ammonia 143 umol/L (11-32)
[2024-04-07 14:51] LABS: ALT 39 U/L (16-63); AST 36 U/L (15-37); Albumin 3.2 g/dL (3.4-5.0); Alkaline Phosphatase 159 U/L (46-116); Anion Gap 10.2 mmol/L (3-11); BUN 8 mg/dL (7-18); Bilirubin, Total 3.49 mg/dL (0.2-1.0); CO2 24.8 mmol/L (21.0-32.0); CREATININE 0.8 mg/dL (0.70-1.30); Calcium 8.8 mg/dL (8.5-10.1); Chloride 110 mmol/L (98-107); Creatine Kinase 64 U/L (39-308); Estimated GFR 95.21 (mL/min/1.73m2); Glucose 249 mg/dL (74-106); Magnesium 1.9 mg/dL (1.8-2.4); Sodium 145 mmol/L (136-145); TSH (W/Ref FT4) 2.35 uIU/mL (0.36-3.74); Total Protein 6.3 g/dL (6.4-8.2)
[2024-04-07 14:55] LABS: ETHANOL BLOOD < 3.0 mg/dL (<10)
[2024-04-07 15:07] LABS: PTT Activated 31.9 sec (20.6-30.2)
--- NOTE | 2024-04-07 15:42 | DI.CT_ITS ---
Exam(s) CT HEAD WO EXAM: CT HEAD WO CLINICAL HISTORY: altered mental status. TECHNIQUE: Imaging Protocol: Axial computed tomography images with coronal and sagittal reformatted images were created and reviewed COMPARISON: CT CT HEAD WO from 01/12/[address] HEAD WO from 02/18/2024 FINDINGS: Ventricles and Extra axial spaces: Normal in size and morphology for the patient's age. Hemorrhage: None. Cerebral parenchyma: No evidence of an acute territorial infarct. No mass effect is present. Midline shift: None. Brainstem/Cerebellum: Normal. Calvarium: Normal. Visualized Paranasal sinuses/Mastoids: There is mucosal thickening in the paranasal sinuses. The mas toid air cells are clear. Soft Tissues: Unremarkable. IMPRESSION: No acute intracranial process. RADIATION DOSE DELIVERED: 893.7mGy.cm Total DLP DATA REPOSITORY: All CT scans at this facility are submitted to the National Radiology Data Registry (NRDR) Dose Index Registry (DIR) with the [employer] (ACR). RADIATION OPTIMIZATION: All CT scans at this facility use at least one of these dose optimization te chniques: automated exposure control; mA and/or kV adjustment per patient size (includes targeted exa ms where dose is matched to clinical indication); or iterative reconstruction.
--- NOTE | 2024-04-07 17:32 | W.PM.HP.N ---
Date of service: 04/07/24 Time of Service: 17:32 Assessment and Plan Assessment and plan (1) Hypertension: Status: Chronic Assessment and plan: Pt is on amlodipine 2.5 mg po daily, coreg 3.125 mg po bid lisinopril will monitor in house (2) Paroxysmal atrial fibrillation: Status: Chronic Assessment and plan: c/w coumadin, he is appropriately anticoagulated (3) Chronic anticoagulation: Status: Chronic (4) Diabetes: Status: Chronic Assessment and plan: cw medical management including metformin and glipizide (5) Encephalopathy, hepatic: Status: Acute Assessment and plan: add low dose erythromycin and continue rifaximin at 550mg po bid and increase lactulose to 45 qid (6) Hemochromatosis, unspecified: Status: Chronic (7) BPH (benign prostatic hyperplasia): Status: Chronic Assessment and plan: cw flomax History of Present Illness History of Present Illness Chief Complaint: confusion Narrative: This is a 68-year-old gentleman with a known history of cirrhosis due to hemochromatosis who presents to the hospital with worsening confusion. Workup in the ED including labs radiographs were ordered and it was discovered that he had worsening encephalopathy and was subsequently mated to the hospital service for further evaluation and treatment. Per my discussion with both the patient as well as the his mental status has been decreasing over the last week or so. If a baseline level mentation would be a candidate as he is running about a 5 or 6. There does not appear to be any overt cause for change in mental status for example of infection. The patient does follow with a liver specialist at [facility]. Patient will be admitted for my review of his medications appears he is on fairly robust treatment. Will monitor for improvements. Review of Systems All systems reviewed & are unremarkable except as noted in HPI and below PFSH All Active Problems (Updated 04/07/24 @ 17:15 by Camila Justice MD) Encephalopathy, hepatic (Acute) Incurved toenail (Acute) BPH (benign prostatic hyperplasia) (Chronic) Chronic anticoagulation (Chronic) Paroxysmal atrial fibrillation (Chronic) Hemochromatosis, unspecified (Chronic) Diabetes (Chronic) Hypertension (Chronic) PVCs (premature ventricular contractions) (Acute) Social History Smoking/Tobacco Use Status: Current-Occasional Tobacco Type: cigars Smoking risk assessment performed?: Yes Alcohol Intake: former Drug use: Occasionally Substance use type: marijuana Housing: house Do you feel safe at home: Yes Do you feel safe in your relationship?: Yes Meds Allergies and Home Medications Allergies Allergy/AdvReac Type Severity Reaction Status Date / Time No Known Allergies Allergy Verified 04/07/24 13:43 Home Medications ?Medication ?Instructions ?Recorded ?Confirmed ?Type Test Strips 1 unit topical BID 03/29/15 04/07/24 History lancets 30 gauge 03/29/15 04/07/24 History metformin 500 mg tablet 1,000 mg PO BID 03/29/15 04/07/24 History ibuprofen 400 mg tablet 400 mg PO Q6H PRN PRN ##40 10/11/17 04/07/24 Rx amlodipine 2.5 mg tablet 2.5 mg PO DAILY 12/16/19 04/07/24 History lisinopril 20 mg tablet 20 mg PO DAILY 12/16/19 04/07/24 History insulin glargine 100 unit/mL (3 30 unit subcut QPM 02/03/20 04/07/24 History mL) subcutaneous pen (Lantus Solostar U-100 Insulin) atorvastatin 40 mg tablet 40 mg PO DAILY 12/04/23 04/07/24 History carvedilol 3.125 mg tablet 3.125 mg PO BID 12/04/23 04/07/24 History glipizide 10 mg tablet 10 mg PO DAILY 12/04/23 04/07/24 History magnesium oxide 400 mg (241.3 mg 400 mg PO BID 12/04/23 04/07/24 History magnesium) tablet omeprazole 20 mg capsule,delayed 20 mg PO DAILY PRN heartburn 12/04/23 04/07/24 History release tamsulosin 0.4 mg capsule 0.4 mg PO Q24H 12/04/23 04/07/24 History warfarin 5 mg tablet 7.5 mg PO .COMPLEX 12/04/23 04/07/24 History rifaximin 550 mg tablet (Xifaxan) 550 mg PO BID #60 tabs 12/06/23 04/07/24 Rx potassium chloride 10 mEq 20 meq PO DAILY 02/16/24 04/07/24 History tablet,extended release lactulose 10 gram/15 mL oral 30 g PO QID 04/07/24 04/07/24 History solution Exam Narrative Exam Narrative: HEENT: Normocephalic atraumatic mucous membranes are moist he does have some bilateral scleral icterus Neck: No lymphadenopathy no JVD no thyromegaly Cardiovascular: Regular rate and rhythm no murmur rubs or gallops lungs: Clear to auscultation bilaterally with good air exchange Abdomen: Soft nontender nondistended no hepatomegaly is appreciated Extremities: 2+ extremity edema bilaterally neurologic: He does have some bilateral asterixis General: 68-year-old gentleman appears older than stated age but can give a linear history although somewhat slowly. Results Labs 04/07/24 14:10 04/07/24 14:10 Labs: Laboratory Results - last 24 hr 04/07/24 14:10 WBC 5.83 RBC 4.51 Hgb 14.6 Hct 43.1 MCV 96 H MCH 32.4 MCHC 33.9 RDW 13.5 Plt Count 147 MPV 10.5 Immature Gran % 0.2 Neutrophils % 57.9 Lymphocytes % 26.8 Monocytes % 8.2 Eosinophils % 6.0 Basophils % 0.9 Nucleated RBC % 0.0 Absolute Neutrophils 3.38 Absolute Lymphocytes 1.56 Absolute Monocytes 0.48 Absolute Eosinophils 0.35 Absolute Basophils 0.05 PT 15.5 H INR 1.6 H APTT 31.9 H Sodium 145 Potassium 4.0 Chloride 110 H Carbon Dioxide 24.8 Anion Gap 10.2 BUN 8 Creatinine 0.8 Est GFR (CKD-EPI 2020) 95.21 Glucose 249 H Calcium 8.8 Magnesium 1.9 Total Bilirubin 3.49 H AST 36 ALT 39 Alkaline Phosphatase 159 H Ammonia 143 H Creatine Kinase 64 Total Protein 6.3 L Albumin 3.2 L TSH 2.35 Acetaminophen < 2 Ethyl Alcohol < 3.0 Last Vital Signs Temp 36.3 C L 04/07/24 13:37 Pulse 66 04/07/24 13:37 Resp 20 04/07/24 13:53 BP 183/97 H 04/07/24 13:37 Pulse Ox 100 04/07/24 15:50 Time Spent Time spent with Patient: 55-74 minutes Time was spent: preparing to see the patient(eg.review tests), ordering medications,tests, procedures, referring, communicating with other health medicare compliance auditor, indepentently interpreting results, counseling the patient and care coordination
--- NOTE | 2024-04-07 17:58 | W.PC.ACHO ---
Registration Status: Primary Language: Preferred Language: ED Information & Data Chief Complaint AMS/LOC 04/07/24 14:17 Triage Note Patient here with what he 04/07/24 13:37 thinks are increased ammonia levels. Has been hospitalized for this before . C/O some confusion, insomnia. No CP, no sob. Most Recent Vital Signs Temperature 36.3 C L 04/07/24 13:37 Temperature Source Oral 04/07/24 13:37 Pulse 66 04/07/24 13:37 Respiratory Rate 20 04/07/24 13:53 Respiratory Effort Normal, Non-Labored 04/07/24 13:53 Respiratory Depth Normal 04/07/24 13:53 Respiratory Pattern Normal 04/07/24 13:53 Blood Pressure 183/97 H 04/07/24 13:37 Blood Pressure Position Sitting 04/07/24 13:37 Pulse Oximetry 100 04/07/24 15:50 Oxygen Delivery Method Room Air 04/07/24 13:37 Oxygen Flow Rate 0 04/07/24 13:37 Pain Level 0 04/07/24 13:37 Allergies No Known Allergies Allergy (Verified 04/07/24 13:43) Precautions Isolation Standard precaution 04/07/24 13:42 IV IV Catheter Type [Right Saline Lock Antecubital] IV Catheter Gauge [Right 18 Antecubital] Diet Orders Category Date Time Status Regular/Normal [DIET] Nutrition 04/08/24 Breakfast Ordered Diagnostics 04/07/24 Range/Units 14:10 WBC 5.83 (4.4-10.8) 10^3/uL RBC 4.51 (4.36-5.78) 10^6/uL Hgb 14.6 (13.5-17.5) g/dL Hct 43.1 (40.0-50.0) % MCV 96 H (80-95) fL MCH 32.4 (27.0-33.0) pg MCHC 33.9 (32.0-36.0) % RDW 13.5 (11.8-14.1) % Plt Count 147 (130-400) 10^3/uL MPV 10.5 (8.0-11.0) fL Immature Gran % 0.2 % Neutrophils % 57.9 % Lymphocytes % 26.8 % Monocytes % 8.2 % Eosinophils % 6.0 % Basophils % 0.9 % Nucleated RBC % 0.0 (0.0-0.3) % Absolute Neutrophils 3.38 (1.2-6.7) 10^3/uL Absolute Lymphocytes 1.56 (1.2-3.4) 10^3/uL Absolute Monocytes 0.48 (0.1-0.8) 10^3/uL Absolute Eosinophils 0.35 (0.0-0.7) 10^3/uL Absolute Basophils 0.05 (0.0-0.2) 10^3/uL PT 15.5 H (9.1-11.1) sec INR 1.6 H (0.9-1.1) APTT 31.9 H (20.6-30.2) sec Sodium 145 (136-145) mmol/L Potassium 4.0 (3.5-5.1) mmol/L Chloride 110 H (98-107) mmol/L Carbon Dioxide 24.8 (21.0-32.0) mmol/L Anion Gap 10.2 (3-11) mmol/L BUN 8 (7-18) mg/dL Creatinine 0.8 (0.70-1.30) mg/dL Est GFR (CKD-EPI 2020) 95.21 (mL/min/1.73m2) Glucose 249 H (74-106) mg/dL Calcium 8.8 (8.5-10.1) mg/dL Magnesium 1.9 (1.8-2.4) mg/dL Total Bilirubin 3.49 H (0.2-1.0) mg/dL AST 36 (15-37) U/L ALT 39 (16-63) U/L Alkaline Phosphatase 159 H (46-116) U/L Ammonia 143 H (11-32) umol/L Creatine Kinase 64 (39-308) U/L Total Protein 6.3 L (6.4-8.2) g/dL Albumin 3.2 L (3.4-5.0) g/dL TSH 2.35 (0.36-3.74) uIU/mL Acetaminophen < 2 (10-30) ug/mL Ethyl Alcohol < 3.0 (<10) mg/dL Intake and Output - 24 Hour Total 04/07/24 13:26 thru 04/07/24 13:37 Weight 84.368 kg Falls Risk Assessment History of Falls No History 04/07/24 13:42 Contributing Factors Impairments 04/07/24 13:42 Ambulatory Aids Independent 04/07/24 13:42 Tubes/Lines None 04/07/24 13:42 Gait Evaluation W/no contributing factors 04/07/24 13:42 Cognition No cognitive impairment 04/07/24 13:42 Fall Total Score 13 04/07/24 13:42 Level of Risk Standard/Low Risk 04/07/24 13:42 Problems (Last Reviewed 01/15/24 @ 13:51 by Davin Damon DO) Encephalopathy, hepatic (Acute) BPH (benign prostatic hyperplasia) (Chronic) Chronic anticoagulation (Chronic) Paroxysmal atrial fibrillation (Chronic) Hemochromatosis, unspecified (Chronic) Diabetes (Chronic) Hypertension (Chronic) v v v v v v v v v Sending and/or Receiving Nurses: Please use comment section below to note any information pertinent to the patient hand-off not included above. Information / Comments: Admitted to room 209 Report received from: VIKTOR Prakash. [id number]
[2024-04-07] MEDS: metFORMIN 500 MG TAB 1000 MG PO (18:44)
[2024-04-07] MEDS: Carvedilol 3.125 MG TAB PO (20:04)
[2024-04-07] MEDS: Magnesium Oxide 400 MG TAB PO (20:05)
[2024-04-07] MEDS: Lactulose 20 GM/30 ML CUP 45 GM PO (20:05)
[2024-04-07] MEDS: Rifaximin 550 MG TAB PO (20:05)
[2024-04-07] MEDS: Insulin Glargine 300 UNITS/3 ML PEN 30 UNITS SC (20:10)
[2024-04-07] MEDS: Normal Saline Flush 10 ML SYR IVP (20:11)
[2024-04-08] VITALS (7 sets, daily range): BP systolic 118–146; BP diastolic 63–80; PULSE 61–100; RESP 16–18; TEMP 36.8–37.2; O2SAT 95–100
--- NOTE | 2024-04-08 | DI.RAD_ITS ---
Exam(s) XR PORTABLE CHEST AP EXAM: XR PORTABLE CHEST AP CLINICAL HISTORY: fever TECHNIQUE: 2D digital imaging was performed. COMPARISON: CR XR PORTABLE CHEST AP from 01/12/2024 FINDINGS: LUNGS: Clear. No pleural abnormality seen. HEART: Normal size. AORTA: Normal diameter. BONES: Unremarkable for age. Soft tissues: Unremarkable. IMPRESSION: No acute findings. DATA REPOSITORY: RADIATION DOSE DELIVERED:
[2024-04-08 07:02] LABS: HCT 35.8 % (40.0-50.0); HGB 12.4 g/dL (13.5-17.5); MCH 32.4 pg (27.0-33.0); MCHC 34.6 % (32.0-36.0); MCV 94 fL (80-95); MPV 10.8 fL (8.0-11.0); Platelet Count 140 10^3/uL (130-400); RBC 3.83 10^6/uL (4.36-5.78); RDW 13.5 % (11.8-14.1); RDW-SD 45.7 fL; WBC 5.67 10^3/uL (4.4-10.8)
[2024-04-08 07:07] LABS: Ammonia 117 umol/L (11-32)
[2024-04-08 07:15] LABS: INR 1.7 (0.9-1.1); Prothrombin Time 16.7 sec (9.1-11.1)
[2024-04-08 07:44] LABS: ALT 30 U/L (16-63); AST 26 U/L (15-37); Albumin 2.6 g/dL (3.4-5.0); Alkaline Phosphatase 125 U/L (46-116); Anion Gap 7.5 mmol/L (3-11); BUN 7 mg/dL (7-18); Bilirubin, Total 2.86 mg/dL (0.2-1.0); CO2 25.5 mmol/L (21.0-32.0); CREATININE 0.6 mg/dL (0.70-1.30); Chloride 112 mmol/L (98-107); Estimated GFR 103.85 (mL/min/1.73m2); Glucose 174 mg/dL (74-106); Potassium 3.5 mmol/L (3.5-5.1); Sodium 145 mmol/L (136-145); Total Protein 5.4 g/dL (6.4-8.2)
[2024-04-08] MEDS: Lactulose 20 GM/30 ML CUP 45 GM PO ×4 (08:10→20:41)
[2024-04-08] MEDS: Tamsulosin 0.4 MG CAPCR PO (08:12)
[2024-04-08] MEDS: Atorvastatin 40 MG TAB PO (08:12)
[2024-04-08] MEDS: glipiZIDE 10 MG TAB PO (08:12)
[2024-04-08] MEDS: amLODIPine 2.5 MG TAB PO (08:13)
[2024-04-08] MEDS: metFORMIN 500 MG TAB 1000 MG PO ×2 (08:13→16:45)
[2024-04-08] MEDS: Lisinopril 20 MG TAB PO (08:13)
[2024-04-08] MEDS: Rifaximin 550 MG TAB PO ×2 (08:13→20:41)
[2024-04-08] MEDS: Magnesium Oxide 400 MG TAB PO ×2 (08:13→20:41)
[2024-04-08] MEDS: Carvedilol 3.125 MG TAB PO ×2 (08:13→20:41)
[2024-04-08] MEDS: Potassium Chloride 10 MEQ CAPCR 20 MEQ PO (08:15)
[2024-04-08] MEDS: Normal Saline Flush 10 ML SYR IVP ×2 (08:16→20:42)
--- NOTE | 2024-04-08 10:05 | PDOC.CMIN ---
Date of service: 04/08/24 Time of Service: 10:05 Care Management Initial Assmt Initial Assessment Reason for Hospitalization: encephalopathy Functional Status/Living Situation Patient Presentation: Shaji was sitting up in his chair when CM met with him. He stated that he is feeling better today than when he arrived. His , Melvina was in the room visiting. Melvina stated that they have three sons (Bran, Patrick, Miki), and that they are very helpful; she stated that rBan helps around the house and with firewood. Shaji stated that he had HH at the house, of which he was recently discharged. CM will request that a new referral is placed for HH RN and PT, which Shaji and Melvina both found helpful. Shaji stated that he has been here five times recently; upon chart review, he has had four admissions and two ED visits since November 2023. Palliative care was consulted, and will meet with them today. CM will continue to follow. Town of Residence: [facility] Resides with: Spouse (, Melvina) Significant Other/Family: Local Natural Supports: , Melvina. Three sons: Bran, Patrick and Miki. Employment Status: Retired Instrumental Activities of Daily Living (ADLs): Independent Medications Medication Management: No Issues/Barriers identified Physical Functioning/Mobility Assistive Device: FWW Advance Directives Advance Directives: Do you have an Advance Directive: N 09/05/12 15:39 AD On File at [facility]: N 06/19/12 11:48 Date Asked 04/07/24 04/07/24 13:32 AD Date Reviewed COLST On File at [facility] No 01/12/24 17:37 COLST Date Scanned Code Status Resuscitation Status Full Code Insurance Coverage/Financial Issues Insurance: [facility] Financial assist 100% Care Team Visit Care Team Role Provider Type Stefani Jones MD Primary Care Provider [facility] STAFF PHYSICIAN Sherry Gallardo Other Providers HOSE TURNER Heather Borrego Other Providers HOSE TURNER Nata Johnston Other Providers HOSE TURNER InPatient Shaji Jose Other Providers OTHER Cynthia Bell RN Other Providers HOSE TURNER Camila Justice MD Emergency Provider [facility] STAFF PHYSICIAN Davin Padilla MD Admit Provider [facility] STAFF PHYSICIAN Attending Provider Discharge Potential Discharge Needs: PCP F/U Appt Anticipated Barriers to Discharge: None Identified Patient/Family Education Needs: Review discharge instructions, discuss Ask Me Three Transportation: Private vehicle Plan: Anticipate Shaji will return home once medically cleared with new orders for HH RN, PT. He will transport home via private vehicle by family. He will follow up with his PCP and discharge plan of care. CM will continue to follow. Social Determinants of Health Screening Social Determinants of Health last assessed: 04/08/24 Will the Patient Participate in the Screening?: Yes Do you worry about having a steady place to live?: no Problems where you live: no known problems In the past 12 months, have you had to go without electric, gas, oil or water in your home?: no Have you or anyone in your house had to go without enough food to eat?: no Has lack of transportation kept you from medical appointments or from doing things needed for daily living?: no Has anyone in your life made you feel unsafe or unsupported?: no How hard is it for you to pay for the very basics like food, housing, medical care, and heating? Would you say it is:: Somewhat hard Do you want help finding or keeping work or a job?: I do not need or want help If for any reason you need help with day-to-day activities such as bathing, preparing meals, shopping, managing finances, etc., do you get the help you need?: I get all the help I need How often do you feel lonely or isolated from those around you?: Never Do you speak a language other than Montenegrin at home?: No Does the patient want assistance with any of the above?: No Health Related Social Needs Health related social needs: problems related to housing/economic circumstances (Z59.89) PFSH All Active Problems (Updated 04/07/24 @ 17:15 by Camila Justice MD) Encephalopathy, hepatic (Acute) Incurved toenail (Acute) BPH (benign prostatic hyperplasia) (Chronic) Chronic anticoagulation (Chronic) Paroxysmal atrial fibrillation (Chronic) Hemochromatosis, unspecified (Chronic) Diabetes (Chronic) Hypertension (Chronic) PVCs (premature ventricular contractions) (Acute) Social History Smoking/Tobacco Use Status: Current-Occasional Tobacco Type: cigars Smoking risk assessment performed?: Yes Alcohol Intake: former Drug use: Occasionally Substance use type: marijuana Housing: house Do you feel safe at home: Yes Do you feel safe in your relationship?: Yes Anticipated HH Services Anticipated HH Services at Discharge [facility] Needed, PT and RN Anticipated Date of Discharge: 04/09/24. Following Provider: Stefani Jones.
--- NOTE | 2024-04-08 10:52 | PGE_ITS ---
Date of Service Date of service: 04/08/24 Time of Service: 10:52 Assessment and Plan Assessment and plan (1) Hypertension: Status: Chronic Assessment and plan: Pt is on amlodipine 2.5 mg po daily, coreg 3.125 mg po bid lisinopril will monitor in house . BP remains somewhat elevated. Will need optimization in the outpatient setting (2) Paroxysmal atrial fibrillation: Status: Chronic Assessment and plan: c/w coumadin, he is appropriately anticoagulated (3) Chronic anticoagulation: Status: Chronic (4) Diabetes: Status: Chronic Assessment and plan: cw medical management including metformin and glipizide (5) Encephalopathy, hepatic: Status: Acute Assessment and plan: add low dose erythromycin and continue rifaximin at 550mg po bid and increase lactulose to 45 qid. PT did have some improvement with a decreasing ammonia level. Will order a ua and cxr to rule out infectious cause. Pt denies any change in his diet (6) Hemochromatosis, unspecified: Status: Chronic (7) BPH (benign prostatic hyperplasia): Status: Chronic Assessment and plan: cw flomax Subjective Subjective Interval history since last seen: Pt seen and examined in his room this am. Pt did appear to have improving mentation. POC d/w pt as well as a bedside nurse during MDR. Exam Narrative Exam Narrative: HEENT: Normocephalic atraumatic mucous membranes are moist he does have some bilateral scleral icterus Neck: No lymphadenopathy no JVD no thyromegaly Cardiovascular: Regular rate and rhythm no murmur rubs or gallops lungs: Clear to auscultation bilaterally with good air exchange Abdomen: Soft nontender nondistended no hepatomegaly is appreciated Extremities: 2+ extremity edema bilaterally neurologic: He does have some bilateral asterixis General: 68-year-old gentleman appears older than stated age but can give a linear history although somewhat slowly. Objective Last Vital Signs Temp 37 C 04/08/24 07:37 Pulse 79 04/08/24 07:37 Resp 18 04/08/24 07:37 BP 146/71 H 04/08/24 07:37 Pulse Ox 97 04/08/24 07:37 Laboratory Results - last 24 hr 04/07/24 04/08/24 14:10 06:44 WBC 5.83 5.67 RBC 4.51 3.83 L Hgb 14.6 12.4 L D Hct 43.1 35.8 L MCV 96 H 94 MCH 32.4 32.4 MCHC 33.9 34.6 RDW 13.5 13.5 Plt Count 147 140 MPV 10.5 10.8 Immature Gran % 0.2 Neutrophils % 57.9 Lymphocytes % 26.8 Monocytes % 8.2 Eosinophils % 6.0 Basophils % 0.9 Nucleated RBC % 0.0 Absolute Neutrophils 3.38 Absolute Lymphocytes 1.56 Absolute Monocytes 0.48 Absolute Eosinophils 0.35 Absolute Basophils 0.05 PT 15.5 H 16.7 H INR 1.6 H 1.7 H APTT 31.9 H Sodium 145 145 Potassium 4.0 3.5 Chloride 110 H 112 H Carbon Dioxide 24.8 25.5 Anion Gap 10.2 7.5 BUN 8 7 Creatinine 0.8 0.6 L Est GFR (CKD-EPI 2020) 95.21 103.85 Glucose 249 H 174 H Calcium 8.8 8.0 L Magnesium 1.9 Total Bilirubin 3.49 H 2.86 H AST 36 26 ALT 39 30 Alkaline Phosphatase 159 H 125 H Ammonia 143 H 117 H Creatine Kinase 64 Total Protein 6.3 L 5.4 L Albumin 3.2 L 2.6 L TSH 2.35 Acetaminophen < 2 Ethyl Alcohol < 3.0 Time Spent with Patient Time Spent with Patient: 35-49 minutes Time was spent: preparing to see the patient(eg.review tests), ordering medications,tests, procedures, referring, communicating with other health tire care manager, indepentently interpreting results, counseling the patient and care coordination
--- NOTE | 2024-04-08 11:12 | IN_ITS ---
PT Notes Visit Reasons: encephalopathy Physical Therapy Inpatient Initial Evaluation Date: 04/08/2024 Referring Doctor: Davin Padilla MD PT Orders: PT CONSULT: Eval/Treat Precautions: Fall. Standard. Activity as tolerated. Patient Profile/Admitting Diagnosis: Shaji is a 68-year-old male admitted to the ED on 04/07/2024 due to worsening altered mental status. Patient is admitted to [facility] level of care for management of HTN, PAF, Diabtees, hepatic encephalopathy, hemochromatosis, and BPH. PMHX: All Active Problems (Updated 04/07/24 @ 17:15 by Camila Justice MD) Encephalopathy, hepatic (Acute) Incurved toenail (Acute) BPH (benign prostatic hyperplasia) (Chronic) Chronic anticoagulation (Chronic) Paroxysmal atrial fibrillation (Chronic) Hemochromatosis, unspecified (Chronic) Diabetes (Chronic) Hypertension (Chronic) PVCs (premature ventricular contractions) (Acute) Social History/Home Situation: Lives with in a private home with ramp to enter. Does not use any assistive device at home. Equipment Owned/DME: FWW, SPC Subjective: Pleasant and cooperative. Denide headache, chest pain, and lightheadedness throughout session. Objective: General Observation: Seated on bedside chair. No lines. Mental Status: Alert and oriented as to person and purpose. Able to pay attention, focus, and respond appropriately. Pain: None reported Vital Signs: Closely monitored by nursing staff ROM: Right Upper Extremity: Shoulder Flexion allows up to about 140 degrees. Shoulder abduction allows up to about 100 degrees. Elbow flexion WFL. Wrist flexion WFL. Functional opening and closing of hand WFL. Left Upper Extremity: Shoulder Flexion allows up to about 140 degrees. Shoulder abduction allows up to about 100 degrees. Elbow flexion WFL. Wrist flexion WFL. Functional opening and closing of hand WFL. Right Lower Extremity: Hip flexion WFL. Hip abduction WFL. Knee flexion WFL. Ankle dorsiflexion to neutral only. Ankle plantarflexion WFL. Left Lower Extremity: Hip flexion WFL. Hip abduction WFL. Knee flexion WFL. Ankle dorsiflexion to neutral only. Ankle plantarflexion WFL. Strength: Right Upper Extremity: Shoulder flexors 3-/5. Shoulder abductors 3-/5. Elbow flexors 4-/5. Elbow extensors 4-/5. Corporate Director Of Human Resources strong. Left Upper Extremity: Shoulder flexors 4-/5. Shoulder abductors 4-/5. Elbow flexors 4-/5. Elbow extensors 4-/5. Corporate Director Of Human Resources strong. Right Lower Extremity: Hip flexors 4-/5. Hip abductors 4-/5. Knee flexors 4-/5. Knee extensors 4-/5. Ankle dorsiflexors 4-/5. Ankle plantarflexors 4-/5. Left Lower Extremity: Hip flexors 4-/5. Hip abductors 4-/5. Knee flexors 4-/5. Knee extensors 4-/5. Ankle dorsiflexors 4-/5. Ankle plantarflexors 4-/5. Bed Mobility/Transfers: Minimal cueing provided for use of B hands as needed for support, movement sequence, AD management, and posture to reduce fall risk and minimize pain report Sit to stand supervision with FWW Stand to sit supervision with FWW Bed to toilet stand by assist with FWW Toilet seat to bed stand by assist with FWW Gait: Patient was able to tolerate 250 feet on level surface ambulation with standby assist using front wheeled walker with minimal verbal cueing for AD management, posture, and directional changes only. Stairs: Guided patient with safe and correct negotiation of 3 x 4 inch steps and 2 x 6 inch steps while holding onto bilateral rails with step over step gait pattern requiring only standby assist with minimal cueing only for safety. Balance: Static Sitting: Normal Dynamic Sitting: Normal Static Standing: Fair Dynamic Standing: Fair Special Tests: Mobility Limitations Standardized Measure [facility] 6 clicks Basic Mobility Inpatient Short Form: Raw Score: 23 CMS Score:11% deficit 4-Stage Balance Test: Feet together 10 seconds Semitandem 10 seconds Full tandem <10 seconds One-legged stance <10 seocnds Informed Consent/Education: Patient was instructed in purpose of PT consult and plan of care. Agreeable to proceed with established PT POC to achieve personal goals. Assessment: Patient presents with clinical signs and symptoms consistent with current/admitting diagnoses that have resulted to mobility limitations, gait instability, generalized weakness, and overall ADL decline as demonstrated by the following impairment level findings: 1. Decreased strength to B UE/LE major muscle groups 2. Impaired sitting/standing balance 3. Impaired activity tolerance Impairments are contributing to the following functional limitations: 1. Decline in bed mobility skills 2. Decline in transfer skills 3. Difficulty with ambulation without assistive device and physical assistance 4. Increased completion time for mobility ADL performance 5. Increased risk for falls 6. Difficulty with managing steps alone safely Patient is assessed as a 50529 moderate complexity based on the following: History: 68-year-old male with past medical history as indicated above Examination: Demonstrable impairment in strength, balance, and mobility level with underlying impairments and functional limitations as exhibited above Presentation: Stable Decision Makin moderate complexity Goals: Goals X1 week 1. Supine-Sit independent 2. Sit-Supine independent 3. Sit-Stand independent 4. Stand-Sit independent with FWW 5. Bed-Chair independent with FWW 6. Chair-Bed independent with FWW 7. Independent gait on level surface with use of FWW for at least 300 feet without report of pain nor dyspnea 8. Independent stair negotiation while holding onto B rails for at least 5 steps without report of pain nor dyspnea 9. Independent with home exercise program 10. Good static and dynamic standing balance/tolerance Plan of Care/Treatment Plan: 1-2x/day, 7 days/week x 1 week. Plan of care has been reviewed with the NETWORK OPERATIONS CENTER TECHNICIAN providing the service under Physical Therapy direction. Initiate Physical Therapy intervention for pain management as needed, strengthening, bed mobility, transfers, gait, stairs, balance training, and use of assistive device. DISCHARGE RECOMMENDATIONS: [] Home with no services [] [X] Home with services. Patient will benefit from home health PT services in order to progress mobility level using least restrictive assistive ambulatory device, assess home safety, identify additional equipment needs, and establish a functional maintenance program that will increase ability of patient to remain at home. [] Home with outpatient PT [] [] SNF for continued rehabilitation [] [] [facility] [] [] SNF versus LTC based on ability to participate and progress [] TREATMENT CODE/TIME: 35041 x 22 minutes for 1 unit (11:12-11:34). Thank you for the opportunity to participate in the care of this patient. Karie Johnson PT, DPT, CLT [facility] [place], [place]
[2024-04-08 12:20] LABS: Ferritin 58 ng/mL (26-388)
--- NOTE | 2024-04-08 12:51 | PCNE_ITS ---
Date of service: 04/08/24 Time of Service: 14:27 History of Present Illness Narrative: Chapincito May us a 68 yo man from [facility] with hemachromatosis, hx heavy EtOH use and secondary cirrhosis/End Stage Liver disease, who was admitted yesterday to [facility] with worsening hepatic encephalopathy. Palliative care team has been asked to meet with patient and his family to discuss goals of care given his serious illness. Hx today from and [facility] notes. Nothing in [facility] notes and PCP notes not available. Patient sleeping for the first half of my visit. Then awake but still pleasantly mildly confused (March, [place], cannot recall year or what his diagnosis is or the names of his sons) reports that he is scheduled to see liver specialist for the first time in at [facility] next month. Wide cannot recall that he saw GI in [place] in 2020 (note received from PCP office) Other medical problems include: Afib (on coumadin), htn, TYpe 2 DM. He smokes cigars and is a regular THC user History from [place], [facility], [facility] charts -Familial hemochromatosis. He did therapeutic phlebotomy for many years. She thinks he had Phlebotomy as recently as a few months ago. (Gets phlebotomy for ferritan over 100, last time in December 2023) describes that he had tried to stop drinking, but could not and was actively drinking until last summer. Back in the summer, he started walking funny and became confused. This led to his first hospital admission for hepatic encephalopathy. He has had 3+ admissions plus a few ED visits for HE since then. Melvina reports no EtOH since January. She says overall he has been much weaker over the last 3 years; unable to go hiking hunting while walking. Definitely different over the last 6 months: Always slightly confused, sometimes worse. Continues to drive, but she thinks no longer safe to do so. Apparently was resistant to having help with taking medications in the fall and several hospital readmissions attributed to him not taking his lactulose and Xifaxan. However Melvina reports that he is allowed her to manage his medications for the last 2 months and he never misses any doses. She notes that he is having no problems with diarrhea and has a bowel movement only once or twice a day. Patient feels he is no longer safe to drive. However their current car a stick shift and she cannot drive a stick shift. So up until now he has been driving. Care Team: Primary Care physician: Stefani Jones Gastroenterology: Schedule first appointment with [facility] liver clinic next month. Cardiology:Dr. Omalley (2019) Social HX: Marital Status: Melvina (together over 50 years). 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 Hobbies: Used to hike and fish and nelson and camp up to 3 years ago; Recently watching TV, No longer going for walks. Social (likes to talk to friends on phone) Additional Services: Impression of currents health status: Can't answer, conrad Carrasco, eventually tells me my problem is ammonia . : Its the ammonia level. What bothers you the most: Patient has no answer : Not being able to help him. Wishes he would do more What worries you the most: Patient not worried :THat he is not going to get better. Goals: Patient unable to give me goals today. : That he is feeling good enough to get more active. Stay sober (she thinks he will). Continue to get help from son. When prompted, and that does not have a goal of trading current stick shift car (that and that cannot drive) for car she can drive (i.e. automatic transmission). Function: Ambulation:Aids not needed. Sometimes uses a walker for the first few days after coming back from the hospital. ADLs: Independent up until a few days before admission iADLs: Prepares a simple snack. Can load stove with wood and stack wood when back to baseline over the last few months. She has always paid bills Hearing: Not great, (too many rock concerts). No hearing aids. Vision: Glasses. Cognition:Now always slightly confused, even at his highest baseline since last summer. Falls: None recently Driving: He is still driving and thinks is no longer safe. Palliative Performance Scale % Ambulation Activity and Evidence of Disease Self Care Intake Level of Consciousness 100 Full Normal activity, no evidence of disease Full Normal Full 90 Full Normal activity, some evidence of disease Full Normal Full 80 Full Normal activity with effort, some evidence of disease Full Normal or reduced Full 70 Reduced Unable to do normal work, some evidence of disease Full Normal or reduced Full 60 Reduced Unable to do hobby or some housework, significant disease Occasional assist necessary Normal or reduced Full or confusion 50 Mainly sit/lie Unable to do any work, extensive disease Considerable assistance required Normal or reduced Full or confusion 40 Mainly in bed Unable to do any work, extensive disease Mainly assistance Normal or reduced Full, drowsy, or confusion 30 Totally bed bound Unable to do any work, extensive disease Total care Reduced Full, drowsy, or confusion 20 Totally bed bound Unable to do any work, extensive disease Total care Minimal sips Full, drowsy, or confusion 10 Totally bed bound Unable to do any work, extensive disease Total care Mouth care only Drowsy or coma 0 - - - - Patient Score: 60 Meld SCore: Not calculated today Spiritual history: Not buddhism, no prayer. Coping:support from , drinking. Palliative review of systems: No answers to many of these questions. Pain: Dyspnea: GI symptoms: Appetite: Depression: Patient denies Anxiety: None Emotional Distress: Spiritual/Existential Distress: Labs: Cr: 0.6 Liver panel: Bili 3.49, NL AST/ALT, Alk Phos 159 Albumin: CBC: hgb 12.4 [id number] 114 Advanced Care Planning: Advanced Directive: None Health Care Agent: 04/08/2024 H[facility] form Melvina is HCA, sons are alternates. COLST: Full code Limitations: Assessment and Plan Assessment and plan (1) Cirrhosis: Status: Acute Assessment and plan: Chapincito Boston is a 68-year-old gentleman with cirrhosis due to hemochromatosis and history of EtOH. Over the last 6 months he is increasingly weak and unable to participate in his previous avocations. Since the summer 2023 he has had multiple hospital admissions for hepatic encephalopathy. Initially was felt he was not taking medications as prescribed. But he is finally allowed to manage medications and she reports that he is getting his lactulose and Xifaxan daily as prescribed. Yet he continues to have intermittent admissions for hepatic encephalopathy. No obvious GI bleeding or if infections identified with the last few admissions. It sounds like the hepatic encephalopathy never completely clears. #EtOH use: confirms EtOH abstinence. When I asked about depression, both patient and felt he was not depressed. asked if there was a medication to help him maintain sobriety. Acamprosate(66 6 mg TID) Could be tried if needed. But pt seems to want to avoid more medications. If he has relapse, would chante try. # Hemochromatosis: PCP will continue to monitor ferritin and phlebotomize as needed. #Hepatic encephalopathy: Unfortunately this is turning out to be a chronic issue, never completely clearing (even when taking medications as prescribed). -Patient will continue to take his aspirin and lactulose -Upcoming consult with recommendations from [facility] liver clinic -Avoid medications that could contribute to HE (especially sedating medications) -Recommend no driving until specifically given permission from PCP. Discussed this with . I believe unlikely that he will ever be clear enough again to drive safely. -Recommend having family member present for all conversations. -Patient appears to have capacity to make simple decisions today but does not appear to have capacity for more complex decisions. I suspect this frequently changes #Goals of care and advance care planning: Long discussion with today, her goal for him is that he will get stronger and better be able to resume going for walks. She also hopes that he remains sober. At this point she is able to care for him at home. The 2 sons who live locally are very helpful with doing heavier chores and providing transportation. She and her have not had very many discussions on what they would want if they became ill or incapacitated. For now she thinks he would want to be readmitted to the hospital and treated. She says they are both looking forward to meeting with liver clinic. We discussed the procedure of CPaR, actual mechanical process, rate of success in restoring heartbeat, short and long-term side effects in survivors (including likely decreased physical and cognitive functioning). She is pretty sure that Chapincito would only want a short trial at CPR and would only like to be kept on a machine for a few days and then allowed to if not improving. We agreed to meet again once Chapincito's home and at his best possible cognitive baseline to have this discussion with him. Healthcare agent: Chapincito was quick and clear with his answer that he would want Melvina () to make medical decisions for him if he was unable to do so for himself. He would want his sons to be alternate Co-agents. [place] healthcare agent form completed today stating this. Copy will be faxed to PCP office and home health. Original given to . #Caregiver stress: Melvina seemed somewhat timid and uncomfortable about making decisions for Chapincito. I note that he bought a car for both of them that only he could drive. However I get the sense that she is slowly adjusting to theri new normal and rising to the occasion, making decisions for both of them. She successfully took over managing his medications and reports no further protestations. I think this will be an ongoing process for her. Sounds like she appreciates the support and frequent presenceof her sons and her granddaughter. Palliative care team will continue to engage with Chapincito and Melvina. Given Chapincito's diagnosis of end-stage liver dz with hepatic encephalopathy, Melvina will likely need to make ongoing medical decisions for Chapincito, PCT will continue to support Melvina. I hope to give her copy of [place] Making medical decision for someone else pamflet at our next meeting. Consider inviting sons to next visit as well. PCT will f/u in 2 days if inpt and 3 weeks if outpt. (2) Encephalopathy, hepatic: Status: Acute (3) Paroxysmal atrial fibrillation: Status: Chronic (4) Chronic anticoagulation: Status: Chronic (5) Hypertension: Status: Chronic (6) Advanced care planning/counseling discussion: Status: Acute (7) Palliative care patient: Status: Acute Assessment and plan: 16 to 30 minutes spent today on Advance Care Planning. Patient and family participated voluntarily. Advance care planning may include (not limited to) explanation and discussion of advance directives, choosing and appointing healthcare agents, alternatives to various ACP tools, discussion of (and if indicated, completion of) COLST form, discussion of patient's values and overall goals for treatment, palliative and disease directive care options, ways to avoid hospital readmission including hospice discussions, care preferences should the patient's several other adverse health events.See today's palliative care note for additional information. This note was dictated using speech recognition software. Attempt was made at proofreading, but errors may be present. Please call with questions. PFSH All Active Problems (Updated 04/08/24 @ 15:40 by Brianna Smith MD) Palliative care patient (Acute) Advanced care planning/counseling discussion (Acute) Cirrhosis (Acute) From hemochromatosis and Hx EtOH overuse Encephalopathy, hepatic (Acute) Incurved toenail (Acute) BPH (benign prostatic hyperplasia) (Chronic) Chronic anticoagulation (Chronic) Paroxysmal atrial fibrillation (Chronic) Hemochromatosis, unspecified (Chronic) Diabetes (Chronic) Hypertension (Chronic) PVCs (premature ventricular contractions) (Acute) Social History Smoking/Tobacco Use Status: Current-Occasional Tobacco Type: cigars Smoking risk assessment performed?: Yes Alcohol Intake: former Drug use: Occasionally Substance use type: marijuana Housing: house Do you feel safe at home: Yes Do you feel safe in your relationship?: Yes Exam Narrative Exam Narrative: Orientation: March, [facility] , ?Year, unable to name recent holiday. Initially sleeping. Subsequently awake. Quiet but pleasant and cooperative. Definite word finding problems. Some asterixis noted. Not obviously jaundiced. Trace peripheral edema. No gross ascites. Pleasant demeanor. Results Last Vital Signs Temp 36.8 C 04/08/24 11:50 Pulse 71 04/08/24 11:50 Resp 18 04/08/24 11:50 BP 121/65 04/08/24 11:50 Pulse Ox 100 04/08/24 11:50 Labs 04/08/24 06:44 04/08/24 06:44 Labs: Laboratory Results - last 24 hr 04/07/24 04/08/24 14:10 06:44 WBC 5.83 5.67 RBC 4.51 3.83 L Hgb 14.6 12.4 L D Hct 43.1 35.8 L MCV 96 H 94 MCH 32.4 32.4 MCHC 33.9 34.6 RDW 13.5 13.5 Plt Count 147 140 MPV 10.5 10.8 Immature Gran % 0.2 Neutrophils % 57.9 Lymphocytes % 26.8 Monocytes % 8.2 Eosinophils % 6.0 Basophils % 0.9 Nucleated RBC % 0.0 Absolute Neutrophils 3.38 Absolute Lymphocytes 1.56 Absolute Monocytes 0.48 Absolute Eosinophils 0.35 Absolute Basophils 0.05 PT 15.5 H 16.7 H INR 1.6 H 1.7 H APTT 31.9 H Sodium 145 145 Potassium 4.0 3.5 Chloride 110 H 112 H Carbon Dioxide 24.8 25.5 Anion Gap 10.2 7.5 BUN 8 7 Creatinine 0.8 0.6 L Est GFR (CKD-EPI 2020) 95.21 103.85 Glucose 249 H 174 H Calcium 8.8 8.0 L Magnesium 1.9 Ferritin 58 Total Bilirubin 3.49 H 2.86 H AST 36 26 ALT 39 30 Alkaline Phosphatase 159 H 125 H Ammonia 143 H 117 H Creatine Kinase 64 Total Protein 6.3 L 5.4 L Albumin 3.2 L 2.6 L TSH 2.35 Acetaminophen < 2 Ethyl Alcohol < 3.0 Time Spent Time Spent with Patient Time Spent(min): 90
[2024-04-08 13:50] LABS: Bilirubin Negative (Negative); Blood Trace-intact (Negative); Clarity Sl Cloudy (Clear); Glucose 500 mg/dL (Negative); Ketones Trace mg/dL (Negative); Leukocyte Esterase Negative (Negative); Nitrite Negative (Negative); pH 6.5 (5-8)
[2024-04-08 14:00] LABS: Bacteria Rare HPF (Negative); C & S Indicated? No; Casts Negative LPF (Negative); Crystals Negative HPF (Negative); Epithelial Cells Rare HPF (Negative); Mucus Trace (Negative); RBC 0-2 HPF (0-2)
[2024-04-08] MEDS: Warfarin 5 MG TAB PO (20:42)
[2024-04-08] MEDS: Insulin Glargine 300 UNITS/3 ML PEN 30 UNITS SC (20:46)
[2024-04-09] VITALS (7 sets, daily range): BP systolic 93–134; BP diastolic 61–75; PULSE 76–102; RESP 18–19; TEMP 36.3–38.6; O2SAT 94–98
[2024-04-09] MEDS: Ibuprofen 400 MG TAB PO (06:08)
[2024-04-09 06:40] LABS: COVID-19 PCR Negative (Negative); Influenza A PCR Negative (Negative); Influenza B PCR Negative (Negative); RSV PCR Negative (Negative)
[2024-04-09 06:49] LABS: Source Nasopharynx
[2024-04-09 06:56] LABS: Ammonia 44 umol/L (11-32)
[2024-04-09 06:57] LABS: Abs Immature Grans 0.06 10^3/uL (0.0-0.06); Absolute Basophil Count 0.03 10^3/uL (0.0-0.2); Absolute Eosinophil Count 0.23 10^3/uL (0.0-0.7); Absolute Lymphocyte Count 0.72 10^3/uL (1.2-3.4); Absolute Monocyte Count 0.76 10^3/uL (0.1-0.8); Absolute Neutrophil Count 8.77 10^3/uL (1.2-6.7); Basophils % 0.3 %; Eosinophils % 2.2 %; HCT 37.9 % (40.0-50.0); HGB 13.1 g/dL (13.5-17.5); Immature Grans % 0.6 %; Lymphocytes % 6.8 %; MCH 32.4 pg (27.0-33.0); MCHC 34.6 % (32.0-36.0); MCV 94 fL (80-95); MPV 10.6 fL (8.0-11.0); Monocytes % 7.2 %; Neutrophils % 82.9 %; Platelet Count 137 10^3/uL (130-400); RBC 4.04 10^6/uL (4.36-5.78); RDW 13.5 % (11.8-14.1); RDW-SD 46.5 fL; WBC 10.57 10^3/uL (4.4-10.8)
[2024-04-09 07:16] LABS: INR 1.8 (0.9-1.1); Prothrombin Time 17.2 sec (9.1-11.1)
[2024-04-09 07:27] LABS: ALT 35 U/L (16-63); AST 40 U/L (15-37); Alkaline Phosphatase 139 U/L (46-116); Anion Gap 9.6 mmol/L (3-11); BUN 9 mg/dL (7-18); Bilirubin, Total 3.54 mg/dL (0.2-1.0); CO2 23.4 mmol/L (21.0-32.0); CREATININE 0.8 mg/dL (0.70-1.30); Calcium 8.5 mg/dL (8.5-10.1); Chloride 109 mmol/L (98-107); Estimated GFR 95.21 (mL/min/1.73m2); Glucose 221 mg/dL (74-106); Potassium 3.4 mmol/L (3.5-5.1); Sodium 142 mmol/L (136-145); Total Protein 5.8 g/dL (6.4-8.2)
[2024-04-09] MEDS: Lactulose 20 GM/30 ML CUP 45 GM PO ×2 (07:49→12:21)
[2024-04-09] MEDS: Carvedilol 3.125 MG TAB PO ×2 (07:54→21:14)
[2024-04-09] MEDS: Rifaximin 550 MG TAB PO ×2 (07:54→21:14)
[2024-04-09] MEDS: metFORMIN 500 MG TAB 1000 MG PO ×2 (07:54→16:43)
[2024-04-09] MEDS: Tamsulosin 0.4 MG CAPCR PO (07:54)
[2024-04-09] MEDS: Atorvastatin 40 MG TAB PO (07:54)
[2024-04-09] MEDS: glipiZIDE 10 MG TAB PO (07:55)
[2024-04-09] MEDS: Lisinopril 20 MG TAB PO (07:55)
[2024-04-09] MEDS: Magnesium Oxide 400 MG TAB PO ×2 (07:55→21:15)
[2024-04-09] MEDS: Potassium Chloride 10 MEQ CAPCR 20 MEQ PO (07:55)
[2024-04-09] MEDS: amLODIPine 2.5 MG TAB PO (07:55)
[2024-04-09] MEDS: Normal Saline Flush 10 ML SYR IVP ×2 (07:56→21:15)
--- NOTE | 2024-04-09 11:02 | PHA.REVIEW2 ---
Pharmacy Admission Review Admission Clinical Review Admission Pharmacy Review: Palliative care patient (Acute) Advanced care planning/counseling discussion (Acute) Cirrhosis (Acute) Encephalopathy, hepatic (Acute) No Known Allergies Allergy (Verified 04/07/24 13:43) Resuscitation Status Full Code Height 6 ft Weight 78.4 kg Pharmacy Admission Review Renal Dosing Renal Dosing: BUN 9 mg/dL (7-18) 04/09/24 06:35 Creatinine 0.8 mg/dL (0.70-1.30) 04/09/24 06:35 Medications needing adjustments: Reviewed (CrCl 76.2 mL/min) List of meds needing interventions: Current medications are okay Anticoagulation Anticoagulation: Hgb 13.1 g/dL (13.5-17.5) L 04/09/24 06:35 Hct 37.9 % (40.0-50.0) L 04/09/24 06:35 Plt Count 137 10^3/uL (130-400) 04/09/24 06:35 INR 1.8 (0.9-1.1) H 04/09/24 06:35 Creatinine 0.8 mg/dL (0.70-1.30) 04/09/24 06:35 DVT Prophylaxis: Reviewed (INR increased from 1.7, Hgb increased from 12.4) Medications: Warfarin Relevant Labs Relevant Labs: Sodium 142 mmol/L (136-145) 04/09/24 06:35 Potassium 3.4 mmol/L (3.5-5.1) L 04/09/24 06:35 Chloride 109 mmol/L (98-107) H 04/09/24 06:35 Magnesium 1.9 mg/dL (1.8-2.4) 04/07/24 14:10 Electrolytes, C-Reactive P, ESR: Reviewed (K 3.4 - has order for 20 mEq PO daily) DM Control DM Control: Glucose 221 mg/dL (74-106) H 04/09/24 06:35 Finger Stick Blood Glucose 203 0756 Finger Stick Blood Glucose 203 0756 Finger Stick Blood Glucose 203 0750 DM Control: Reviewed Insulin Dosing, Diabetic Medication: Has order for glargine 30 units at bedtime, metformin 1000mg BID and glipizide 10mg daily Cardiac Review BP, HR, EF%: Reviewed (HR and BP WNL) List meds needing interventions: Has order for amlodipine 2.5mg daily, carvedilol 3.125mg BID and lisinopril 20mg daily QTc Review QTc: Reviewed (455 from 04/07/24) IV to PO Switch IV Medications: Reviewed Home Meds Home Med List reviewed: Reviewed Current Meds Current Medication Order Review: Intervened Comments: Verified lactulose dosing with provider. Is listed as 45mL on home med list but order is for 45g. Per provider he increased dose while inpatient due to encephalopathy. Pharmacy Antibiotic Review Pharmacy Antibiotic Activity: Reviewed, no change Comments: Patient is on erythromycin suspension 200mg PO q6h for encephalopathy. Blood cultures pending.
--- NOTE | 2024-04-09 13:35 | PT.INTREAT ---
PT Notes Visit Reasons: encephalopathy Inpatient Physical Therapy Treatment Note [facility] Date: 04/09/2024 PRECAUTIONS:Standard, IV Access SUBJECTIVE: Pt reports he feels better than he did yesterday. He stated he just used the bathroom OBJECTIVE: Pt approached upright in bed with his visiting. Pt noted with flat affect.? PAIN:denies VITALS: ???monitored throughout Therapeutic Activities ([id number][]): Direct one-on-one instruction in dynamic activities to improve functional performance. ?? Provided skills cues and instruction throughout bed mobility supervision sit to stand from 20 height with supervision and cues for gary placement; from 18 height CGA and rocking motion cues to push up ambulation: Facilitated safe and correct performance of level surface ambulation covering a distance of 200 feet using use front wheeled walker with contact-guard assist and wheelchair follow for safety. Did not report of any increased pain. Denied headache, chest pain, and lightheadedness throughout activity. Minimal verbal cueing provided for AD management, directional changes, and posture. ASSESSMENT:? Pt tolerated session well he was agreeable to stay sitting up after session for lunch. His was present and supportive. PLAN: 1-2x/day, 7 days/week x 1 week. Plan of care has been reviewed with the PROVIDER CONTRACTING CONSULTANT providing the service under Physical Therapy direction. Initiate Physical Therapy intervention for strengthening, bed mobility, transfers, gait, stairs, balance training, use of assistive device. TREATMENT CODE/TIME: 11301/ 1162-1450 DISCHARGE RECOMMENDATION:Home with HH PT when medically appropriate for discharge
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
--- NOTE | 2024-04-09 15:56 | CMPROGNOTE_ITS ---
Date of service: 04/09/24 Time of Service: 15:56 Care Management Progress Note Progress Note Text Progress Note Text: Shaji was sitting up in his chair visiting with his when CM met with him. He stated that he is feeling better today; his stated that he had a slow morning, but he appears to be doing better now. He stated that he worked well with PT today. He reported that he is hopeful to be discharged tomorrow. Per report, he is not yet ready for discharge, but will be re assessed daily. CM will continue to follow. Discharge Potential Discharge Needs: PCP F/U Appt Anticipated Barriers to Discharge: None Identified Patient/Family Education Needs: Review discharge instructions, discuss Ask Me Three Transportation: Private vehicle Plan: Anticipate Shaji will return home once medically cleared with new orders for HH RN, PT. He will transport home via private vehicle by family. He will follow up with his PCP and discharge plan of care. CM will continue to follow. Social Determinants of Health Screening Social Determinants of Health last assessed: 04/09/24 Will the Patient Participate in the Screening?: Yes Do you worry about having a steady place to live?: no Problems where you live: no known problems In the past 12 months, have you had to go without electric, gas, oil or water in your home?: no Have you or anyone in your house had to go without enough food to eat?: no Has lack of transportation kept you from medical appointments or from doing things needed for daily living?: no Has anyone in your life made you feel unsafe or unsupported?: no How hard is it for you to pay for the very basics like food, housing, medical care, and heating? Would you say it is:: Somewhat hard Do you want help finding or keeping work or a job?: I do not need or want help If for any reason you need help with day-to-day activities such as bathing, preparing meals, shopping, managing finances, etc., do you get the help you need?: I get all the help I need How often do you feel lonely or isolated from those around you?: Never Do you speak a language other than [place] at home?: No Does the patient want assistance with any of the above?: No Health Related Social Needs Health related social needs: problems related to housing/economic circumstances (Z59.89)
--- NOTE | 2024-04-09 16:07 | PT.INTREAT ---
PT Notes Visit Reasons: encephalopathy Inpatient Physical Therapy Treatment Note [facility] Date: 04/09/2024 PRECAUTIONS:Standard, IV Access SUBJECTIVE: Pt reports he has been having multiple BMs today. OBJECTIVE: Pt approached upright in bed with his visiting. Pt noted with flat affect.? PAIN:denies VITALS: ???monitored throughout Therapeutic Activities (62470j[]): Direct one-on-one instruction in dynamic activities to improve functional performance. ?? Provided skills cues and instruction throughout bed mobility supervision sit to stand from bed with supervision and cues for hand placement; from 18 height CGA and rocking motion cues to push up ambulation: Facilitated safe and correct performance of level surface ambulation covering a distance of 40 feet using use front wheeled walker with contact-guard assist and wheelchair follow for safety. Did not report of any increased pain. Denied headache, chest pain, and lightheadedness throughout activity. Minimal verbal cueing provided for AD management, directional changes, and posture. ASSESSMENT:? Pt tolerated ambulation with FWW well. Treatment session shortened by pt's bowel urgency requiring return to his room for BM and assistance from FIRE ALARM REPAIRER for hygiene. PLAN: 1-2x/day, 7 days/week x 1 week. Plan of care has been reviewed with the CIRCULAR GANG SAW OPERATOR providing the service under Physical Therapy direction. Initiate Physical Therapy intervention for strengthening, bed mobility, transfers, gait, stairs, balance training, use of assistive device. TREATMENT CODE/TIME: 18037/ [id number] DISCHARGE RECOMMENDATION:Home with HH PT when medically appropriate for discharge
[2024-04-09] MEDS: Lactulose 20 GM/30 ML CUP 30 GM PO ×2 (16:10→21:15)
--- NOTE | 2024-04-09 16:11 | CHAPLAIN ---
Shaji was trying to nap when I visited. I spoke mostly with Melvina. I explained my role and offered support. She accepted an offer of a cup of tea. I will continue to visit.
[2024-04-09] MEDS: Warfarin 5 MG TAB PO (21:14)
[2024-04-09] MEDS: Insulin Glargine 300 UNITS/3 ML PEN 30 UNITS SC (21:22)
[2024-04-10 03:30] VITALS: BP 114/68; PULSE 77; RESP 20; TEMP 37.2; O2SAT 97
[2024-04-10 06:49] LABS: Abs Immature Grans 0.04 10^3/uL (0.0-0.06); Absolute Basophil Count 0.04 10^3/uL (0.0-0.2); Absolute Eosinophil Count 0.53 10^3/uL (0.0-0.7); Absolute Lymphocyte Count 1.83 10^3/uL (1.2-3.4); Absolute Monocyte Count 0.73 10^3/uL (0.1-0.8); Absolute Neutrophil Count 5.91 10^3/uL (1.2-6.7); Basophils % 0.4 %; Eosinophils % 5.8 %; HCT 34.5 % (40.0-50.0); Immature Grans % 0.4 %; Lymphocytes % 20.2 %; MCH 32.7 pg (27.0-33.0); MCHC 34.8 % (32.0-36.0); MCV 94 fL (80-95); MPV 10.6 fL (8.0-11.0); Neutrophils % 65.2 %; Platelet Count 122 10^3/uL (130-400); RBC 3.67 10^6/uL (4.36-5.78); RDW 13.5 % (11.8-14.1); RDW-SD 46.5 fL; WBC 9.08 10^3/uL (4.4-10.8)
[2024-04-10 06:51] LABS: Ammonia 44 umol/L (11-32)
[2024-04-10 06:58] LABS: INR 2.4 (0.9-1.1); Prothrombin Time 22.9 sec (9.1-11.1)
[2024-04-10 07:10] LABS: ALT 54 U/L (16-63); AST 65 U/L (15-37); Albumin 2.6 g/dL (3.4-5.0); Alkaline Phosphatase 122 U/L (46-116); Anion Gap 5.7 mmol/L (3-11); BUN 8 mg/dL (7-18); Bilirubin, Total 3.64 mg/dL (0.2-1.0); CO2 27.3 mmol/L (21.0-32.0); CREATININE 0.8 mg/dL (0.70-1.30); Chloride 108 mmol/L (98-107); Estimated GFR 95.21 (mL/min/1.73m2); Glucose 190 mg/dL (74-106); Potassium 3.2 mmol/L (3.5-5.1); Sodium 141 mmol/L (136-145); Total Protein 5.4 g/dL (6.4-8.2)
[2024-04-10 08:20] VITALS: BP 128/87; PULSE 70; RESP 18; TEMP 37.2; O2SAT 94
[2024-04-10] MEDS: Tamsulosin 0.4 MG CAPCR PO (09:24)
[2024-04-10] MEDS: Potassium Chloride 10 MEQ CAPCR 20 MEQ PO (09:24)
[2024-04-10] MEDS: Atorvastatin 40 MG TAB PO (09:25)
[2024-04-10] MEDS: Empaglifozin 10 MG TAB PO (09:25)
[2024-04-10] MEDS: Rifaximin 550 MG TAB PO (09:25)
[2024-04-10] MEDS: Lisinopril 20 MG TAB PO (09:25)
[2024-04-10] MEDS: amLODIPine 2.5 MG TAB PO (09:25)
[2024-04-10] MEDS: metFORMIN 500 MG TAB 1000 MG PO (09:25)
[2024-04-10] MEDS: glipiZIDE 10 MG TAB PO (09:25)
[2024-04-10] MEDS: Normal Saline Flush 10 ML SYR IVP (09:26)
[2024-04-10] MEDS: Lactulose 20 GM/30 ML CUP 30 GM PO (09:26)
[2024-04-10] MEDS: Magnesium Oxide 400 MG TAB PO (09:26)
[2024-04-10] MEDS: Carvedilol 3.125 MG TAB PO (09:26)
[2024-04-10 11:36] VITALS: BP 118/73; PULSE 70; RESP 18; TEMP 36.9; O2SAT 100
--- NOTE | 2024-04-10 11:45 | DSE_ITS ---
Date of service: 04/10/24 Time of Service: 11:45 DS: Diagnosis Discharge Diagnosis (1) Cirrhosis: Status: Acute (2) Encephalopathy, hepatic: Status: Acute (3) Paroxysmal atrial fibrillation: Status: Chronic (4) Chronic anticoagulation: Status: Chronic (5) Hypertension: Status: Chronic (6) Advanced care planning/counseling discussion: Status: Acute (7) Palliative care patient: Status: Acute (8) Diabetes: Status: Chronic (9) Hemochromatosis, unspecified: Status: Chronic (10) BPH (benign prostatic hyperplasia): Status: Chronic Discharge Plan Disposition Patient Disposition: Home W/Home Health Services Condition: Good Discharge Details Reason For Visit: encephalopathy Admit Date/Time: 04/07/24 17:26 Admit Provider: Davin Padilla Attending Provider: Davin Padilla Primary Care Provider: Stefani Jones [facility] Course Hospital Course: Patient initially presented with signs and symptoms that were ultimately determined to be secondary to hepatic encephalopathy and cirrhosis. He improved with low-dose erythromycin, rifaximin and lactulose. Coumadin was initially held but was restarted and is now in range between 2 and 3 for his chronic A- fib, though it is recommended that he discuss transitioning to DOAC with his PCP. Given the patient had significant improvement of his symptoms during hospitalization it was determined he was stable for discharge home but with home health nursing and physical therapy services. Home Meds and New Rx's Prescriptions: New Jardiance 10 mg Tablet 10 mg PO QAM Qty: 90 0RF Continued insulin glargine [Lantus Solostar U-100 Insulin] 100 unit/mL (3 mL) insulin pen 30 unit subcut QPM metformin 500 MG tablet 1,000 mg PO BID (DME) lancets 1 EACH misc 1 ea Miscellaneous BID TEST STRIPS 1 unit Topical BID lisinopril 20 mg tablet 20 mg PO DAILY amlodipine 2.5 mg tablet 2.5 mg PO DAILY ibuprofen 400 MG tablet 400 mg PO Q6H PRN PRNQty: 40 0RF glipizide 10 mg tablet 10 mg PO DAILY tamsulosin 0.4 mg capsule 0.4 mg PO Q24H magnesium oxide 400 mg (241.3 mg magnesium) tablet 400 mg PO BID Patient Comments: TAKE 1 TABLET BY MOUTH TWICE DAILY omeprazole 20 mg capsule,delayed release(DR/EC) 20 mg PO DAILY PRN (Reason: heartburn) Patient Comments: TAKE 1 CAPSULE BY MOUTH EVERY DAY NEEDED warfarin 5 mg tablet 7.5 mg PO .COMPLEX Patient Comments: TAKE 1 TO 1.5 TABLETS BY MOUTH DAILY DIRECTED Rx Instructions: 7.5 mg orally; 7.5mg po daily on sunday and and 5mg po daily all other days atorvastatin 40 mg tablet 40 mg PO DAILY Patient Comments: TAKE 1 TABLET BY MOUTH EVERY DAY carvedilol 3.125 mg tablet 3.125 mg PO BID Patient Comments: TAKE 1 TABLET BY MOUTH TWICE DAILY Xifaxan 550 mg Tablet 550 mg PO BID Qty: 60 0RF potassium chloride 10 mEq tablet extended release 20 meq PO DAILY Patient Comments: TAKE 2 TABLETS BY MOUTH EVERY DAY lactulose 10 gram/15 mL solution 30 g PO QID Patient Comments: TAKE 45 MILLILITERS BY MOUTH 3-4 TIMES A DAY DIRECTED FOR HIGH AMONIA Discharge Instructions Stand Alone Forms: Nursing Discharge Form Referrals: Steafni Jones MD [Primary Care Provider] - 04/23/24 8:00 am Activity:: Activity as Tolerated Equipment/Supplies:: No Equipment Needed Diet:: As Tolerated Discharge Orders Discharge Orders: Discharge Order (Routine); Ordered 04/10/24 Ordered By: Arnie Younger Discharge Data Discharge Date/Time-TO BE ENTERED AT DEPARTURE: 04/10/24 13:17 DS: Summary Time Spent with Patient providing and/or coordinating discharge services: Greater than 30 minutes Status at Discharge Functional status at discharge: independent ambulation Overall status at discharge: patient is back to baseline Mental Status: mental status grossly normal Speech and Movement: speech and movement normal Mood: congruent mood Affect: normal affect Quality:SDOH Health Related Social Needs: Health related social needs problems related to housin g/economic circumstances (Z59.89) Exam Narrative Exam Narrative: Well-appearing older gentleman sitting up in the chair no acute distress, ANO x 4, heart regular rhythm, lungs, auscultation bilaterally, abdomen soft, nontender, nondistended Psych Mental Status: mental status grossly normal Speech and Movement: speech and movement normal Mood: congruent mood Affect: normal affect DS: Data Vitals/I&O Vitals and I&O: Vital Signs Temperature 98.4 F 04/10/24 11:36 Temperature Source Tympanic 04/10/24 11:36 Pulse 70 04/10/24 11:36 Pulse Rhythm Irregular 04/07/24 18:01 Pulse 76 04/07/24 17:50 Respiratory Rate 18 04/10/24 11:36 Respiratory Effort Normal 04/07/24 18:01 Respiratory Depth Normal 04/07/24 18:01 Respiratory Pattern Normal 04/07/24 18:01 Blood Pressure 118/73 04/10/24 11:36 Blood Pressure Mean 102 04/07/24 17:47 Blood Pressure Position Sitting 04/07/24 13:37 Pulse Oximetry 100 04/10/24 11:36 Oxygen Delivery Method Room Air 04/10/24 11:36 Oxygen Flow Rate 0 04/10/24 11:36 Pain Level 0 04/10/24 08:20 Intake & Output 04/09/24 04/10/24 04/10/24 17:59 05:59 17:59 Intake Total 410 / 410 Balance 410 / 410 Weight 172 lb 13.478 oz 173 lb 4.533 oz Intake: IV Oral 400 / 400 Other: Urine Color [place] Urine Appearance Clear Comment void x 1 Stool Size Moderate Large Stool Characteristics Liquid Soft Liquid Data Completed and Pending Labs on day of discharge: Labs from last 24 hours 04/10/24 06:35 WBC 9.08 RBC 3.67 L Hgb 12.0 L Hct 34.5 L MCV 94 MCH 32.7 MCHC 34.8 RDW 13.5 Plt Count 122 L MPV 10.6 Immature Gran % 0.4 Neutrophils % 65.2 Lymphocytes % 20.2 Monocytes % 8.0 Eosinophils % 5.8 Basophils % 0.4 Nucleated RBC % 0.0 Absolute Neutrophils 5.91 Absolute Lymphocytes 1.83 Absolute Monocytes 0.73 Absolute Eosinophils 0.53 Absolute Basophils 0.04 PT 22.9 H INR 2.4 H Sodium 141 Potassium 3.2 L Chloride 108 H Carbon Dioxide 27.3 Anion Gap 5.7 BUN 8 Creatinine 0.8 Est GFR (CKD-EPI 2020) 95.21 Glucose 190 H Calcium 8.0 L Total Bilirubin 3.64 H AST 65 H ALT 54 Alkaline Phosphatase 122 H Ammonia 44 H Total Protein 5.4 L Albumin 2.6 L Preliminary micro results at discharge 04/09/24 07:30 Blood Culture - Preliminary Blood NO GROWTH 24 HOURS 04/09/24 07:15 Blood Culture - Preliminary Blood NO GROWTH 24 HOURS PFSH All Active Problems (Updated 04/08/24 @ 15:40 by Brianna Smith MD) Palliative care patient (Acute) Advanced care planning/counseling discussion (Acute) Cirrhosis (Acute) From hemochromatosis and Hx EtOH overuse Encephalopathy, hepatic (Acute) Incurved toenail (Acute) BPH (benign prostatic hyperplasia) (Chronic) Chronic anticoagulation (Chronic) Paroxysmal atrial fibrillation (Chronic) Hemochromatosis, unspecified (Chronic) Diabetes (Chronic) Hypertension (Chronic) PVCs (premature ventricular contractions) (Acute) Social History Smoking/Tobacco Use Status: Current-Occasional Tobacco Type: cigars Smoking risk assessment performed?: Yes Alcohol Intake: former Drug use: Occasionally Substance use type: marijuana Housing: house Do you feel safe at home: Yes Do you feel safe in your relationship?: Yes Time Spent with Patient Time Spent with Patient: <45 minutes Time was spent: preparing to see the patient(eg.review tests), obtaining and/or reviewing separately otained hiistory, ordering medications,tests, procedures, referring, communicating with other health transitional care liaison, indepentently interpreting results, counseling the patient and care coordination
--- NOTE | 2024-04-10 11:45 | PDOC.HHF2F ---
Home Health Referral Home Health Orders Clinical synopsis of why skilled professionals are needed: Cirrhosis, hepatic encephalopathy, diabetes, a-fib on warfarin Registered Nurse: Check all that apply Instruct on new or changed medication(s)/assess compliance: Ordered Assess for exacerbation of medical condition, instruct patient/caregivers on signs and symptoms to report for early detection: Ordered Physical Therapist: Check all that apply Increase strength & endurance for safe mobility at home: Ordered To design/establish home maintenance program: Ordered Fall reduction therapy program for patient with history of frequent falls: Ordered Home safety evaluation and teaching/gait training including stair management (if applicable): Ordered Home Bound Status Requires the aid of supportive device (check all that apply): Walker Encounter Date and Reason: I certify that a FTF encounter for this patient was performed on April 10, 2024 and that such encounter was related to the primary reason the patient requires home health services. The encounter was conducted in the following manner: By me as the certifying physician, LIGHT RAIL SIGNAL TECHNICIAN, PA or By an inpatient physician, LIGHT RAIL SIGNAL TECHNICIAN or PA during an inpatient stay who communicated findings to me, Certification And Authentication I certify that I composed the above information based on my clinical judgment relating to this patient's medical condition and, if applicable, clinical findings communicated to me by the NPP or inpatient physician who performed the FTF encounter. Name of Provider that will be monitoring home health services: Stefani Jones
--- NOTE | 2024-04-10 12:53 | PT.INTREAT ---
PT Notes Visit Reasons: encephalopathy Inpatient Physical Therapy Treatment Note [facility] Date: 04/10/2024 PRECAUTIONS:Standard, IV Access SUBJECTIVE: Pt reports he is feeling much better today. OBJECTIVE: Pt approached upright in bed with his visiting. Pt noted with flat affect.? PAIN:denies VITALS: ???monitored throughout Therapeutic Activities ([id number][]): Direct one-on-one instruction in dynamic activities to improve functional performance. ?? Provided skills cues and instruction throughout bed mobilityindependent sit to stand from all surfaces independent ambulation: Facilitated safe and correct performance of level surface ambulation covering a distance of 600 feet x 1 and 300 feet x 1 using use front wheeled walker with supervision . Did not report of any increased pain. Denied headache, chest pain, and lightheadedness throughout activity. Pt tolerated standing tasks for 8 mins x 1 trial then 5 mins for 2nd trial after 3 min rest period Stairs: 3 4 steps and 2 6 steps x 2 trials with rail Supervision ASSESSMENT:? Pt with significant improvement in standing functional activity tolerance with FWW. Pt with improved safety and stability in standing and during functional tasks to simulate daily routine within home PLAN: 1-2x/day, 7 days/week x 1 week. Plan of care has been reviewed with the PRODUCTION HONING MACHINE OPERATOR providing the service under Physical Therapy direction. Initiate Physical Therapy intervention for strengthening, bed mobility, transfers, gait, stairs, balance training, use of assistive device. TREATMENT CODE/TIME: 66721/ [id number] DISCHARGE RECOMMENDATION:Home with HH PT when medically appropriate for discharge
--- NOTE | 2024-04-10 18:24 | CMDISCH_ITS ---
Date of service: 04/10/24 Time of Service: 18:24 LACE Index Scoring Tool Questions: Length of Stay (in days): 3 Was the patient admitted via the E.D.?: Yes Comorbidities: Diabetes w/o Complication and Liver or Renal Disease E.D. Visits: 5 Answers: Total Score: 15 Risk of Readmission: High Risk Care Management Discharge Plan Reason for Hospitalization: encephalopathy Discharge Plan: Shaji returned home today with new orders for HH RN, PT. His son drove him home via private vehicle. He will follow up with his PCP and discharge plan of care. He was happy to be going home. Patient/Family Education Needs: Review discharge instructions and limitations, discussion of self care needs including ask me three. Services Needed at Discharge: Home Health Care Services (new HH RN, PT) SDOH Health Related Social Needs: Health related social needs problems related to housin g/economic circumstances (Z59.89)
== END 2024-04-10 13:17 | disposition home health service (06) | DRG 443 ==
LOC: ER 17:37 → MS 18:01
PROVIDERS: Emergency Medicine; Family Medicine; Admitting Provider Hospitalist; Emergency Provider Student in an Organized Health Care Education/Training Program; PCP Family Medicine; Visit Provider Hospitalist
DX: K76.82 Hepatic encephalopathy; E11.9 Type 2 diabetes mellitus without complications; I48.0 Paroxysmal atrial fibrillation; I49.3 Ventricular premature depolarization; Z79.01 Long term (current) use of anticoagulants; Z79.4 Long term (current) use of insulin; N40.1 Benign prostatic hyperplasia with lower urinary tract symptoms; R39.14 Feeling of incomplete bladder emptying; E83.119 Hemochromatosis, unspecified; F17.290 Nicotine dependence, other tobacco product, uncomplicated; Z79.84 Long term (current) use of oral hypoglycemic drugs
CPT/HCPCS: 00123; 36410; 36415; 80053; 82550; 85027; 87040; 87637; 93005; 97162; 97530; 99285; 70450; 71045; 80320; 80329; 81003; 81015; 82140; 82728; 83735; 84443; 85025; 85610; 85730; 93010; 99223; 99233; 99239; J1815

== ENCOUNTER 2024-05-21 17:40 | Emergency (ER) | payer MEDICARE, SELFPAY ==
[2024-05-21 17:45] VITALS: BP 148/77; PULSE 86; RESP 16; TEMP 36.8; O2SAT 99
--- NOTE | 2024-05-21 21:01 | W.ED.GENAD ---
Discharge Plan Disposition Patient Disposition: Home Condition: Stable Discharge Details Clinical Impression: Abnormal INR Primary Care Provider: Stefani Jones ED Provider: Jamal Fulton Home Meds and New Rx's Prescriptions: Continued insulin glargine [Lantus Solostar U-100 Insulin] 100 unit/mL (3 mL) insulin pen 30 unit subcut QPM metformin 500 MG tablet 1,000 mg PO BID (DME) lancets 1 EACH misc 1 ea Miscellaneous BID TEST STRIPS 1 unit Topical BID lisinopril 20 mg tablet 20 mg PO DAILY amlodipine 2.5 mg tablet 2.5 mg PO DAILY ibuprofen 400 MG tablet 400 mg PO Q6H PRN PRNQty: 40 0RF glipizide 10 mg tablet 10 mg PO DAILY tamsulosin 0.4 mg capsule 0.4 mg PO Q24H magnesium oxide 400 mg (241.3 mg magnesium) tablet 400 mg PO BID Patient Comments: TAKE 1 TABLET BY MOUTH TWICE DAILY omeprazole 20 mg capsule,delayed release(DR/EC) 20 mg PO DAILY PRN (Reason: heartburn) Patient Comments: TAKE 1 CAPSULE BY MOUTH EVERY DAY NEEDED atorvastatin 40 mg tablet 40 mg PO DAILY Patient Comments: TAKE 1 TABLET BY MOUTH EVERY DAY carvedilol 3.125 mg tablet 3.125 mg PO BID Patient Comments: TAKE 1 TABLET BY MOUTH TWICE DAILY Xifaxan 550 mg Tablet 550 mg PO BID Qty: 60 0RF potassium chloride 10 mEq tablet extended release 20 meq PO DAILY Patient Comments: TAKE 2 TABLETS BY MOUTH EVERY DAY lactulose 10 gram/15 mL solution 30 g PO QID Patient Comments: TAKE 45 MILLILITERS BY MOUTH 3-4 TIMES A DAY DIRECTED FOR HIGH AMONIA Jardiance 10 mg Tablet 10 mg PO QAM Qty: 90 0RF Xarelto 20 mg tablet 20 mg PO DAILY Patient Comments: TAKE 1 TABLET BY MOUTH EVERY DAY Discharge Instructions Instructions: Taking oral medicines for blood clots, Prothrombin time and INR (PT/INR) Additional Instructions: You were seen in the emergency department for your elevated INR reading earlier today at [facility], it is still a little bit abnormal but is normalizing. Please have a recheck outpatient, you are asymptomatic at this time, please return for any signs of blood loss, any black or bloody diarrhea or vomitus, dizziness, paleness. Referrals: Stefani Jones MD [Primary Care Provider] - Discharge Data Discharge Date/Time-TO BE ENTERED AT DEPARTURE: 05/21/24 22:41 HPI General Date/Time Provider Initiated Documentation: 05/21/24 18:23. HPI Narrative: 69 year-old male presents to ED today by POV/ambulating with a chief complaint of bloodwork done at [facility] [place], reports that his INR was 20 or something with onset earlier today at routine lab draw- they recommended he be evaluated in ED. Quality described as no symptoms whatsoever, no radiation to bruising, bleeding, shortness of breath, cough, chest pain, abdominal pain. Severity is described as 0/10. Palliating factors include nothing specific. Provoking factors include nothing specific. Patient is anticoagulated on Xarelto. Related Data Home Medications ?Medication ?Instructions ?Recorded ?Confirmed Test Strips 1 unit topical BID 03/29/15 05/21/24 lancets 30 gauge 03/29/15 05/21/24 metformin 500 mg tablet 1,000 mg PO BID 03/29/15 05/21/24 ibuprofen 400 mg tablet 400 mg PO Q6H PRN PRN ##40 10/11/17 05/21/24 amlodipine 2.5 mg tablet 2.5 mg PO DAILY 12/16/19 05/21/24 lisinopril 20 mg tablet 20 mg PO DAILY 12/16/19 05/21/24 insulin glargine 100 unit/mL (3 30 unit subcut QPM 02/03/20 05/21/24 mL) subcutaneous pen (Lantus Solostar U-100 Insulin) atorvastatin 40 mg tablet 40 mg PO DAILY 12/04/23 05/21/24 carvedilol 3.125 mg tablet 3.125 mg PO BID 12/04/23 05/21/24 glipizide 10 mg tablet 10 mg PO DAILY 12/04/23 05/21/24 magnesium oxide 400 mg (241.3 mg 400 mg PO BID 12/04/23 05/21/24 magnesium) tablet omeprazole 20 mg capsule,delayed 20 mg PO DAILY PRN heartburn 12/04/23 05/21/24 release tamsulosin 0.4 mg capsule 0.4 mg PO Q24H 12/04/23 05/21/24 rifaximin 550 mg tablet (Xifaxan) 550 mg PO BID #60 tabs 12/06/23 05/21/24 potassium chloride 10 mEq 20 meq PO DAILY 02/16/24 05/21/24 tablet,extended release lactulose 10 gram/15 mL oral 30 g PO QID 04/07/24 05/21/24 solution empagliflozin 10 mg tablet 10 mg PO QAM #90 tabs 04/10/24 05/21/24 (Jardiance) rivaroxaban 20 mg tablet (Xarelto) 20 mg PO DAILY 05/21/24 05/21/24 Previous Rx's ?Medication ?Instructions ?Recorded ibuprofen 400 mg tablet 400 mg PO Q6H PRN PRN ##40 10/11/17 rifaximin 550 mg tablet (Xifaxan) 550 mg PO BID #60 tabs 12/06/23 empagliflozin 10 mg tablet 10 mg PO QAM #90 tabs 04/10/24 (Jardiance) Allergies Allergy/AdvReac Type Severity Reaction Status Date / Time No Known Allergies Allergy Verified 05/21/24 17:50 General Stated Complaint: GenMedical FAUSTO: 3 Review of Systems All systems reviewed & are unremarkable except as noted in HPI and below Exam Narrative Exam Narrative: GENERAL APPEARANCE: Well-nourished, non-toxic, awake and alert, atraumatic, no acute distress. SKIN: Warm, pink, dry, intact, without rashes/lesions/ulcerations. HEAD: Normocephalic, atraumatic, normal hair distribution for gender/age. EYES: Normal conjunctiva, no exudates on lids/lashes. ENT: Nares patent, no circumoral cyanosis, no facial swelling NECK: Supple, trachea midline, painless cervical ROM. LUNGS/CHEST: Lungs CTA bilaterally, non-labored respirations, normal A/P diameter, symmetrical expansion, no chest wall deformity HEART (CV/PV): Regular rate and rhythm without murmur, no peripheral edema, no JVD. ABDOMEN: Soft, non-distended, no guarding. MSK: Normal ROM, no swelling/deformity to bilateral UEs or LEs, moving all extremities without weakness, no cyanosis, spine midline without tenderness, normal curvature. NEURO: Mental Status AAOx4 - alert to person, place, time, events No facial droop, no forehead involvement. Motor: No focal weakness - strength 5/5 in bilateral UEs and LEs, proximal and distal, symmetric. Sensory: sensation intact to light touch globally. Gait normal: patient ambulated without ataxia into ED room. PSYCH: euthymic, cooperative, pleasant, appropriate speech Course Vital Signs Vital signs: Vital Signs Temperature 36.8 C 05/21/24 17:45 Pulse 86 05/21/24 17:45 Respiratory Rate 16 05/21/24 17:45 Blood Pressure 148/77 H 05/21/24 17:45 Pulse Oximetry 99 05/21/24 17:45 Temperature 36.8 C 05/21/24 17:45 Temperature Source Skin 05/21/24 17:45 Pulse 86 05/21/24 17:45 Respiratory Rate 16 05/21/24 17:45 Blood Pressure 148/77 H 05/21/24 17:45 Pulse Oximetry 99 05/21/24 17:45 Oxygen Delivery Method Room Air 05/21/24 17:45 Oxygen Flow Rate 0 05/21/24 17:45 Pain Level 0 05/21/24 17:45 Medical Decision Making This dictation utilizes [id number] dictation software and may contain unedited grammatical errors. 69 year-old male presents to ED today by POV/ambulating with a chief complaint of bloodwork done at [facility] [facility], reports that his INR was 20 or something with onset earlier today at routine lab draw- they recommended he be evaluated in ED. Quality described as no symptoms whatsoever, no radiation to bruising, bleeding, shortness of breath, cough, chest pain, abdominal pain. Severity is described as 0/10. Palliating factors include nothing specific. Provoking factors include nothing specific. Patients' medical history: Palliative care patient, cirrhosis, BPH, chronic anticoagulation due to atrial fibrillation, hemochromatosis, diabetes, hypertension. Family and social history: Noncontributory. Pertinent exam findings / vital signs include benign cardiopulmonary exam, neuro intact, nontoxic and afebrile. Differential / pathologies of concern include laboratory error, medication overdose accidental, liver dysfunction. Diagnostic studies of: -CBC, BMP, PT/PTT, liver panel. -PT/PTT/INR are only slightly elevated, INR 1.7, PT 6.3, PTT 38.8, suspect her other values were laboratory error at [facility] -Panel is around baseline for his bilirubin and liver enzymes -BMP without actionable abnormality -CBC shows no leukocytosis, no anemia Interventions of: -None. ED Course/Assessment/Plan: 69-year-old male with hemochromatosis and palliative care had his routine coags drawn earlier today at [facility] and they reported excessively high INR of 4.5 and record search, this is 1.7 on redraw I do suspect laboratory error the patient is completely asymptomatic at this time and his liver function is baseline, counseled for routine follow-up with his primary provider and return for any emergent concerns. Findings not consistent with hypercoagulable state, supratherapeutic INR. Disposition of Abnormal INR. Patient verbalized understanding of the plan and return to ED criteria and engaged in shared decision making. Lab Data Lab results reviewed: Yes I reviewed the patient's lab results. Labs: Laboratory Tests Range/Units 05/21/24 20:29 WBC (4.4-10.8) 10^3/uL 5.75 RBC (4.36-5.78) 10^6/uL 4.26 L Hgb (13.5-17.5) g/dL 14.0 Hct (40.0-50.0) % 41.8 MCV (80-95) fL 98 H MCH (27.0-33.0) pg 32.9 MCHC (32.0-36.0) % 33.5 RDW (11.8-14.1) % 14.0 Plt Count (130-400) 10^3/uL 172 MPV (8.0-11.0) fL 10.6 Immature Gran % % 0.3 Neutrophils % % 51.4 Lymphocytes % % 35.0 Monocytes % % 8.0 Eosinophils % % 4.3 Basophils % % 1.0 Nucleated RBC % (0.0-0.3) % 0.0 Absolute Neutrophils (1.2-6.7) 10^3/uL 2.95 Absolute Lymphocytes (1.2-3.4) 10^3/uL 2.01 Absolute Monocytes (0.1-0.8) 10^3/uL 0.46 Absolute Eosinophils (0.0-0.7) 10^3/uL 0.25 Absolute Basophils (0.0-0.2) 10^3/uL 0.06 PT (9.1-11.1) sec 16.3 H INR (0.9-1.1) 1.7 H APTT (20.6-30.2) sec 38.8 H Sodium (136-145) mmol/L 149 H Potassium (3.5-5.1) mmol/L 4.0 Chloride (98-107) mmol/L 112 H Carbon Dioxide (21.0-32.0) mmol/L 21.6 Anion Gap (3-11) mmol/L 15.4 H BUN (7-18) mg/dL 7 Creatinine (0.70-1.30) mg/dL 0.9 Est GFR (CKD-EPI 2020) (mL/min/1.73m2) 91.31 Glucose (74-106) mg/dL 200 H Calcium (8.5-10.1) mg/dL 9.3 Total Bilirubin (0.2-1.0) mg/dL 2.36 H Conjugated Bilirubin (0.0-0.2) mg/dL 0.8 H AST (15-37) U/L 36 ALT (16-63) U/L 35 Alkaline Phosphatase (46-116) U/L 124 H Total Protein (6.4-8.2) g/dL 6.7 Albumin (3.4-5.0) g/dL 3.3 L Quality:SDOH Health Related Social Needs: Health related social needs problems related to housing/economic circumstances (Z59.89) PFSH All Active Problems (Updated 05/21/24 @ 22:11 by SHERIF Iverson) Abnormal INR (Acute) Palliative care patient (Acute) Advanced care planning/counseling discussion (Acute) Cirrhosis (Acute) From hemochromatosis and Hx EtOH overuse Incurved toenail (Acute) BPH (benign prostatic hyperplasia) (Chronic) Chronic anticoagulation (Chronic) Paroxysmal atrial fibrillation (Chronic) Hemochromatosis, unspecified (Chronic) Diabetes (Chronic) Hypertension (Chronic) PVCs (premature ventricular contractions) (Acute) Social History Smoking/Tobacco Use Status: Current-Occasional Tobacco Type: cigars Smoking risk assessment performed?: Yes Alcohol Intake: former Drug use: Occasionally Substance use type: marijuana Housing: house Do you feel safe at home: Yes Do you feel safe in your relationship?: Yes
[2024-05-21 21:37] LABS: Abs Immature Grans 0.02 10^3/uL (0.0-0.06); Absolute Basophil Count 0.06 10^3/uL (0.0-0.2); Absolute Eosinophil Count 0.25 10^3/uL (0.0-0.7); Absolute Lymphocyte Count 2.01 10^3/uL (1.2-3.4); Absolute Monocyte Count 0.46 10^3/uL (0.1-0.8); Absolute Neutrophil Count 2.95 10^3/uL (1.2-6.7); Eosinophils % 4.3 %; HCT 41.8 % (40.0-50.0); Immature Grans % 0.3 %; MCH 32.9 pg (27.0-33.0); MCHC 33.5 % (32.0-36.0); MCV 98 fL (80-95); MPV 10.6 fL (8.0-11.0); Neutrophils % 51.4 %; Platelet Count 172 10^3/uL (130-400); RBC 4.26 10^6/uL (4.36-5.78); RDW-SD 50.4 fL; WBC 5.75 10^3/uL (4.4-10.8)
[2024-05-21 21:50] LABS: INR 1.7 (0.9-1.1); PTT Activated 38.8 sec (20.6-30.2); Prothrombin Time 16.3 sec (9.1-11.1)
[2024-05-21 21:51] LABS: ALT 35 U/L (16-63); AST 36 U/L (15-37); Albumin 3.3 g/dL (3.4-5.0); Alkaline Phosphatase 124 U/L (46-116); Anion Gap 15.4 mmol/L (3-11); BUN 7 mg/dL (7-18); Bilirubin, Direct 0.8 mg/dL (0.0-0.2); Bilirubin, Total 2.36 mg/dL (0.2-1.0); CO2 21.6 mmol/L (21.0-32.0); CREATININE 0.9 mg/dL (0.70-1.30); Calcium 9.3 mg/dL (8.5-10.1); Chloride 112 mmol/L (98-107); Estimated GFR 91.31 (mL/min/1.73m2); Glucose 200 mg/dL (74-106); Sodium 149 mmol/L (136-145); Total Protein 6.7 g/dL (6.4-8.2)
== END 2024-05-21 22:41 | disposition home or self-care (01) ==
PROVIDERS: Emergency Provider Physician Assistant; PCP Family Medicine
DX: R79.1 Abnormal coagulation profile (principal); I48.0 Paroxysmal atrial fibrillation; E11.9 Type 2 diabetes mellitus without complications; I10 Essential (primary) hypertension; Z79.01 Long term (current) use of anticoagulants; Z79.4 Long term (current) use of insulin; Z79.84 Long term (current) use of oral hypoglycemic drugs
CPT/HCPCS: 80048; 80076; 99283; 85025; 85610; 85730

== ENCOUNTER 2024-05-29 15:06 | Outpatient (REF) | payer MEDICARE, SELFPAY ==
[2024-05-29 15:45] LABS: INR 1.3 (0.9-1.1); Prothrombin Time 12.5 sec (9.1-11.1)
== END 2024-05-29 15:07 | disposition home or self-care (01) ==
LOC: NCHCN 15:06
PROVIDERS: PCP Family Medicine; Visit Provider Family Medicine
DX: Z79.01 Long term (current) use of anticoagulants (principal)
CPT/HCPCS: 85610

== ENCOUNTER 2024-06-12 19:50 | Outpatient (REF) | payer MEDICARE, SELFPAY ==
[2024-06-12 15:31] LABS: INR 1.7 (0.9-1.1); Prothrombin Time 16.1 sec (9.1-11.1)
[2024-06-12 16:06] LABS: Ferritin 49 ng/mL (26-388)
== END 2024-06-12 19:51 | disposition home or self-care (01) ==
LOC: NCHCN 19:50
PROVIDERS: PCP Family Medicine; Visit Provider Family Medicine
DX: E83.119 Hemochromatosis, unspecified (principal); Z79.01 Long term (current) use of anticoagulants
CPT/HCPCS: 82728; 85610

== ENCOUNTER 2024-08-15 19:15 | Outpatient (REF) | payer MEDICARE, SELFPAY ==
[2024-08-15 15:45] LABS: HCT 39.3 % (40.0-50.0); HGB 13.3 g/dL (13.5-17.5); MCH 32.8 pg (27.0-33.0); MCHC 33.8 % (32.0-36.0); MCV 97 fL (80-95); MPV 11.3 fL (8.0-11.0); Platelet Count 138 10^3/uL (130-400); RBC 4.05 10^6/uL (4.36-5.78); RDW 13.6 % (11.8-14.1); RDW-SD 49.1 fL; WBC 5.91 10^3/uL (4.4-10.8)
[2024-08-15 15:56] LABS: INR 1.4 (0.9-1.1); Prothrombin Time 13.7 sec (9.1-11.1)
[2024-08-15 16:07] LABS: Hemoglobin A1C 6.3 % (<5.7)
[2024-08-15 16:14] LABS: Ferritin 44 ng/mL (26-388)
== END 2024-08-15 19:16 | disposition home or self-care (01) ==
LOC: NCHCN 19:15
PROVIDERS: PCP Family Medicine; Visit Provider Family Medicine
DX: E11.9 Type 2 diabetes mellitus without complications (principal); E83.119 Hemochromatosis, unspecified
CPT/HCPCS: 85027; 82728; 83036; 85610

== ENCOUNTER 2024-09-14 11:49 | Inpatient (IN) | payer MEDICARE, SELFPAY ==
[2024-09-14] VITALS (9 sets, daily range): BP systolic 124–147; BP diastolic 65–86; PULSE 65–80; RESP 16–20; TEMP 36.7–36.8; O2SAT 98–100
[2024-09-14 13:09] LABS: Abs Immature Grans 0.01 10^3/uL (0.0-0.06); Absolute Basophil Count 0.04 10^3/uL (0.0-0.2); Absolute Eosinophil Count 0.28 10^3/uL (0.0-0.7); Absolute Lymphocyte Count 1.78 10^3/uL (1.2-3.4); Absolute Monocyte Count 0.49 10^3/uL (0.1-0.8); Absolute Neutrophil Count 2.63 10^3/uL (1.2-6.7); Basophils % 0.8 %; Eosinophils % 5.4 %; HCT 38.1 % (40.0-50.0); HGB 12.7 g/dL (13.5-17.5); Immature Grans % 0.2 %; MCH 31.8 pg (27.0-33.0); MCHC 33.3 % (32.0-36.0); MCV 96 fL (80-95); MPV 10.8 fL (8.0-11.0); Monocytes % 9.4 %; Neutrophils % 50.2 %; Platelet Count 148 10^3/uL (130-400); RBC 3.99 10^6/uL (4.36-5.78); RDW 13.2 % (11.8-14.1); RDW-SD 46.8 fL; WBC 5.23 10^3/uL (4.4-10.8)
[2024-09-14 13:18] LABS: Ammonia 107 umol/L (11-32)
[2024-09-14 13:22] LABS: ALT 40 U/L (16-63); AST 44 U/L (15-37); Albumin 3.2 g/dL (3.4-5.0); Alkaline Phosphatase 119 U/L (46-116); Anion Gap 13.2 mmol/L (3-11); BUN 8 mg/dL (7-18); Bilirubin, Total 2.9 mg/dL (0.2-1.0); CO2 21.8 mmol/L (21.0-32.0); CREATININE 0.8 mg/dL (0.70-1.30); Calcium 8.9 mg/dL (8.5-10.1); Chloride 109 mmol/L (98-107); Estimated GFR 94.62 (mL/min/1.73m2); Glucose 195 mg/dL (74-106); Sodium 144 mmol/L (136-145); Total Protein 6.2 g/dL (6.4-8.2)
[2024-09-14 13:25] LABS: INR 1.7 (0.9-1.1); PTT Activated 40.1 sec (20.6-30.2); Prothrombin Time 16.1 sec (9.1-11.1)
--- NOTE | 2024-09-14 13:57 | W.ED.GENAD ---
Discharge Plan Disposition Patient Disposition: Home Condition: Good Discharge Details Clinical Impression: Acute hepatic encephalopathy Primary Care Provider: Stefani Jones ED Provider: Jamal Montgomery Home Meds and New Rx's Prescriptions: No Action insulin glargine [Lantus Solostar U-100 Insulin] 100 unit/mL (3 mL) insulin pen 30 unit subcut QPM metformin 500 MG tablet 1,000 mg PO BID (DME) lancets 1 EACH misc 1 ea Miscellaneous BID TEST STRIPS 1 unit Topical BID lisinopril 20 mg tablet 20 mg PO DAILY amlodipine 2.5 mg tablet 2.5 mg PO DAILY ibuprofen 400 MG tablet 400 mg PO Q6H PRN PRNQty: 40 0RF glipizide 10 mg tablet 10 mg PO DAILY tamsulosin 0.4 mg capsule 0.4 mg PO Q24H magnesium oxide 400 mg (241.3 mg magnesium) tablet 400 mg PO BID Patient Comments: TAKE 1 TABLET BY MOUTH TWICE DAILY omeprazole 20 mg capsule,delayed release(DR/EC) 20 mg PO DAILY PRN (Reason: heartburn) Patient Comments: TAKE 1 CAPSULE BY MOUTH EVERY DAY NEEDED atorvastatin 40 mg tablet 40 mg PO DAILY Patient Comments: TAKE 1 TABLET BY MOUTH EVERY DAY carvedilol 3.125 mg tablet 3.125 mg PO BID Patient Comments: TAKE 1 TABLET BY MOUTH TWICE DAILY Xifaxan 550 mg Tablet 550 mg PO BID Qty: 60 0RF potassium chloride 10 mEq tablet extended release 20 meq PO DAILY Patient Comments: TAKE 2 TABLETS BY MOUTH EVERY DAY lactulose 10 gram/15 mL solution 30 g PO QID Patient Comments: TAKE 45 MILLILITERS BY MOUTH 3-4 TIMES A DAY DIRECTED FOR HIGH AMONIA Jardiance 10 mg Tablet 10 mg PO QAM Qty: 90 0RF Xarelto 20 mg tablet 20 mg PO DAILY Patient Comments: TAKE 1 TABLET BY MOUTH EVERY DAY HPI General Date/Time Provider Initiated Documentation: 09/14/24 11:50. HPI Narrative: This is a 69-year-old male with a past medical history of hemochromatosis and alcoholism, which led to liver failure, he is on Xarelto chronically, Xifaxan and lactulose out of chronic elevated ammonia levels. Patient has recently noticed some confusion over the last week or so. He states he has been taking his Xifaxan, his states he has been taking his lactulose daily/3 times a day, however the patient himself is not as clear as to whether or not he is doing that. Concern was for increased ammonia levels, the patient was brought in for further assessment. Patient denies any chest pain or shortness of breath, he denies any headache or neck pain. He denies any abdominal pain or abdominal distention. No other modifying factors. No other complaints. Related Data Home Medications ?Medication ?Instructions ?Recorded ?Confirmed Test Strips 1 unit topical BID 03/29/15 09/14/24 lancets 30 gauge 03/29/15 09/14/24 metformin 500 mg tablet 1,000 mg PO BID 03/29/15 09/14/24 ibuprofen 400 mg tablet 400 mg PO Q6H PRN PRN ##40 10/11/17 09/14/24 amlodipine 2.5 mg tablet 2.5 mg PO DAILY 12/16/19 09/14/24 lisinopril 20 mg tablet 20 mg PO DAILY 12/16/19 09/14/24 insulin glargine 100 unit/mL (3 30 unit subcut QPM 02/03/20 09/14/24 mL) subcutaneous pen (Lantus Solostar U-100 Insulin) atorvastatin 40 mg tablet 40 mg PO DAILY 12/04/23 09/14/24 carvedilol 3.125 mg tablet 3.125 mg PO BID 12/04/23 09/14/24 glipizide 10 mg tablet 10 mg PO DAILY 12/04/23 09/14/24 magnesium oxide 400 mg (241.3 mg 400 mg PO BID 12/04/23 09/14/24 magnesium) tablet omeprazole 20 mg capsule,delayed 20 mg PO DAILY PRN heartburn 12/04/23 09/14/24 release tamsulosin 0.4 mg capsule 0.4 mg PO Q24H 12/04/23 09/14/24 rifaximin 550 mg tablet (Xifaxan) 550 mg PO BID #60 tabs 12/06/23 09/14/24 potassium chloride 10 mEq 20 meq PO DAILY 02/16/24 09/14/24 tablet,extended release lactulose 10 gram/15 mL oral 30 g PO QID 04/07/24 09/14/24 solution empagliflozin 10 mg tablet 10 mg PO QAM #90 tabs 04/10/24 09/14/24 (Jardiance) rivaroxaban 20 mg tablet (Xarelto) 20 mg PO DAILY 05/21/24 09/14/24 Previous Rx's ?Medication ?Instructions ?Recorded ibuprofen 400 mg tablet 400 mg PO Q6H PRN PRN ##40 10/11/17 rifaximin 550 mg tablet (Xifaxan) 550 mg PO BID #60 tabs 12/06/23 empagliflozin 10 mg tablet 10 mg PO QAM #90 tabs 04/10/24 (Jardiance) Allergies Allergy/AdvReac Type Severity Reaction Status Date / Time No Known Allergies Allergy Verified 09/14/24 12:20 General Stated Complaint: AMS/LOC FAUSTO: 3 Exam Narrative Exam Narrative: 1.Const: Well-nourished, Well-developed, appearing stated age 2.Eyes: PERRL, no conjunctival injection, and symmetrical lids. 3.ENT: Atraumatic external nose and ears. Moist MM. Neck: Symmetric, trachea midline, No thyromegaly. Negative meningitis 4.CVS: +S1/S2, Peripheral pulses 2+ and equal in all extremities. Brisk capillary refill in all extremities. 5.RESP: Unlabored respiratory effort. Clear to auscultation bilaterally. No wheezes rales or rhonchi 6.GI: Soft, Nontender/Nondistended, No hepatosplenomegaly. No guarding or rebound. 7.MSK: Normocephalic/Atraumatic, Extremities w/o deformity or ttp No cyanosis or clubbing, Normal movement of all extremities. Single beat asterexis. 8.Skin: Warm, Dry. No rashes or lesions. 9.Neuro: small offset printer II-XII grossly intact. Sensation grossly intact, no focal neurologic deficits. 10.Psych: (AAO) x3. Family admits that the patient appears somewhat confused compared to his baseline. Course Vital Signs Vital signs: Vital Signs Temperature 36.8 C 09/14/24 12:09 Pulse 80 09/14/24 12:09 Respiratory Rate 18 09/14/24 12:09 Blood Pressure 147/86 H 09/14/24 12:09 Pulse Oximetry 98 09/14/24 12:09 Temperature 36.8 C 09/14/24 12:20 Temperature Source Oral 09/14/24 12:20 Pulse 74 09/14/24 13:13 Respiratory Rate 18 09/14/24 13:13 Respiratory Effort Normal, Non-Labored 09/14/24 12:21 Respiratory Depth Normal 09/14/24 12:21 Respiratory Pattern Normal 09/14/24 12:21 Blood Pressure 130/70 09/14/24 13:13 Blood Pressure Mean 90 09/14/24 13:13 Blood Pressure Position Sitting 09/14/24 12:20 Pulse Oximetry 99 09/14/24 13:13 Oxygen Delivery Method Room Air 09/14/24 12:20 Oxygen Flow Rate 0 09/14/24 12:20 Lab/Test Results Lab/Test Results: Laboratory Tests Range/Units 09/14/24 12:53 WBC (4.4-10.8) 10^3/uL 5.23 RBC (4.36-5.78) 10^6/uL 3.99 L Hgb (13.5-17.5) g/dL 12.7 L Hct (40.0-50.0) % 38.1 L MCV (80-95) fL 96 H MCH (27.0-33.0) pg 31.8 MCHC (32.0-36.0) % 33.3 RDW (11.8-14.1) % 13.2 Plt Count (130-400) 10^3/uL 148 MPV (8.0-11.0) fL 10.8 Immature Gran % % 0.2 Neutrophils % % 50.2 Lymphocytes % % 34.0 Monocytes % % 9.4 Eosinophils % % 5.4 Basophils % % 0.8 Nucleated RBC % (0.0-0.3) % 0.0 Absolute Neutrophils (1.2-6.7) 10^3/uL 2.63 Absolute Lymphocytes (1.2-3.4) 10^3/uL 1.78 Absolute Monocytes (0.1-0.8) 10^3/uL 0.49 Absolute Eosinophils (0.0-0.7) 10^3/uL 0.28 Absolute Basophils (0.0-0.2) 10^3/uL 0.04 PT (9.1-11.1) sec 16.1 H INR (0.9-1.1) 1.7 H APTT (20.6-30.2) sec 40.1 H Sodium (136-145) mmol/L 144 Potassium (3.5-5.1) mmol/L 4.0 Chloride (98-107) mmol/L 109 H Carbon Dioxide (21.0-32.0) mmol/L 21.8 Anion Gap (3-11) mmol/L 13.2 H BUN (7-18) mg/dL 8 Creatinine (0.70-1.30) mg/dL 0.8 Est GFR (CKD-EPI 2020) (mL/min/1.73m2) 94.62 Glucose (74-106) mg/dL 195 H Calcium (8.5-10.1) mg/dL 8.9 Total Bilirubin (0.2-1.0) mg/dL 2.9 H AST (15-37) U/L 44 H ALT (16-63) U/L 40 Alkaline Phosphatase (46-116) U/L 119 H Ammonia (11-32) umol/L 107 H Total Protein (6.4-8.2) g/dL 6.2 L Albumin (3.4-5.0) g/dL 3.2 L Medical Decision Making This is a 69-year-old male with a past medical history of hemochromatosis and alcoholism, which led to liver failure, he is on Xarelto chronically, Xifaxan and lactulose out of chronic elevated ammonia levels. Patient has recently noticed some confusion over the last week or so. He states he has been taking his Xifaxan, his states he has been taking his lactulose daily/3 times a day, however the patient himself is not as clear as to whether or not he is doing that. Concern was for increased ammonia levels, the patient was brought in for further assessment. Patient denies any chest pain or shortness of breath, he denies any headache or neck pain. He denies any abdominal pain or abdominal distention. No other modifying factors. No other complaints. Exam demonstrates a well-appearing male, single be as to rhexis for his upper extremities bilaterally. No evidence of severe ascites or abdominal pain or tenderness. Electrolytes are normal, no focal neurologic deficits. Labs were performed and the patient has an ammonia of 107. Normally he resides in the 40s. With this significant increase despite him taking his medications I do feel that inpatient admission is indicated for aggressive ammonia management with aggressive Xifaxan and lactulose administration. Family and patient agree. Discussed case with hospitalist Dr. Espinoza, he agrees with assessment plan. No other evidence to suggest a stroke, infection, or electrolyte derangement. No evidence of elevated white count or fever. I have extensively reviewed the treatment plan with the patient. I have addressed all patient concerns at this time. I have also discussed the plan with the admitting physician and they agree with the current assessment and plan and have agreed to assume responsibility for the patient. All parties demonstrate verbal understanding and agreement with our assessment and plan at this time. The documentation in this chart was dictated using [employer] dictation software. Please excuse any dictation errors. Patient was reassessed during his time here, he confusion state remains stable. No acute changes. Quality:SDOH Health Related Social Needs: Health related social needs house/econ circumstance Critical Care Time Critical Care Time Critical Care Time: Yes Total Critical Care Time: 30 Attestation: Upon my evaluation, this patient had a high probability of imminent or life-threatening deterioration, which required my direct attention, intervention, and personal management. I have personally provided 30 minutes of critical care time exclusive of time spent on separately billable procedures. Time includes review of laboratory data, radiology results, discussion with consultants, and monitoring for potential decompensation. Interventions were performed as documented. PFSH All Active Problems (Updated 09/14/24 @ 15:02 by Jamal Montgomery DO) Acute hepatic encephalopathy (Acute) Advanced care planning/counseling discussion (Acute) Cirrhosis (Acute) From hemochromatosis and Hx EtOH overuse Incurved toenail (Acute) BPH (benign prostatic hyperplasia) (Chronic) Chronic anticoagulation (Chronic) Paroxysmal atrial fibrillation (Chronic) Hemochromatosis, unspecified (Chronic) Diabetes (Chronic) Hypertension (Chronic) PVCs (premature ventricular contractions) (Acute) Medical History (Updated 09/14/24 @ 15:02 by Jamal Montgomery DO) Palliative care patient Social History Smoking/Tobacco Use Status: Current-Occasional Tobacco Type: cigars Smoking risk assessment performed?: Yes Alcohol Intake: former Drug use: Occasionally Substance use type: marijuana Housing: house Do you feel safe at home: Yes Do you feel safe in your relationship?: Yes
--- NOTE | 2024-09-14 17:17 | W.PC.ACHO ---
Registration Status: ADM IN Primary Language: Preferred Language: Ukrainian ED Information & Data Chief Complaint AMS/LOC 09/14/24 13:58 Triage Note Patient presented with 09/14/24 12:09 increased confusion, for the last few days. Pt has a history cirrhosis of the liver Medical / Surgical History (Last Updated 06/09/24 @ 16:[address] RN) Palliative care patient Most Recent Vital Signs Temperature 36.7 C 09/14/24 16:50 Temperature Source Temporal Artery Scan 09/14/24 16:49 Pulse 65 09/14/24 16:50 Respiratory Rate 16 09/14/24 16:50 Respiratory Effort Normal, Non-Labored 09/14/24 12:21 Respiratory Depth Normal 09/14/24 12:21 Respiratory Pattern Normal 09/14/24 12:21 Blood Pressure 137/82 09/14/24 16:50 Blood Pressure Mean 100 09/14/24 16:49 Blood Pressure Position Sitting 09/14/24 12:20 Pulse Oximetry 100 09/14/24 16:50 Oxygen Delivery Method Room Air 09/14/24 16:50 Oxygen Flow Rate 0 09/14/24 16:50 Pain Level 0 09/14/24 16:50 Allergies No Known Allergies Allergy (Verified 09/14/24 12:20) Precautions Isolation Standard precaution 09/14/24 12:21 IV IV Catheter Type [Right Saline Lock Antecubital] IV Catheter Gauge [Right 18 Antecubital] Diet Orders Category Date Time Status Diabetes Consistent CHO [DIET] Nutrition 09/14/24 Dinner Active Diagnostics 09/14/24 Range/Units 12:53 WBC 5.23 (4.4-10.8) 10^3/uL RBC 3.99 L (4.36-5.78) 10^6/uL Hgb 12.7 L (13.5-17.5) g/dL Hct 38.1 L (40.0-50.0) % MCV 96 H (80-95) fL MCH 31.8 (27.0-33.0) pg MCHC 33.3 (32.0-36.0) % RDW 13.2 (11.8-14.1) % Plt Count 148 (130-400) 10^3/uL MPV 10.8 (8.0-11.0) fL Immature Gran % 0.2 % Neutrophils % 50.2 % Lymphocytes % 34.0 % Monocytes % 9.4 % Eosinophils % 5.4 % Basophils % 0.8 % Nucleated RBC % 0.0 (0.0-0.3) % Absolute Neutrophils 2.63 (1.2-6.7) 10^3/uL Absolute Lymphocytes 1.78 (1.2-3.4) 10^3/uL Absolute Monocytes 0.49 (0.1-0.8) 10^3/uL Absolute Eosinophils 0.28 (0.0-0.7) 10^3/uL Absolute Basophils 0.04 (0.0-0.2) 10^3/uL PT 16.1 H (9.1-11.1) sec INR 1.7 H (0.9-1.1) APTT 40.1 H (20.6-30.2) sec Sodium 144 (136-145) mmol/L Potassium 4.0 (3.5-5.1) mmol/L Chloride 109 H (98-107) mmol/L Carbon Dioxide 21.8 (21.0-32.0) mmol/L Anion Gap 13.2 H (3-11) mmol/L BUN 8 (7-18) mg/dL Creatinine 0.8 (0.70-1.30) mg/dL Est GFR (CKD-EPI 2020) 94.62 (mL/min/1.73m2) Glucose 195 H (74-106) mg/dL Calcium 8.9 (8.5-10.1) mg/dL Total Bilirubin 2.9 H (0.2-1.0) mg/dL AST 44 H (15-37) U/L ALT 40 (16-63) U/L Alkaline Phosphatase 119 H (46-116) U/L Ammonia 107 H (11-32) umol/L Total Protein 6.2 L (6.4-8.2) g/dL Albumin 3.2 L (3.4-5.0) g/dL [id number] Documentation Fingerstick Glucose Start: 09/14/24 12:10 Freq: Status: Complete Protocol: Activity Type Activity Date Activity User E-sign Co-sign Detail Recorded Client Recorded Date Recorded By Document 09/14/24 12:08 CHLOÉ HAMPTON(5) NVT-BG05 09/14/24 12:10 BKG DAEMON(6) Fingerstick Glucose Start: 09/14/24 15:48 Freq: .AC Status: Active Protocol: Activity Type Activity Date Activity User E-sign Co-sign Detail Recorded Client Recorded Date Recorded By Document 09/14/24 17:02 BKG DAEMON(7) NVT-BG05 09/14/24 17:03 BKG DAEMON(8) Intake and Output - 24 Hour Total 09/14/24 11:49 thru 09/14/24 12:09 Weight 73.981 kg Falls Risk Assessment History of Falls No History 09/14/24 16:50 Contributing Factors No Factors 09/14/24 16:50 Ambulatory Aids Independent 09/14/24 16:50 Tubes/Lines None 09/14/24 16:50 Gait Evaluation No gait disturbance 09/14/24 16:50 Cognition No cognitive impairment 09/14/24 16:50 Fall Total Score 0 09/14/24 16:50 Level of Risk Standard/Low Risk 09/14/24 16:50 v v v v v v v v v Sending and/or Receiving Nurses: Please use comment section below to note any information pertinent to the patient hand-off not included above. Information / Comments: Report received from: Report received from VIKTOR Marroquin, ED at 16:26.
--- NOTE | 2024-09-14 17:21 | W.PM.HP.N ---
Date of service: 09/14/24 Time of Service: 17:21 Assessment and Plan Assessment and plan (1) Acute hepatic encephalopathy: Status: Acute Assessment and plan: Presentation c/w mild/moderate exacerbation of encephalopathy. Trigger not clear. He imrpoved with addition of erthyromycin, okay for a day or two despite some interaction with rivaroxaban, he is on lower dose, but will hold off as giving doxy for tick now. Treat with regular lactulose and xifaximan (2) Cirrhosis: Status: Acute Assessment and plan: Other than encephalopathy, liver function appears stable. No sign of acute GI bleed or infection such as SBP as a trigger. Continue to monitor. Clarified he should not take NSAIDs even prn. (3) Paroxysmal atrial fibrillation: Status: Chronic Assessment and plan: On lower dose rivaroxaban per PCP record, 10mg. Continue this. (4) BPH (benign prostatic hyperplasia): Status: Chronic Assessment and plan: continue tamsulosin (5) Diabetes: Status: Chronic Assessment and plan: A1c 6.3% in July, which may actually be a little overly aggressive control. Clarified that he is no longer on glipizide, which is good as this can cause hypoglycemia. Continue other meds including metformin, he did not have contrast imaging. FS with ISS (6) Hypertension: Status: Chronic Assessment and plan: continue outpatient therapy (7) Tick bite: Status: Acute Assessment and plan: Engorged. Give 200mg dose lyme prophylaxis. (8) Discharge planning issues: Status: Acute Assessment and plan: was here 3 days for similar in march, expect similar History of Present Illness History of Present Illness Chief Complaint: confusion Narrative: 69 yo M with type 2 DM, alcohol use disorder in remission, pAfib, and hepatic cirrhosis and history of hepatic encephalopathy who presented to the emergency room today after 1-2 weeks of increased confusion. His had noted he was forgetting things more, getting confused like pouring his drink back into the ice container, slowing of his speech, and some increased irritability. She does think he is less steady on his feet. Onset insidious. No recent illness or pain. No change in diet. No alcohol, though he does drink 1-2 NA beers. Per she makes sure he takes his lactulose and xifaxan, though he doesn't remember exactly. He is having 3 BM per day, soft and loose, so she isn't sure why he is getting encephalopathic again. He has had this multiple times in the past. Their son notice the changes this morning and they decided to come into the ED. He was last admitted 04/07-04/10/24 for encephalopathy that improved with low dose erythromycin 200mg TID along with rifaximin and lactulose Review of Systems All systems reviewed & are unremarkable except as noted in HPI and below PFSH All Active Problems (Updated 09/14/24 @ 17:50 by Young Pinto) Tick bite (Acute) Discharge planning issues (Acute) Dupuytren's contracture of right hand (Acute 09/21/17) Acute hepatic encephalopathy (Acute) Advanced care planning/counseling discussion (Acute) Cirrhosis (Acute) From hemochromatosis and Hx EtOH overuse Incurved toenail (Acute) BPH (benign prostatic hyperplasia) (Chronic) Chronic anticoagulation (Chronic) Paroxysmal atrial fibrillation (Chronic) Hemochromatosis, unspecified (Chronic) Diabetes (Chronic) Hypertension (Chronic) PVCs (premature ventricular contractions) (Acute) Medical History (Updated 09/14/24 @ 17:50 by Young Pinto) Dupuytren's contracture of left hand (07/06/17) Palliative care patient Surgical History (Updated 09/14/24 @ 17:34 by Young Pinto) S/P arthroplasty of acromioclavicular joint right Status post Dupuytren fasciectomy left Family History (Updated 09/14/24 @ 17:32 by Young Pinto) Father Cancer Mother Hemochromatosis Social History (Updated 09/14/24 @ 17:31 by Young Pinto) Smoking/Tobacco Use Status: Current-Occasional Tobacco Type: cigars Smoking risk assessment performed?: Yes Alcohol Intake: former Drug use: Occasionally Substance use type: marijuana Housing: house Do you feel safe at home: Yes Do you feel safe in your relationship?: Yes Additional Social history: lives with in [facility]. loves heavy metal, traveled with bands. Former [employer] Allergies and Home Medications Allergies Allergy/AdvReac Type Severity Reaction Status Date / Time No Known Allergies Allergy Verified 09/14/24 12:20 Home Medications ?Medication ?Instructions ?Recorded ?Confirmed ?Type Test Strips 1 unit topical BID 03/29/15 09/14/24 History lancets 30 gauge 03/29/15 09/14/24 History metformin 500 mg tablet 1,000 mg PO BID 03/29/15 09/14/24 History ibuprofen 400 mg tablet 400 mg PO Q6H PRN PRN ##40 10/11/17 09/14/24 Rx amlodipine 2.5 mg tablet 2.5 mg PO DAILY 12/16/19 09/14/24 History lisinopril 20 mg tablet 20 mg PO DAILY 12/16/19 09/14/24 History insulin glargine 100 unit/mL (3 30 unit subcut QPM 02/03/20 09/14/24 History mL) subcutaneous pen (Lantus Solostar U-100 Insulin) atorvastatin 40 mg tablet 40 mg PO DAILY 12/04/23 09/14/24 History carvedilol 3.125 mg tablet 3.125 mg PO BID 12/04/23 09/14/24 History glipizide 10 mg tablet 10 mg PO DAILY 12/04/23 09/14/24 History magnesium oxide 400 mg (241.3 mg 400 mg PO BID 12/04/23 09/14/24 History magnesium) tablet omeprazole 20 mg capsule,delayed 20 mg PO DAILY PRN heartburn 12/04/23 09/14/24 History release tamsulosin 0.4 mg capsule 0.4 mg PO Q24H 12/04/23 09/14/24 History rifaximin 550 mg tablet (Xifaxan) 550 mg PO BID #60 tabs 12/06/23 09/14/24 Rx potassium chloride 10 mEq 20 meq PO DAILY 02/16/24 09/14/24 History tablet,extended release lactulose 10 gram/15 mL oral 30 g PO QID 04/07/24 09/14/24 History solution empagliflozin 10 mg tablet 10 mg PO QAM #90 tabs 04/10/24 09/14/24 Rx (Jardiance) rivaroxaban 20 mg tablet (Xarelto) 20 mg PO DAILY 05/21/24 09/14/24 History Exam Narrative Exam Narrative: GEN: Alert and oriented x 3, but history vague, pleasant and cooperative. No acute distress at rest. HEENT: Head atraumatic. Conjunctiva clear, no icterus. PEERL, EOMI. no rhinorrhea. MMM, OP benign. Neck is supple with no masses. Some rossana <1cm anterior cervical lymphadenopathy, no other masses, trachea midline LUNGS: CTAB with normal effort CV: RRR with no murmurs, gallops, or rubs. ABD: active bowel sounds, soft, nontender and nondistended. No masses. No fluid wave. EXT: no cyanosis, clubbing. Trace rossana LE edema MSK: No joint redness or swelling. Dupuytrens right 4th/5th digits hand NEURO: CN 2-12 grossly intact. Normal movement of 4 extremities. speech slowed but intelligible. Normal coordination. No tremor or asterixis (was present initially per ED) SKIN: No rashes or open wounds, large engorged black legged tick left neck. No overt jaundice. PSYCH: normal mood and affect, no hallucinations Results Labs 09/14/24 12:53 09/14/24 12:53 Labs: Laboratory Results - last 24 hr 09/14/24 12:53 WBC 5.23 RBC 3.99 L Hgb 12.7 L Hct 38.1 L MCV 96 H MCH 31.8 MCHC 33.3 RDW 13.2 Plt Count 148 MPV 10.8 Immature Gran % 0.2 Neutrophils % 50.2 Lymphocytes % 34.0 Monocytes % 9.4 Eosinophils % 5.4 Basophils % 0.8 Nucleated RBC % 0.0 Absolute Neutrophils 2.63 Absolute Lymphocytes 1.78 Absolute Monocytes 0.49 Absolute Eosinophils 0.28 Absolute Basophils 0.04 PT 16.1 H INR 1.7 H APTT 40.1 H Sodium 144 Potassium 4.0 Chloride 109 H Carbon Dioxide 21.8 Anion Gap 13.2 H BUN 8 Creatinine 0.8 Est GFR (CKD-EPI 2020) 94.62 Glucose 195 H Calcium 8.9 Total Bilirubin 2.9 H AST 44 H ALT 40 Alkaline Phosphatase 119 H Ammonia 107 H Total Protein 6.2 L Albumin 3.2 L Last Vital Signs Temp 36.7 C 09/14/24 16:50 Pulse 65 09/14/24 16:50 Resp 16 09/14/24 16:50 BP 137/82 09/14/24 16:50 Pulse Ox 100 09/14/24 16:50 Time Spent Time spent with Patient: 55-74 minutes Time was spent: preparing to see the patient(eg.review tests), obtaining and/or reviewing separately otained hiistory, ordering medications,tests, procedures, referring, communicating with other health rn coronary care unit, indepentently interpreting results, counseling the patient and care coordination
[2024-09-14] MEDS: Tamsulosin 0.4 MG CAPCR PO (17:31)
[2024-09-14] MEDS: Lactulose 20 GM/30 ML CUP 30 GM PO ×2 (17:31→20:12)
[2024-09-14] MEDS: Normal Saline Flush 10 ML SYR IVP ×2 (17:32→20:13)
[2024-09-14] MEDS: metFORMIN 500 MG TAB 1000 MG PO (17:38)
[2024-09-14] MEDS: Insulin Aspart 300 UNITS/3 ML PEN SC (17:38)
[2024-09-14] MEDS: Doxycycline Hyclate 100 MG CAP 200 MG PO (18:16)
[2024-09-14] MEDS: Carvedilol 3.125 MG TAB PO (20:11)
[2024-09-14] MEDS: Magnesium Oxide 400 MG TAB PO (20:11)
[2024-09-14] MEDS: Rifaximin 550 MG TAB PO (20:12)
[2024-09-14] MEDS: Insulin Glargine 300 UNITS/3 ML PEN 30 UNITS SC (20:22)
[2024-09-15 07:21] LABS: HCT 35.8 % (40.0-50.0); HGB 12.3 g/dL (13.5-17.5); MCH 32.6 pg (27.0-33.0); MCHC 34.4 % (32.0-36.0); MCV 95 fL (80-95); Platelet Count 132 10^3/uL (130-400); RBC 3.77 10^6/uL (4.36-5.78); RDW 13.2 % (11.8-14.1); RDW-SD 45.8 fL; WBC 6.12 10^3/uL (4.4-10.8)
[2024-09-15 07:29] LABS: INR 1.4 (0.9-1.1); Prothrombin Time 13.8 sec (9.1-11.1)
[2024-09-15 07:48] LABS: ALT 35 U/L (16-63); AST 34 U/L (15-37); Albumin 2.9 g/dL (3.4-5.0); Alkaline Phosphatase 97 U/L (46-116); Anion Gap 10.6 mmol/L (3-11); BUN 10 mg/dL (7-18); Bilirubin, Total 2.5 mg/dL (0.2-1.0); CO2 24.4 mmol/L (21.0-32.0); CREATININE 0.6 mg/dL (0.70-1.30); Calcium 8.6 mg/dL (8.5-10.1); Chloride 111 mmol/L (98-107); Glucose 82 mg/dL (74-106); Potassium 3.5 mmol/L (3.5-5.1); Sodium 146 mmol/L (136-145); Total Protein 5.7 g/dL (6.4-8.2)
[2024-09-15 07:56] VITALS: BP 128/67; PULSE 89; RESP 17; TEMP 36.7; O2SAT 98
[2024-09-15] MEDS: metFORMIN 500 MG TAB 1000 MG PO ×2 (09:21→16:53)
[2024-09-15] MEDS: Carvedilol 3.125 MG TAB PO (09:31)
[2024-09-15] MEDS: Magnesium Oxide 400 MG TAB PO (09:33)
[2024-09-15] MEDS: amLODIPine 5 MG TAB 2.5 MG PO (09:34)
[2024-09-15] MEDS: Lisinopril 20 MG TAB PO (09:36)
[2024-09-15] MEDS: Empaglifozin 10 MG TAB PO (09:39)
[2024-09-15] MEDS: Atorvastatin 40 MG TAB PO (09:39)
[2024-09-15] MEDS: Rifaximin 550 MG TAB PO (09:42)
[2024-09-15] MEDS: Potassium Chloride 20 MEQ TABCR PO (09:43)
[2024-09-15] MEDS: Lactulose 20 GM/30 ML CUP 30 GM PO ×3 (09:43→16:52)
[2024-09-15] MEDS: Normal Saline Flush 10 ML SYR IVP (09:47)
[2024-09-15 11:16] VITALS: BP 111/71; PULSE 72; RESP 17; TEMP 36.7; O2SAT 97
[2024-09-15] MEDS: Insulin Aspart 300 UNITS/3 ML PEN SC ×2 (12:15→17:26)
[2024-09-15 16:02] VITALS: BP 111/71; PULSE 84; RESP 16; TEMP 36.7; O2SAT 98
--- NOTE | 2024-09-15 16:29 | PDOC.CMIN ---
Date of service: 09/15/24 Time of Service: 16:29 Care Management Initial Assmt Initial Assessment Reason for Hospitalization: hepatic encephalopathy Functional Status/Living Situation Town of Residence: [facility] Resides with: Spouse Significant Other/Family: Local Natural Supports: , Melvina kwok, Bran, Patrick and Miki Employment Status: Retired Instrumental Activities of Daily Living (ADLs): Independent Medications Medication Management: No Issues/Barriers identified Physical Functioning/Mobility Assistive Device: FWW Advance Directives Advance Directives: Do you have an Advance Directive: N 09/05/12, 15:39 AD On File at [facility]: N 06/19/12, 11:48 Date Asked 09/14/24 09/14/24, 11:56 AD Date Reviewed COLST On File at [facility] No 01/12/24, 17:37 COLST Date Scanned Code Status Resuscitation Status Full Code Insurance Coverage/Financial Issues Insurance: [facility] financial assistance Care Team Visit Care Team Role Provider Type Stefani Jones MD Primary Care Provider [facility] STAFF PHYSICIAN Jamal Montgomery DO Emergency Provider [facility] STAFF PHYSICIAN Young Pinto Admit Provider [facility] STAFF PHYSICIAN Attending Provider Discharge Potential Discharge Needs: PCP F/U Appt Anticipated Barriers to Discharge: None Identified Patient/Family Education Needs: Review discharge instructions, discuss Ask Me Three Transportation: Private vehicle Plan: Anticipate Shaji will return home once medically cleared. His will drive him home via private vehicle. He will follow up with his PCP and discharge plan of care. CM will continue to follow. Social Determinants of Health Screening Social Determinants of health last assessed in clinic: 09/14/24 Will the Patient Participate in the Screening?: Yes Do you worry about having a steady place to live?: no Problems where you live: no known problems In the past 12 months, have you had to go without electric, gas, oil or water in your home?: no Has lack of transportation kept you from medical appointments or from doing things needed for daily living?: yes Has anyone in your life made you feel unsafe or unsupported?: no How hard is it for you to pay for the very basics like food, housing, medical care, and heating? Would you say it is:: Somewhat hard Do you want help finding or keeping work or a job?: I do not need or want help If for any reason you need help with day-to-day activities such as bathing, preparing meals, shopping, managing finances, etc., do you get the help you need?: I get all the help I need How often do you feel lonely or isolated from those around you?: Never Do you speak a language other than Slovenian at home?: No Does the patient want assistance with any of the above?: No Health Related Social Needs Health related social needs: transportation insecurity (Z59.82) and problems related to housing/economic circumstances (Z59.89) PFS All Active Problems (Updated 09/14/24 @ 17:50 by Young Pinto) Tick bite (Acute) Discharge planning issues (Acute) Dupuytren's contracture of right hand (Acute 09/21/17) Acute hepatic encephalopathy (Acute) Advanced care planning/counseling discussion (Acute) Cirrhosis (Acute) From hemochromatosis and Hx EtOH overuse Incurved toenail (Acute) BPH (benign prostatic hyperplasia) (Chronic) Chronic anticoagulation (Chronic) Paroxysmal atrial fibrillation (Chronic) Hemochromatosis, unspecified (Chronic) Diabetes (Chronic) Hypertension (Chronic) PVCs (premature ventricular contractions) (Acute) Medical History (Updated 09/14/24 @ 17:50 by Young Pinto) Dupuytren's contracture of left hand (07/06/17) Palliative care patient Surgical History (Updated 09/14/24 @ 17:34 by Young Pinto) S/P arthroplasty of acromioclavicular joint right Status post Dupuytren fasciectomy left Family History (Updated 09/14/24 @ 17:32 by Young Pinto) Father Cancer Mother Hemochromatosis Social History (Updated 09/14/24 @ 17:31 by Young Pinto) Smoking/Tobacco Use Status: Current-Occasional Tobacco Type: cigars Smoking risk assessment performed?: Yes Alcohol Intake: former Drug use: Occasionally Substance use type: marijuana Housing: house Do you feel safe at home: Yes Do you feel safe in your relationship?: Yes Additional Social history: lives with in [facility]. loves heavy metal, traveled with bands. 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
[2024-09-15] MEDS: Rivaroxaban 10 MG TABLET PO (16:53)
[2024-09-15] MEDS: Tamsulosin 0.4 MG CAPCR PO (16:57)
--- NOTE | 2024-09-15 18:27 | W.PM.DS.N ---
Date of service: 09/15/24 Time of Service: 18:27 DS: Diagnosis Discharge Diagnosis (1) Acute hepatic encephalopathy: Status: Acute (2) Cirrhosis: Status: Acute (3) Paroxysmal atrial fibrillation: Status: Chronic (4) BPH (benign prostatic hyperplasia): Status: Chronic (5) Diabetes: Status: Chronic (6) Hypertension: Status: Chronic (7) Tick bite: Status: Acute (8) Discharge planning issues: Status: Acute Discharge Plan Disposition Patient Disposition: Home Condition: Stable Discharge Details Reason For Visit: Hepatic Encephalopathy Admit Date/Time: 09/14/24 15:44 Admit Provider: Young Pinto Attending Provider: Young Pinto [facility]: 69 yo M with type 2 DM, alcohol use disorder in remission and hemachromatosis, pAfib, and hepatic cirrhosis and history of hepatic encephalopathy who presented to the emergency room today after 1-2 weeks of increased confusion. He was using his lactolose and xifaximin per patient and his and having 3 stools/day. There was not a clear trigger, though he has been drinking NA beers. His speech was mildly slowed, and had slight asterixis in the ED, and he was mildly confused. His liver funciton was stable. Head CT and CXR was reassuring. He had no signs of infeciton. Admission evaluation was also significant for an engorged tick on his neck. He was treated with 200mg doxycycline for Lyme prophylaxis along with lactulose and xifaxamin. He improved by the next day and his family felt he was at baseline mental status. We discussed avoiding all NSAIDs and avoiding even <0.5% beer and trying hop water instead. We discussed titratign up lactulose from TID to QID if confusion recurs, and making sure he doesn't get dehydrated in heat. He should follow up with PCP in 1-2 weeks Recommendations for Follow Up Recommended tests to be ordered by follow up provider: Follow mental status. He is due for HCC screening with liver imaging (last 01/16). Home Meds and New Rx's Prescriptions: New Xarelto 10 mg Tablet 10 mg PO 1700 Qty: 30 0RF Continued insulin glargine [Lantus Solostar U-100 Insulin] 100 unit/mL (3 mL) insulin pen 30 unit subcut QPM metformin 500 MG tablet 1,000 mg PO BID (DME) lancets 1 EACH misc 1 ea Miscellaneous BID TEST STRIPS 1 unit Topical BID lisinopril 20 mg tablet 20 mg PO DAILY amlodipine 2.5 mg tablet 2.5 mg PO DAILY tamsulosin 0.4 mg capsule 0.4 mg PO Q24H magnesium oxide 400 mg (241.3 mg magnesium) tablet 400 mg PO BID Patient Comments: TAKE 1 TABLET BY MOUTH TWICE DAILY omeprazole 20 mg capsule,delayed release(DR/EC) 20 mg PO DAILY PRN (Reason: heartburn) Patient Comments: TAKE 1 CAPSULE BY MOUTH EVERY DAY NEEDED atorvastatin 40 mg tablet 40 mg PO DAILY Patient Comments: TAKE 1 TABLET BY MOUTH EVERY DAY carvedilol 3.125 mg tablet 3.125 mg PO BID Patient Comments: TAKE 1 TABLET BY MOUTH TWICE DAILY Xifaxan 550 mg Tablet 550 mg PO BID Qty: 60 0RF potassium chloride 10 mEq tablet extended release 20 meq PO DAILY Patient Comments: TAKE 2 TABLETS BY MOUTH EVERY DAY lactulose 10 gram/15 mL solution 30 g PO QID Patient Comments: TAKE 45 MILLILITERS BY MOUTH 3-4 TIMES A DAY DIRECTED FOR HIGH AMONIA Jardiance 10 mg Tablet 10 mg PO QAM Qty: 90 0RF Discontinued ibuprofen 400 MG tablet 400 mg PO Q6H PRN PRNQty: 40 0RF glipizide 10 mg tablet 10 mg PO DAILY Xarelto 20 mg tablet 20 mg PO DAILY Patient Comments: TAKE 1 TABLET BY MOUTH EVERY DAY Discharge Instructions Instructions: Hepatic encephalopathy Additional Instructions: continue the regular meds Avoid ibuprofen and avoid beer, even non alcoholic for now. Try hop water. watch the area of tick bite for expanding rash, monitor for fevers. Stand Alone Forms: Nursing Discharge Form Referrals: Stefani Jones MD [Primary Care Provider, Medicine] Referral Note: Please call the office to set up a hospital follow up within 7-10 days Activity:: Activity as Tolerated Equipment/Supplies:: No Equipment Needed Diet:: As Tolerated Discharge Orders Discharge Orders: Discharge Order (Routine); Ordered 09/15/24 Ordered By: Young Pinto DS: Summary Time Spent with Patient providing and/or coordinating discharge services: Greater than 30 minutes Status at Discharge Functional status at discharge: independent ambulation Overall status at discharge: patient is back to baseline Mental Status: mental status grossly normal Speech and Movement: speech and movement normal Mood: congruent mood Affect: normal affect Quality:SDOH Health Related Social Needs: Health related social needs transpo insecurity house/econ circumstance Exam Narrative Exam Narrative: GEN: Alert and oriented x 4. No acute distress at rest. HEENT: MMM no icterus. LUNGS: CTAB with normal effort CV: RRR with no murmurs, gallops, or rubs. ABD: active bowel sounds, soft, nontender and nondistended. No masses. No fluid wave. EXT: no cyanosis, clubbing. Trace rossana LE edema PSYCH: normal mood and affect, no hallucinations Psych Mental Status: mental status grossly normal Speech and Movement: speech and movement normal Mood: congruent mood Affect: normal affect DS: Data Vitals/I&O Vitals and I&O: Vital Signs Temperature 36.7 C 09/15/24 16:02 Temperature Source Temporal Artery Scan 09/15/24 16:02 Pulse 84 09/15/24 16:02 Pulse Rhythm Regular 09/14/24 16:50 Respiratory Rate 16 09/15/24 16:02 Respiratory Effort Normal 09/14/24 16:50 Respiratory Depth Normal 09/14/24 16:50 Respiratory Pattern Normal 09/14/24 16:50 Blood Pressure 111/71 09/15/24 16:02 Blood Pressure Mean 84 09/15/24 16:02 Blood Pressure Position Sitting 09/14/24 12:20 Pulse Oximetry 98 09/15/24 16:02 Oxygen Delivery Method Room Air 09/15/24 16:02 Oxygen Flow Rate 0 09/15/24 16:02 Pain Level 0 09/15/24 16:02 Comment pt refused vitals 09/15/24 03:03 Intake & Output 09/14/24 09/15/24 09/15/24 23:59 11:59 23:59 Intake Total 240 / 240 Balance 240 / 240 Weight 72.7 kg 71.3 kg Intake: IV Oral 240 / 240 Other: Comment pt states he urinated, 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 pT stated they voided Stool Size Large Stool Characteristics Liquid Data Completed and Pending Labs on day of discharge: Labs from last 24 hours 09/15/24 06:12 WBC 6.12 RBC 3.77 L Hgb 12.3 L Hct 35.8 L MCV 95 MCH 32.6 MCHC 34.4 RDW 13.2 Plt Count 132 MPV 11.0 PT 13.8 H INR 1.4 H Sodium 146 H Potassium 3.5 Chloride 111 H Carbon Dioxide 24.4 Anion Gap 10.6 BUN 10 Creatinine 0.6 L Est GFR (CKD-EPI 2020) 103.20 Glucose 82 Calcium 8.6 Total Bilirubin 2.5 H AST 34 ALT 35 Alkaline Phosphatase 97 Total Protein 5.7 L Albumin 2.9 L PFSH All Active Problems (Updated 09/14/24 @ 17:50 by Young Pinto) Tick bite (Acute) Discharge planning issues (Acute) Dupuytren's contracture of right hand (Acute 09/21/17) Acute hepatic encephalopathy (Acute) Advanced care planning/counseling discussion (Acute) Cirrhosis (Acute) From hemochromatosis and Hx EtOH overuse Incurved toenail (Acute) BPH (benign prostatic hyperplasia) (Chronic) Chronic anticoagulation (Chronic) Paroxysmal atrial fibrillation (Chronic) Hemochromatosis, unspecified (Chronic) Diabetes (Chronic) Hypertension (Chronic) PVCs (premature ventricular contractions) (Acute) Medical History (Updated 09/14/24 @ 17:50 by Young Pinto) Dupuytren's contracture of left hand (07/06/17) Palliative care patient Surgical History (Updated 09/14/24 @ 17:34 by Young Pinto) S/P arthroplasty of acromioclavicular joint right Status post Dupuytren fasciectomy left Family History (Updated 09/14/24 @ 17:32 by Young Pinto) Father Cancer Mother Hemochromatosis Social History (Updated 09/14/24 @ 17:31 by Young Pinto) Smoking/Tobacco Use Status: Current-Occasional Tobacco Type: cigars Smoking risk assessment performed?: Yes Alcohol Intake: former Drug use: Occasionally Substance use type: marijuana Housing: house Do you feel safe at home: Yes Do you feel safe in your relationship?: Yes Additional Social history: lives with in [facility]. loves heavy metal, traveled with bands. Former vasquez Time Spent with Patient Time Spent with Patient: <45 minutes Time was spent: preparing to see the patient(eg.review tests), obtaining and/or reviewing separately otained hiistory, ordering medications,tests, procedures, referring, communicating with other health nanny caregiver, indepentently interpreting results, counseling the patient and care coordination
== END 2024-09-15 18:55 | disposition home or self-care (01) | DRG 443 ==
LOC: ER 15:02 → MS 16:42
PROVIDERS: Admitting Provider Family Medicine; Emergency Provider Student in an Organized Health Care Education/Training Program; PCP Family Medicine; Responsible Provider Family Medicine; Visit Provider Family Medicine
DX: K76.82 Hepatic encephalopathy (principal); I48.0 Paroxysmal atrial fibrillation; R39.14 Feeling of incomplete bladder emptying; N40.1 Benign prostatic hyperplasia with lower urinary tract symptoms; E11.9 Type 2 diabetes mellitus without complications; Z79.4 Long term (current) use of insulin; I10 Essential (primary) hypertension; S10.86XA Insect bite of other specified part of neck, initial encounter; W57.XXXA Bitten or stung by nonvenomous insect and other nonvenomous arthropods, initial encounter; K70.30 Alcoholic cirrhosis of liver without ascites; F10.91 Alcohol use, unspecified, in remission; E83.119 Hemochromatosis, unspecified; K71.3 Toxic liver disease with chronic persistent hepatitis; Z79.84 Long term (current) use of oral hypoglycemic drugs; Z79.01 Long term (current) use of anticoagulants; I49.3 Ventricular premature depolarization; F12.90 Cannabis use, unspecified, uncomplicated; F17.290 Nicotine dependence, other tobacco product, uncomplicated
CPT/HCPCS: 00123; 36415; 36416; 80053; 82962; 85027; 99291; 82140; 85025; 85610; 85730; 99222; 99239; J1815

== ENCOUNTER → 2024-09-22 09:32 | Outpatient (BNVA) | payer MEDICARE, SELFPAY | PROVIDERS: PCP Family Medicine; Referring Provider Family Medicine; Visit Provider Podiatrist | DX: L60.3 Nail dystrophy (principal); M79.674 Pain in right toe(s); M79.675 Pain in left toe(s); B35.1 Tinea unguium; R20.2 Paresthesia of skin; R60.0 Localized edema; E11.9 Type 2 diabetes mellitus without complications; Z79.4 Long term (current) use of insulin; R09.89 Other specified symptoms and signs involving the circulatory and respiratory systems; I83.93 Asymptomatic varicose veins of bilateral lower extremities; L65.9 Nonscarring hair loss, unspecified; R23.8 Other skin changes; L60.2 Onychogryphosis; L60.8 Other nail disorders | CPT/HCPCS: 11721 ==

== ENCOUNTER 2024-10-29 13:26 | Outpatient (REF) | payer MEDICARE, SELFPAY ==
[2024-10-29 16:06] LABS: HCT 35.4 % (40.0-50.0); HGB 12.1 g/dL (13.5-17.5); MCH 32.5 pg (27.0-33.0); MCHC 34.2 % (32.0-36.0); MCV 95 fL (80-95); MPV 11.2 fL (8.0-11.0); Platelet Count 129 10^3/uL (130-400); RBC 3.72 10^6/uL (4.36-5.78); RDW 13.5 % (11.8-14.1); RDW-SD 47.1 fL; WBC 5.79 10^3/uL (4.4-10.8)
[2024-10-29 16:21] LABS: Iron 127 ug/dL (65-175); Total Iron Binding Capacity 211 ug/dL (250-450); Transferrin Sat 60 % (20-55)
[2024-10-29 16:37] LABS: Hemoglobin A1C 6.3 % (<5.7)
[2024-10-29 16:48] LABS: Ferritin 70 ng/mL (26-388); Folate 6.9 ng/mL (8.6-20.0); Vitamin B12 429 pg/mL (193-986)
== END 2024-10-29 13:27 | disposition home or self-care (01) ==
LOC: NCHCN 13:26
PROVIDERS: PCP Family Medicine; Visit Provider Family Medicine
DX: D64.9 Anemia, unspecified (principal); E11.9 Type 2 diabetes mellitus without complications; Z79.4 Long term (current) use of insulin
CPT/HCPCS: 85027; 82607; 82728; 82746; 83036; 83540; 83550

== ENCOUNTER 2025-01-14 09:46 | Outpatient (REF) | payer MEDICARE, SELFPAY ==
[2025-01-14 15:46] LABS: HCT 34.6 % (40.0-50.0); HGB 11.5 g/dL (13.5-17.5); MCH 32.7 pg (27.0-33.0); MCHC 33.2 % (32.0-36.0); MCV 98 fL (80-95); MPV 11.4 fL (8.0-11.0); Platelet Count 114 10^3/uL (130-400); RBC 3.52 10^6/uL (4.36-5.78); RDW 13.7 % (11.8-14.1); RDW-SD 49.5 fL; WBC 5.32 10^3/uL (4.4-10.8)
[2025-01-14 16:15] LABS: Ferritin 47 ng/mL (26-388); Folate 14.0 ng/mL (8.6-20.0)
[2025-01-14 16:17] LABS: Hemoglobin A1C 6.5 % (<5.7)
== END 2025-01-14 09:47 | disposition home or self-care (01) ==
LOC: NCHCN 09:46
PROVIDERS: PCP Family Medicine; Visit Provider Family Medicine
DX: E83.119 Hemochromatosis, unspecified (principal); E11.9 Type 2 diabetes mellitus without complications
CPT/HCPCS: 85027; 82728; 82746; 83036

== ENCOUNTER → 2025-01-20 10:56 | Outpatient (BNVA) | payer MEDICARE, SELFPAY | PROVIDERS: PCP Family Medicine; Referring Provider Family Medicine; Visit Provider Podiatrist | DX: L60.3 Nail dystrophy (principal); B35.1 Tinea unguium; M79.674 Pain in right toe(s); M79.675 Pain in left toe(s); E11.9 Type 2 diabetes mellitus without complications; I73.89 Other specified peripheral vascular diseases; R60.0 Localized edema; R09.89 Other specified symptoms and signs involving the circulatory and respiratory systems; I83.93 Asymptomatic varicose veins of bilateral lower extremities; L65.9 Nonscarring hair loss, unspecified; R23.8 Other skin changes; R23.4 Changes in skin texture; L60.2 Onychogryphosis; L60.8 Other nail disorders | CPT/HCPCS: 11721; 93922 ==

== ENCOUNTER → 2025-02-02 11:25 | Outpatient (BNVA) | payer MEDICARE, SELFPAY | PROVIDERS: PCP Family Medicine; Referring Provider Family Medicine; Visit Provider Student in an Organized Health Care Education/Training Program | DX: E83.110 Hereditary hemochromatosis (principal); I85.00 Esophageal varices without bleeding | CPT/HCPCS: 99213 ==

== ENCOUNTER 2025-02-27 11:33 | Observation (INO) | payer MEDICARE, SELFPAY ==
[2025-02-27] VITALS (32 sets, daily range): BP systolic 148–186; BP diastolic 76–106; PULSE 53–87; RESP 12–21; TEMP 36.4–37.5; O2SAT 84–100
--- NOTE | 2025-02-27 11:15 | RT.EKG_ITS ---
APPROVED REPORT Exam: Resting ECG Reason for Exam: confusion Patient Location: E HR:71 bpm ECG Measurements Heart Rate 71 AXIS AZ 215 P 26 QRSd 89 QRS 5 QT 449 T 32 QTc 471 Conclusion Sinus rhythm...normal P axis, V-rate 60- 99 Atrial premature complexes in couplets...pair SV complexes w/ short R-R Borderline prolonged AZ interval...AZ >212, V-rate 50- 90 No Occlusion VT
--- NOTE | 2025-02-27 11:45 | DI.RAD_ITS ---
Exam(s) XR CHEST 2V PA LATERAL EXAM: XR CHEST 2V PA LATERAL CLINICAL HISTORY: confusion. TECHNIQUE: 2D digital imaging was performed. COMPARISON: CR XR PORTABLE CHEST AP from 04/08/2024 FINDINGS: 2 views: Heart size is normal. Tortuous descending thoracic aorta. The upper mediastinum is not widened. Lungs are clear. No infiltrates nor pleural effusions. No pulmonary edema. Again noted is resection of the distal aspect of the right clavicle. IMPRESSION: No acute pulmonary findings. DATA REPOSITORY: RADIATION DOSE DELIVERED:
--- NOTE | 2025-02-27 11:45 | DI.CT_ITS ---
Exam(s) CT HEAD WO EXAM: CT HEAD WO CLINICAL HISTORY: confusion. TECHNIQUE: Imaging Protocol: Axial computed tomography images with coronal and sagittal reformatted images were created and reviewed COMPARISON: CT CT HEAD WO from 04/07/2024 FINDINGS: There are no skull fractures. Mild mucosal thickening noted in the right maxillary sinus, not associated with a fluid level. Sphenoid sinuses are clear. There is mucosal thickening in the left frontoethmoidal recess again noted. Also in the medial aspect of the left frontal sinus. There is no evidence of intracranial hemorrhage, mass effect, or shift of midline structures. There are no extra-axial fluid collections. The ventricles are not enlarged or shifted and there is no blood within the ventricular system nor within the basal cisterns. IMPRESSION: No acute intracranial findings on this noninfused CT scan of the brain. Paranasal sinus findings as above. Report called by myself to ER provider on 02/27/2025 at 12:30 p.m. RADIATION DOSE DELIVERED: 941.67mGy.cm Total DLP DATA REPOSITORY: All CT scans at this facility are submitted to the National Radiology Data Registry (NRDR) Dose Index Registry (DIR) with the [employer] (ACR). RADIATION OPTIMIZATION: All CT scans at this facility use at least one of these dose optimization techniques: automated exposure control; mA and/or kV adjustment per patient size (includes targeted exams where dose is matched to clinical indication); or iterative reconstruction.
[2025-02-27 12:02] LABS: Abs Immature Grans 0.00 10^3/uL (0.0-0.06); HCT 36.3 % (40.0-50.0); HGB 12.1 g/dL (13.5-17.5); Immature Grans % 0.0 %; MCH 32.3 pg (27.0-33.0); MCHC 33.3 % (32.0-36.0); MCV 97 fL (80-95); MPV 10.4 fL (8.0-11.0); Platelet Count 116 10^3/uL (130-400); RBC 3.75 10^6/uL (4.36-5.78); RDW 13.8 % (11.8-14.1); RDW-SD 49.4 fL; WBC 5.26 10^3/uL (4.4-10.8)
[2025-02-27 12:18] LABS: Magnesium 1.9 mg/dL (1.6-2.6)
[2025-02-27 12:19] LABS: Ammonia 66 umol/L (11-32); Lipase 53 U/L (<53); Troponin I 14 ng/L (<54)
[2025-02-27 12:20] LABS: ALT 35 U/L (10-49); AST 37 U/L (<34); Albumin 3.4 g/dL (3.2-5.0); Alkaline Phosphatase 120 U/L (46-116); Anion Gap 11 mmol/L (3-11); BUN 7 mg/dL (9-23); Bilirubin, Total 2.50 mg/dL (0.2-1.2); CO2 24.0 mmol/L (20.0-31.0); Calcium 8.6 mg/dL (8.3-10.6); Chloride 113 mmol/L (98-107); Glucose 118 mg/dL (74-106); Potassium 3.5 mmol/L (3.5-5.1); Sodium 148 mmol/L (136-145); Total Protein 6.2 g/dL (5.7-8.2)
[2025-02-27 13:15] LABS: Troponin I 13 ng/L (<54)
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
[2025-02-27 14:01] LABS: Glucose 500 mg/dL (Negative)
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
[2025-02-27 14:28] LABS: Cannabinoids THC Positive (Negative)
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
[2025-02-27] MEDS: SODIUM CHLORIDE 0.45% 1,000 ML 50 ML IV (16:17)
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
--- NOTE | 2025-02-27 16:58 | NUR.NOTE ---
Nursing Note: At 3:30pm, pt admitted fro the ER via WC pt assisted to the chair VSS pts at bedside pt offered no complaints full admission done skin check done pt has very dry skin especially rossana LE dry scabs on bilateral buttocks skin intact IVF's started in RT AC SL pt alert and oriented x 2 forgetful to the date chair alarm in place pt ambulated to BR to void chair alarm in place call weinberg at side reviewed safety precautions frequent rounds made
[2025-02-27] MEDS: Insulin Aspart 300 UNITS/3 ML PEN SC (17:25)
[2025-02-27] MEDS: Rivaroxaban 10 MG TABLET PO (17:25)
[2025-02-27] MEDS: Tamsulosin 0.4 MG CAPCR PO (17:28)
[2025-02-27] MEDS: Magnesium Oxide 400 MG TAB PO (20:47)
[2025-02-27] MEDS: Lactulose 20 GM/30 ML CUP 40 GM PO (20:47)
[2025-02-27] MEDS: Rifaximin 550 MG TAB PO (20:47)
[2025-02-27] MEDS: Carvedilol 3.125 MG TAB PO (20:48)
[2025-02-27] MEDS: Insulin Glargine 300 UNITS/3 ML PEN 30 UNITS SC (20:48)
[2025-02-27] MEDS: Normal Saline Flush 10 ML SYR IVP (20:50)
[2025-02-27 21:46] LABS: Anion Gap 10.5 mmol/L (3-11); BUN 11 mg/dL (9-23); CO2 22.5 mmol/L (20.0-31.0); Calcium 8.4 mg/dL (8.3-10.6); Chloride 112 mmol/L (98-107); Glucose 170 mg/dL (74-106); Potassium 3.4 mmol/L (3.5-5.1); Sodium 145 mmol/L (136-145)
[2025-02-28] MEDS: Omeprazole 20 MG CAPCR PO (06:35)
[2025-02-28 06:40] LABS: Abs Immature Grans 0.01 10^3/uL (0.0-0.06); HCT 33.2 % (40.0-50.0); HGB 11.2 g/dL (13.5-17.5); Immature Grans % 0.2 %; MCH 33.0 pg (27.0-33.0); MCHC 33.7 % (32.0-36.0); MCV 98 fL (80-95); MPV 10.9 fL (8.0-11.0); Platelet Count 123 10^3/uL (130-400); RBC 3.39 10^6/uL (4.36-5.78); RDW 13.9 % (11.8-14.1); RDW-SD 50.3 fL; WBC 5.57 10^3/uL (4.4-10.8)
[2025-02-28 07:08] LABS: ALT 27 U/L (10-49); AST 33 U/L (<34); Albumin 3.0 g/dL (3.2-5.0); Alkaline Phosphatase 100 U/L (46-116); Anion Gap 10.6 mmol/L (3-11); BUN 9 mg/dL (9-23); Bilirubin, Total 2.40 mg/dL (0.2-1.2); CO2 22.4 mmol/L (20.0-31.0); Calcium 8.1 mg/dL (8.3-10.6); Chloride 114 mmol/L (98-107); Glucose 71 mg/dL (74-106); Potassium 3.4 mmol/L (3.5-5.1); Sodium 147 mmol/L (136-145); Total Protein 5.4 g/dL (5.7-8.2)
[2025-02-28] MEDS: amLODIPine 2.5 MG TAB PO (08:42)
[2025-02-28] MEDS: Potassium Chloride 20 MEQ TABCR PO (08:42)
[2025-02-28] MEDS: Lisinopril 20 MG TAB PO (08:42)
[2025-02-28] MEDS: Lactulose 20 GM/30 ML CUP 40 GM PO ×2 (08:42→13:11)
[2025-02-28] MEDS: Rifaximin 550 MG TAB PO (08:42)
[2025-02-28] MEDS: Carvedilol 3.125 MG TAB PO (08:43)
[2025-02-28] MEDS: Ketoconazole 2% CREAM 15 GM TUBE TP (08:43)
[2025-02-28] MEDS: Empaglifozin 10 MG TAB PO (08:43)
[2025-02-28] MEDS: Magnesium Oxide 400 MG TAB PO (08:43)
[2025-02-28] MEDS: Folic Acid 1 MG TAB PO (08:43)
[2025-02-28] MEDS: Atorvastatin 40 MG TAB PO (08:44)
[2025-02-28] MEDS: Normal Saline Flush 10 ML SYR IVP (08:45)
[2025-02-28 08:53] VITALS: BP 138/76; PULSE 74; RESP 17; TEMP 36.8; O2SAT 97
[2025-02-28] MEDS: SODIUM CHLORIDE 0.45% 1,000 ML 50 ML IV (10:35)
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
--- NOTE | 2025-02-28 10:47 | PDOC.HHF2F_ITS ---
Date of service: 02/28/25 Time of Service: 10:47 Home Health Referral Home Health Orders Clinical synopsis of why skilled professionals are needed: confusion, medication oversight, routine nursing and PT evaluation and treatment Medical diagnosis necessitation home health referral: hepatic encephalopathy Registered Nurse: Check all that apply Instruct on new or changed medication(s)/assess compliance: Ordered Assess for exacerbation of medical condition, instruct patient/caregivers on signs and symptoms to report for early detection: Ordered Physical Therapist: Check all that apply Increase strength & endurance for safe mobility at home: Ordered To design/establish home maintenance program: Ordered Fall reduction therapy program for patient with history of frequent falls: Ordered Home safety evaluation and teaching/gait training including stair management (if applicable): Ordered Occupational Therapist: Evaluate and treat for patient unable to perform ADL/IADL/self-care: Ordered Upper extremity strengthening, range and motion: Ordered Catering Barista: Assist with community resources: Ordered Assist with supervisor intermediates care planning: Ordered Home Bound Status Requires the aid of supportive device (check all that apply): Walker Describe why leaving home would require a considerable and taxing effort: Side effects from pain medication (sedation/drowsiness), Requires frequent rest periods and Confusion Encounter Date and Reason: I certify that a FTF encounter for this patient was performed on February 28, 2025 and that such encounter was related to the primary reason the patient requires home health services. The encounter was conducted in the following manner: * By me as the certifying physician, [employer]UST[employer]S [employer] BORDER PROTECTION OFFICER, PA or * By an inpatient physician, CUSTOMS AND BORDER PROTECTION OFFICER or PA during an inpatient stay who communicated findings to me, Certification And Authentication I certify that I composed the above information based on my clinical judgment relating to this patient's medical condition and, if applicable, clinical findings communicated to me by the NPP or inpatient physician who performed the FTF encounter. Name of Provider that will be monitoring home health services: Stefani Jones
--- NOTE | 2025-02-28 11:00 | PDOC.CMDIS ---
Date of service: 02/28/25 Time of Service: 11:01 LACE Index Scoring Tool Questions: Length of Stay (in days): 1 Was the patient admitted via the E.D.?: Yes Comorbidities: Diabetes w/o Complication E.D. Visits: 2 Answers: Total Score: 7 Risk of Readmission: Low Risk Care Management Discharge Plan Reason for Hospitalization: hepatic encephalopathy Discharge Plan: Shaji will be discharged home today with new HH orders. It is recommended that he follow up with his community providers, and continue per his discharge plan of care. He will transport home via private vehicle by his family. Patient/Family Education Needs: Review of discharge instruction, activity, limitations, and plan of care. Discuss ask me three. SDOH Health Related Social Needs: Health related social needs house/econ circumstance
--- NOTE | 2025-02-28 11:12 | IN_ITS ---
PT Notes Visit Reasons: Hepatic Encephalopathy Inpatient Physical Therapy Evaluation Date: 02/28/25 Referring Doctor: Chloé Lara PT Orders: PT CONSULT: Fall Safety Assessment, safety consult for d/c, eval for AD Precautions: N/A Patient Profile/Admitting Diagnosis: Hepatic Encephalopathy Social History/Home Situation: [place] with his . He has a few stairs to manage which he normally does fine with. He doesn't go up or down the stairs in his home much. He doesn't use any form of AD and is normally fully independent. He feels like he is doing about the same as normal in terms of his mobility. Subjective: Pt states that he is feeling pretty good today. Willing to get up. Objective: General Observation: Well-appearing, just finished breakfast Mental Status: A+Ox4 Pain: Denies pain today Vital Signs: monitored by nursing ROM: WFL throughout bilat UE and LEs Strength: Able to perform SLRs, heel slides, active ankle motions bilaterally with ease Coordination: Heel to fagan - minimal deficits observed bilaterally Finger opposition - minimal deficits observed bilaterally Bed Mobility/Transfers: supine to sitting w/SBA sitting to supine w/SBA sitting to standing w/SBA standing to sitting w/SBA Gait: Ambulates 250 ft w/o any AD and with SBA Ascends/descends 4 stairs w/1 UE support and SBA Balance: Able to perform marching in standing w/o UE support Special Tests: Mobility Limitations Standardized Measure [facility] AM-PAC 6 clicks Basic Mobility Inpatient Short Form: Raw Score: 22 CMS Score: 20.91% Informed Consent/Education: Patient instructed in purpose of PT consult and plan of care. Assessment: Patient is currently functioning at his baseline and is safe to go home when medically cleared. He was able to get up and ambulate today with only SBA and without any form of AD. He did stairs without any difficulty. He does show some coordination deficits in both his UEs and LEs but he compensates well. He is able to perform marching in place without any UE support showing good balance. He can be d/c'd home when appropriate without any further services needed. Patient is assessed as a [x] Low 29569 complexity based on the following: History: Low Examination: Low Presentation: Low Decision Making: Low Goals: N/A Plan of Care/Treatment Plan: 1-2x/day, 7 days/week x 1 week. Plan of care has been reviewed with the BAD CLOTH CHECKER providing the service under Physical Therapy direction. Initiate Physical Therapy intervention for strengthening, bed mobility, transfers, gait, stairs, balance training, use of assistive device. DISCHARGE RECOMMENDATIONS: Home without any services [x] Home with no services TREATMENT CODE/TIME: Hossein Szymanski [id number] x1 - 30 min
== END 2025-02-28 14:38 | disposition home health service (06) ==
LOC: ER 15:06 → MS 15:27
PROVIDERS: Nurse Practitioner Acute Care; Admitting Provider Family Medicine; Emergency Provider Physician Assistant; PCP Family Medicine; Responsible Provider Nurse Practitioner Acute Care; Visit Provider Family Medicine
DX: K76.82 Hepatic encephalopathy (principal); E87.0 Hyperosmolality and hypernatremia; K70.30 Alcoholic cirrhosis of liver without ascites; E78.5 Hyperlipidemia, unspecified; K21.9 Gastro-esophageal reflux disease without esophagitis; N40.1 Benign prostatic hyperplasia with lower urinary tract symptoms; R39.14 Feeling of incomplete bladder emptying; I48.0 Paroxysmal atrial fibrillation; E11.9 Type 2 diabetes mellitus without complications; I10 Essential (primary) hypertension; R26.81 Unsteadiness on feet; R53.1 Weakness; F10.11 Alcohol abuse, in remission; E83.119 Hemochromatosis, unspecified; Z79.4 Long term (current) use of insulin; Z79.01 Long term (current) use of anticoagulants; Z79.899 Other long term (current) drug therapy; F17.290 Nicotine dependence, other tobacco product, uncomplicated; F12.90 Cannabis use, unspecified, uncomplicated
CPT/HCPCS: 00123; 36415; 80048; 80053; 80307; 83690; 93005; 97161; 99285; 70450; 71046; 80320; 81003; 82140; 83735; 84484; 85025; 93010; 99223; 99238; G0378; J1815; J3490